=== PATIENT | male | born 1955 | race Caucasian/White ===

== ENCOUNTER 2020-07-09 18:39 | Emergency (ER) | payer MEDICAID, SELFPAY ==
[2020-07-09 18:51] VITALS: BP 143/82; BP 170/80; PULSE 61; PULSE 82; RESP 16; TEMP 36.8; O2SAT 98; BMI 26.6
--- NOTE | 2020-07-09 18:56 | ED_ITS ---
HPI - General Adult General Chief complaint: ETOH/Substance Use Stated complaint: etoh Time Seen by Provider: 07/09/20 18:56 Source: patient Mode of arrival: EMS Limitations: no limitations History of Present Illness HPI narrative: Patient is intoxicated states he coughed dried blood. Patient is a long time alcoholic Onset (ago): minute(s) Severity: mild Associated symptoms: other (urinary frequency) Related Data Allergies Allergy/AdvReac Type Severity Reaction Status Date / Time No Known Allergies Allergy Unknown UNKNOWN Unverified 06/11/20 14:56 [NO KNOWN ALLERGIES] Review of Systems Constitutional: Constitutional: Reports no additional constitutional complaints Eyes: Eyes: Reports no additional eye complaints ENT: Denies dizziness Cardiovascular: Cardiovascular: Reports no additional cardiovascular complaints Respiratory: Respiratory: Reports as per HPI Gastrointestinal: Gastrointestinal: Reports no additional gastrointestinal complaints Musculoskeletal: Musculoskeletal: Reports no additional musculoskeletal complaints Integumentary/Breasts: Skin/Breast: Denies rash Neurologic: Reports system reviewed and no additional complaints, except as documented, Denies dizziness and Denies Sensory deficit (Neuro) Psychiatric: Psychiatric: Denies anxiety [facility] Past Medical History Medical History (Updated 07/09/20 @ 21:01 by Anupam Dozier MD) Patient denies medical problems Social History Social History Alcohol intake: current Alcohol type: beer Use of substances other than those prescribed or required for medical reasons: No Advance Directives: No Advance Directives Information Provided: Yes Physical Exam Vital Signs: Vital Signs: Vital Signs Temp Pulse Resp BP Pulse Ox 07/09/20 18:51 98.2 F 82 16 143/82 H 98 Body Mass Index 26.6 Const: Other: male looking older than stated age Nutritional Appearance: average body habitus Orientation/consciousness: oriented to person Limitations: no limitations HENMT: Head: Yes normal to inspection Ears: external ears normal General nose exam: Normal external nose present Mouth: Normal oral and palatal mucosa present and oropharynx normal Throat: Yes posterior oropharynx normal Eyes: General: appearance normal, both eyes and all related structures Neck: Other: supple Neck: Yes normal visual inspection Chest: Chest palpation & inspection: normal inspection of the chest Resp: Auscultation: clear to auscultation bilaterally Cardio: Jugular venous distension: no JVD Rate: regular rate Rhythm: regular rhythm Heart sounds: S1 normal heart sound present and S2 normal heart sound present GI: Inspection: Yes normal to inspection Palpation (GI): Soft to palpation, nontender and No hepatosplenomegaly present Auscultation: normal bowel sounds : General: Yes no CVA tenderness Back/Spine/Pelvis: Back: no CVA tenderness Skin: General skin exam: no rashes or lesions noted Neuro: General: oriented to person Cranial nerves: Yes CN's II-XII intact bilaterally Motor exam (neuro): 5/5 motor strength present throughout [place] Exam: No Sensory deficit (Neuro) Extrem: General: Yes normal to inspection Psych: Appearance: grossly normal Course Course Course Narrative: no evidence of lung pathology or abnormal UA, patient intoxicated will dc home Medical Decision Making MDM Narrative Medical decision making narrative: rule out for hemoptysis, or uti patient is intoxicated Lab Data Result diagrams: 07/09/20 19:31 07/09/20 19:31 Labs: Lab Results 07/09/20 07/09/20 07/09/20 Range/Units 19:31 19:31 19:31 WBC 8.6 (4.8-10.8) X10*3/uL RBC 3.80 L (4.60-5.80) X10*6/uL Hgb 12.3 L (14.0-18.0) g/dl Hct 35.4 L (42-52) % MCV 93.2 (80-98) fL MCH 32.4 (27.0-33.0) pg MCHC 34.7 (31.0-36.0) g/dl RDW 12.6 (11.0-16.0) % Plt Count 277 (160-400) X10*3/uL MPV 9.6 (9.4-12.4) fL Immature Gran % (Auto) 0.1 (0.0-0.4) % Neut % (Auto) 51.4 (45-73) % Lymph % (Auto) 37.2 (20-40) % [place] % (Auto) 6.6 (2-11) % Eos % (Auto) 3.8 (0-4) % Baso % (Auto) 0.9 (0-2) % Lymph # (Auto) 3.2 (1.2-4.9) X10*3/uL [place] # (Auto) 0.6 (0.1-1.2) X10*3/uL Eos # (Auto) 0.3 (0.0-0.4) X10*3/uL Baso # (Auto) 0.1 (0.0-0.2) X10*3/uL Abs Immat Gran (auto) 0.01 (0.00-0.03) X10*3/uL Absolute Neuts (auto) 4.4 (2.0-8.3) X10*3/uL Absolute Nucleated RBC 0.000 (0.0-0.012) X10*3/uL Nucleated RBC % (auto) 0.0 (0.0-0.2) /100WBC Sodium 132 L (135-145) mmol/L Potassium 3.7 (3.3-5.1) mmol/l Chloride 95 L (96-108) mmol/L Carbon Dioxide 25 (22-29) mmol/L Anion Gap 16 (12-20) BUN 8 L (9-16) mg/dL Creatinine 0.73 (0.5-1.4) mg/dL Estim Creat Clear Calc 98.0 Estimated GFR > 60 Random Glucose 78 (60-115) mg/dL Calcium 9.2 (8.4-10.2) mg/dL Urine Color Urine Appearance Urine pH (5.0-8.0) Ur Specific [place] (1.005-1.025) Urine Protein (NEG-TRACE) MG/DL Urine Glucose (UA) (NEG) MG/DL Urine Ketones (NEG) MG/DL Urine Blood (NEG) Urine Nitrite (NEG) Ur Leukocyte Esterase (NEG) Ethyl Alcohol 148 mg/dL 07/09/20 Range/Units 19:31 WBC (4.8-10.8) X10*3/uL RBC (4.60-5.80) X10*6/uL Hgb (14.0-18.0) g/dl Hct (42-52) % MCV (80-98) fL MCH (27.0-33.0) pg MCHC (31.0-36.0) g/dl RDW (11.0-16.0) % Plt Count (160-400) X10*3/uL MPV (9.4-12.4) fL Immature Gran % (Auto) (0.0-0.4) % Neut % (Auto) (45-73) % Lymph % (Auto) (20-40) % [place] % (Auto) (2-11) % Eos % (Auto) (0-4) % Baso % (Auto) (0-2) % Lymph # (Auto) (1.2-4.9) X10*3/uL [place] # (Auto) (0.1-1.2) X10*3/uL Eos # (Auto) (0.0-0.4) X10*3/uL Baso # (Auto) (0.0-0.2) X10*3/uL Abs Immat Gran (auto) (0.00-0.03) X10*3/uL Absolute Neuts (auto) (2.0-8.3) X10*3/uL Absolute Nucleated RBC (0.0-0.012) X10*3/uL Nucleated RBC % (auto) (0.0-0.2) /100WBC Sodium (135-145) mmol/L Potassium (3.3-5.1) mmol/l Chloride (96-108) mmol/L Carbon Dioxide (22-29) mmol/L Anion Gap (12-20) BUN (9-16) mg/dL Creatinine (0.5-1.4) mg/dL Estim Creat Clear Calc Estimated GFR Random Glucose (60-115) mg/dL Calcium (8.4-10.2) mg/dL Urine Color YELLOW Urine Appearance CLEAR Urine pH 6.0 (5.0-8.0) Ur Specific [place] <= 1.005 (1.005-1.025) Urine Protein NEG (NEG-TRACE) MG/DL Urine Glucose (UA) NEG (NEG) MG/DL Urine Ketones NEG (NEG) MG/DL Urine Blood NEG (NEG) Urine Nitrite NEG (NEG) Ur Leukocyte Esterase NEG (NEG) Ethyl Alcohol mg/dL Discharge Plan Discharge Clinical Impression: Alcoholic intoxication Patient Disposition: Home, Self-Care Instructions: Alcohol Intoxication (ED), Alcohol Dependence (ED)
--- NOTE | 2020-07-09 19:06 | XR_ITS ---
EXAMINATION: XR CHEST CLINICAL INFORMATION: Cough COMPARISON: 11/17/2019 TECHNIQUE: 2 views of the chest were obtained. FINDINGS: No new focal consolidation or mass. Again seen is right greater than left apical pleural parenchymal opacity. Prominent right paratracheal stripe was present on prior studies as well and corresponds to prominent vessels on the CTA 09/25/2018. No pleural effusion or pneumothorax. Tortuous aorta again seen. Normal heart size. Degenerative changes of the thoracic spine and shoulders but no acute osseous abnormality. IMPRESSION: No acute pulmonary disease.
--- NOTE | 2020-07-09 19:27 | PC.NURSE ---
PT ARRIVES VIA EMS, TRIAGED C/O A DRY COUGH AND SPITTING UP BLOOD, DESCRIBED PINK AND YELLOW AND FROTHY . DENIES VOMITING, FEVERS, PAIN. REPORTS HAVING CONSUMED 40OZ BEER TODAY, RECENTLY LEFT DETOX FOR ETOH. APPEARS UNDER THE INFLUENCE, WORDS SLURRED, SLIGHT SWAY TO HIS GAIT. ABLE TO ANSWER TO QUESTIONS APPROPRIATELY. ALSO C/O URINARY URGENCY, RECENTLY TREATED FOR UTI. URINE SPECIMEN PROVIDED, PALE CLEAR YELLOW IN APPEARANCE. MD AT BEDSIDE. LABS DRAWN. VS WNL, SKIN PWD. RESP EVEN AND NONLABOURED.
[2020-07-09 19:38] LABS: MANUAL DIFF FLAG NO
[2020-07-09 19:39] LABS: Basophils Absolute Auto 0.1 X10*3/uL (0.0-0.2); Basophils Percent Auto 0.9 % (0-2); Eosinophils Absolute Auto 0.3 X10*3/uL (0.0-0.4); Eosinophils Percent Auto 3.8 % (0-4); Hematocrit 35.4 % (42-52); Hemoglobin 12.3 g/dl (14.0-18.0); Imm Gran Abs Auto 0.01 X10*3/uL (0.00-0.03); Imm Gran Pct Auto 0.1 % (0.0-0.4); Lymphocytes Absolute Auto 3.2 X10*3/uL (1.2-4.9); Lymphocytes Percent Auto 37.2 % (20-40); Mean Corpuscular HGB Conc 34.7 g/dl (31.0-36.0); Mean Corpuscular Hemoglobin 32.4 pg (27.0-33.0); Mean Corpuscular Volume 93.2 fL (80-98); Mean Platelet Volume 9.6 fL (9.4-12.4); Monocytes Absolute Auto 0.6 X10*3/uL (0.1-1.2); Monocytes Percent Auto 6.6 % (2-11); Neutrophils Absolute Auto 4.4 X10*3/uL (2.0-8.3); Neutrophils Percent Auto 51.4 % (45-73); Platelet Count 277 X10*3/uL (160-400); Red Cell Distribution Width 12.6 % (11.0-16.0); White Blood Count 8.6 X10*3/uL (4.8-10.8)
[2020-07-09 19:49] LABS: Appearance Urine CLEAR; Color Urine YELLOW; Glucose Urine UA NEG (NEG); Leukocyte Esterase Urine NEG (NEG); Nitrite Urine NEG (NEG); Specific Gravity - Urine <= 1.005 (1.005-1.025); Urine Blood NEG (NEG); Urine Ketones NEG (NEG); Urine Protein NEG (NEG-TRACE)
[2020-07-09 20:17] LABS: Ethanol 148 mg/dL
[2020-07-09 20:19] LABS: Anion Gap 16 (12-20); Blood Urea Nitrogen 8 mg/dL (9-16); Calcium 9.2 mg/dL (8.4-10.2); Carbon Dioxide 25 mmol/L (22-29); Chloride 95 mmol/L (96-108); Estimated Glomerular Filt Rate > 60; Glucose Random 78 mg/dL (60-115); Potassium 3.7 mmol/l (3.3-5.1); Sodium 132 mmol/L (135-145)
== END 2020-07-09 21:20 | disposition home or self-care (01) ==
PROVIDERS: Emergency Provider Emergency Medicine
DX: F10.220 Alcohol dependence with intoxication, uncomplicated (principal); Y90.6 Blood alcohol level of 120-199 mg/100 ml
CPT/HCPCS: 36415; 71046; 80048; 80320; 81003; 85025; 99284

== ENCOUNTER 2020-07-10 22:29 | Emergency (ER) | payer MEDICAID, SELFPAY ==
--- NOTE | 2020-07-10 22:40 | ED_ITS ---
HPI - Alcohol General Chief Complaint: Nausea/Vomiting/Diarrhea Stated Complaint: nausea vomiting Time Seen by Provider: 07/10/20 22:37 Source: patient Mode of arrival: EMS Limitations: no limitations History of Present Illness HPI narrative: found intoxicated by EMS MD complaint: alcohol intoxication Last drink: Just prior to admission Amount of alcohol consumed: unknown Chronic alcohol use: Yes Previous visits for alcohol intoxication: Yes Related Data Allergies Allergy/AdvReac Type Severity Reaction Status Date / Time No Known Allergies Allergy Unknown UNKNOWN Unverified 06/11/20 14:56 [NO KNOWN ALLERGIES] Review of Systems Constitutional: Constitutional: Reports no additional constitutional complaints Eyes: Eyes: Reports no additional eye complaints ENT: Denies dizziness Cardiovascular: Cardiovascular: Reports no additional cardiovascular complaints Respiratory: Respiratory: Reports as per HPI Gastrointestinal: Gastrointestinal: Reports no additional gastrointestinal complaints Musculoskeletal: Musculoskeletal: Reports no additional musculoskeletal complaints Integumentary/Breasts: Skin/Breast: Denies rash Neurologic: Reports system reviewed and no additional complaints, except as documented, Denies dizziness and Denies Sensory deficit (Neuro) Psychiatric: Psychiatric: Denies anxiety [facility] Past Medical History Medical History (Updated 07/10/20 @ 22:44 by Genesis Frey) No known health problems Patient denies medical problems Social History Social History Alcohol intake: current Alcohol intake frequency: 3 or more drinks per day Alcohol type: beer Smoking Status: Current every day smoker Use of substances other than those prescribed or required for medical reasons: No Advance Directives: No Advance Directives Information Provided: Yes Physical Exam Vital Signs: Vital Signs: Vital Signs Temp Pulse Resp BP Pulse Ox 07/10/20 23:52 88 16 140/87 H 96 07/10/20 23:12 99 07/10/20 22:41 97.3 F 93 18 159/95 H 99 Body Mass Index 22.7 Const: Other: male looking older than stated age intoxicated, thin Orientation/consciousness: oriented to person and patient oriented x3 Limitations: no limitations HENMT: Head: Yes normal to inspection Ears: external ears normal General nose exam: Normal external nose present Mouth: Normal oral and palatal mucosa present and oropharynx normal Throat: Yes posterior oropharynx normal Eyes: General: appearance normal, both eyes and all related structures Neck: Other: supple Neck: Yes normal visual inspection Chest: Chest palpation & inspection: normal inspection of the chest Resp: Auscultation: clear to auscultation bilaterally Cardio: Jugular venous distension: no JVD Rate: regular rate Rhythm: regular rhythm Heart sounds: S1 normal heart sound present and S2 normal heart sound present GI: Inspection: Yes normal to inspection Palpation (GI): Soft to palpation, nontender and No hepatosplenomegaly present Auscultation: normal bowel sounds : General: Yes no CVA tenderness Back/Spine/Pelvis: Back: no CVA tenderness Skin: General skin exam: no rashes or lesions noted Neuro: General: oriented to person and patient oriented x3 Cranial nerves: Yes CN's II-XII intact bilaterally Motor exam (neuro): 5/5 motor strength present throughout Sensory Exam: No Sensory deficit (Neuro) Extrem: General: Yes normal to inspection Psych: Appearance: grossly normal Course Course Course Narrative: Patient no longer vomiting will dc home MDM - Alcohol MDM Narrative Medical decision making narrative: alcohol intoxication and vomiting, doing better will dc home Differential Diagnosis Differential diagnosis: Likely alcohol dependence and alcohol intoxication Lab Data Attestation: I reviewed the patient's lab results. Result diagrams: 07/10/20 23:01 07/10/20 23:51 Labs: Lab Results 07/10/20 07/10/20 07/10/20 Range/Units 01:57 23:01 23:01 WBC 7.7 (4.8-10.8) X10*3/uL RBC 3.81 L (4.60-5.80) X10*6/uL Hgb 12.3 L (14.0-18.0) g/dl Hct 35.7 L (42-52) % MCV 93.7 (80-98) fL MCH 32.3 (27.0-33.0) pg MCHC 34.5 (31.0-36.0) g/dl RDW 12.6 (11.0-16.0) % Plt Count 247 (160-400) X10*3/uL MPV 9.6 (9.4-12.4) fL Immature Gran % (Auto) 0.1 (0.0-0.4) % Neut % (Auto) 50.6 (45-73) % Lymph % (Auto) 35.7 (20-40) % [place] % (Auto) 7.0 (2-11) % Eos % (Auto) 5.7 H (0-4) % Baso % (Auto) 0.9 (0-2) % Lymph # (Auto) 2.8 (1.2-4.9) X10*3/uL [place] # (Auto) 0.5 (0.1-1.2) X10*3/uL Eos # (Auto) 0.4 (0.0-0.4) X10*3/uL Baso # (Auto) 0.1 (0.0-0.2) X10*3/uL Abs Immat Gran (auto) 0.01 (0.00-0.03) X10*3/uL Absolute Neuts (auto) 3.9 (2.0-8.3) X10*3/uL Absolute Nucleated RBC 0.000 (0.0-0.012) X10*3/uL Nucleated RBC % (auto) 0.0 (0.0-0.2) /100WBC Sodium Cancelled Potassium Cancelled Chloride Cancelled Carbon Dioxide Cancelled Anion Gap Cancelled BUN Cancelled Creatinine Cancelled Estim Creat Clear Calc Cancelled Estimated GFR Cancelled Random Glucose Cancelled Calcium Cancelled Ethyl Alcohol 107 mg/dL 07/10/20 Range/Units 23:51 WBC (4.8-10.8) X10*3/uL RBC (4.60-5.80) X10*6/uL Hgb (14.0-18.0) g/dl Hct (42-52) % MCV (80-98) fL MCH (27.0-33.0) pg MCHC (31.0-36.0) g/dl RDW (11.0-16.0) % Plt Count (160-400) X10*3/uL MPV (9.4-12.4) fL Immature Gran % (Auto) (0.0-0.4) % Neut % (Auto) (45-73) % Lymph % (Auto) (20-40) % [place] % (Auto) (2-11) % Eos % (Auto) (0-4) % Baso % (Auto) (0-2) % Lymph # (Auto) (1.2-4.9) X10*3/uL [place] # (Auto) (0.1-1.2) X10*3/uL Eos # (Auto) (0.0-0.4) X10*3/uL Baso # (Auto) (0.0-0.2) X10*3/uL Abs Immat Gran (auto) (0.00-0.03) X10*3/uL Absolute Neuts (auto) (2.0-8.3) X10*3/uL Absolute Nucleated RBC (0.0-0.012) X10*3/uL Nucleated RBC % (auto) (0.0-0.2) /100WBC Sodium 136 Potassium 3.4 Chloride 100 Carbon Dioxide 24 Anion Gap 15 BUN 7 L Creatinine 0.63 Estim Creat Clear Calc 113.0 Estimated GFR > 60 Random Glucose 88 Calcium 8.5 Ethyl Alcohol mg/dL Discharge Plan Discharge Clinical Impression: Alcohol abuse Patient Disposition: Home, Self-Care Instructions: Abuse of Alcohol (ED) Additional Instructions: fluids as tolerated Referrals: Physician,Unknown [Primary Care Provider] - 2 days
[2020-07-10 22:41] VITALS: BP 159/95; PULSE 101; PULSE 93; RESP 18; TEMP 36.3; O2SAT 99; BMI 22.7
[2020-07-10] MEDS: 0.9 % Sodium Chloride 500 ML 1000 ML IV (23:04)
[2020-07-10 23:05] LABS: MANUAL DIFF FLAG NO
[2020-07-10] MEDS: ondansetron HCL 4 MG/2 ML VIAL IVPUSH (23:05)
[2020-07-10 23:06] LABS: Basophils Absolute Auto 0.1 X10*3/uL (0.0-0.2); Basophils Percent Auto 0.9 % (0-2); Eosinophils Absolute Auto 0.4 X10*3/uL (0.0-0.4); Eosinophils Percent Auto 5.7 % (0-4); Hematocrit 35.7 % (42-52); Hemoglobin 12.3 g/dl (14.0-18.0); Imm Gran Abs Auto 0.01 X10*3/uL (0.00-0.03); Imm Gran Pct Auto 0.1 % (0.0-0.4); Lymphocytes Absolute Auto 2.8 X10*3/uL (1.2-4.9); Lymphocytes Percent Auto 35.7 % (20-40); Mean Corpuscular HGB Conc 34.5 g/dl (31.0-36.0); Mean Corpuscular Hemoglobin 32.3 pg (27.0-33.0); Mean Corpuscular Volume 93.7 fL (80-98); Mean Platelet Volume 9.6 fL (9.4-12.4); Monocytes Absolute Auto 0.5 X10*3/uL (0.1-1.2); Neutrophils Absolute Auto 3.9 X10*3/uL (2.0-8.3); Neutrophils Percent Auto 50.6 % (45-73); Platelet Count 247 X10*3/uL (160-400); Red Blood Count 3.81 X10*6/uL (4.60-5.80); Red Cell Distribution Width 12.6 % (11.0-16.0); White Blood Count 7.7 X10*3/uL (4.8-10.8)
--- NOTE | 2020-07-10 23:11 | PC.NURSE ---
IV ACCESS OBTAINED, SPECIMENS SENT TO LAB, PT MEDICATED PER MAR. IVF HUNG AND INFUSING WITHOUT DIFFICULTY. AWAITING RESULTS. AWARE OF PLAN OF CARE.
[2020-07-10 23:12] VITALS: O2SAT 99
--- NOTE | 2020-07-10 23:19 | PC.NURSE ---
PT GIVEN WARM BLANKET CALL REARDON WITHIN REACH. REQUESTING SNACK.
[2020-07-10 23:44] LABS: Ethanol 107 mg/dL
[2020-07-10 23:52] VITALS: BP 140/87; PULSE 88; RESP 16; O2SAT 96
--- NOTE | 2020-07-11 00:02 | PC.NURSE ---
PT EATING SNACK, TOLERATING PO WITHOUTDIFFICULTY.
[2020-07-11 00:26] LABS: Anion Gap 15 (12-20); Blood Urea Nitrogen 7 mg/dL (9-16); Calcium 8.5 mg/dL (8.4-10.2); Carbon Dioxide 24 mmol/L (22-29); Chloride 100 mmol/L (96-108); Estimated Glomerular Filt Rate > 60; Glucose Random 88 mg/dL (60-115); Potassium 3.4 mmol/l (3.3-5.1); Sodium 136 mmol/L (135-145)
--- NOTE | 2020-07-11 01:35 | PC.NURSE ---
PT RESTING IN BED NO DISTRESS NOTED AWAITING MD REEVAL.
[2020-07-11 02:00] VITALS: RESP 16
[2020-07-11 04:00] VITALS: RESP 16
== END 2020-07-11 05:33 | disposition home or self-care (01) ==
PROVIDERS: Emergency Provider Emergency Medicine
DX: F10.10 Alcohol abuse, uncomplicated (principal); R11.10 Vomiting, unspecified; Y90.5 Blood alcohol level of 100-119 mg/100 ml; F17.200 Nicotine dependence, unspecified, uncomplicated; Z71.6 Tobacco abuse counseling
CPT/HCPCS: 36415; 80048; 80320; 85025; 96374; 99284; J2405

== ENCOUNTER 2020-07-11 19:17 | Emergency (ER) | payer MEDICAID, SELFPAY ==
[2020-07-11 19:41] VITALS: BP 118/84; PULSE 92; RESP 16; TEMP 37.1; O2SAT 99; BMI 22.4
[2020-07-11 20:40] VITALS: PULSE 95; O2SAT 97
[2020-07-11 22:47] VITALS: BP 128/64; PULSE 94; RESP 19; TEMP 37.1; O2SAT 97
[2020-07-11 23:18] LABS: Glucose Urine UA NEG (NEG); Leukocyte Esterase Urine 1+ (NEG); Nitrite Urine POS (NEG); Urine Blood 1+ (NEG); Urine Ketones NEG (NEG); Urine Protein NEG (NEG-TRACE)
[2020-07-11 23:19] LABS: Appearance Urine HAZY; Color Urine YELLOW
[2020-07-11 23:52] LABS: Bacteria Urine 4+ /LPF; Squamous Epithelial Cell Urine 1+ /LPF
--- NOTE | 2020-07-12 00:02 | ED_ITS ---
HPI - Alcohol General Chief Complaint: Nausea/Vomiting/Diarrhea <ANNY Gardner Last Filed: 07/12/20 00:44> Stated Complaint: etoh <ANNY Gardner Last Filed: 07/12/20 00:44> Time Seen by Provider: 07/11/20 20:52 <ANNY Gardner Last Filed: 07/12/20 00:44> Source: EMS <ANNY Gardner Last Filed: 07/12/20 00:44> Mode of arrival: EMS <ANNY Gardner Last Filed: 07/12/20 00:44> History of Present Illness HPI narrative: 64-year-old male with past medical history of alcohol abuse presenting to ED BIBA for alcohol intoxication. Patient reports acute on chronic abdominal cramping, nausea, emesis, and right foot pain when walking. Reports feels like foot bone displaces during long walks. Also reports dry blood from rectum from hemorrhoids. Denies falls/trauma, other illicit drug use <ANNY Gardner Last Filed: 07/12/20 00:44> MD complaint: alcohol intoxication <ANNY Gardner Last Filed: 07/12/20 00:44> Last drink: Just prior to admission <ANNY Gardner Last Filed: 07/12/20 00:44> Related Data Home Medications: Previous Rx's Medication Instructions Recorded nitrofurantoin monohyd/m-cryst 100 mg PO Q12H 7 Days #14 cap 07/12/20 [Macrobid] <ANNY Gardner Last Filed: 07/12/20 00:44> Allergies/Adverse Reactions: Allergies Allergy/AdvReac Type Severity Reaction Status Date / Time No Known Allergies Allergy Unknown UNKNOWN Verified 07/11/20 19:44 [NO KNOWN ALLERGIES] <ANNY Gardner Last Filed: 07/12/20 00:44> Review of Systems Review of Systems: Constitutional: No Weight loss, No Fever Cardiovascular: No Chest Pain, No SOB Respiratory: + Cough Gastrointestinal: +Nausea, + Vomiting, No Diarrhea, No Constipation, +chronic Abdominal pain, No Melena Musculoskeletal: +R foot pain, No Myalgias, No Joint Swelling Skin: No Skin Lesions, No rash <ANNY Gardner Last Filed: 07/12/20 00:44> [facility] Past Medical History Source: old records reviewed and nursing notes reviewed <ANNY Gardner - Last Filed: 07/12/20 00:44> Medical History: Medical History (Updated 07/12/20 @ 00:47 by ANNY Gardner) No known health problems Patient denies medical problems <ANNY Gardner - Last Filed: 07/12/20 00:44> Social History Social History: Social History Alcohol intake: current Alcohol intake frequency: 3 or more drinks per day Alcohol type: beer Smoking Status: Current every day smoker Use of substances other than those prescribed or required for medical reasons: No Advance Directives: No <ANNY Gardner - Last Filed: 07/12/20 00:44> Physical Exam Vital Signs: Vital Signs: Vital Signs Temp Pulse Resp BP Pulse Ox 07/12/20 03:15 98.6 F 99 19 116/68 96 07/12/20 01:52 98.5 F 96 17 118/67 95 07/11/20 22:47 98.7 F 94 19 128/64 97 07/11/20 20:40 97 07/11/20 19:41 98.7 F 92 16 118/84 99 Body Mass Index 22.4 <ANNY Gardner - Last Filed: 07/12/20 00:44> Vital Signs: Vital Signs Temp Pulse Resp BP Pulse Ox 07/12/20 03:15 98.6 F 99 19 116/68 96 07/12/20 01:52 98.5 F 96 17 118/67 95 07/11/20 22:47 98.7 F 94 19 128/64 97 07/11/20 20:40 97 07/11/20 19:41 98.7 F 92 16 118/84 99 Body Mass Index 22.4 <Renetta Little MD - Last Filed: 07/12/20 03:16> Const: Other: ETOH odor on breath <ANNY Gardner - Last Filed: 07/12/20 00:44> General: intoxicated appearing <ANNY Gardner - Last Filed: 07/12/20 00:44> HENMT: Other: atraumatic <ANNY Gardner - Last Filed: 07/12/20 00:44> Head: Yes normal to inspection <ANNY Gardner - Last Filed: 07/12/20 00:44> Ears: hearing grossly normal bilaterally <ANNY Gardner - Last Filed: 07/12/20 00:44> General nose exam: Normal external nose present <ANNY Gardner - Last Filed: 07/12/20 00:44> Face and sinus: Yes normal facial exam <ANNY Gardner - Last Filed: 07/12/20 00:44> Eyes: General: appearance normal, both eyes and all related structures <ANNY Gardner - Last Filed: 07/12/20 00:44> EOM: EOMs intact bilaterally <ANNY Gardner - Last Filed: 07/12/20 00:44> Neck: Neck: Yes normal visual inspection <ANNY Gardner - Last Filed: 07/12/20 00:44> Resp: Effort & Inspection: normal respiratory effort <ANNY Gardner - Last Filed: 07/12/20 00:44> Cardio: Rate: regular rate <ANNY Gardner - Last Filed: 07/12/20 00:44> GI: Inspection: Yes normal to inspection <ANNY Gardner - Last Filed: 07/12/20 00:44> Palpation (GI): Soft to palpation, nontender, no guarding and not rigid <ANNY Gardner - Last Filed: 07/12/20 00:44> Skin: Rashes: no rashes <ANNY Gardner - Last Filed: 07/12/20 00:44> Wounds: no wounds <ANNY Gardner - Last Filed: 07/12/20 00:44> Extrem: Other: right foot with mild tenderness. No deformity/erythema/ fluctuance/induration <ANNY Gardner - Last Filed: 07/12/20 00:44> Course Course Course Narrative: - UA infected >> 1st dose Macrobid ordered in the ED - right foot x-ray with diffuse osteopenia. No evidence of acute osseous abnormality. 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 Little pending clinical sobreity <ANNY Gardner - Last Filed: 07/12/20 00:44> MDM - Alcohol MDM Narrative Medical decision making narrative: 64-year-old male with past medical history of alcohol abuse presenting to ED BIBA for alcohol intoxication. On exam VSS, NAD, intoxicated, TENA, with n ausea/ spitting up on exam. Patient was seen and evaluated in ED the past two nights for similar symptoms, on 07/09 had labs/ CXR that were WNL. Likely acute on chronic alcohol intoxication with alcohol dependence. Rule out foot fracture. Low concern for GI bleed/other infectious etiology plan: Foot x-ray , Zofran, observed and reassessed for clinical sobriety <ANNY Gardner - Last Filed: 07/12/20 00:44> Lab Data Labs: Lab Results 07/11/20 Range/Units 23:01 Urine Color YELLOW Urine Appearance HAZY Urine pH 7.0 (5.0-8.0) Ur Specific [place] 1.010 (1.005-1.025) Urine Protein NEG (NEG-TRACE) MG/DL Urine Glucose (UA) NEG (NEG) MG/DL Urine Ketones NEG (NEG) MG/DL Urine Blood 1+ H (NEG) Urine Nitrite POS H (NEG) Ur Leukocyte Esterase 1+ H (NEG) Urine RBC 1-4 (0) /HPF Urine WBC 15-29 H (0-4) /HPF Ur Squamous Epith Cells 1+ /LPF Urine Bacteria 4+ /LPF <ANNY Gardner - Last Filed: 07/12/20 00:44> Lab Results 07/11/20 Range/Units 23:01 Urine Color YELLOW Urine Appearance HAZY Urine pH 7.0 (5.0-8.0) Ur Specific [place] 1.010 (1.005-1.025) Urine Protein NEG (NEG-TRACE) MG/DL Urine Glucose (UA) NEG (NEG) MG/DL Urine Ketones NEG (NEG) MG/DL Urine Blood 1+ H (NEG) Urine Nitrite POS H (NEG) Ur Leukocyte Esterase 1+ H (NEG) Urine RBC 1-4 (0) /HPF Urine WBC 15-29 H (0-4) /HPF Ur Squamous Epith Cells 1+ /LPF Urine Bacteria 4+ /LPF <Renetta Little MD - Last Filed: 07/12/20 03:16> Discharge Plan Discharge Clinical Impression: Alcohol intoxication, Acute UTI <ANNY Gardner - Last Filed: 07/12/20 00:44> Patient Disposition: Home, Self-Care <ANNY Gardner - Last Filed: 07/12/20 00:44> Instructions: Urinary Tract Infection in Men (ED), Alcohol Dependence (ED) <ANNY Gardner - Last Filed: 07/12/20 00:44> Additional Instructions: you have a urinary tract infection. Macrobid is an antibiotic, take as prescribed Stop drinking alcohol as it can kill you Follow up with her doctor Stay hydrated at home If you have worsening urine symptoms, abdominal pain, nausea /vomiting or fever return to the ED <ANNY Gardner Last Filed: 07/12/20 00:44> Prescriptions: New nitrofurantoin monohyd/m-cryst [Macrobid] 100 mg capsule 100 mg PO Q12H 7 Days Qty: 14 RF: 0 <ANNY Gardner Last Filed: 07/12/20 00:44> Referrals: ED Physician,Generic [Emergency Provider] - 3 days ( your primary care doctor) Physician,Unknown [Primary Care Provider] - 2 days <ANNY Gardner Last Filed: 07/12/20 00:44>
--- NOTE | 2020-07-12 00:03 | XR_ITS ---
EXAMINATION: XR FOOT, RIGHT CLINICAL INFORMATION: Right mid foot pain. COMPARISON: None TECHNIQUE: AP, lateral, and oblique views of the right foot. FINDINGS: Severe osteoarthritic changes are noted at the 1st MTP joint with narrowing of the joint space, subarticular sclerosis and cystic changes, irregularity of the articular margins and marginal osteophytosis. Diffuse osteopenia. 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 Recommend correlation with surgical history. No evidence of an acute fracture or dislocation. No soft tissue air or radiopaque foreign body. IMPRESSION: Diffuse osteopenia. No evidence of an acute osseous abnormality. Severe osteoarthritic changes at the 1st MTP joint in the right foot.
[2020-07-12] MEDS: Nitrofurantoin Monohyd/M-Cryst 100 MG CAPSULE PO (01:48)
[2020-07-12 01:52] VITALS: BP 118/67; PULSE 96; RESP 17; TEMP 36.9; O2SAT 95
[2020-07-12 03:15] VITALS: BP 116/68; PULSE 99; RESP 19; TEMP 37; O2SAT 96
[2020-07-12 04:00] VITALS: PULSE 15
== END 2020-07-12 05:44 | disposition home or self-care (01) ==
PROVIDERS: Physician Assistant; Emergency Provider Student in an Organized Health Care Education/Training Program
DX: F10.120 Alcohol abuse with intoxication, uncomplicated (principal); N39.0 Urinary tract infection, site not specified; F17.200 Nicotine dependence, unspecified, uncomplicated
CPT/HCPCS: 73630; 81001; 87086; 87088; 87186; 99283; 99285

== ENCOUNTER 2020-07-12 21:01 | Emergency (ER) | payer MEDICAID, SELFPAY ==
[2020-07-12 21:09] VITALS: BP 148/82; BP 150/84; PULSE 88; PULSE 94; RESP 16; O2SAT 100; O2SAT 99; BMI 21.7
--- NOTE | 2020-07-12 21:55 | ED_ITS ---
HPI - Abdominal Pain General Chief Complaint: Abdominal Pain Stated Complaint: abd pain etoh Time Seen by Provider: 07/12/20 21:47 Source: patient Mode of arrival: ambulatory Limitations: no limitations History of Present Illness HPI narrative: patient comes to the emergency room complaining of alcohol intoxication. ON arrival to the ED, pt complained of abdominal pain. Patient is intoxicated, unable to give significant history other than his abdomen hurts. patient's nurse states that when the patient got here, he told her that the abdominal pain has been present for 1 year MD elicited complaint: abdominal pain Related Data Previous Rx's Medication Instructions Recorded nitrofurantoin monohyd/m-cryst 100 mg PO Q12H 7 Days #14 cap 07/12/20 [Macrobid] Allergies Allergy/AdvReac Type Severity Reaction Status Date / Time No Known Allergies Allergy Unknown UNKNOWN Verified 07/11/20 19:44 [NO KNOWN ALLERGIES] Review of Systems Review of Systems Yes all other systems are reviewed and are negative Comments: diffuse abdominal pain, worse in the epigastric area Physical Exam Vital Signs: Vital Signs: Vital Signs Pulse Resp BP Pulse Ox 07/13/20 01:03 95 14 144/86 H 99 07/12/20 23:33 16 07/12/20 21:09 88 16 148/82 H 99 Body Mass Index 21.7 Const: Other: intoxicated HENMT: Head: Yes normal to inspection Ears: external ears normal General nose exam: Normal external nose present Eyes: General: appearance normal, both eyes and all related structures Neck: Neck: Yes normal visual inspection Chest: Chest palpation & inspection: normal inspection of the chest Resp: Other: normal breath sounds bilaterally, no wheezing rales or crackles Effort & Inspection: able to speak in complete sentences Cardio: Heart sounds: S1 normal heart sound present and S2 normal heart sound present GI: Other: diffuse abdominal pain on palpation, seems to be worse in the epigastric area : General: Yes no CVA tenderness Back/Spine/Pelvis: Back: no CVA tenderness Skin: General skin exam: no rashes or lesions noted Neuro: Other: intoxicated, cranial nerves 2-12 grossly intact Extrem: General: Yes normal to inspection Psych: Other: intoxicated, calm and cooperative Course Course Course Narrative: patient remains intoxicated, I talked to the patient, seems that 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 MDM - Abdominal Pain MDM Narrative Medical decision making narrative: Patient received 1 dose of IM ceftriaxone. 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 Please reassess in the morning, metabolize to freedom, then discharge, patient may need a reprinted of his Macrobid prescription. Sign-out given to Dr. Little Lab Data Result diagrams: 07/12/20 22:11 07/12/20 22:11 Labs: Lab Results 07/12/20 07/12/20 07/12/20 Range/Units 22:11 22:11 22:11 WBC 15.4 H (4.8-10.8) X10*3/uL RBC 3.57 L (4.60-5.80) X10*6/uL Hgb 11.9 L (14.0-18.0) g/dl Hct 34.0 L (42-52) % MCV 95.2 (80-98) fL MCH 33.3 H (27.0-33.0) pg MCHC 35.0 (31.0-36.0) g/dl RDW 13.0 (11.0-16.0) % Plt Count 228 (160-400) X10*3/uL MPV 10.0 (9.4-12.4) fL Immature Gran % (Auto) 0.2 (0.0-0.4) % Neut % (Auto) 75.2 H (45-73) % Lymph % (Auto) 16.9 L (20-40) % [place] % (Auto) 5.6 (2-11) % Eos % (Auto) 1.6 (0-4) % Baso % (Auto) 0.5 (0-2) % Lymph # (Auto) 2.6 (1.2-4.9) X10*3/uL [place] # (Auto) 0.9 (0.1-1.2) X10*3/uL Eos # (Auto) 0.2 (0.0-0.4) X10*3/uL Baso # (Auto) 0.1 (0.0-0.2) X10*3/uL Abs Immat Gran (auto) 0.03 (0.00-0.03) X10*3/uL Absolute Neuts (auto) 11.6 H (2.0-8.3) X10*3/uL Absolute Nucleated RBC 0.000 (0.0-0.012) X10*3/uL Nucleated RBC % (auto) 0.0 (0.0-0.2) /100WBC Sodium 133 L (135-145) mmol/L Potassium 4.0 (3.3-5.1) mmol/l Chloride 97 (96-108) mmol/L Carbon Dioxide 23 (22-29) mmol/L Anion Gap 17 (12-20) BUN 5 L (9-16) mg/dL Creatinine 0.65 (0.5-1.4) mg/dL Estim Creat Clear Calc 101.6 Estimated GFR > 60 Random Glucose 86 (60-115) mg/dL Calcium 8.9 (8.4-10.2) mg/dL Total Bilirubin 0.6 (0.0-1.0) mg/dL Direct Bilirubin 0.3 (0.0-0.5) mg/dL AST 21 (5-37) U/L ALT 9 (0-40) U/L Alkaline Phosphatase 56 (39-117) U/L Total Protein 7.1 (6.5-8.0) g/dL Albumin 3.8 (3.5-5.0) g/dL Lipase 30 (8-78) U/L Urine Color YELLOW Urine Appearance HAZY Urine pH 6.0 (5.0-8.0) Ur Specific [place] 1.010 (1.005-1.025) Urine Protein TRACE (NEG-TRACE) MG/DL Urine Glucose (UA) NEG (NEG) MG/DL Urine Ketones NEG (NEG) MG/DL Urine Blood 2+ H (NEG) Urine Nitrite NEG (NEG) Ur Leukocyte Esterase 2+ H (NEG) Urine RBC 1-4 (0) /HPF Urine WBC 15-29 H (0-4) /HPF Ur Squamous Epith Cells 1+ /LPF Urine Bacteria 1+ /LPF Urine Opiates Screen (Not Detect) Ur Barbiturates Screen (Not Detect) Ur Phencyclidine Scrn (Not Detect) Ur Amphetamines Screen (Not Detect) U Benzodiazepines Scrn (Not Detect) Urine Cocaine Screen (Not Detect) U Marijuana (THC) Screen (Not Detect) 07/12/20 Range/Units 22:11 WBC (4.8-10.8) X10*3/uL RBC (4.60-5.80) X10*6/uL Hgb (14.0-18.0) g/dl Hct (42-52) % MCV (80-98) fL MCH (27.0-33.0) pg MCHC (31.0-36.0) g/dl RDW (11.0-16.0) % Plt Count (160-400) X10*3/uL MPV (9.4-12.4) fL Immature Gran % (Auto) (0.0-0.4) % Neut % (Auto) (45-73) % Lymph % (Auto) (20-40) % [place] % (Auto) (2-11) % Eos % (Auto) (0-4) % Baso % (Auto) (0-2) % Lymph # (Auto) (1.2-4.9) X10*3/uL [place] # (Auto) (0.1-1.2) X10*3/uL Eos # (Auto) (0.0-0.4) X10*3/uL Baso # (Auto) (0.0-0.2) X10*3/uL Abs Immat Gran (auto) (0.00-0.03) X10*3/uL Absolute Neuts (auto) (2.0-8.3) X10*3/uL Absolute Nucleated RBC (0.0-0.012) X10*3/uL Nucleated RBC % (auto) (0.0-0.2) /100WBC Sodium (135-145) mmol/L Potassium (3.3-5.1) mmol/l Chloride (96-108) mmol/L Carbon Dioxide (22-29) mmol/L Anion Gap (12-20) BUN (9-16) mg/dL Creatinine (0.5-1.4) mg/dL Estim Creat Clear Calc Estimated GFR Random Glucose (60-115) mg/dL Calcium (8.4-10.2) mg/dL Total Bilirubin (0.0-1.0) mg/dL Direct Bilirubin (0.0-0.5) mg/dL AST (5-37) U/L ALT (0-40) U/L Alkaline Phosphatase (39-117) U/L Total Protein (6.5-8.0) g/dL Albumin (3.5-5.0) g/dL Lipase (8-78) U/L Urine Color Urine Appearance Urine pH (5.0-8.0) Ur Specific [place] (1.005-1.025) Urine Protein (NEG-TRACE) MG/DL Urine Glucose (UA) (NEG) MG/DL Urine Ketones (NEG) MG/DL Urine Blood (NEG) Urine Nitrite (NEG) Ur Leukocyte Esterase (NEG) Urine RBC (0) /HPF Urine WBC (0-4) /HPF Ur Squamous Epith Cells /LPF Urine Bacteria /LPF Urine Opiates Screen Not Detected (Not Detect) Ur Barbiturates Screen Not Detected (Not Detect) Ur Phencyclidine Scrn Not Detected (Not Detect) Ur Amphetamines Screen Not Detected (Not Detect) U Benzodiazepines Scrn Not Detected (Not Detect) Urine Cocaine Screen Not Detected (Not Detect) U Marijuana (THC) Screen Not Detected (Not Detect) Discharge Plan Discharge Clinical Impression: Urinary tract infection, Alcohol intoxication Prescriptions: No Action nitrofurantoin monohyd/m-cryst [Macrobid] 100 mg capsule 100 mg PO Q12H 7 Days Qty: 14 RF: 0 PMFSH Past Medical History Medical History Alcohol abuse Hard of hearing No known health problems Patient denies medical problems Social History Social History Alcohol intake: current Alcohol intake frequency: 3 or more drinks per day Alcohol type: beer Smoking Status: Current every day smoker Use of substances other than those prescribed or required for medical reasons: No Advance Directives: No Advance Directives Information Provided: No
[2020-07-12 22:18] LABS: MANUAL DIFF FLAG NO
[2020-07-12 22:20] LABS: Basophils Absolute Auto 0.1 X10*3/uL (0.0-0.2); Basophils Percent Auto 0.5 % (0-2); Eosinophils Absolute Auto 0.2 X10*3/uL (0.0-0.4); Eosinophils Percent Auto 1.6 % (0-4); Hemoglobin 11.9 g/dl (14.0-18.0); Imm Gran Abs Auto 0.03 X10*3/uL (0.00-0.03); Imm Gran Pct Auto 0.2 % (0.0-0.4); Lymphocytes Absolute Auto 2.6 X10*3/uL (1.2-4.9); Lymphocytes Percent Auto 16.9 % (20-40); Mean Corpuscular Hemoglobin 33.3 pg (27.0-33.0); Mean Corpuscular Volume 95.2 fL (80-98); Monocytes Absolute Auto 0.9 X10*3/uL (0.1-1.2); Monocytes Percent Auto 5.6 % (2-11); Neutrophils Absolute Auto 11.6 X10*3/uL (2.0-8.3); Neutrophils Percent Auto 75.2 % (45-73); Platelet Count 228 X10*3/uL (160-400); Red Blood Count 3.57 X10*6/uL (4.60-5.80); White Blood Count 15.4 X10*3/uL (4.8-10.8)
--- NOTE | 2020-07-12 22:42 | PC.NURSE ---
IV established, labs and urine obtained and sent. Pt aware of plan to CT.
[2020-07-12 22:44] LABS: Glucose Urine UA NEG (NEG); Leukocyte Esterase Urine 2+ (NEG); Nitrite Urine NEG (NEG); Urine Blood 2+ (NEG); Urine Ketones NEG (NEG); Urine Protein TRACE MG/DL (NEG-TRACE)
[2020-07-12 22:45] LABS: Appearance Urine HAZY; Color Urine YELLOW
[2020-07-12 23:01] LABS: Alanine Aminotransferase 9 U/L (0-40); Albumin Level 3.8 g/dL (3.5-5.0); Alkaline Phosphatase 56 U/L (39-117); Anion Gap 17 (12-20); Aspartate Amino Transferase 21 U/L (5-37); Bilirubin Direct 0.3 mg/dL (0.0-0.5); Bilirubin Total 0.6 mg/dL (0.0-1.0); Blood Urea Nitrogen 5 mg/dL (9-16); Calcium 8.9 mg/dL (8.4-10.2); Carbon Dioxide 23 mmol/L (22-29); Chloride 97 mmol/L (96-108); Creatinine Clr Calc Pharmacy 101.6; Estimated Glomerular Filt Rate > 60; Glucose Random 86 mg/dL (60-115); Lipase 30 U/L (8-78); Sodium 133 mmol/L (135-145); Total Protein 7.1 g/dL (6.5-8.0)
[2020-07-12 23:03] LABS: Bacteria Urine 1+ /LPF; Squamous Epithelial Cell Urine 1+ /LPF
[2020-07-12 23:33] VITALS: RESP 16
--- NOTE | 2020-07-12 23:33 | PC.NURSE ---
Pt sleeping in bed at this time, visible chest rise noted, RR 16/min, awaiting CT.
[2020-07-12 23:34] LABS: Amphetamine Screen Urine Not Detected (Not Detect); Barbiturates, Urine Not Detected (Not Detect); Benzodiazepines Screen Urine Not Detected (Not Detect); Cannabinoid Screen Urine Not Detected (Not Detect); Cocaine Screen Urine Not Detected (Not Detect); Opiate Screen Urine Not Detected (Not Detect); Phencyclidine Screen Urine Not Detected (Not Detect)
--- NOTE | 2020-07-13 00:15 | CT_ITS ---
EXAMINATION: CT ABDOMEN AND PELVIS WITH CONTRAST CLINICAL INFORMATION: Diffuse abdominal pain, worse epigastrium COMPARISON: 05/12/2017 TECHNIQUE: Multidetector volumetric images were obtained from the superior aspect of the liver through the pubic symphysis following administration 85 mL of Omnipaque 350 intravenous contrast. Sagittal and coronal reformatted images were obtained on the technologist's workstation. Oral contrast: No This CT examination was performed using dose optimization techniques as appropriate, variously including the following: *Automated exposure control *Adjustment of mA and/or kV according to patient size (this includes techniques or standardized protocols for targeted exams where dose is matched to indication/reason for exam; i.e. extremities or head) *Use of iterative reconstruction technique DLP: 498 mGy-cm FINDINGS: LUNG BASES: The visualized lung bases are unremarkable. LIVER, GALLBLADDER, AND BILIARY TREE: The liver is normal in size, shape, and attenuation. Subcentimeter hypodensity in the right hepatic lobe is too small to characterize. No biliary ductal dilatation is present. Cholelithiasis is noted. PANCREAS: Unremarkable. SPLEEN: Unremarkable. ADRENAL GLANDS: Unremarkable. KIDNEYS AND URETERS: The kidneys are normal in size, shape, and attenuation. There are multiple scattered hypoattenuating lesions in the bilateral kidneys, statistically favoring cysts though overall too small to characterize. There are a few scattered bilateral renal calculi measuring up to 4 mm. No hydronephrosis, hydroureter, or obstructing calculi seen. No perinephric stranding. BLADDER: Distended with a thick-walled appearance. GASTROINTESTINAL TRACT: Colonic diverticulosis is noted. The small and large bowel are otherwise unremarkable without evidence of obstruction or pericolonic inflammatory change. The appendix is unremarkable. No free fluid or free air is seen. ABDOMINAL WALL: No significant hernia is appreciated. LYMPH NODES: Normal. VASCULAR: There is atherosclerotic calcification along the aorta and iliac arteries. PELVIC VISCERA: Unremarkable. OSSEOUS STRUCTURES: Degenerative changes are noted in the spine. IMPRESSION: 1. Thick-walled appearance of the urinary bladder, which could reflect cystitis. Correlation with urinalysis is recommended. 2. Cholelithiasis. 3. Colonic diverticulosis without diverticulitis
[2020-07-13] MEDS: iohexoL 350 MG/ML 100 ML INFUS..BTL 85 ML IV (00:46)
[2020-07-13 01:03] VITALS: BP 144/86; PULSE 95; RESP 14; O2SAT 99
--- NOTE | 2020-07-13 01:05 | PC.NURSE ---
Pt remains asleep in bed at this time, awaiting CT results. VSS. Continue to monitor.
[2020-07-13] MEDS: cefTRIAXone sodium 1 GM VIAL IM (01:56)
--- NOTE | 2020-07-13 01:59 | PC.NURSE ---
1% Lidocaine not stocked in pyxis. Verbal order from MD to use 2%. Pt medicated per EMAR. Continue to monitor.
== END 2020-07-13 08:14 | disposition home or self-care (01) ==
PROVIDERS: Emergency Provider Emergency Medicine
DX: N39.0 Urinary tract infection, site not specified (principal); F10.120 Alcohol abuse with intoxication, uncomplicated; Y90.9 Presence of alcohol in blood, level not specified
CPT/HCPCS: 36415; 74177; 80048; 80076; 80307; 81001; 83690; 85025; 96372; 99284; J0696

== ENCOUNTER 2020-07-22 03:35 | Emergency (ER) | payer MEDICAID, SELFPAY ==
--- NOTE | 2020-07-22 03:39 | ED.ABDPAIN ---
HPI - Abdominal Pain General Chief Complaint: Abdominal Pain Stated Complaint: ABD PAIN Time Seen by Provider: 07/22/20 03:39 Source: patient, EMS and old records reviewed Mode of arrival: EMS Limitations: no limitations History of Present Illness MD elicited complaint: abdominal pain and other (they woke me up and made me come home) Pertinent past history: past UTI (did not fill Rx from last visit) Onset (ago): day(s) (1) Pain Consistency: constant Location: suprapubic Severity: mild Quality: dull Radiation: none Migration to: no migration Exacerbating factors: nothing Relieving factors: nothing Context: history of similar episodes Associated symptoms: denies other symptoms Related Data Previous Rx's Medication Instructions Recorded nitrofurantoin monohyd/m-cryst 100 mg PO Q12H 7 Days #14 cap 07/12/20 [Macrobid] Allergies Allergy/AdvReac Type Severity Reaction Status Date / Time No Known Allergies Allergy Unknown UNKNOWN Verified 07/22/20 03:56 [NO KNOWN ALLERGIES] Review of Systems Review of Systems Constitutional : No Weight loss, No Fever, No Chills ENT/Mouth : No sore throat, No Rhinorrhea Eyes: No Eye Pain, No Swelling, No Redness Cardiovascular : No Chest Pain, No SOB Respiratory : No Cough, No Sputum, No Wheezing Gastrointestinal : No Nausea, No Vomiting, No Diarrhea, No Constipation, pos abdominal Pain Genitourinary : No Dysuria, No Urinary Frequency, No Hematuria, Musculoskeletal : No joint pain, No Myalgias, No Joint Swelling Skin : No Skin Lesions, No rash Neuro : No Weakness, No Numbness, No Dizziness, No Headache Psych : No Anxiety/Panic, No Depression Heme/Lymph: No Bruising, No Bleeding,No Lymphadenopathy Endocrine : No Polyuria, No Polydipsia All other systems reviewed and are negative Physical Exam Vital Signs: Vital Signs: Vital Signs Temp Pulse Resp BP Pulse Ox 07/22/20 03:50 97.6 F 88 18 140/83 H 100 Body Mass Index 21.7 Appearance: Alert. Oriented X3. No acute distress. Disheveled Eyes: Pupils equal, round and reactive to light. ENT: Pharynx normal. Neck: Normal inspection. Neck supple. CVS: Normal heart rate and rhythm. Pulses normal. Respiratory: No respiratory distress. Breath sounds normal. Abdomen: Soft and mild suprapubic ttp Skin: Skin warm and dry. Normal skin color. Normal skin turgor. Extremities: No lower extremity edema. No calf ttp Neuro: Oriented X 3. No motor deficit. No sensory deficit. Course Course Course Narrative: no acute findings, UA negative, has no real complaints, stable for DC in the AM MDM - Abdominal Pain MDM Narrative Medical decision making narrative: 64 yo male with ETOH abuse and chronic UTIs - he does not take his antibiotics, at this time will need labs, UA, observation not toxic, abdomen is has mild suprapubic ttp - no flank pain, no vomiting, states they woke me up and made me come here. Lab Data Result diagrams: 07/22/20 04:26 07/22/20 04:26 Labs: Lab Results 07/22/20 07/22/20 07/22/20 Range/Units 04:17 04:26 04:26 WBC 6.2 (4.8-10.8) X10*3/uL RBC 3.85 L (4.60-5.80) X10*6/uL Hgb 12.7 L (14.0-18.0) g/dl Hct 36.8 L (42-52) % MCV 95.6 (80-98) fL MCH 33.0 (27.0-33.0) pg MCHC 34.5 (31.0-36.0) g/dl RDW 14.0 (11.0-16.0) % Plt Count 293 D (160-400) X10*3/uL MPV 9.6 (9.4-12.4) fL Immature Gran % (Auto) 0.3 (0.0-0.4) % Neut % (Auto) 42.5 L (45-73) % Lymph % (Auto) 42.7 H (20-40) % [place] % (Auto) 7.6 (2-11) % Eos % (Auto) 5.8 H (0-4) % Baso % (Auto) 1.1 (0-2) % Lymph # (Auto) 2.6 (1.2-4.9) X10*3/uL [place] # (Auto) 0.5 (0.1-1.2) X10*3/uL Eos # (Auto) 0.4 (0.0-0.4) X10*3/uL Baso # (Auto) 0.1 (0.0-0.2) X10*3/uL Abs Immat Gran (auto) 0.02 (0.00-0.03) X10*3/uL Absolute Neuts (auto) 2.6 (2.0-8.3) X10*3/uL Absolute Nucleated RBC 0.000 (0.0-0.012) X10*3/uL Nucleated RBC % (auto) 0.0 (0.0-0.2) /100WBC Hold Blue Top SEE NOTE Urine Color STRAW Urine Appearance CLEAR Urine pH 6.5 (5.0-8.0) Ur Specific [place] <= 1.005 (1.005-1.025) Urine Protein NEG (NEG-TRACE) MG/DL Urine Glucose (UA) NEG (NEG) MG/DL Urine Ketones NEG (NEG) MG/DL Urine Blood TRACE (NEG) Urine Nitrite NEG (NEG) Ur Leukocyte Esterase NEG (NEG) Urine RBC 0 (0) /HPF Urine WBC 0-2 (0-4) /HPF Ur Squamous Epith Cells TRACE /LPF Urine Bacteria NONE /LPF Discharge Plan Discharge Clinical Impression: Homeless Patient Disposition: Home, Self-Care Instructions: Normal Exam (ED) Prescriptions: No Action nitrofurantoin monohyd/m-cryst [Macrobid] 100 mg capsule 100 mg PO Q12H 7 Days Qty: 14 RF: 0 PMFSH Past Medical History Medical History Alcohol abuse Hard of hearing No known health problems Patient denies medical problems Social History Social History Alcohol intake: current Alcohol intake frequency: 3 or more drinks per day Alcohol type: beer Smoking Status: Current some day smoker Smoked in Last 30 Days: Yes Use of substances other than those prescribed or required for medical reasons: No Advance Directives: No
[2020-07-22 03:50] VITALS: BP 138/77; BP 140/83; PULSE 70; PULSE 88; RESP 18; TEMP 36.4; O2SAT 100; O2SAT 96; BMI 21.7
[2020-07-22 04:28] LABS: Glucose Urine UA NEG (NEG); Leukocyte Esterase Urine NEG (NEG); Nitrite Urine NEG (NEG); PH 6.5 (5.0-8.0); Specific Gravity - Urine <= 1.005 (1.005-1.025); Urine Blood TRACE (NEG); Urine Ketones NEG (NEG); Urine Protein NEG (NEG-TRACE)
[2020-07-22 04:30] LABS: Appearance Urine CLEAR; Color Urine STRAW
[2020-07-22 04:35] LABS: RBC Urine 0 /HPF (0); Squamous Epithelial Cell Urine TRACE /LPF; WBC Urine 0-2 /HPF (0-4)
[2020-07-22 05:05] LABS: MANUAL DIFF FLAG NO
[2020-07-22 05:08] LABS: Basophils Absolute Auto 0.1 X10*3/uL (0.0-0.2); Basophils Percent Auto 1.1 % (0-2); Eosinophils Absolute Auto 0.4 X10*3/uL (0.0-0.4); Eosinophils Percent Auto 5.8 % (0-4); Hematocrit 36.8 % (42-52); Hemoglobin 12.7 g/dl (14.0-18.0); Imm Gran Abs Auto 0.02 X10*3/uL (0.00-0.03); Imm Gran Pct Auto 0.3 % (0.0-0.4); Lymphocytes Absolute Auto 2.6 X10*3/uL (1.2-4.9); Lymphocytes Percent Auto 42.7 % (20-40); Mean Corpuscular HGB Conc 34.5 g/dl (31.0-36.0); Mean Corpuscular Volume 95.6 fL (80-98); Mean Platelet Volume 9.6 fL (9.4-12.4); Monocytes Absolute Auto 0.5 X10*3/uL (0.1-1.2); Monocytes Percent Auto 7.6 % (2-11); Neutrophils Absolute Auto 2.6 X10*3/uL (2.0-8.3); Neutrophils Percent Auto 42.5 % (45-73); Platelet Count 293 X10*3/uL (160-400); Red Blood Count 3.85 X10*6/uL (4.60-5.80); White Blood Count 6.2 X10*3/uL (4.8-10.8)
[2020-07-22 05:49] LABS: Alanine Aminotransferase 11 U/L (0-40); Albumin Level 3.8 g/dL (3.5-5.0); Alkaline Phosphatase 63 U/L (39-117); Anion Gap 15 (12-20); Aspartate Amino Transferase 17 U/L (5-37); Bilirubin Direct < 0.2 mg/dL (0.0-0.5); Bilirubin Total 0.4 mg/dL (0.0-1.0); Blood Urea Nitrogen 7 mg/dL (9-16); Calcium 8.6 mg/dL (8.4-10.2); Carbon Dioxide 24 mmol/L (22-29); Chloride 99 mmol/L (96-108); Creatinine Clr Calc Pharmacy 91.6; Estimated Glomerular Filt Rate > 60; Glucose Random 79 mg/dL (60-115); Lipase 40 U/L (8-78); Magnesium 1.8 mg/dL (1.6-2.6); Potassium 4.3 mmol/l (3.3-5.1); Sodium 134 mmol/L (135-145)
[2020-07-22 06:53] VITALS: BP 93/48; PULSE 87; RESP 14; O2SAT 95
[2020-07-22 07:09] LABS: Ethanol 106 mg/dL
== END 2020-07-22 07:08 | disposition home or self-care (01) ==
PROVIDERS: Emergency Provider Emergency Medicine
DX: R10.10 Upper abdominal pain, unspecified (principal); Z79.899 Other long term (current) drug therapy
CPT/HCPCS: 36415; 80048; 80076; 80320; 81001; 83690; 83735; 85025; 99283; 99284

== ENCOUNTER 2020-07-22 21:31 | Emergency (ER) | payer MEDICAID, SELFPAY ==
[2020-07-22 21:37] VITALS: BP 116/76; PULSE 84; PULSE 89; RESP 18; TEMP 36; O2SAT 96; O2SAT 98; BMI 25.0
--- NOTE | 2020-07-22 21:41 | ED.ABDPAIN ---
HPI - Abdominal Pain General Chief Complaint: ETOH/Substance Use Stated Complaint: ETOH,ABD PAIN D/T TOO MUCH FOOD Time Seen by Provider: 07/22/20 21:41 Source: patient and EMS Mode of arrival: EMS Limitations: no limitations History of Present Illness HPI narrative: just seen yesterday for same - normal labs, urine MD elicited complaint: abdominal pain Pertinent past history: other (ETHO) Onset (ago): week(s) Pain Consistency: constant Location: suprapubic Severity: mild Quality: aching Radiation: none Migration to: no migration Exacerbating factors: nothing Relieving factors: nothing Context: history of similar episodes Associated symptoms: denies other symptoms Related Data Previous Rx's Medication Instructions Recorded nitrofurantoin monohyd/m-cryst 100 mg PO Q12H 7 Days #14 cap 07/12/20 [Macrobid] Allergies Allergy/AdvReac Type Severity Reaction Status Date / Time No Known Allergies Allergy Unknown UNKNOWN Verified 07/22/20 21:36 [NO KNOWN ALLERGIES] Review of Systems Review of Systems Constitutional : No Weight loss, No Fever, No Chills ENT/Mouth : No sore throat, No Rhinorrhea Eyes: No Swelling, No Redness Cardiovascular : No Chest Pain, No SOB, NoEdema Respiratory : No Cough, No Sputum, No Wheezing Gastrointestinal : no Nausea, no Vomiting, no Diarrhea, positive abdominal Pain, No Hematochezia, No Melena Genitourinary : No Dysuria, No Urinary Frequency, No Hematuria, No Urgency Musculoskeletal : No joint pain, No Myalgias, No Joint Swelling Skin : No Skin Lesions, No rash Neuro : No Weakness, No Numbness, No Dizziness, No Headache Psych : No Anxiety/Panic, No Depression Heme/Lymph: No Bruising, No Lymphadenopathy Endocrine : No Polyuria, No Polydipsia All other systems reviewed and are negative. Physical Exam Vital Signs: Vital Signs: Vital Signs Temp Pulse Resp Pulse Ox 07/23/20 04:00 16 07/22/20 21:37 96.8 F 89 18 98 Body Mass Index 25.0 Appearance: Alert. Oriented X3. No acute distress. disheveled, ETOH odor Eyes: Pupils equal, round and reactive to light. ENT: Pharynx normal. Neck: Normal inspection. Neck supple. CVS: Normal heart rate and rhythm. Pulses normal. Respiratory: No respiratory distress. Breath sounds normal. Abdomen: Soft and mild tenderness suprapubic area. Skin: Skin warm and dry. Normal skin color. Normal skin turgor. Extremities: No lower extremity edema. No calf ttp Neuro: Oriented X 3. No motor deficit. No sensory deficit. Course Course Course Narrative: no acute findings stable for DC MDM - Abdominal Pain MDM Narrative Medical decision making narrative: 64 yo male just seen here this AM comes in with ETOH and lower abdominal pain, labs normal yesterday and urine was clean at this time will obtain CT scan for mass/constipation, allow him to metabolize in ED, this could also be due to unstable housing situation. Lab Data Labs: Lab Results 07/22/20 Range/Units 23:31 Ethyl Alcohol 104 mg/dL Discharge Plan Discharge Clinical Impression: Alcoholic intoxication Qualifiers: Complication of substance-induced condition: uncomplicated Qualified Code(s): F10.920 - Alcohol use, unspecified with intoxication, uncomplicated Abdominal pain Qualifiers: Abdominal location: lower abdomen, unspecified Qualified Code(s): R10.30 - Lower abdominal pain, unspecified Patient Disposition: Home, Self-Care Instructions: Abuse of Alcohol (ED), Abdominal Pain (ED) Additional Instructions: return to the ED if not better Prescriptions: No Action nitrofurantoin monohyd/m-cryst [Macrobid] 100 mg capsule 100 mg PO Q12H 7 Days Qty: 14 RF: 0 PMFSH Past Medical History Medical History Alcohol abuse Hard of hearing No known health problems Patient denies medical problems Social History Social History Alcohol intake: current Alcohol intake frequency: 3 or more drinks per day Alcohol type: beer Smoking Status: Former smoker Use of substances other than those prescribed or required for medical reasons: No Advance Directives: No Advance Directives Information Provided: Yes
--- NOTE | 2020-07-22 21:50 | CT_ITS ---
EXAMINATION: CT ABDOMEN AND PELVIS WITHOUT CONTRAST CLINICAL INFORMATION: Lower abdominal pain. COMPARISON: CT abdomen and pelvis 07/13/2020. TECHNIQUE: Multidetector volumetric imaging was performed from the superior aspect of the liver through the pubic symphysis. Sagittal and coronal reformatted images were obtained on the technologist's workstation. This CT examination was performed using dose optimization techniques as appropriate, variously including the following: *Automated exposure control. *Adjustment of mA and/or kV according to patient size (this includes techniques or standardized protocols for targeted exams where dose is matched to indication/reason for exam; i.e. extremities or head). *Use of iterative reconstruction technique. DLP: 334 mGy-cm FINDINGS: LUNG BASES: The visualized lung bases are unremarkable. LIVER, GALLBLADDER, AND BILIARY TREE: The liver is normal in size, shape, and attenuation. No focal hepatic lesion or biliary ductal dilatation is present. The gallbladder is now contracted compared to the prior study. Some small stones remain. There is no evidence of gallbladder wall thickening or obvious pericholecystic inflammatory changes. PANCREAS: Unremarkable. SPLEEN: Unremarkable. ADRENAL GLANDS: Unremarkable. KIDNEYS AND URETERS: The kidneys are normal in size, shape, and attenuation. Tiny punctate non-obstructing left lower pole renal calculi are seen. The renal cysts seen on the prior study are not as apparent on this noncontrast exam. No hydronephrosis, hydroureter, or other calculi seen. No perinephric stranding. BLADDER: Again noted is a moderately distended slightly thick-walled bladder which appears less thickened than noted previously. GASTROINTESTINAL TRACT: Diverticular change is present in the colon without diverticulitis. The small and large bowel are otherwise unremarkable. The appendix is unremarkable. ABDOMINAL WALL: No significant hernia is appreciated. LYMPH NODES: No retroperitoneal lymphadenopathy is present. Small bilateral inguinal lymph nodes are seen. VASCULAR: Marked atherosclerotic calcification present in the aorta and iliofemoral vessels. Common femoral stenoses are present bilaterally. PELVIC VISCERA: Unremarkable. OSSEOUS STRUCTURES: Degenerative changes are present in the spine most marked in the lower thoracic region. CT/CT abdomen pelvis wo con IMPRESSION: No significant interval change since the study of 07/13/2020. Again noted is cholelithiasis without cholecystitis, distended thick-walled bladder. Tiny punctate non-obstructing left renal calculi, colonic diverticulosis and aortoiliac atherosclerotic disease.
[2020-07-22] MEDS: Lidocaine HCl Viscous 2 % 15 ML SOLUTION MUCOUS MEM (22:54)
[2020-07-22] MEDS: Magnesium Hydrox/Alum Hydrox 30 ML ORAL.SUSP 15 ML PO (22:54)
[2020-07-23 00:19] LABS: Ethanol 104 mg/dL
--- NOTE | 2020-07-23 03:10 | PC.NURSE ---
REPORT TAKEN FROM GUI RN, FIRST CONTACT WITH PT, RETING IN BED SKIN PWD RESPIRATIONS EVEN UNLABORED.AWAITING DC IN AM. AWARE OF PLAN OF CARE.
[2020-07-23 04:00] VITALS: RESP 16
--- NOTE | 2020-07-23 04:47 | PC.NURSE ---
PT AMB TO BATHROOM STEADY GAIT. AWAITING DC IN AM.
== END 2020-07-23 06:25 | disposition home or self-care (01) ==
PROVIDERS: Emergency Provider Emergency Medicine
DX: F10.920 Alcohol use, unspecified with intoxication, uncomplicated (principal); R10.30 Lower abdominal pain, unspecified; Z79.899 Other long term (current) drug therapy
CPT/HCPCS: 74176; 80320; 99284

== ENCOUNTER 2020-07-24 00:37 | Emergency (ER) | payer MEDICAID, SELFPAY ==
[2020-07-24 00:46] VITALS: BP 130/82; PULSE 96; RESP 16; TEMP 36.8; O2SAT 98; BMI 24.0
--- NOTE | 2020-07-24 01:00 | ED.MALEGU ---
HPI - Male Genitourinary General Chief complaint: Urogenital-Male Stated complaint: ?etoh breathing funny Time Seen by Provider: 07/24/20 00:39 Source: EMS Mode of arrival: EMS Limitations: other (ETOH) History of Present Illness MD Complaint: other (possible UTI, wants to know blood type, ETOH) Onset (ago): week(s) Duration: constant Severity: mild Quality: burning Relieving factors: none Exacerbating factors: none Context: other (never takes his antibiotics) Associated symptoms: Reports denies other symptoms Related Data Previous Rx's Medication Instructions Recorded nitrofurantoin monohyd/m-cryst 100 mg PO Q12H 7 Days #14 cap 07/12/20 [Macrobid] Allergies Allergy/AdvReac Type Severity Reaction Status Date / Time No Known Allergies Allergy Unknown UNKNOWN Verified 07/24/20 00:46 [NO KNOWN ALLERGIES] Review of Systems Review of Systems: ROS unable to be obtained due to ETOH and uncooperative PMFSH Past Medical History Attestation statement: The following information was validated with the patient. Medical History Alcohol abuse Hard of hearing No known health problems Patient denies medical problems Social History Social History Alcohol intake: current Alcohol intake frequency: 3 or more drinks per day Alcohol type: hard liquor Smoking Status: Current every day smoker Use of substances other than those prescribed or required for medical reasons: No Advance Directives: No Advance Directives Information Provided: No Physical Exam Vital Signs: Vital Signs: Vital Signs Temp Pulse Resp BP Pulse Ox 07/24/20 03:59 18 07/24/20 00:46 98.3 F 96 16 130/82 98 Body Mass Index 24.0 Appearance: Alert. Oriented X3. No acute distress. uncooperative, + ETOH odor, unkempt Eyes: Pupils equal, round and reactive to light. ENT: Pharynx normal. Neck: Normal inspection. Neck supple. CVS: Normal heart rate and rhythm. Pulses normal. Respiratory: No respiratory distress. Breath sounds normal. Abdomen: Soft and nontender. Skin: Skin warm and dry. Normal skin color. Normal skin turgor. Extremities: No lower extremity edema. No calf ttp Neuro: Oriented X 3. No motor deficit. No sensory deficit. Course Course Course Narrative: up walking around, being rude to the staff, wants to leave, GCS 15 MDM - Male Genitourinary MDM Narrative Medical decision making narrative: 64 yo male with ETOH , chronic UTIs, here with ETOH and no place to stay, recent labs, CT scan negative, UA negative - will obtain ETOH and UA, also requesting his blood type, no trauma, DC once sober, may need to pursue section 35 if this pattern continues Lab Data Labs: Lab Results 07/24/20 Range/Units 01:28 Ethyl Alcohol 124 mg/dL Discharge Plan Discharge Clinical Impression: Alcohol abuse Patient Disposition: Home, Self-Care Instructions: Abuse of Alcohol (ED) Additional Instructions: return to ED for any worsening symptoms or concerns Prescriptions: No Action nitrofurantoin monohyd/m-cryst [Macrobid] 100 mg capsule 100 mg PO Q12H 7 Days Qty: 14 RF: 0
--- NOTE | 2020-07-24 01:25 | PC.NURSE ---
drink and food given. nad noted
[2020-07-24 01:54] LABS: Ethanol 124 mg/dL
[2020-07-24 03:59] VITALS: RESP 18
--- NOTE | 2020-07-24 05:24 | PC.NURSE ---
pt being rude to staff, demanding them to do things for him. pt asked to leave, refused vitals before leaving. given bus pass per request,
[2020-07-24 05:25] VITALS: RESP 18
== END 2020-07-24 05:27 | disposition home or self-care (01) ==
PROVIDERS: Emergency Provider Emergency Medicine
DX: F10.129 Alcohol abuse with intoxication, unspecified (principal); Y90.6 Blood alcohol level of 120-199 mg/100 ml; F17.200 Nicotine dependence, unspecified, uncomplicated; Z71.6 Tobacco abuse counseling
CPT/HCPCS: 80320; 99283; 99284

== ENCOUNTER 2020-09-02 21:10 | Emergency (ER) | payer MEDICAID, SELFPAY ==
[2020-09-02 21:25] VITALS: BP 136/78; BP 157/88; PULSE 74; PULSE 80; RESP 18; TEMP 36.5; O2SAT 100; O2SAT 99; BMI 25.0
--- NOTE | 2020-09-02 22:00 | XR_ITS ---
EXAMINATION: XR RIBS, RIGHT CLINICAL INFORMATION: Fall with rib pain COMPARISON: Chest radiograph 07/09/[address] abdomen pelvis 07/22/2020 TECHNIQUE: Single view chest with 4 additional views right RIBS FINDINGS: Lungs are clear. No consolidation, pneumothorax, or pleural effusion. The cardiomediastinal silhouette and pulmonary vasculature are normal. Multiple old rib fractures are seen involving 4th through 10th right ribs. On the steep oblique views, acute fractures can be seen involving the 8th and 9th posterior ribs. No pneumothorax seen. XR/XR ribs RT min 3V w CXR1V IMPRESSION: There are chronic healed rib fractures present but I believe there are new acute fractures involving the eighth and ninth ribs
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
--- NOTE | 2020-09-02 22:57 | PC.NURSE ---
PATIENT VOIDED URINE ON FLOOR, STATES WELL I ASKED FOR A URINAL FROM LIKE 5 DIFFERENT PEOPLE, SO THAT'S WHAT YOU GET! FUCK YOU! URINAL NEXT TO PATIENT WITHIN REACH PRIOR TO THIS INCIDENT. PATIENT TOLD THAT URINAL IS NEXT TO HIM AND WAS GIVEN TO HIM. ENVIRONMENTAL CALLED TO DISINFECT/CLEAN FLOOR.
[2020-09-03] VITALS: BP 132/78; PULSE 78; RESP 16; TEMP 36.2; O2SAT 96
[2020-09-03 02:00] VITALS: RESP 16
[2020-09-03 04:00] VITALS: RESP 16
--- NOTE | 2020-09-03 04:57 | PC.NURSE ---
PATIENT CONTINUES TO SLEEP AT THIS TIME. NO ACUTE DISTRESS NOTED. RESPIRATIONS EVEN/UNLABORED. WILL CONTINUE TO MONITOR.
--- NOTE | 2020-09-03 08:44 | PC.NURSE ---
Pt sleeping at this time. Awaiting d/c
== END 2020-09-03 09:48 | disposition home or self-care (01) ==
PROVIDERS: Emergency Provider Emergency Medicine
DX: F10.120 Alcohol abuse with intoxication, uncomplicated (principal); Y90.9 Presence of alcohol in blood, level not specified; S22.41XA Multiple fractures of ribs, right side, initial encounter for closed fracture; W01.198A Fall on same level from slipping, tripping and stumbling with subsequent striking against other object, initial encounter; F17.200 Nicotine dependence, unspecified, uncomplicated; Y93.9 Activity, unspecified; Y92.9 Unspecified place or not applicable; Y99.9 Unspecified external cause status
CPT/HCPCS: 71101; 99283; 99284

== ENCOUNTER 2020-09-03 17:46 | Emergency (ER) | payer MEDICAID, SELFPAY ==
[2020-09-03 18:08] VITALS: BP 148/81; PULSE 86; RESP 18; TEMP 36.7; O2SAT 98; BMI 25.8
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
[2020-09-03 21:49] VITALS: BP 139/78; PULSE 89; RESP 16; TEMP 36.6; O2SAT 96
--- NOTE | 2020-09-03 22:56 | PC.NURSE ---
PT AMBULATORY TO BATHROOM WITH STEADY GAIT 2-3 TIMES SINCE 19:00. PT HAD SODA, SANDWICH AND PUDDING. PT CALM AND COOPERATIVE.
--- NOTE | 2020-09-04 06:55 | PC.NURSE ---
PT GIVEN 2 BUS PASSES, PER HIS REQUEST. PT LEFT HIS PAPERWORK AT THE BEDSIDE. PT CAUSING A COMMOTION IN THE WR. PT INFORMED THAT [facility]. PT DOES NOT PLAN ON PICKING UP HIS PRESCRIPTIONS FROM YESTERDAY, BECAUSE HE WOULD HAVE TO WALK THERE. PT AMBULATORY TO BUS STOP.
== END 2020-09-04 07:14 | disposition home or self-care (01) ==
PROVIDERS: Emergency Provider Internal Medicine
DX: F10.10 Alcohol abuse, uncomplicated (principal); Y90.9 Presence of alcohol in blood, level not specified; Z59.0 Homelessness
CPT/HCPCS: 99284

== ENCOUNTER 2020-09-04 20:25 | Emergency (ER) | payer MEDICAID, SELFPAY ==
[2020-09-04 20:30] VITALS: BP 148/93; PULSE 77; RESP 16; TEMP 37.1; O2SAT 97; BMI 22.7
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
[2020-09-04] MEDS: Ibuprofen 600 MG TABLET PO (20:57)
--- NOTE | 2020-09-04 21:11 | PC.NURSE ---
PT BECAME AGRESSIVE AT D/C TO NURSE AND NEED TO GET SECURITY TO HELP D/C PT TO WAITING ROOM.
--- NOTE | 2020-09-04 21:20 | PC.NURSE ---
PT IS A HOMELESS MAN CHRONIC ALCOHOLIC PT HAS BEEN DRINKING TODAY WHICH IS HIS BASE. PT WILL BE D/C REQUESTING RIDE AND TOLD WE NO LONER GIVE OUT RIDE VOUCHER. PT ESCORTED TO WAITING BY SECURITY. PT AMBULATING WITH STEADY GAIT. NO RESP DISTRESS.
== END 2020-09-04 21:44 | disposition home or self-care (01) ==
PROVIDERS: Emergency Provider Internal Medicine
DX: S20.211A Contusion of right front wall of thorax, initial encounter (principal); R07.81 Pleurodynia; Y04.8XXA Assault by other bodily force, initial encounter; Y93.9 Activity, unspecified; Y92.9 Unspecified place or not applicable; Y99.9 Unspecified external cause status; Z79.899 Other long term (current) drug therapy; F17.200 Nicotine dependence, unspecified, uncomplicated; Z71.6 Tobacco abuse counseling
CPT/HCPCS: 99283; 99284

== ENCOUNTER 2020-09-08 16:17 | Emergency (ER) | payer MEDICAID, SELFPAY ==
[2020-09-08 17:01] VITALS: BP 109/72; PULSE 82; RESP 16; TEMP 36.5; O2SAT 98; BMI 22.7
[2020-09-08] MEDS: 0.9 % Sodium Chloride 1,000 ML 999 ML IVCONT (17:04)
[2020-09-08 17:40] LABS: MANUAL DIFF FLAG NO
[2020-09-08 17:53] LABS: Basophils Absolute Auto 0.1 X10*3/uL (0.0-0.2); Basophils Percent Auto 1.1 % (0-2); Eosinophils Absolute Auto 0.2 X10*3/uL (0.0-0.4); Eosinophils Percent Auto 1.8 % (0-4); Hematocrit 41.2 % (42-52); Hemoglobin 14.8 g/dl (14.0-18.0); Imm Gran Abs Auto 0.02 X10*3/uL (0.00-0.03); Imm Gran Pct Auto 0.2 % (0.0-0.4); Lymphocytes Absolute Auto 2.2 X10*3/uL (1.2-4.9); Lymphocytes Percent Auto 23.3 % (20-40); Mean Corpuscular HGB Conc 35.9 g/dl (31.0-36.0); Mean Corpuscular Hemoglobin 33.6 pg (27.0-33.0); Mean Corpuscular Volume 93.4 fL (80-98); Mean Platelet Volume 9.8 fL (9.4-12.4); Monocytes Absolute Auto 0.6 X10*3/uL (0.1-1.2); Monocytes Percent Auto 6.8 % (2-11); Neutrophils Absolute Auto 6.2 X10*3/uL (2.0-8.3); Neutrophils Percent Auto 66.8 % (45-73); Platelet Count 321 X10*3/uL (160-400); Red Blood Count 4.41 X10*6/uL (4.60-5.80); Red Cell Distribution Width 12.3 % (11.0-16.0); White Blood Count 9.3 X10*3/uL (4.8-10.8)
[2020-09-08 18:13] LABS: Ethanol 126 mg/dL
[2020-09-08 18:16] LABS: Alanine Aminotransferase 9 U/L (0-40); Albumin Level 4.2 g/dL (3.5-5.0); Alkaline Phosphatase 62 U/L (39-117); Anion Gap 16 (12-20); Aspartate Amino Transferase 17 U/L (5-37); Bilirubin Direct 0.2 mg/dL (0.0-0.5); Bilirubin Total 0.3 mg/dL (0.0-1.0); Blood Urea Nitrogen 9 mg/dL (9-16); Calcium 8.6 mg/dL (8.4-10.2); Carbon Dioxide 23 mmol/L (22-29); Chloride 95 mmol/L (96-108); Creatinine Clr Calc Pharmacy 108.2; Estimated Glomerular Filt Rate > 60; Glucose Random 85 mg/dL (60-115); Lipase 36 U/L (8-78); Potassium 3.9 mmol/l (3.3-5.1); Sodium 130 mmol/L (135-145); Total Protein 7.5 g/dL (6.5-8.0)
[2020-09-08 18:20] VITALS: BP 170/98; PULSE 93; RESP 14; O2SAT 99
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
[2020-09-08 19:03] VITALS: BP 120/83; PULSE 107; O2SAT 98
[2020-09-08 20:41] VITALS: BP 104/64; PULSE 92; RESP 16; O2SAT 100
--- NOTE | 2020-09-08 22:24 | PC.NURSE ---
pt reporting he has a bed at [facility] detox. recovery rn did not discuss this prior to his departure. call made out to [facility] to confirm bed
== END 2020-09-08 23:57 | disposition home or self-care (01) ==
PROVIDERS: Emergency Provider Internal Medicine
DX: F10.129 Alcohol abuse with intoxication, unspecified (principal); Y90.6 Blood alcohol level of 120-199 mg/100 ml; F17.200 Nicotine dependence, unspecified, uncomplicated; Z71.6 Tobacco abuse counseling; Z79.899 Other long term (current) drug therapy
CPT/HCPCS: 36415; 80048; 80076; 80320; 83690; 85025; 96360; 99284

== ENCOUNTER 2020-10-31 14:50 | Emergency (ER) | payer MEDICAID, SELFPAY ==
--- NOTE | ~2020-10-31 | CT_ITS ---
EXAMINATION: CT HEAD WITHOUT CONTRAST CT CERVICAL SPINE WITHOUT CONTRAST CLINICAL INFORMATION: Trauma COMPARISON: 11/17/2019 TECHNIQUE: Multidetector CT imaging of the head and cervical spine was performed without the use of intravenous contrast. Multiplanar reformats are reviewed. This CT examination was performed using dose optimization techniques as appropriate, variously including the following: *Automated exposure control *Adjustment of mA and/or kV according to patient size (this includes techniques or standardized protocols for targeted exams where dose is matched to indication/reason for exam; i.e. extremities or head) *Use of iterative reconstruction technique DLP: 689 mGy-cm. FINDINGS: There is no evidence of acute intracranial hemorrhage or territorial infarction. No abnormal mass effect or midline shift is seen. Garner to white matter differentiation is well preserved. No extra-axial fluid collections are identified. The ventricles are normal in size. Mild patchy subcortical and periventricular white matter low-attenuation changes chronic white matter small vessel ischemic disease. Chronic left thalamic lacunar infarct. . The osseous structures and soft tissues are normal. The mastoid air cells and visualized portions of the paranasal sinuses are well-aerated. Atlantooccipital alignment is maintained. No acute fracture or traumatic malalignment. There is a 3 mm anterolisthesis of C3 on C4 related to hypertrophic facet arthropathy. Vertebral body heights preserved. Endplate osteophytes present throughout the cervical spine, most notably at C3-C4-C5, C5-C6 and C6-C7. The paraspinal soft tissues are unremarkable. Lung bases demonstrate emphysema with biapical blebs and bulla, more pronounced at the right lung apex. CT/CT cervical spine wo con IMPRESSION: No acute intracranial pathology. No cervical spine fracture or malalignment.
--- NOTE | ~2020-10-31 | XR_ITS ---
EXAMINATIONS: XR forearm RT 2V, XR hand wrist RT CLINICAL INFORMATION: Reason for Exam fall down stairs. etoh COMPARISON: None VIEWS: Frontal lateral and oblique right wrist, frontal and lateral radius and ulna. FINDINGS: There is a comminuted dorsally displaced angulated fracture of the distal radius which extend into an articular surface. There is a fracture of the ulnar styloid. Proximal radius and ulna are intact. There are degenerative osteoarthritic changes at the carpometacarpal joints especially first and second. No other fractures or dislocations. XR/XR hand wrist RT IMPRESSION: Comminuted angulated intra-articular fractures of the distal radius and ulnar styloid. Underlying arthritis first and second carpometacarpal.
--- NOTE | ~2020-10-31 | XR_ITS ---
EXAMINATIONS: XR forearm RT 2V, XR hand wrist RT CLINICAL INFORMATION: Reason for Exam fall down stairs. etoh COMPARISON: None VIEWS: Frontal lateral and oblique right wrist, frontal and lateral radius and ulna. FINDINGS: There is a comminuted dorsally displaced angulated fracture of the distal radius which extend into an articular surface. There is a fracture of the ulnar styloid. Proximal radius and ulna are intact. There are degenerative osteoarthritic changes at the carpometacarpal joints especially first and second. No other fractures or dislocations. XR/XR forearm RT 2V IMPRESSION: Comminuted angulated intra-articular fractures of the distal radius and ulnar styloid. Underlying arthritis first and second carpometacarpal.
--- NOTE | ~2020-10-31 | CT_ITS ---
EXAMINATION: CT ABDOMEN AND PELVIS WITH CONTRAST CLINICAL INFORMATION: Fall, trauma, metastatic disease COMPARISON: 07/22/2020 TECHNIQUE: Multidetector volumetric images were obtained from the superior aspect of the liver through the pubic symphysis following administration 85 mL of Omnipaque 350 intravenous contrast. Sagittal and coronal reformatted images were obtained on the technologist's workstation. Oral contrast: No This CT examination was performed using dose optimization techniques as appropriate, variously including the following: *Automated exposure control *Adjustment of mA and/or kV according to patient size (this includes techniques or standardized protocols for targeted exams where dose is matched to indication/reason for exam; i.e. extremities or head) *Use of iterative reconstruction technique DLP: 43 mGy-cm FINDINGS: LUNG BASES: There is new opacity in the right lower lobe, likely atelectasis or contusion. Small right pleural effusion.. Normal heart size. LIVER, GALLBLADDER, AND BILIARY TREE: Low density lesion in the right lobe of liver was present previously and consistent with a hemangioma. No new focal liver lesion seen. There is a dependent calcified gallstone in an otherwise normal gallbladder. No biliary ductal dilatation. PANCREAS: Unremarkable. SPLEEN: Unremarkable. ADRENAL GLANDS: Unremarkable. KIDNEYS AND URETERS: There are areas of renal cortical thinning consistent with prior scarring. Multiple bilateral renal cysts are present. There is new/worsened severe left hydroureteronephrosis with the dilated left ureter followed distally to the urinary bladder. There is right hydroureter with no hydronephrosis. BLADDER: The bladder is circumferentially thick-walled and irregular. GASTROINTESTINAL TRACT: There may be a small hiatal hernia. The small bowel is nondilated. Normal appendix. Scattered colonic diverticulosis. No evidence of colitis or diverticulitis. ABDOMINAL WALL: No significant hernia is appreciated. LYMPH NODES: Normal. VASCULAR: Circumferential calcified atherosclerotic changes of the aorta. No aneurysm or dissection. PELVIC VISCERA: Normal size prostate. Seminal vesicles are symmetric. OSSEOUS STRUCTURES: In addition to healed bilateral rib fractures, there is a acute right posterior 10th rib fracture. Because the patient was scanned with his right forearm across his pelvis, the known comminuted right distal radius and ulnar styloid fractures are visualized. CT/CT abdomen pelvis w con IMPRESSION: New/worsened severe left hydroureteronephrosis likely due to obstruction at the left ureteral orifice. There is circumferential bladder wall irregularity which could be due to a cystitis although malignancy is possible. There is new/worsened right hydroureter as well. Acute right posterior 10th rib fracture with subjacent pleural fluid (possibly hemothorax) and right lower lobe opacity which may represent contusion or atelectasis.
--- NOTE | ~2020-10-31 | CT_ITS ---
EXAMINATION: CT CHEST WITHOUT CONTRAST CLINICAL INFORMATION: Evaluate ribs COMPARISON: Rib films 09/02/2020. Prior plain films of the chest. CT abdomen 07/22/2020. TECHNIQUE: Multidetector volumetric CT imaging of the chest was done. Axial MIP volume rendering provided. Sagittal and coronal reformatted images were obtained. This CT examination was performed using dose optimization techniques as appropriate, variously including the following: *Automated exposure control *Adjustment of mA and/or kV according to patient size (this includes techniques or standardized protocols for targeted exams where dose is matched to indication/reason for exam; i.e. extremities or head) *Use of iterative reconstruction technique DLP: 366 mGy-cm FINDINGS: MACHINE WELDER: Arms overlie the thorax resulting in some imaging artifact. OSSEOUS STRUCTURES: There are acute fractures of the right posterior ninth and 10th ribs (series 7 images 37, 43/71). These fractures are in a linear array suggesting trauma. However, the underlying bones demonstrate apparent lytic lesions with cortical expansion raising the possibility of pathologic fractures. Alternatively, these may represent a subacute injury with some bone remodeling; clinical correlation suggested. Multiple old healed right rib fractures are again noted in the fourth through 10th ribs. Coronal reformats demonstrate a healing fracture of the left proximal humerus. No other lytic lesions are seen. There is an idiopathic scoliosis with degenerative disease. Motion artifact degrades visualization of the sternum. LUNGS: Moderate emphysema with centrilobular and paraseptal disease predominating at the apices. Some images degraded by respiratory motion artifact. Mild bronchial wall thickening likely smoking related. No endobronchial lesion seen. Minor dependent atelectasis particularly on the right. No mass or consolidation seen. Correlate with smoking history. Consider entry of the patient into a program of routine yearly low-dose lung CT screening. 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 Similar appearance on prior CT scans of the chest from 2019 and 2017. Stability is reassuring, however in light of potential lytic rib lesions, further evaluation or follow-up is advised. There is moderate coronary disease. There is a 4.2 cm ascending thoracic aortic aneurysm. PLEURA: There is focal pleural thickening underlying the right rib fractures. No pneumothorax. AXILLA: No axillary adenopathy. Mild symmetric gynecomastia. The patient appears cachectic. UPPER ABDOMEN: A solitary small dependent gallstone is noted. There appears to be chronic left hydroureteronephrosis. Areas of renal parenchymal cortical scarring are seen. Atherosclerotic peripheral vascular disease. CT/CT chest wo con IMPRESSION: 1. There are 2 new right posterior rib fractures in the ninth and 10th ribs. Linear array suggests a traumatic injury, as does multiple chronic rib fractures. However, the fractures themselves appear potentially pathologic with lytic changes in the underlying bones. This could represent subacute fractures with bony remodeling or metastatic disease. Consider whole body bone scan to assess for additional lesions. No other osteolytic lesions seen on noncontrast CT of the chest. 2. Evidence of multiple prior traumas with chronic rib fractures in various stages of healing and healing left humeral fracture. 3. 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 4. Moderate emphysema. Suggest entry of the patient in [address] screening. 5. A 4.2 cm ascending thoracic aortic aneurysm. Follow-up is indicated. 6. Cholelithiasis. 7. Chronic left hydroureteronephrosis of unknown etiology. Chronic renal scarring.
[2020-10-31 15:02] VITALS: BP 142/86; PULSE 100; RESP 16; TEMP 36.1; O2SAT 87; BMI 23.3
--- NOTE | 2020-10-31 15:17 | ED.EXTPRO ---
HPI - Extremity Problem General Chief complaint: Extremity Injury, Upper Stated complaint: fall, wrist injury Time Seen by Provider: 10/31/20 15:16 Source: patient and EMS Mode of arrival: EMS History of Present Illness HPI Narrative: 65-year-old male with a past medical history of ETOH abuse presenting to the ED complaining of right hand/wrist pain and swelling s/p fall down about 6 stairs last night. Reports was trying to grab blanket which got caught on foot and caused him to fall, denies head trauma or LOC. Admits to drinking EtOH today but will not elaborate on amount. Admits to chronic body pain, unchanged, denies headache, SOB, neck/back pain MD Complaint: extremity pain and extremity swelling Onset (ago): day(s) Related Data Previous Rx's Medication Instructions Recorded nitrofurantoin monohyd/m-cryst 100 mg PO Q12H 7 Days #14 cap 07/12/20 [Macrobid] ibuprofen 600 mg PO Q6H PRN #20 tab 09/04/20 Allergies Allergy/AdvReac Type Severity Reaction Status Date / Time No Known Allergies Allergy Unknown UNKNOWN Verified 09/08/20 17:05 [NO KNOWN ALLERGIES] Review of Systems Review of Systems: Constitutional: No Fever, No Chills Eyes: No Vision Changes Cardiovascular: No Chest Pain, No SOB Gastrointestinal: No Abdominal pain Musculoskeletal:+ joint pain, + Myalgias, +Joint Swelling Skin: No Skin Lesions, No rash Neuro: No Numbness, No Loss of Consciousness, No Dizziness, No Headache Psych: +ETOH use Yes all other systems are reviewed and are negative PMFSH Past Medical History Attestation statement: The following information was validated with the patient. Medical History Alcohol abuse Hard of hearing No known health problems Patient denies medical problems Social History Social History Alcohol intake: current Alcohol intake frequency: 3 or more drinks per day Alcohol type: beer Smoking Status: Current every day smoker Advance Directives: No Advance Directives Information Provided: No Physical Exam Vital Signs: Vital Signs: Last Vital Signs Temp 97.0 F 10/31/20 15:02 Pulse 100 10/31/20 15:02 Resp 16 10/31/20 15:02 BP 142/86 H 10/31/20 15:02 Pulse Ox 87 L 10/31/20 15:02 Body Mass Index 23.3 Const: Other: intoxicated General: cooperative and poor hygiene HENMT: Head: Yes normal to inspection and Yes atraumatic Ears: hearing grossly normal bilaterally General nose exam: Normal external nose present Face and sinus: Yes normal facial exam Eyes: General: appearance normal, both eyes and all related structures Pupils: Equal, round and reactive pupils present EOM: EOMs intact bilaterally Neck: Neck: Yes normal visual inspection and Yes no meningeal signs Chest: Chest palpation & inspection: tenderness (bilateral ribs nonfocal) Resp: Effort & Inspection: normal respiratory effort Cardio: Rate: regular rate Peripheral pulses: radial pulses present GI: Inspection: Yes normal to inspection Palpation (GI): Soft to palpation, nontender, no guarding and not rigid Skin: Rashes: no rashes Neuro: General: tone normal, moves all extremities and no meningeal signs Cranial nerves: Yes Equal, round and reactive pupils present Extrem: Other: Right hand/wrist and forearm swelling and tenderness to palpation. Decreased ROM secondary to pain. Neurovascularly intact. Course Course Course Narrative: -x-ray showing comminuted intra-articular fracture of the distal radius and ulnar styloid > sugar-tong splint applied in the ED with sling. Discussed with patient needs to follow-up with orthopedics. -head/C-spine CT unremarkable -1709--chest CT showing 2 new line posterior rib fractures 9 and 10th ribs. Suggesting traumatic injury however also concern for lytic changes. Evidence of multiple prior traumas with chronic rib fractures. Moderate emphysema patient should on 2yr lung CT scan screening. 4.2 ascending thoracic aortic aneurysm. >> will obtain labs and CTAP -1800-- ED care signed out to ANNY Ortiz pending labs, CTAP and clinical sobriety MDM - Extremity (Nontraumatic) MDM Narrative Medical decision making narrative: On exam patient is sleeping, intoxicated, no apparent distress, physical exam as above. Concern for fracture of right upper extremity. Rule out ICH/other occult fracture secondary to patient being poor historian/intoxicated. Discharge Plan Discharge Clinical Impression: Fracture of wrist, Multiple rib fractures Instructions: Wrist Fracture in Adults (ED) Additional Instructions: You have a fracture of her wrist, keep splint dry and clean, you need to see the orthopedic doctor in 1 week. Ice and elevate your wrist. A CT scan of your chest also showed a 9th & 10 right-sided rib fracture. This is concerning for your fall injury as well as possible cancer with the way it appears on the imaging You have lung emphysema, he should be getting CT scans of her chest every 2 years. You also had a thoracic aortic aneurysm and should follow-up of with vascular You should stop drinking alcohol as it can kill you Prescriptions: No Action nitrofurantoin monohyd/m-cryst [Macrobid] 100 mg capsule 100 mg PO Q12H 7 Days Qty: 14 RF: 0 ibuprofen 600 mg tablet 600 mg PO Q6H PRN (Reason: pain) Qty: 20 RF: 0 Referrals: Bethany Tuttle MD [Physician] - 1 week Marcelo Farnsworth MD [Physician] - 1 week
--- NOTE | 2020-10-31 16:24 | PC.NURSE ---
pt ambulated to bathroom and back 50 ft. steady gait.
[2020-10-31 17:48] VITALS: RESP 16
[2020-10-31 20:06] VITALS: BP 130/65; PULSE 108; RESP 20; TEMP 37.1; O2SAT 94
[2020-10-31 20:24] LABS: MANUAL DIFF FLAG NO
[2020-10-31 20:26] LABS: Basophils Absolute Auto 0.1 X10*3/uL (0.0-0.2); Eosinophils Absolute Auto 0.3 X10*3/uL (0.0-0.4); Eosinophils Percent Auto 3.2 % (0-4); Hematocrit 40.4 % (42-52); Hemoglobin 14.6 g/dl (14.0-18.0); Imm Gran Abs Auto 0.03 X10*3/uL (0.00-0.03); Imm Gran Pct Auto 0.3 % (0.0-0.4); Lymphocytes Percent Auto 20.5 % (20-40); Mean Corpuscular HGB Conc 36.1 g/dl (31.0-36.0); Mean Corpuscular Hemoglobin 32.5 pg (27.0-33.0); Mean Platelet Volume 9.4 fL (9.4-12.4); Monocytes Absolute Auto 0.8 X10*3/uL (0.1-1.2); Monocytes Percent Auto 8.3 % (2-11); Neutrophils Absolute Auto 6.5 X10*3/uL (2.0-8.3); Neutrophils Percent Auto 66.7 % (45-73); Platelet Count 270 X10*3/uL (160-400); Red Blood Count 4.49 X10*6/uL (4.60-5.80); Red Cell Distribution Width 12.1 % (11.0-16.0); White Blood Count 9.7 X10*3/uL (4.8-10.8)
[2020-10-31 20:45] LABS: Ethanol 132 mg/dL
[2020-10-31 20:53] LABS: Alanine Aminotransferase 12 U/L (0-40); Albumin Level 3.9 g/dL (3.5-5.0); Alkaline Phosphatase 58 U/L (39-117); Anion Gap 18 (12-20); Aspartate Amino Transferase 24 U/L (5-37); Bilirubin Direct 0.4 mg/dL (0.0-0.5); Bilirubin Total 0.7 mg/dL (0.0-1.0); Calcium 8.6 mg/dL (8.4-10.2); Carbon Dioxide 21 mmol/L (22-29); Chloride 94 mmol/L (96-108); Creatinine Clr Calc Pharmacy 104.3; Estimated Glomerular Filt Rate > 60; Glucose Random 88 mg/dL (60-115); Potassium 3.6 mmol/L (3.3-5.1); Sodium 129 mmol/L (135-145); Total Protein 7.1 g/dL (6.5-8.0)
[2020-10-31 21:01] LABS: Blood Urea Nitrogen 4 mg/dL (9-16)
[2020-10-31 22:00] VITALS: RESP 18
[2020-10-31] MEDS: iohexoL 350 MG/ML 100 ML INFUS..BTL IV (22:44)
[2020-10-31] MEDS: 0.9 % Sodium Chloride 1,000 ML 999 ML IV (23:51)
[2020-11-01 00:01] VITALS: BP 149/86; PULSE 104; RESP 18; O2SAT 97
== END 2020-11-01 01:33 | disposition home or self-care (01) ==
PROVIDERS: Physician Assistant; Emergency Provider Emergency Medicine
DX: S62.101A Fracture of unspecified carpal bone, right wrist, initial encounter for closed fracture (principal); S22.43XA Multiple fractures of ribs, bilateral, initial encounter for closed fracture; M25.531 Pain in right wrist; M79.641 Pain in right hand; M54.2 Cervicalgia; M54.6 Pain in thoracic spine; G89.29 Other chronic pain; G44.309 Post-traumatic headache, unspecified, not intractable; R10.9 Unspecified abdominal pain; W10.9XXA Fall (on) (from) unspecified stairs and steps, initial encounter; Y93.9 Activity, unspecified; Y92.9 Unspecified place or not applicable; Y99.9 Unspecified external cause status; Z79.899 Other long term (current) drug therapy; F17.200 Nicotine dependence, unspecified, uncomplicated; Z71.6 Tobacco abuse counseling
CPT/HCPCS: 29105; 36415; 70450; 71250; 72125; 73090; 73110; 73130; 74177; 80048; 80076; 80320; 85025; 96360; 99284; 99285; Q9967

== ENCOUNTER 2020-11-01 17:17 | Emergency (ER) | payer MEDICAID, SELFPAY ==
[2020-11-01 17:30] VITALS: BP 178/100; BP 180/110; PULSE 100; PULSE 93; RESP 18; TEMP 36.6; O2SAT 99; BMI 21.9
--- NOTE | 2020-11-01 18:21 | ED.ALCOHOL ---
HPI - Alcohol General Chief Complaint: ETOH/Substance Use Stated Complaint: ETOH, DIZZY Source: patient and EMS Mode of arrival: EMS Limitations: no limitations History of Present Illness HPI narrative: Patient presents to ED for drinking alcohol and arguing with family in the liquor store. Alcohol can be smelled on breath. Patient has known right arm injury due to fracture that occurred yesterday. Alcohol on breath Related Data Previous Rx's Medication Instructions Recorded nitrofurantoin monohyd/m-cryst 100 mg PO Q12H 7 Days #14 cap 07/12/20 [Macrobid] ibuprofen 600 mg PO Q6H PRN #20 tab 09/04/20 Allergies Allergy/AdvReac Type Severity Reaction Status Date / Time No Known Allergies Allergy Unknown UNKNOWN Verified 09/08/20 17:05 [NO KNOWN ALLERGIES] Review of Systems Review of Systems: Alcohol on breath Yes all other systems are reviewed and are negative Constitutional: Constitutional: Reports as per HPI and Reports no additional constitutional complaints Eyes: Eyes: Reports as per HPI and Reports no additional eye complaints ENT: Reports system reviewed and no additional complaints, except as documented and Reports as per HPI Cardiovascular: Cardiovascular: Reports as per HPI and Reports no additional cardiovascular complaints Respiratory: Respiratory: Reports as per HPI and Reports no additional respiratory complaints Gastrointestinal: Gastrointestinal: Reports as per HPI and Reports no additional gastrointestinal complaints Genitourinary: Genitourinary: Reports no additional male genitourinary complaints and Reports as per HPI Musculoskeletal: Musculoskeletal: Reports no additional musculoskeletal complaints and Reports as per HPI Comments: Right arm fracture Neurologic: Reports system reviewed and no additional complaints, except as documented and Reports as per HPI Psychiatric: Psychiatric: Reports no additional psychiatric complaints and Reports as per HPI [facility] Past Medical History Medical History Alcohol abuse Hard of hearing Injury of right lower arm Social History Social History Alcohol intake: current Alcohol intake frequency: 3 or more drinks per day Alcohol type: beer Smoking Status: Unknown if ever smoked Use of substances other than those prescribed or required for medical reasons: Unknown Advance Directives: No Advance Directives Information Provided: No Physical Exam Vital Signs: Vital Signs: Last Vital Signs Temp 97.8 F 11/01/20 17:30 Pulse 80 11/01/20 22:00 Resp 18 11/01/20 22:00 BP 178/100 H 11/01/20 17:30 Pulse Ox 99 11/01/20 17:30 Body Mass Index 21.9 Const: Other: Alcohol on breath General: cooperative, healthy appearing, comfortable, no acute distress, well developed, alert, awake and Physically active HENMT: Head: Yes normal to inspection, Yes No palpable skull fracture present, Yes normocephalic, Yes atraumatic, Yes abrasion, No Martinez's sign, No contusion, No cranial bruits, No hematoma, No laceration, No occipital foramen tenderness, No palpable skull fracture, No raccoon eyes, No scalp lesion, No scalp tenderness, No Temporal artery tenderness present, No periorbital ecchymosis and No other Eyes: General: appearance normal, both eyes and all related structures Neck: Neck: Yes normal visual inspection, Yes full ROM, Yes no lymphadenopathy, Yes no meningeal signs, Yes trachea midline, Yes supple and No tender Chest: Chest palpation & inspection: normal inspection of the chest and normal palpation of entire chest wall Breast/axilla inspection: normal inspection of the breasts Resp: Effort & Inspection: normal respiratory effort and able to speak in complete sentences Auscultation: clear to auscultation bilaterally Cardio: Jugular venous distension: no JVD Heart sounds: S1 normal heart sound present and S2 normal heart sound present GI: Inspection: Yes normal to inspection and No abdominal wall ecchymosis Palpation (GI): Soft to palpation, not firm, nontender, no guarding and not rigid : General: No CVA tenderness and Yes no CVA tenderness Back/Spine/Pelvis: Back: no CVA tenderness, No CVA tenderness and No back tenderness Skin: General skin exam: no rashes or lesions noted and elasticity normal Neuro: Other: Alcohol on breath. Intoxicated General: no meningeal signs Extrem: General: Yes normal to inspection and Yes full ROM Psych: Appearance: grossly normal, well kempt and disheveled Course Course Course Narrative: Patient will be left in his bed to sleep and sober from the alcohol. We will re-evaluated patient when he is alert oriented x3. Presently no signs of any new trauma. Reevaluation(s) Reevaluation #1: Patient walking around the ED. Patient alert oriented x3. No signs of any new trauma. Patient has known right arm fracture and is in the cast. Time: 00:39 MDM - Alcohol MDM Narrative Medical decision making narrative: Alcohol abuse Discharge Plan Discharge Clinical Impression: Alcohol abuse Patient Disposition: Home, Self-Care Instructions: Abuse of Alcohol (ED) Additional Instructions: Return to the ED immediately any headache, dizziness, chest pain, abdominal pain, vomiting blood, blood in stool, or any other concerning symptoms. Please follow-up with PCP Prescriptions: No Action nitrofurantoin monohyd/m-cryst [Macrobid] 100 mg capsule 100 mg PO Q12H 7 Days Qty: 14 RF: 0 ibuprofen 600 mg tablet 600 mg PO Q6H PRN (Reason: pain) Qty: 20 RF: 0 Print Language: Ug[place]an
--- NOTE | 2020-11-01 19:05 | PC.NURSE ---
PT AWAKE AND EATING DINNER
[2020-11-01 22:00] VITALS: PULSE 80; RESP 18
--- NOTE | 2020-11-02 01:15 | PC.NURSE ---
PT AMBULATORY TO BR, GAIT STEADY. RE EVALUATED BY PROVIDER. PLAN IS FOR DC HOME. PT AGREEABLE. TOLERATING PO
== END 2020-11-02 01:36 | disposition home or self-care (01) ==
PROVIDERS: Emergency Provider Emergency Medicine
DX: F10.10 Alcohol abuse, uncomplicated (principal); Y90.9 Presence of alcohol in blood, level not specified
CPT/HCPCS: 99283; 99285

== ENCOUNTER 2020-11-06 01:20 | Emergency (ER) | payer MEDICAID, SELFPAY ==
--- NOTE | ~2020-11-06 | XR_ITS ---
EXAMINATION: XR FOREARM, RIGHT CLINICAL INFORMATION: Fracture. COMPARISON: 10/31/2020. TECHNIQUE: AP and lateral views of the right forearm were obtained. FINDINGS: Again identified are distal right radial and ulnar fractures. Alignment is stable. An overlying cast is in place which obscures fine bony detail. XR/XR forearm RT 2V IMPRESSION: Stable alignment of casted distal right radial and ulnar fractures.
[2020-11-06 01:27] VITALS: BMI 22.8
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
--- NOTE | 2020-11-06 03:26 | PC.NURSE ---
PATIENT REFUSING VITAL SIGNS. STATED JUST CUT MY FUCKING BELT OFF! DO YOU UNDERSTAND CHINESE?! PT INSTRUCTED THAT INAPPROPRIATE LANGUAGE IS NOT TOLERATED. BELT (MADE OF GAUZE WRAP) WAS REMOVED REQUESTED, BUT PATIENT REFUSING CARE BEYOND OBTAINING X-RAY OF ARM. RIGHT ARM NOTED TO BE SWOLLEN, BUT WOULD ONLY LET EXAMINE THE ARM DURING ASSESSMENT. PT VOIDED IN URINAL. WARM BLANKET GIVEN. WAS ABLE TO BE REDIRECTED BY STAFF. WILL CONTINUE TO MONITOR.
[2020-11-06 03:29] VITALS: RESP 18
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
== END 2020-11-06 10:44 | disposition home or self-care (01) ==
PROVIDERS: Emergency Provider Student in an Organized Health Care Education/Training Program
DX: F10.120 Alcohol abuse with intoxication, uncomplicated (principal); Y90.9 Presence of alcohol in blood, level not specified; S52.501D Unspecified fracture of the lower end of right radius, subsequent encounter for closed fracture with routine healing; S52.601D Unspecified fracture of lower end of right ulna, subsequent encounter for closed fracture with routine healing; X58.XXXD Exposure to other specified factors, subsequent encounter
CPT/HCPCS: 73090; 99284

== ENCOUNTER 2020-12-23 20:35 | Emergency (ER) | payer MEDICAID, SELFPAY ==
[2020-12-23 20:43] VITALS: BP 147/86; PULSE 94; PULSE 97; RESP 18; TEMP 35.9; O2SAT 100; O2SAT 95; BMI 29.0
--- NOTE | 2020-12-23 21:15 | ED_ITS ---
HPI - Alcohol General Chief Complaint: ETOH/Substance Use Stated Complaint: ETOH,?FALL Time Seen by Provider: 12/23/20 21:04 History of Present Illness HPI narrative: Patient positive EtOH. Refused to answer questions has no complaints. Told the provider to go away. Related Data Previous Rx's Medication Instructions Recorded nitrofurantoin monohyd/m-cryst 100 mg PO Q12H 7 Days #14 cap 07/12/20 [Macrobid] ibuprofen 600 mg PO Q6H PRN #20 tab 09/04/20 Allergies Allergy/AdvReac Type Severity Reaction Status Date / Time No Known Allergies Allergy Unknown UNKNOWN Verified 09/08/20 17:05 [NO KNOWN ALLERGIES] Review of Systems Review of Systems: Unable to obtain review systems 2nd to patient's condition Yes Unobtainable due to mental condition and Unobtainable due to mental status PMFSH Past Medical History Medical History Alcohol abuse Hard of hearing Injury of right lower arm Social History Social History Alcohol intake: current Alcohol intake frequency: 3 or more drinks per day Alcohol type: beer Smoking Status: Unknown if ever smoked Advance Directives: No Physical Exam Vital Signs: Vital Signs: Last Vital Signs Temp 96.7 F L 12/23/20 20:43 Pulse 94 12/23/20 20:43 Resp 18 12/23/20 20:43 BP 147/86 H 12/23/20 20:43 Pulse Ox 95 12/23/20 20:43 Body Mass Index 29.0 Appearance: Alert. Oriented X3. No acute distress. Eyes: Pupils equal, round and reactive to light. ENT: Pharynx normal. Neck: Normal inspection. Neck supple. No lymph nodes noted. No crepitus CVS: Normal heart rate and rhythm. Pulses normal. Normal S1 and S2 Respiratory: No respiratory distress. Breath sounds normal. No Wheezing. No rales Abdomen: Soft and nontender. No rigidity. No distention. good BS x4 Skin: Skin warm and dry. Normal skin color. Normal skin turgor. Extremities: No lower extremity edema. Neurovascular intact to all extremities. No Lacerations. No Rash Neuro: No motor deficit. No sensory deficit. Moving all extermities. No slurred speech MDM - Alcohol MDM Narrative Medical decision making narrative: Will get labs and monitor. Patient's alcohol is 1 20 range. After monitoring for approximately 3-4 hours patient is clinically sober. Patient told to stop drinking alcohol he got very upset. Told he needs follow-up for his low sodium and will require repeat check of his sodium. Patient states understanding. Will follow up in clinic. In stable condition. Will discharge home. Lab Data Result diagrams: 12/23/20 22:36 12/23/20 22:36 Labs: Lab Results 12/23/20 12/23/20 12/23/20 Range/Units 22:36 22:36 22:36 WBC 10.2 (4.8-10.8) X10*3/uL RBC 3.81 L (4.60-5.80) X10*6/uL Hgb 12.7 L (14.0-18.0) g/dl Hct 35.2 L (42-52) % MCV 92.4 (80-98) fL MCH 33.3 H (27.0-33.0) pg MCHC 36.1 H (31.0-36.0) g/dl RDW 12.1 (11.0-16.0) % Plt Count 227 (160-400) X10*3/uL MPV 9.4 (9.4-12.4) fL Immature Gran % (Auto) 0.3 (0.0-0.4) % Neut % (Auto) 61.1 (45-73) % Lymph % (Auto) 28.5 (20-40) % [place] % (Auto) 6.5 (2-11) % Eos % (Auto) 2.9 (0-4) % Baso % (Auto) 0.7 (0-2) % Lymph # (Auto) 2.9 (1.2-4.9) X10*3/uL [place] # (Auto) 0.7 (0.1-1.2) X10*3/uL Eos # (Auto) 0.3 (0.0-0.4) X10*3/uL Baso # (Auto) 0.1 (0.0-0.2) X10*3/uL Abs Immat Gran (auto) 0.03 (0.00-0.03) X10*3/uL Absolute Neuts (auto) 6.2 (2.0-8.3) X10*3/uL Absolute Nucleated RBC 0.000 (0.0-0.012) X10*3/uL Nucleated RBC % (auto) 0.0 (0.0-0.2) /100WBC Sodium 126 L (135-145) mmol/L Potassium 3.3 (3.3-5.1) mmol/L Chloride 93 L (96-108) mmol/L Carbon Dioxide 21 L (22-29) mmol/L Anion Gap 15 (12-20) BUN 5 L (9-16) mg/dL Creatinine 0.61 (0.5-1.4) mg/dL Estim Creat Clear Calc 124.3 Estimated GFR > 60 Random Glucose 91 (60-115) mg/dL Calcium 8.6 (8.4-10.2) mg/dL Ethyl Alcohol 118 mg/dL Discharge Plan Discharge Clinical Impression: Alcoholic intoxication, Acute hyponatremia Patient Disposition: Home, Self-Care Instructions: Hyponatremia (ED), Abuse of Alcohol (ED), Alcohol Dependence (ED) Additional Instructions: Please follow-up with your doctor tomorrow. Your sodium is low you will need repeat blood work. Please stop drinking alcohol. Drinking excessive amount alcohol can kill you. Please follow-up with orthopedics for your fracture in your forearm. Prescriptions: No Action nitrofurantoin monohyd/m-cryst [Macrobid] 100 mg capsule 100 mg PO Q12H 7 Days Qty: 14 RF: 0 ibuprofen 600 mg tablet 600 mg PO Q6H PRN (Reason: pain) Qty: 20 RF: 0 [facility] (Please follow-up for your low sodium. Please also follow-up for your drinking problem. Please stop drinking alcohol.) Bethany Tuttle MD [Physician] - 2 days
--- NOTE | 2020-12-23 21:15 | MHC.RECOVSUP ---
Patient refuse any service
[2020-12-23 22:40] LABS: MANUAL DIFF FLAG NO
[2020-12-23 22:41] LABS: Basophils Absolute Auto 0.1 X10*3/uL (0.0-0.2); Basophils Percent Auto 0.7 % (0-2); Eosinophils Absolute Auto 0.3 X10*3/uL (0.0-0.4); Eosinophils Percent Auto 2.9 % (0-4); Hematocrit 35.2 % (42-52); Hemoglobin 12.7 g/dl (14.0-18.0); Imm Gran Abs Auto 0.03 X10*3/uL (0.00-0.03); Imm Gran Pct Auto 0.3 % (0.0-0.4); Lymphocytes Absolute Auto 2.9 X10*3/uL (1.2-4.9); Lymphocytes Percent Auto 28.5 % (20-40); Mean Corpuscular HGB Conc 36.1 g/dl (31.0-36.0); Mean Corpuscular Hemoglobin 33.3 pg (27.0-33.0); Mean Corpuscular Volume 92.4 fL (80-98); Mean Platelet Volume 9.4 fL (9.4-12.4); Monocytes Absolute Auto 0.7 X10*3/uL (0.1-1.2); Monocytes Percent Auto 6.5 % (2-11); Neutrophils Absolute Auto 6.2 X10*3/uL (2.0-8.3); Neutrophils Percent Auto 61.1 % (45-73); Platelet Count 227 X10*3/uL (160-400); Red Blood Count 3.81 X10*6/uL (4.60-5.80); Red Cell Distribution Width 12.1 % (11.0-16.0); White Blood Count 10.2 X10*3/uL (4.8-10.8)
[2020-12-23 23:06] LABS: Ethanol 118 mg/dL
[2020-12-23 23:08] LABS: Anion Gap 15 (12-20); Blood Urea Nitrogen 5 mg/dL (9-16); Calcium 8.6 mg/dL (8.4-10.2); Carbon Dioxide 21 mmol/L (22-29); Chloride 93 mmol/L (96-108); Creatinine Clr Calc Pharmacy 124.3; Estimated Glomerular Filt Rate > 60; Glucose Random 91 mg/dL (60-115); Potassium 3.3 mmol/L (3.3-5.1); Sodium 126 mmol/L (135-145)
[2020-12-24 00:05] VITALS: BP 110/51; PULSE 84; RESP 16; O2SAT 96
== END 2020-12-24 00:43 | disposition home or self-care (01) ==
PROVIDERS: Emergency Provider Emergency Medicine Emergency Medical Services
DX: F10.129 Alcohol abuse with intoxication, unspecified (principal); E87.1 Hypo-osmolality and hyponatremia; Y90.6 Blood alcohol level of 120-199 mg/100 ml; Z79.899 Other long term (current) drug therapy
CPT/HCPCS: 36415; 80048; 80320; 85025; 99283

== ENCOUNTER 2020-12-25 18:14 | Emergency (ER) | payer MEDICAID, SELFPAY ==
--- NOTE | ~2020-12-25 | XR_ITS ---
EXAMINATION: RIGHT HAND AND WRIST CLINICAL INFORMATION: Follow-up radial fracture COMPARISON: 11/06/2020 TECHNIQUE: 3 views of the right hand and wrist FINDINGS: Again seen is a comminuted fracture involving the distal radius along with the ulnar styloid. Compared to the prior study, there is some indistinctness in fracture fragment borders indicating some interval healing. The fracture still demonstrates significant impaction and mild dorsal angulation. The plaster cast obscures detail. XR/XR hand wrist RT IMPRESSION: Comminuted distal radial fracture and fracture of ulnar styloid with some changes indicative of interval attempt at healing.
[2020-12-25 18:46] VITALS: BP 136/70; PULSE 79; RESP 16; TEMP 36.2; BMI 24.7
[2020-12-25 20:00] VITALS: PULSE 79; RESP 15
--- NOTE | 2020-12-25 21:11 | ED_ITS ---
HPI - Alcohol General Chief Complaint: ETOH/Substance Use <Casey Shanks NP - Last Filed: 12/25/20 21:16> Stated Complaint: ARM PAIN/ETOH <Casey Shanks NP - Last Filed: 12/25/20 21:16> Time Seen by Provider: 12/25/20 21:11 <Casey Shanks NP - Last Filed: 12/25/20 21:16> Source: EMS <Casey Shanks NP - Last Filed: 12/25/20 21:16> Mode of arrival: EMS <Casey Shanks NP - Last Filed: 12/25/20 21:16> Limitations: other (Intoxicated) <Casey Shanks NP - Last Filed: 12/25/20 21:16> History of Present Illness HPI narrative: Presenting intoxicated after bystanders called he was intoxicated but no fall or recent trauma. Admits to ETOH use. Also has a sugar-tong splint to the right upper extremity from October 31 for radial ulnar fracture. He is intoxicated but he is calm cooperative refusing to have this examined. He has good range of motion the fingers. Cap refill within normals. Denies any recent fall or injury. <Casey Shanks NP - Last Filed: 12/25/20 21:16> MD complaint: alcohol intoxication <Casey Shanks NP - Last Filed: 12/25/20 21:16> Chronic alcohol use: Yes <Casey Shanks NP - Last Filed: 12/25/20 21:16> Previous visits for alcohol intoxication: Yes <Casey Shanks NP - Last Filed: 12/25/20 21:16> Recent trauma: No <Casey Shanks NP - Last Filed: 12/25/20 21:16> Associated symptoms: denies other symptoms <Casey Shanks NP - Last Filed: 12/25/20 21:16> Treatments prior to arrival: none <Casey Shanks NP - Last Filed: 12/25/20 21:16> Related Data Home Medications: Previous Rx's Medication Instructions Recorded nitrofurantoin monohyd/m-cryst 100 mg PO Q12H 7 Days #14 cap 07/12/20 [Macrobid] ibuprofen 600 mg PO Q6H PRN #20 tab 09/04/20 <Casey Shanks NP - Last Filed: 12/25/20 21:16> Allergies/Adverse Reactions: Allergies Allergy/AdvReac Type Severity Reaction Status Date / Time No Known Allergies Allergy Unknown UNKNOWN Verified 09/08/20 17:05 [NO KNOWN ALLERGIES] <Casey Shanks NP - Last Filed: 12/25/20 21:16> Review of Systems Review of Systems: Yes Unobtainable due to mental condition (Intoxication) <Casey Shanks NP - Last Filed: 12/25/20 21:16> [facility] Past Medical History Source: unable to obtain <Casey Shanks NP - Last Filed: 12/25/20 21:16> Medical History: Medical History Alcohol abuse Hard of hearing Injury of right lower arm <Casey Shanks NP - Last Filed: 12/25/20 21:16> Social History Social History: Social History Alcohol intake: current Alcohol intake frequency: 3 or more drinks per day Alcohol type: beer Smoking Status: Current every day smoker Use of substances other than those prescribed or required for medical reasons: No Substance Use Frequency: Chronic Longstanding Advance Directives: No Advance Directives Information Provided: Yes <Casey Shanks NP - Last Filed: 12/25/20 21:16> Physical Exam Vital Signs: Vital Signs: Last Vital Signs Temp 97.2 F 12/25/20 18:46 Pulse 79 12/25/20 20:00 Resp 15 12/25/20 20:00 BP 136/70 12/25/20 18:46 Body Mass Index 24.7 Reviewed <Casey Shanks NP - Last Filed: 12/25/20 21:16> Vital Signs: Last Vital Signs Temp 97.2 F 12/25/20 18:46 Pulse 79 12/25/20 20:00 Resp 15 12/25/20 20:00 BP 136/70 12/25/20 18:46 Body Mass Index 24.7 <ANNY Gardner - Last Filed: 12/26/20 01:51> Const: Other: Strong odor of EtOH <Casey Shanks NP - Last Filed: 12/25/20 21:16> General: intoxicated appearing; No acute distress <[facility] PERSONAL BANKING ADVISOR - Last Filed: 12/25/20 21:16> Nutritional Appearance: average body habitus <[facility] PERSONAL BANKING ADVISOR - Last Filed: 12/25/20 21:16> Orientation/consciousness: patient oriented x3 <[facility] PERSONAL BANKING ADVISOR - Last Filed: 12/25/20 21:16> HENMT: Head: Yes normal to inspection <[facility] PERSONAL BANKING ADVISOR - Last Filed: 12/25/20 21:16> Ears: hearing grossly normal bilaterally <[facility] PERSONAL BANKING ADVISOR - Last Filed: 12/25/20 21:16> Eyes: General: appearance normal, both eyes and all related structures <[facility] Shanks - Last Filed: 12/25/20 21:16> Visual Gustafson: normal visual gustafson by confrontation <[facility] Shanks - Last Filed: 12/25/20 21:16> Neck: Neck: Yes normal visual inspection, No positive Brudzinski's sign, No positive Kernig's sign and No tender <[facility] PERSONAL BANKING ADVISOR - Last Filed: 12/25/20 21:16> Thyroid: Thyroid normal <[facility] - Last Filed: 12/25/20 21:16> Chest: Chest palpation & inspection: normal inspection of the chest <[facility] PERSONAL BANKING ADVISOR - Last Filed: 12/25/20 21:16> Resp: Effort & Inspection: normal respiratory effort <[facility] PERSONAL BANKING ADVISOR - Last Filed: 12/25/20 21:16> Auscultation: clear to auscultation bilaterally <[facility] PERSONAL BANKING ADVISOR - Last Filed: 12/25/20 21:16> Cardio: Jugular venous distension: no JVD <[facility] - Last Filed: 12/25/20 21:16> Rhythm: regular rhythm <[facility] PERSONAL BANKING ADVISOR - Last Filed: 12/25/20 21:16> Heart sounds: S1 normal heart sound present and S2 normal heart sound present <[facility] Shanks - Last Filed: 12/25/20 21:16> GI: Inspection: Yes normal to inspection <[facility] Shanks - Last Filed: 12/25/20 21:16> Percussion: Yes normal to percussion <Casey Shanks NP - Last Filed: 12/25/20 21:16> Auscultation: normal bowel sounds <Casey Shanks NP - Last Filed: 12/25/20 21:16> : General: Yes no CVA tenderness <Casey Shanks NP - Last Filed: 12/25/20 21:16> Back/Spine/Pelvis: Back: no CVA tenderness <Casey Shanks NP - Last Filed: 12/25/20 21:16> Skin: General skin exam: no rashes or lesions noted <Casey Shanks NP - Last Filed: 12/25/20 21:16> Neuro: General: patient oriented x3 <Casey Shanks NP - Last Filed: 12/25/20 21:16> Extrem: Other: Right upper extremity with sugar-tong splint with Ravi wrap. Cap refill within limits. He is refusing to have me examine this time. <Casey Shanks NP - Last Filed: 12/25/20 21:16> General: Yes normal to inspection <Casey Shanks NP - Last Filed: 12/25/20 21:16> Course Course Course Narrative: -0200--ED care transferred to Dr. Traore pending clinical sobriety and DC <ANNY Gardner - Last Filed: 12/26/20 01:51> Reevaluation(s) Reevaluation #1: History of alcohol abuse presenting with intoxication no recent trauma or injury. He has a sugar-tong splint to the right upper extremity from apparently October 31 where he had a distal radial/ulnar fracture. He is intoxicated at this time and refusing to have me remove this. Will examine this when he is more sober. <Casey Shanks NP - Last Filed: 12/25/20 21:16> On re-evaluation patient is sleeping comfortably, still clinically intoxicated, allowed me to remove splint and then would not allow me to do anything further, skin under splint dirty but intact > will apply Velcro splint when agreeable, discussed with patient needs to follow-up with orthopedics, he yelled at me and told me to get away and let him sleep <ANNY Gardner - Last Filed: 12/26/20 01:51> Time: 00:19 <ANNY Gardner - Last Filed: 12/26/20 01:51> Discharge Plan Discharge Clinical Impression: Alcoholic intoxication <Casey Shanks NP - Last Filed: 12/25/20 21:16> Instructions: Alcohol Intoxication (ED), Wrist Fracture in Adults (ED) <Casey Shanks NP - Last Filed: 12/25/20 21:16> Additional Instructions: YOU NEED TO FOLLOW-UP WITH DECORATING KILN OPERATOR SOON POSSIBLE YOUR WRIST IS STILL ACTIVELY HEALING WEAR VELCRO SPLINT AT HOME AT ALL TIMES YOU ARE RISKING PERMANENT DAMAGE/DECREASED MOBILITY TO YOUR HAND/WRIST IF YOU DO NOT FOLLOW-UP WITH THE SPECIALIST DO NOT DRINK ALCOHOL IT CAN KILL YOU <Casey Shanks NP - Last Filed: 12/25/20 21:16> Prescriptions: No Action nitrofurantoin monohyd/m-cryst [Macrobid] 100 mg capsule 100 mg PO Q12H 7 Days Qty: 14 RF: 0 ibuprofen 600 mg tablet 600 mg PO Q6H PRN (Reason: pain) Qty: 20 RF: 0 <Casey Shanks NP - Last Filed: 12/25/20 21:16> Referrals: Annetta Valentin PA-C [Physician Jar Capper] - 2 days <Casey Shanks NP - Last Filed: 12/25/20 21:16>
[2020-12-25 22:00] VITALS: RESP 15; O2SAT 98
[2020-12-26] VITALS: RESP 14; O2SAT 98
[2020-12-26 02:00] VITALS: RESP 14; O2SAT 98
[2020-12-26 04:00] VITALS: RESP 15
== END 2020-12-26 05:53 | disposition home or self-care (01) ==
PROVIDERS: Emergency Provider Emergency Medicine
DX: F10.129 Alcohol abuse with intoxication, unspecified (principal); M79.601 Pain in right arm; F17.200 Nicotine dependence, unspecified, uncomplicated; Z71.6 Tobacco abuse counseling; Z79.899 Other long term (current) drug therapy
CPT/HCPCS: 73110; 73130; 99285

== ENCOUNTER 2020-12-29 00:40 | Emergency (ER) | payer MEDICAID, SELFPAY ==
--- NOTE | 2020-12-29 00:49 | ED.UPPEXIN ---
HPI - Extremity Injury (Upper) General Stated Complaint: arm pain Time Seen by Provider: 12/29/20 00:48 Source: patient Mode of arrival: EMS Limitations: no limitations History of Present Illness HPI narrative: Patient alcoholic been here multiple times head fracture of right forearm distal radius on 10/31/20 after the fall been here multiple times after that for pain in the right forearm had x-ray done on 12/25 which showed healing fracture still in the splint complaint: injury to: right and forearm Onset (ago): month(s) Related Data Previous Rx's Medication Instructions Recorded nitrofurantoin monohyd/m-cryst 100 mg PO Q12H 7 Days #14 cap 07/12/20 [Macrobid] ibuprofen 600 mg PO Q6H PRN #20 tab 09/04/20 Allergies Allergy/AdvReac Type Severity Reaction Status Date / Time No Known Allergies Allergy Unknown UNKNOWN Verified 09/08/20 17:05 [NO KNOWN ALLERGIES] Review of Systems Review of Systems: Yes all other systems are reviewed and are negative [facility] Past Medical History Medical History Alcohol abuse Hard of hearing Injury of right lower arm Social History Social History Alcohol intake: current Alcohol intake frequency: 3 or more drinks per day Alcohol type: beer Smoking Status: Current every day smoker Advance Directives: No Physical Exam Vital Signs: Appearance: Alert. Oriented X3. No acute distress.ETOH+ Eyes: Pupils equal, round and reactive to light. ENT: Pharynx normal. Neck: Normal inspection. Neck supple. CVS: Normal heart rate and rhythm. Pulses normal. Respiratory: No respiratory distress. Breath sounds normal. Abdomen: Soft and nontender. Bowel sounds are present, no mass palpable, Skin: Skin warm and dry. Normal skin color. Normal skin turgor. Extremities: No lower extremity edema. Right forearm pain velcro splint neurovascular intact Neuro: Oriented X 3. No motor deficit. No sensory deficit. MDM - Extremity Injury (Upper) MDM Narrative Medical decision making narrative: Patient alcoholic been here multiple times for his right wrist fracture seen orthopedic noncompliant for follow-up on velcro splint neurovascular intact patient advised to follow-up with orthopedic Discharge Plan Discharge Clinical Impression: Alcohol use Fracture of forearm, distal, right, closed Qualifiers: Encounter type: subsequent encounter Fracture healing: with delayed healing Qualified Code(s): S52.91XG - Unspecified fracture of right forearm, subsequent encounter for closed fracture with delayed healing Patient Disposition: Home, Self-Care Instructions: Wrist Fracture in Adults (ED) Additional Instructions: Keep the right hand in splint and follow-up with orthopedics Prescriptions: No Action nitrofurantoin monohyd/m-cryst [Macrobid] 100 mg capsule 100 mg PO Q12H 7 Days Qty: 14 RF: 0 ibuprofen 600 mg tablet 600 mg PO Q6H PRN (Reason: pain) Qty: 20 RF: 0
[2020-12-29 00:56] VITALS: BP 119/67; PULSE 75; RESP 18; TEMP 36.4; O2SAT 100; BMI 29.0
== END 2020-12-29 01:04 | disposition home or self-care (01) ==
PROVIDERS: Emergency Provider Internal Medicine
DX: M79.631 Pain in right forearm (principal); F10.10 Alcohol abuse, uncomplicated; Y90.9 Presence of alcohol in blood, level not specified; Z79.899 Other long term (current) drug therapy; F17.200 Nicotine dependence, unspecified, uncomplicated; Z71.6 Tobacco abuse counseling
CPT/HCPCS: 99283

== ENCOUNTER 2020-12-29 23:21 | Emergency (ER) | payer MEDICAID, SELFPAY ==
[2020-12-29 23:24] VITALS: PULSE 80; RESP 16; TEMP 36.6; O2SAT 97; BMI 34.6
--- NOTE | 2020-12-30 00:35 | ED_ITS ---
HPI - Extremity Problem General Chief complaint: Extremity Injury, Upper Stated complaint: WRIST PAIN, NO KNOWN INJURY, ? ETOH USE Time Seen by Provider: 12/29/20 23:34 Source: EMS Mode of arrival: ambulatory Limitations: no limitations History of Present Illness HPI Narrative: Patient brought to the ED for alcohol intoxication. Patient complains of right wrist pain. Patient denies trauma. Patient wants to sleep in the ED. Related Data Previous Rx's Medication Instructions Recorded nitrofurantoin monohyd/m-cryst 100 mg PO Q12H 7 Days #14 cap 07/12/20 [Macrobid] ibuprofen 600 mg PO Q6H PRN #20 tab 09/04/20 Allergies Allergy/AdvReac Type Severity Reaction Status Date / Time No Known Allergies Allergy Unknown UNKNOWN Verified 09/08/20 17:05 [NO KNOWN ALLERGIES] Review of Systems Review of Systems: Yes all other systems are reviewed and are negative Constitutional: Constitutional: Reports as per HPI and Reports no additional constitutional complaints Eyes: Eyes: Reports as per HPI and Reports no additional eye complaints ENT: Reports system reviewed and no additional complaints, except as documented and Reports as per HPI Cardiovascular: Cardiovascular: Reports as per HPI and Reports no additional cardiovascular complaints Respiratory: Respiratory: Reports as per HPI and Reports no additional respira tory complaints Gastrointestinal: Gastrointestinal: Reports as per HPI and Reports no additional gastrointestinal complaints Genitourinary: Genitourinary: Reports no additional male genitourinary complaints and Reports as per HPI Musculoskeletal: Musculoskeletal: Reports no additional musculoskeletal complaints and Reports as per HPI Comments: Right wrist pain Neurologic: Reports system reviewed and no additional complaints, except as documented and Reports as per HPI Psychiatric: Psychiatric: Reports no additional psychiatric complaints and Reports as per HPI [facility] [place] Past Medical History Medical History Alcohol abuse Hard of hearing Injury of right lower arm Social History Social History Alcohol intake: current Alcohol intake frequency: 3 or more drinks per day Alcohol type: beer Smoking Status: Current every day smoker Advance Directives: No Advance Directives Information Provided: No Physical Exam Vital Signs: Vital Signs: Last Vital Signs Temp 98 F 12/29/20 23:24 Pulse 80 12/29/20 23:24 Resp 16 12/29/20 23:24 Pulse Ox 97 12/29/20 23:24 Body Mass Index 34.6 Const: Other: Alcohol on breath General: cooperative, healthy appearing, comfortable, no acute distress, well developed and alert Orientation/consciousness: patient oriented x3 HENMT: Head: Yes normal to inspection, Yes No palpable skull fracture present, Yes normocephalic, Yes atraumatic, No abrasion, No Martinez's sign, No contusion, No cranial bruits, No hematoma, No laceration, No occipital foramen tenderness, No palpable skull fracture, No raccoon eyes, No scalp lesion, No scalp tenderness, No Temporal artery tenderness present and No periorbital ecchymosis Eyes: General: appearance normal, both eyes and all related structures Neck: Neck: Yes normal visual inspection, Yes full ROM, Yes no lymphadenopathy, Yes no meningeal signs, Yes trachea midline, Yes supple and No tender Chest: Chest palpation & inspection: normal inspection of the chest and normal palpation of entire chest wall Resp: Effort & Inspection: normal respiratory effort and able to speak in complete sentences Auscultation: clear to auscultation bilaterally Cardio: Jugular venous distension: no JVD Heart sounds: S1 normal heart sound present and S2 normal heart sound present GI: Inspection: Yes normal to inspection and No abdominal wall ecchymosis Palpation (GI): Soft to palpation, not firm, nontender, no guarding and not rigid : General: No CVA tenderness and Yes no CVA tenderness Back/Spine/Pelvis: Back: no CVA tenderness, No CVA tenderness and No back tenderness Skin: General skin exam: no rashes or lesions noted and elasticity normal Neuro: Other: Alcohol on breath General: patient oriented x3, gait normal, no meningeal signs and CN's II-XI intact bilaterally Extrem: Other: Right wrist pain. Capillary refill of right hand and intact. Radial pulse intact. Negative for redness or cellulitis. Normal temperature Negative for compartment syndrome. General: Yes normal to inspection and Yes full ROM Psych: Appearance: grossly normal, well kempt and not disheveled Course Course Course Narrative: No need for repeat x-ray. Patient has known communitted fracture of wrist. Physical exam negative for compartment syndrome, DVT, or cellulitis. Will let the patient sleep and sober up. Reevaluation(s) Reevaluation #1: Patient presently alert oriented x3 and ready for discharge. Alcohol abuse MDM - Extremity (Nontraumatic) MDM Narrative Medical decision making narrative: Alcohol abuse Discharge Plan Discharge Clinical Impression: Alcohol abuse, Fracture of forearm, distal, right, closed Patient Disposition: Home, Self-Care Instructions: Abuse of Alcohol (ED) Additional Instructions: Return to the ED immediately for suicidal/homicidal ideation, swelling of extremity, redness, fullness of skin, severe pain, or any other concerning symptoms. Prescriptions: No Action nitrofurantoin monohyd/m-cryst [Macrobid] 100 mg capsule 100 mg PO Q12H 7 Days Qty: 14 RF: 0 ibuprofen 600 mg tablet 600 mg PO Q6H PRN (Reason: pain) Qty: 20 RF: 0 Print Language: Telugu
--- NOTE | 2020-12-30 03:15 | PC.NURSE ---
PT URINATED ALL OVER STRETCHER AND CLOTHES AND IS BLAMING NURSING FOR LEAVING HIM LIKE THAT. PT ESCORTED OUT BY SECURITY.
== END 2020-12-30 03:12 | disposition home or self-care (01) ==
PROVIDERS: Emergency Provider Internal Medicine
DX: S52.91XA Unspecified fracture of right forearm, initial encounter for closed fracture (principal); F10.129 Alcohol abuse with intoxication, unspecified; M25.531 Pain in right wrist; Y90.9 Presence of alcohol in blood, level not specified; X58.XXXA Exposure to other specified factors, initial encounter; Y93.9 Activity, unspecified; Y92.9 Unspecified place or not applicable; Y99.9 Unspecified external cause status; Z79.899 Other long term (current) drug therapy; F17.200 Nicotine dependence, unspecified, uncomplicated; Z71.6 Tobacco abuse counseling
CPT/HCPCS: 99283

== ENCOUNTER 2021-01-17 01:02 | Emergency (ER) | payer MEDICAID, SELFPAY ==
[2021-01-17 01:06] VITALS: BP 137/77; PULSE 81; RESP 18; TEMP 36.5; O2SAT 95; BMI 29.2
--- NOTE | 2021-01-17 01:14 | ED_ITS ---
HPI - General Adult General Chief complaint: General Medical Stated complaint: etoh Time Seen by Provider: 01/17/21 01:14 Source: patient Mode of arrival: EMS Limitations: no limitations History of Present Illness HPI narrative: 65-year-old male brought to the emergency department by ambulance for evaluation alcohol intoxication. The patient states that he was drinking alcohol this evening. The patient states that he is having difficulty urinating and it is painful to urinate. He states these had urinary tract infections in the past. He denied fever, chills, chest pain, shortness of breath, abdominal pain, nausea, vomiting or diarrhea. The patient is seen frequently here in the emergency department for alcohol intoxication, he was last evaluated on 12/29/2020. Related Data Previous Rx's Medication Instructions Recorded nitrofurantoin monohyd/m-cryst 100 mg PO Q12H 7 Days #14 cap 07/12/20 [Macrobid] ibuprofen 600 mg PO Q6H PRN #20 tab 09/04/20 Allergies Allergy/AdvReac Type Severity Reaction Status Date / Time No Known Allergies Allergy Unknown UNKNOWN Verified 09/08/20 17:05 [NO KNOWN ALLERGIES] Review of Systems Review of Systems: Yes all other systems are reviewed and are negative PMFSH Past Medical History PMFSH Narrative: The patient states that he smokes cigarettes, he drinks alcohol daily, he cannot quantify how much he drinks, he denies drug use. Medical History Alcohol abuse Hard of hearing Injury of right lower arm Social History Social History Alcohol intake: current Alcohol intake frequency: 3 or more drinks per day Alcohol type: beer Smoking Status: Current every day smoker Advance Directives: No Physical Exam Vital Signs: Vital Signs: Last Vital Signs Temp 97.7 F 01/17/21 01:06 Pulse 81 01/17/21 01:06 Resp 18 01/17/21 01:06 BP 137/77 01/17/21 01:06 Pulse Ox 95 01/17/21 01:06 Body Mass Index 29.2 Const: General: poor hygiene Orientation/consciousness: oriented to person and oriented to place Limitations: no limitations HENMT: Head: Yes normal to inspection, Yes normocephalic and Yes atraumatic Ears: external ears normal General nose exam: Normal external nose present Face and sinus: Yes normal facial exam Mouth: Normal oral and palatal mucosa present Throat: Yes posterior oropharynx normal Eyes: Periorbital: periorbital findings normal Eyelids: Yes eyelids normal Conjunctivae: conjunctivae normal Sclerae: sclerae normal Corneas: corneas normal Pupils: Equal, round and reactive pupils present Direct Ophthalmoscopy: normal light reflex Neck: Neck: Yes full ROM, Yes no lymphadenopathy, Yes no meningeal signs, Yes trachea midline and Yes supple Chest: Chest palpation & inspection: normal inspection of the chest and normal palpation of entire chest wall Resp: Effort & Inspection: normal respiratory effort and able to speak in complete sentences Auscultation: clear to auscultation bilaterally Cardio: Rate: regular rate Rhythm: regular rhythm Heart sounds: S1 normal heart sound present, S2 normal heart sound present and no murmurs GI: Inspection: Yes normal to inspection Palpation (GI): Soft to palpation, nontender, no guarding, not rigid and No hepatosplenomegaly present : General: Yes no CVA tenderness Back/Spine/Pelvis: Back: no CVA tenderness Cervical Spine: normal cervical lordosis Thoracic/Lumbar Spine: thoracic and lumbar spine normal to insp ection Skin: Lesions: no lesions Rashes: no rashes Wounds: no wounds Neuro: General: oriented to person, oriented to place and no meningeal signs Cranial nerves: Yes CN's II-XII intact bilaterally and Yes Equal, round and reactive pupils present Cognition (Neuro): normal cognition Motor exam (neuro): 5/5 motor strength present throughout Extrem: General: Yes normal to inspection and Yes full ROM Psych: Appearance: well kempt Mental Status: mental status grossly normal Speech and movement: Normal speech and movement present Affect: normal affect Attitude: cooperative Thought process: Normal thought process prese nt Thought content: Normal thought content present Course Course Course Narrative: 65-year-old male with history of alcohol use disorder who presents the emergency department for evaluation dysuria and acute alcohol intoxication. Physical examination was unremarkable. This patient is well- known to the emergency department and at this time I will check a urinalysis only. The patient will be kept in the emergency department until he is sober. 0220: Physician observation started at 0220 hours. Patient placed in physician observation because the patient needed more time to sober up before he can be discharged. At the time observation was started the patient's vitals were stable, the patient is sleeping his exam is unchanged from his exam on presentation. Patient has not been able to give us a urine for urinalysis. Discharge Plan Discharge Prescriptions: No Action nitrofurantoin monohyd/m-cryst [Macrobid] 100 mg capsule 100 mg PO Q12H 7 Days Qty: 14 RF: 0 ibuprofen 600 mg tablet 600 mg PO Q6H PRN (Reason: pain) Qty: 20 RF: 0
== END 2021-01-17 06:49 | disposition home or self-care (01) ==
PROVIDERS: Emergency Provider Emergency Medicine Emergency Medical Services
DX: M79.603 Pain in arm, unspecified (principal); F10.129 Alcohol abuse with intoxication, unspecified; Y90.9 Presence of alcohol in blood, level not specified
CPT/HCPCS: 99284

== ENCOUNTER 2021-06-28 19:28 | Emergency (ER) | payer MEDICAID, SELFPAY ==
--- NOTE | ~2021-06-28 | CT_ITS ---
EXAMINATION: CT HEAD WITHOUT CONTRAST CT FACIAL BONES WITHOUT CONTRAST CT CERVICAL SPINE WITHOUT CONTRAST CLINICAL INFORMATION: Fall onto face. Ethanol. COMPARISON: CT scan of the head and cervical spine 10/31/2020. TECHNIQUE: Multidetector CT imaging of the head, facial bones and cervical spine was performed without the use of intravenous contrast. Coronal and sagittal reformatted images were generated at the technologist workstation. This CT examination was performed using dose optimization techniques as appropriate, variously including the following: *Automated exposure control *Adjustment of mA and/or kV according to patient size (this includes techniques or standardized protocols for targeted exams where dose is matched to indication/reason for exam; i.e. extremities or head) *Use of iterative reconstruction technique DLP: 1536 mGy-cm. FINDINGS: CT head: There is no evidence of acute intracranial hemorrhage or territorial infarction. No abnormal mass-effect or midline shift is seen. Garner to white matter differentiation is well preserved. No extra-axial fluid collections are identified. There is mild commensurate prominence of the ventricles and sulci consistent with diffuse volume loss. There are atheromatous calcifications of the cavernous internal carotid arteries bilaterally. There are areas of low-attenuation in the periventricular and subcortical white matter, most consistent with chronic microvascular ischemic changes. There is a chronic lacunar infarct in the left thalamus. There is soft tissue swelling of the bilateral paranasal soft tissues. There are fractures of the bilateral nasal bones, minimally displaced on the left; these were present on the prior CT scan. The mastoid air cells are well-aerated. There is extensive mucoperiosteal thickening in the right maxillary sinus, markedly increased compared to prior imaging. There appear to be bilateral secondary ostia in the medial smith of the maxillary sinuses bilaterally. CT facial bones: There are fractures of the bilateral nasal bones, minimally displaced on the left, demonstrated on prior imaging. There is soft tissue swelling around the nasal bones bilaterally, which may be acute. Correlate clinically. There are sequelae of prior trauma of the right temporomandibular joint, unchanged. The left temporomandibular joint appears normal. The mandible appears intact. The pterygoid plates, the zygomatic arches are intact and the lamina papyracea are intact. The bony orbital rims are intact. There is the mucoperiosteal extensively in the right maxillary sinus. A minimal amount of mucoperiosteal thickening is noted inferiorly in the left maxillary sinus. The other paranasal sinuses appear well-aerated. No air-fluid levels are seen. There is a sigmoid configuration of the anterior nasal septum,, which was demonstrated on prior imaging. More posteriorly the nasal septum is deviated to the left and there is a left-sided bony nasal septal spur. The ostiomeatal complexes are clear. The ethmoid roofs are symmetric. The carotid canals are normally covered by bone. There is severe periodontal disease of the residual dentition in the bilateral mandible and maxilla. The middle ear cavities are well-aerated. The intraorbital structures are normal. CT cervical spine: There is a mild levoscoliosis. There is a degenerative anterolisthesis of C3 on C4 secondary to facet arthropathy. There is narrowing of intervertebral disc height at C4-C5 and C5-C6 with degenerative endplate contour changes. Vertebral body heights are maintained and no fractures are demonstrated. The lateral masses of C1 and C2 are normally aligned and the dens is intact. There are extensive atheromatous calcifications of the carotid bifurcations bilaterally. There are extensive subpleural bullae in the right greater than left lung apices. There are emphysematous changes in the right upper lung. There are no pneumothoraces. There is a 1.1 cm low-density nodule in the left lobe of the thyroid gland. This was demonstrated on the prior study. CT/CT cervical spine wo con IMPRESSION: CT head: 1. There are no acute bleeds or territorial infarcts. No masses are demonstrated. 2. There is diffuse fine loss and there are chronic microvascular ischemic changes. CT maxillofacial: 1. There are sequelae of prior fractures of the nasal bones. There may be acute soft tissue stranding on the current study; correlate clinically. 2. There is interval increase in opacification in the right maxillary sinus. 3. There are sequelae of prior trauma of the right temporal mandibular joint, unchanged. CT cervical spine: 1. There are no acute fractures or subluxations. 2. The study redemonstrates the degenerative anterolisthesis of C3 and C4 secondary to facet arthropathy. 3. There are spondylitic changes at multiple levels. 4. There is a 1.1 cm low density nodule in the left of the thyroid gland, which could be further evaluated with nonemergent thyroid ultrasound.
--- NOTE | ~2021-06-28 | CT_ITS ---
EXAMINATION: CT CHEST WITHOUT CONTRAST CLINICAL INFORMATION: Fall. EtOH. Suspected rib fractures. COMPARISON: 10/31/2020 TECHNIQUE: Multidetector volumetric CT imaging of the chest was done. Axial MIP volume rendering provided. Sagittal and coronal reformatted images were obtained. This CT examination was performed using dose optimization techniques as appropriate, variously including the following: *Automated exposure control *Adjustment of mA and/or kV according to patient size (this includes techniques or standardized protocols for targeted exams where dose is matched to indication/reason for exam; i.e. extremities or head) *Use of iterative reconstruction technique DLP: 321 mGy-cm FINDINGS: LUNGS: The central airways are patent. Mild bronchial wall thickening. Moderate paraseptal and centrilobular emphysema. No dense consolidation. No pneumothorax. MEDIASTINUM: Normal heart size. No pericardial effusion. No mediastinal lymphadenopathy. The visualized thyroid gland is unremarkable. Nonspecific soft tissue density is seen posterior to the trachea. This is unchanged from multiple prior studies. PLEURA: There is no pleural effusion. No pleural mass or thickening. AXILLA: No lymphadenopathy. UPPER ABDOMEN: Bilateral hydronephrosis noted. Gallstone noted. OSSEOUS STRUCTURES: Degenerative changes throughout the spine. There are multiple chronic rib fractures. This includes posterior fractures at the right ninth and 10th ribs which are nonunited. No acute rib fractures are seen. There is also a chronic nonunited right clavicular fracture. CT/CT chest wo con IMPRESSION: No acute traumatic findings. Multiple chronic rib fractures are identified with no acute rib fracture seen. Moderate emphysema. No acute pulmonary finding. Unchanged soft tissue density mass posterior to the trachea.
[2021-06-28 19:32] VITALS: BP 162/102; BP 168/82; PULSE 86; PULSE 94; RESP 20; TEMP 36.6; O2SAT 100; O2SAT 97; BMI 26.6
--- NOTE | 2021-06-28 20:30 | ED.ALCOHOL ---
HPI - Alcohol General Chief Complaint: ETOH/Substance Use <Faith Silvestre NP - Last Filed: 07/01/21 16:58> Stated Complaint: etoh fall chest pain <Faith Silvestre NP - Last Filed: 07/01/21 16:58> Time Seen by Provider: 06/29/21 07:39 <Faith Silvestre NP - Last Filed: 07/01/21 16:58> Source: patient and EMS <Faith Silvestre NP - Last Filed: 07/01/21 16:58> Mode of arrival: EMS <Faith Silvestre NP - Last Filed: 07/01/21 16:58> Limitations: no limitations <Faith Silvestre NP - Last Filed: 07/01/21 16:58> History of Present Illness HPI narrative: 65-year-old male presents to the emergency department via EMS for alcohol intoxication and injury sustained from a fall earlier today. States to have chest wall pain. <Faith Silvestre NP - Last Filed: 07/01/21 16:58> MD complaint: alcohol intoxication <Faith Silvestre NP - Last Filed: 07/01/21 16:58> Last drink: Just prior to admission <Faith Silvestre NP - Last Filed: 07/01/21 16:58> Chronic alcohol use: Yes <Faith Silvestre NP - Last Filed: 07/01/21 16:58> Previous visits for alcohol intoxication: Yes <Faith Silvestre NP - Last Filed: 07/01/21 16:58> Recent trauma: Yes <Faith Silvestre NP - Last Filed: 07/01/21 16:58> Treatments prior to arrival: none <Faith Silvestre NP - Last Filed: 07/01/21 16:58> Related Data Home Medications: Previous Rx's Medication Instructions Recorded cephalexin 500 mg capsule 500 mg PO Q12H 7 Days #14 cap 06/29/21 <Faith Silvestre NP - Last Filed: 07/01/21 16:58> Allergies/Adverse Reactions: Allergies Allergy/AdvReac Type Severity Reaction Status Date / Time No Known Allergies Allergy Unknown UNKNOWN Verified 09/08/20 17:05 [NO KNOWN ALLERGIES] <Faith Silvestre NP - Last Filed: 07/01/21 16:58> Review of Systems Review of Systems: Constitutional: No Fever, No Chills ENT/Mouth: Positive nose pain, No Ear Pain, No Hoarseness, No sore throat Eyes: No Eye Pain, No Swelling, No Redness, No Foreign Body Cardiovascular: No Chest Pain, No SOB Respiratory: Positive right-sided chest wall pain, No Cough, No Dyspnea Gastrointestinal: No Nausea, No Vomiting, No Diarrhea, No abdominal Pain Genitourinary: No Dysuria, No Hematuria Musculoskeletal: positive joint pain, No Myalgias, No Joint Swelling Skin: Abrasions noted to nose, No Skin lacerations, No rash Neuro: No Weakness, No Numbness, No Paresthesias, No Loss of Consciousness, No Dizziness, No Headache Psych: No Anxiety/Panic, No Depression Heme/Lymph: no easy bruising, no Lymphadenopathy Endocrine: No Polyuria, No Polydipsia <Faith Silvestre NP - Last Filed: 07/01/21 16:58> Yes all other systems are reviewed and are negative <Faith Silvestre NP - Last Filed: 07/01/21 16:58> FOR[facility]LY [facility] Past Medical History Attestation statement: The following information was validated with the patient. <Faith Silvestre NP - Last Filed: 07/01/21 16:58> Source: old records reviewed <Faith Silvestre NP - Last Filed: 07/01/21 16:58> Medical History: Medical History Alcohol abuse Hard of hearing Injury of right lower arm <Faith Silvestre NP - Last Filed: 07/01/21 16:58> Social History Social History: Social History Alcohol intake: current Alcohol intake frequency: 3 or more drinks per day Alcohol type: beer Advance Directives: No Advance Directives Information Provided: No <Faith Silvestre NP - Last Filed: 07/01/21 16:58> Physical Exam Vital Signs: Vital Signs: Last Vital Signs Temp 97.0 F 06/29/21 05:41 Pulse 74 06/29/21 05:41 Resp 16 06/29/21 05:41 BP 156/72 H 06/29/21 05:41 Pulse Ox 98 06/29/21 05:41 Body Mass Index 26.6 <Faith Silvestre NP - Last Filed: 07/01/21 16:58> Vital Signs: Last Vital Signs Temp 97.0 F 06/29/21 05:41 Pulse 74 06/29/21 05:41 Resp 16 06/29/21 05:41 BP 156/72 H 06/29/21 05:41 Pulse Ox 98 06/29/21 05:41 Body Mass Index 26.6 <Renetta Little MD - Last Filed: 06/29/21 07:46> Appearance: Alert. Oriented X3. Intoxicated. Smells of urine and feces. Cachectic. Eyes: Pupils equal, round and reactive to light. Sclera nonicteric. ENT: Pharynx normal. Dry mucous membranes. Multiple abrasions and bruising to the nasal bridge, appears to be healing. Neck: Normal inspection. Neck supple. No cervical vertebral tenderness or step-offs. Full range of motion. CVS: Normal heart rate and rhythm. Pulses normal. Respiratory: No respiratory distress. Breath sounds normal. Chest wall tenderness to palpation. Abdomen: Soft and nontender. No hepatosplenomegaly noted. Skin: Skin warm and dry. Normal skin color. Normal skin turgor. Extremities: No lower extremity edema. Moves all extremities against resistance. Neuro: No motor deficit. No sensory deficit. Cranial nerves 2-12 intact. <Faith Silvestre NP - Last Filed: 07/01/21 16:58> Course Course Course Narrative: 65-year-old male presents with multiple injuries after a fall. Has a history of chronic alcohol abuse. Will order CT scan of head, cervical spine, and chest. Patient does not describe any other concerning symptoms. States that he has a history of chronic alcoholism with multiple falls. 11:[address] scan results with patient, he states that he can not take care of himself at home and is requesting case management professor of social work. He is not interested in detox at this time. Patient taken to the showers by ED voice and data technician. 1:05 a.m.. Lab still pending. Physician observation started at this time. <Faith Silvestre NP - Last Filed: 07/01/21 16:58> Reevaluation(s) Reevaluation #1: Patient re-evaluated and demanding that he be discharged before he misses the bus and on review of all investigate patient's patient is noted to have a UTI and received initial antibiotics here in the emergency room and then a prescription for remaining course was sent to his pharmacy. Patient was otherwise discharged in stable condition and denies that he wants detox. <Renetta Little MD - Last Filed: 06/29/21 07:46> Time: 07:46 <Renetta Little MD - Last Filed: 06/29/21 07:46> MDM - Alcohol Differential Diagnosis Differential diagnosis: Likely alcohol dependence and alcohol withdrawal delirium <Faith Silvestre NP - Last Filed: 07/01/21 16:58> Medical Records Attestation: I reviewed the patient's medical records. <Faith Silvestre NP - Last Filed: 07/01/21 16:58> Lab Data Attestation: I reviewed the patient's lab results. <Faith Silvestre NP - Last Filed: 07/01/21 16:58> Result diagrams: : 06/29/21 02:17 06/29/21 02:17 <Faith Silvestre NP - Last Filed: 07/01/21 16:58> Labs: Lab Results 06/29/21 06/29/21 06/29/21 Range/Units 02:17 02:17 02:19 WBC 7.9 (4.8-10.8) X10*3/uL RBC 3.90 L (4.60-5.80) X10*6/uL Hgb 13.0 L (14.0-18.0) g/dl Hct 36.2 L (42-52) % MCV 92.8 (80-98) fL MCH 33.3 H (27.0-33.0) pg MCHC 35.9 (31.0-36.0) g/dl RDW 11.8 (11.0-16.0) % Plt Count 246 (160-400) X10*3/uL MPV 9.2 L (9.4-12.4) fL Immature Gran % (Auto) 0.3 (0.0-0.4) % Neut % (Auto) 66.1 (45-73) % Lymph % (Auto) 18.2 L (20-40) % [place] % (Auto) 9.9 (2-11) % Eos % (Auto) 4.6 H (0-4) % Baso % (Auto) 0.9 (0-2) % Lymph # (Auto) 1.4 (1.2-4.9) X10*3/uL [place] # (Auto) 0.8 (0.1-1.2) X10*3/uL Eos # (Auto) 0.4 (0.0-0.4) X10*3/uL Baso # (Auto) 0.1 (0.0-0.2) X10*3/uL Abs Immat Gran (auto) 0.02 (0.00-0.03) X10*3/uL Absolute Neuts (auto) 5.2 (2.0-8.3) X10*3/uL Absolute Nucleated RBC 0.000 (0.0-0.012) X10*3/uL Nucleated RBC % (auto) 0.0 (0.0-0.2) /100WBC Sodium 133 L (135-145) mmol/L Potassium 3.8 (3.3-5.1) mmol/L Chloride 101 (96-108) mmol/L Carbon Dioxide 22 (22-29) mmol/L Anion Gap 14 (12-20) BUN 7 L (9-16) mg/dL Creatinine 0.69 (0.5-1.4) mg/dL Estim Creat Clear Calc 95.3 Estimated GFR > 60 Random Glucose 90 (60-115) mg/dL Calcium 8.6 (8.4-10.2) mg/dL Urine Color Urine Appearance Urine pH (5.0-8.0) Ur Specific [place] (1.005-1.025) Urine Protein (NEG-TRACE) MG/DL Urine Glucose (UA) (NEG) MG/DL Urine Ketones (NEG) MG/DL Urine Blood (NEG) Urine Nitrite (NEG) Ur Leukocyte Esterase (NEG) Urine RBC (0) /HPF Urine WBC (0-4) /HPF Urine WBC Clumps Ur Squamous Epith Cells /LPF Urine Bacteria /LPF Urine Mucus /LPF COVID-19 ([facility]) Negative (Negative) COVID-19 Clin Com See Note 10/05/21 Range/Units 05:44 WBC (4.8-10.8) X10*3/uL RBC (4.60-5.80) X10*6/uL Hgb (14.0-18.0) g/dl Hct (42-52) % MCV (80-98) fL MCH (27.0-33.0) pg MCHC (31.0-36.0) g/dl RDW (11.0-16.0) % Plt Count (160-400) X10*3/uL MPV (9.4-12.4) fL Immature Gran % (Auto) (0.0-0.4) % Neut % (Auto) (45-73) % Lymph % (Auto) (20-40) % [place] % (Auto) (2-11) % Eos % (Auto) (0-4) % Baso % (Auto) (0-2) % Lymph # (Auto) (1.2-4.9) X10*3/uL [place] # (Auto) (0.1-1.2) X10*3/uL Eos # (Auto) (0.0-0.4) X10*3/uL Baso # (Auto) (0.0-0.2) X10*3/uL Abs Immat Gran (auto) (0.00-0.03) X10*3/uL Absolute Neuts (auto) (2.0-8.3) X10*3/uL Absolute Nucleated RBC (0.0-0.012) X10*3/uL Nucleated RBC % (auto) (0.0-0.2) /100WBC Sodium (135-145) mmol/L Potassium (3.3-5.1) mmol/L Chloride (96-108) mmol/L Carbon Dioxide (22-29) mmol/L Anion Gap (12-20) BUN (9-16) mg/dL Creatinine (0.5-1.4) mg/dL Estim Creat Clear Calc Estimated GFR Random Glucose (60-115) mg/dL Calcium (8.4-10.2) mg/dL Urine Color YELLOW Urine Appearance HAZY Urine pH 6.5 (5.0-8.0) Ur Specific [place] 1.010 (1.005-1.025) Urine Protein TRACE (NEG-TRACE) MG/DL Urine Glucose (UA) NEG (NEG) MG/DL Urine Ketones NEG (NEG) MG/DL Urine Blood TRACE (NEG) Urine Nitrite POS H (NEG) Ur Leukocyte Esterase 3+ H (NEG) Urine RBC 1-4 (0) /HPF Urine WBC 30-49 H (0-4) /HPF Urine WBC Clumps NOTED Ur Squamous Epith Cells 1+ /LPF Urine Bacteria 3+ /LPF Urine Mucus TRACE /LPF COVID-19 ([facility]) (Negative) COVID-19 Clin Com <Faith Silvestre, [employer] DEVELOPER - Last Filed: 07/01/21 16:58> Lab Results 06/29/21 06/29/21 06/29/21 Range/Units 02:17 02:17 02:19 WBC 7.9 (4.8-10.8) X10*3/uL RBC 3.90 L (4.60-5.80) X10*6/uL Hgb 13.0 L (14.0-18.0) g/dl Hct 36.2 L (42-52) % MCV 92.8 (80-98) fL MCH 33.3 H (27.0-33.0) pg MCHC 35.9 (31.0-36.0) g/dl RDW 11.8 (11.0-16.0) % Plt Count 246 (160-400) X10*3/uL MPV 9.2 L (9.4-12.4) fL Immature Gran % (Auto) 0.3 (0.0-0.4) % Neut % (Auto) 66.1 (45-73) % Lymph % (Auto) 18.2 L (20-40) % [place] % (Auto) 9.9 (2-11) % Eos % (Auto) 4.6 H (0-4) % Baso % (Auto) 0.9 (0-2) % Lymph # (Auto) 1.4 (1.2-4.9) X10*3/uL [place] # (Auto) 0.8 (0.1-1.2) X10*3/uL Eos # (Auto) 0.4 (0.0-0.4) X10*3/uL Baso # (Auto) 0.1 (0.0-0.2) X10*3/uL Abs Immat Gran (auto) 0.02 (0.00-0.03) X10*3/uL Absolute Neuts (auto) 5.2 (2.0-8.3) X10*3/uL Absolute Nucleated RBC 0.000 (0.0-0.012) X10*3/uL Nucleated RBC % (auto) 0.0 (0.0-0.2) /100WBC Sodium 133 L (135-145) mmol/L Potassium 3.8 (3.3-5.1) mmol/L Chloride 101 (96-108) mmol/L Carbon Dioxide 22 (22-29) mmol/L Anion Gap 14 (12-20) BUN 7 L (9-16) mg/dL Creatinine 0.69 (0.5-1.4) mg/dL Estim Creat Clear Calc 95.3 Estimated GFR > 60 Random Glucose 90 (60-115) mg/dL Calcium 8.6 (8.4-10.2) mg/dL Urine Color Urine Appearance Urine pH (5.0-8.0) Ur Specific [place] (1.005-1.025) Urine Protein (NEG-TRACE) MG/DL Urine Glucose (UA) (NEG) MG/DL Urine Ketones (NEG) MG/DL Urine Blood (NEG) Urine Nitrite (NEG) Ur Leukocyte Esterase (NEG) Urine RBC (0) /HPF Urine WBC (0-4) /HPF Urine WBC Clumps Ur Squamous Epith Cells /LPF Urine Bacteria /LPF Urine Mucus /LPF COVID-19 ([facility]) Negative (Negative) COVID-19 Clin Com See Note 06/29/21 Range/Units 05:44 WBC (4.8-10.8) X10*3/uL RBC (4.60-5.80) X10*6/uL Hgb (14.0-18.0) g/dl Hct (42-52) % MCV (80-98) fL MCH (27.0-33.0) pg MCHC (31.0-36.0) g/dl RDW (11.0-16.0) % Plt Count (160-400) X10*3/uL MPV (9.4-12.4) fL Immature Gran % (Auto) (0.0-0.4) % Neut % (Auto) (45-73) % Lymph % (Auto) (20-40) % [place] % (Auto) (2-11) % Eos % (Auto) (0-4) % Baso % (Auto) (0-2) % Lymph # (Auto) (1.2-4.9) X10*3/uL [place] # (Auto) (0.1-1.2) X10*3/uL Eos # (Auto) (0.0-0.4) X10*3/uL Baso # (Auto) (0.0-0.2) X10*3/uL Abs Immat Gran (auto) (0.00-0.03) X10*3/uL Absolute Neuts (auto) (2.0-8.3) X10*3/uL Absolute Nucleated RBC (0.0-0.012) X10*3/uL Nucleated RBC % (auto) (0.0-0.2) /100WBC Sodium (135-145) mmol/L Potassium (3.3-5.1) mmol/L Chloride (96-108) mmol/L Carbon Dioxide (22-29) mmol/L Anion Gap (12-20) BUN (9-16) mg/dL Creatinine (0.5-1.4) mg/dL Estim Creat Clear Calc Estimated GFR Random Glucose (60-115) mg/dL Calcium (8.4-10.2) mg/dL Urine Color YELLOW Urine Appearance HAZY Urine pH 6.5 (5.0-8.0) Ur Specific [place] 1.010 (1.005-1.025) Urine Protein TRACE (NEG-TRACE) MG/DL Urine Glucose (UA) NEG (NEG) MG/DL Urine Ketones NEG (NEG) MG/DL Urine Blood TRACE (NEG) Urine Nitrite POS H (NEG) Ur Leukocyte Esterase 3+ H (NEG) Urine RBC 1-4 (0) /HPF Urine WBC 30-49 H (0-4) /HPF Urine WBC Clumps NOTED Ur Squamous Epith Cells 1+ /LPF Urine Bacteria 3+ /LPF Urine Mucus TRACE /LPF COVID-19 ([facility]) (Negative) COVID-19 Clin Com <Renetta Little MD - Last Filed: 06/29/21 07:46> Imaging Data CT head, facial bones, cervical spine: Attestation: I personally reviewed and interpreted this imaging study as follows: <Faith Silvestre NP - Last Filed: 07/01/21 16:58> Radiologist's impression: EXAMINATION: CT HEAD WITHOUT CONTRAST CT FACIAL BONES WITHOUT CONTRAST CT CERVICAL SPINE WITHOUT CONTRAST CLINICAL INFORMATION: Fall onto face. Ethanol.? COMPARISON: CT scan of the head and cervical spine 10/31/2020. TECHNIQUE: Multidetector CT imaging of the head, facial bones and cervical spine was performed without the use of intravenous contrast. Coronal and sagittal reformatted images were generated at the technologist workstation. This CT examination was performed using dose optimization techniques as appropriate, variously including the following: *Automated exposure control *Adjustment of mA and/or kV according to patient size (this includes techniques or standardized protocols for targeted exams where dose is matched to indication/reason for exam; i.e. extremities or head) *Use of iterative reconstruction technique DLP: 1536 mGy-cm. FINDINGS: CT head: There is no evidence of acute intracranial hemorrhage or territorial infarction. No abnormal mass-effect or midline shift is seen. Garner to white matter differentiation is well preserved. No extra-axial fluid collections are identified. There is mild commensurate prominence of the ventricles and sulci consistent with diffuse volume loss. There are atheromatous calcifications of the cavernous internal carotid arteries bilaterally. There are areas of low-attenuation in the periventricular and subcortical white matter, most consistent with chronic microvascular ischemic changes. There is a chronic lacunar infarct in the left thalamus. There is soft tissue swelling of the bilateral paranasal soft tissues. There are fractures of the bilateral nasal bones, minimally displaced on the left; these were present on the prior CT scan. The mastoid air cells are well-aerated. There is extensive mucoperiosteal thickening in the right maxillary sinus, markedly increased compared to prior imaging. There appear to be bilateral secondary ostia in the medial smith of the maxillary sinuses bilaterally. CT facial bones: There are fractures of the bilateral nasal bones, minimally displaced on the left, demonstrated on prior imaging. There is soft tissue swelling around the nasal bones bilaterally, which may be acute. Correlate clinically. There are sequelae of prior trauma of the right temporomandibular joint, unchanged. The left temporomandibular joint appears normal. The mandible appears intact. The pterygoid plates, the zygomatic arches are intact and the lamina papyracea are intact. The bony orbital rims are intact. There is the mucoperiosteal extensively in the right maxillary sinus. A minimal amount of mucoperiosteal thickening is noted inferiorly in the left maxillary sinus. The other paranasal sinuses appear well-aerated. No air-fluid levels are seen. There is a sigmoid configuration of the anterior nasal septum,, which was demonstrated on prior imaging. More posteriorly the nasal septum is deviated to the left and there is a left-sided bony nasal septal spur. The ostiomeatal complexes are clear. The ethmoid roofs are symmetric. The carotid canals are normally covered by bone. There is severe periodontal disease of the residual dentition in the bilateral mandible and maxilla. The middle ear cavities are well-aerated. The intraorbital structures are normal. CT cervical spine: There is a mild levoscoliosis. There is a degenerative anterolisthesis of C3 on C4 secondary to facet arthropathy. There is narrowing of intervertebral disc height at C4-C5 and C5-C6 with degenerative endplate contour changes. Vertebral body heights are maintained and no fractures are demonstrated. The lateral masses of C1 and C2 are normally aligned and the dens is intact. There are extensive atheromatous calcifications of the carotid bifurcations bilaterally. There are extensive subpleural bullae in the right greater than left lung apices. There are emphysematous changes in the right upper lung. There are no pneumothoraces. There is a 1.1 cm low-density nodule in the left lobe of the thyroid gland. This was demonstrated on the prior study. CT/CT cervical spine wo con IMPRESSION: CT head: 1. There are no acute bleeds or territorial infarcts. No masses are demonstrated. 2. There is diffuse fine loss and there are chronic microvascular ischemic changes. ? CT maxillofacial: 1. There are sequelae of prior fractures of the nasal bones. There may be acute soft tissue stranding on the current study; correlate clinically. 2. There is interval increase in opacification in the right maxillary sinus. 3. There are sequelae of prior trauma of the right temporal mandibular joint, unchanged. ? CT cervical spine: 1. There are no acute fractures or subluxations. 2. The study redemonstrates the degenerative anterolisthesis of C3 and C4 secondary to facet arthropathy. 3. There are spondylitic changes at multiple levels. 4. There is a 1.1 cm low density nodule in the left of the thyroid gland, which could be further evaluated with nonemergent thyroid ultrasound. <Faith Silvestre NP - Last Filed: 07/01/21 16:58> CT chest: Attestation: I personally reviewed and interpreted this imaging study as follows: <Faith Silvestre NP - Last Filed: 07/01/21 16:58> Radiologist's impression: EXAMINATION: CT CHEST WITHOUT CONTRAST CLINICAL INFORMATION: Fall. EtOH. Suspected rib fractures.? COMPARISON: 10/31/2020? TECHNIQUE: Multidetector volumetric CT imaging of the chest was done. Axial MIP volume rendering provided. Sagittal and coronal reformatted images were obtained.? This CT examination was performed using dose optimization techniques as appropriate, variously including the following: *Automated exposure control *Adjustment of mA and/or kV according to patient size (this includes techniques or standardized protocols for targeted exams where dose is matched to indication/reason for exam; i.e. extremities or head) *Use of iterative reconstruction technique DLP: 321 mGy-cm FINDINGS: LUNGS: The central airways are patent. Mild bronchial wall thickening. Moderate paraseptal and centrilobular emphysema. No dense consolidation. No pneumothorax.? MEDIASTINUM: Normal heart size. No pericardial effusion. No mediastinal lymphadenopathy. The visualized thyroid gland is unremarkable. Nonspecific soft tissue density is seen posterior to the trachea. This is unchanged from multiple prior studies.? PLEURA: There is no pleural effusion. No pleural mass or thickening.? AXILLA: No lymphadenopathy.? UPPER ABDOMEN: Bilateral hydronephrosis noted. Gallstone noted.? OSSEOUS STRUCTURES: Degenerative changes throughout the spine. There are multiple chronic rib fractures. This includes posterior fractures at the right ninth and 10th ribs which are nonunited. No acute rib fractures are seen. There is also a chronic nonunited right clavicular fracture. CT/CT chest wo con IMPRESSION: No acute traumatic findings. Multiple chronic rib fractures are identified with no acute rib fracture seen. ? Moderate emphysema. No acute pulmonary finding. ? Unchanged soft tissue density mass posterior to the trachea. <Faith Silvestre NP - Last Filed: 07/01/21 16:58> Discharge Plan Discharge Clinical Impression: Alcoholic intoxication, Acute UTI <Faith Silvestre NP - Last Filed: 07/01/21 16:58> Patient Disposition: Home, Self-Care <Faith Silvestre NP - Last Filed: 07/01/21 16:58> Instructions: Urinary Tract Infection in Men (ED), Alcohol Dependence (ED) <Faith Silvestre NP - Last Filed: 07/01/21 16:58> Additional Instructions: Stop drinking <Faith Silvestre NP - Last Filed: 07/01/21 16:58> Prescriptions: New cephalexin 500 mg capsule 500 mg PO Q12H 7 Days Qty: 14 RF: 0 <Faith Silvestre NP - Last Filed: 07/01/21 16:58> Referrals: Physician,Unknown J [Primary Care Provider] - 2 days <Faith Silvestre NP - Last Filed: 07/01/21 16:58> Interventions: ED Discharge Assessment Last Done: 06/29/21 07:53 <Faith Silvestre NP - Last Filed: 07/01/21 16:58> Discharge Date/Time: 06/29/21 07:54 <Faith Silvestre NP - Last Filed: 07/01/21 16:58>
[2021-06-28 21:48] VITALS: BP 165/72; PULSE 65; RESP 17; TEMP 36; O2SAT 99
--- NOTE | 2021-06-28 21:53 | PC.NURSE ---
PT RESTING IN STRETCHER, DENIES COMPLAINTS AND EATING SANDWICH.
--- NOTE | 2021-06-28 22:59 | PC.NURSE ---
PT LAYING IN STRETCHER AND URINATING ALL OVER HIMSELF AND REFUSING TO GET CHG INTO DRY GOWN. PT YELLING AT STAFF.
[2021-06-28 23:00] VITALS: RESP 18; O2SAT 97
[2021-06-29] VITALS: BP 128/62; PULSE 62; RESP 16; TEMP 36.1; O2SAT 95
--- NOTE | 2021-06-29 01:01 | PC.NURSE ---
pt smells very strong in odor. pt in w/c to the pod's shower and sitting in shower chair and receiving a full bath. Pt is bathing himself with assistance. pt's clothes are very dirty and odorous and in the washing machine to clean them. pt in NAD. pt is being seen by case mgt in the morning.
--- NOTE | 2021-06-29 01:30 | PC.NURSE ---
PT RETURNS TO HALLWAY BED IN W/C. PT'S CLOTHES BEING WASHED AT THIS TIME. PT GIVEN CLEAN CLOTHES AND SOME NEW BOOTS. WILL CONTINUE TO MONITOR PT.
[2021-06-29 02:00] VITALS: BP 125/71; PULSE 111; RESP 16; TEMP 36.9; O2SAT 96
[2021-06-29 02:24] LABS: Basophils Absolute Auto 0.1 X10*3/uL (0.0-0.2); Basophils Percent Auto 0.9 % (0-2); Eosinophils Absolute Auto 0.4 X10*3/uL (0.0-0.4); Eosinophils Percent Auto 4.6 % (0-4); Hematocrit 36.2 % (42-52); Imm Gran Abs Auto 0.02 X10*3/uL (0.00-0.03); Imm Gran Pct Auto 0.3 % (0.0-0.4); Lymphocytes Absolute Auto 1.4 X10*3/uL (1.2-4.9); Lymphocytes Percent Auto 18.2 % (20-40); MANUAL DIFF FLAG NO; Mean Corpuscular HGB Conc 35.9 g/dl (31.0-36.0); Mean Corpuscular Hemoglobin 33.3 pg (27.0-33.0); Mean Corpuscular Volume 92.8 fL (80-98); Mean Platelet Volume 9.2 fL (9.4-12.4); Monocytes Absolute Auto 0.8 X10*3/uL (0.1-1.2); Monocytes Percent Auto 9.9 % (2-11); Neutrophils Absolute Auto 5.2 X10*3/uL (2.0-8.3); Neutrophils Percent Auto 66.1 % (45-73); Platelet Count 246 X10*3/uL (160-400); Red Cell Distribution Width 11.8 % (11.0-16.0); White Blood Count 7.9 X10*3/uL (4.8-10.8)
[2021-06-29 02:44] LABS: COVID-19 Test Negative (Negative); IDNOW Serial# 55D5AD1C
[2021-06-29 02:51] LABS: Anion Gap 14 (12-20); Blood Urea Nitrogen 7 mg/dL (9-16); Calcium 8.6 mg/dL (8.4-10.2); Carbon Dioxide 22 mmol/L (22-29); Chloride 101 mmol/L (96-108); Creatinine Clr Calc Pharmacy 95.3; Estimated Glomerular Filt Rate > 60; Glucose Random 90 mg/dL (60-115); Potassium 3.8 mmol/L (3.3-5.1); Sodium 133 mmol/L (135-145)
--- NOTE | 2021-06-29 04:15 | PC.NURSE ---
PT REMAINS SLEEPING IN NAD. RESPIRATIONS EASY, N/L. SKIN W/D.
[2021-06-29 05:41] VITALS: BP 156/72; PULSE 74; RESP 16; TEMP 36.1; O2SAT 98
--- NOTE | 2021-06-29 06:06 | PC.NURSE ---
PT WAKES UP AND INSTANTLY YELLS IM GONNA SHIT ON THE FLOOR IF YOU DON'T GET ME TO THE RESTROOM. PT MOVED TO RESTROOM IN STRETCHER SO PT CAN GET UP AND USE THE RESTROOM WITH ASSISTANCE. `
[2021-06-29 06:09] LABS: Appearance Urine HAZY; Color Urine YELLOW; Glucose Urine UA NEG (NEG); Leukocyte Esterase Urine 3+ (NEG); Nitrite Urine POS (NEG); PH 6.5 (5.0-8.0); UACC Culture Trigger YES; Urine Blood TRACE (NEG); Urine Ketones NEG (NEG); Urine Protein TRACE MG/DL (NEG-TRACE)
[2021-06-29 06:48] LABS: Bacteria Urine 3+ /LPF; Mucus Urine TRACE /LPF; Squamous Epithelial Cell Urine 1+ /LPF; WBC Clumps Urine NOTED; WBC Urine 30-49 /HPF (0-4)
[2021-06-29] MEDS: cephALEXin 500 MG CAPSULE PO (07:51)
== END 2021-06-29 07:54 | disposition home or self-care (01) ==
PROVIDERS: Nurse Practitioner Family; Emergency Provider Student in an Organized Health Care Education/Training Program
DX: S20.213A Contusion of bilateral front wall of thorax, initial encounter (principal); R07.81 Pleurodynia; G44.309 Post-traumatic headache, unspecified, not intractable; F10.129 Alcohol abuse with intoxication, unspecified; M54.6 Pain in thoracic spine; M54.2 Cervicalgia; Y90.8 Blood alcohol level of 240 mg/100 ml or more; W01.0XXA Fall on same level from slipping, tripping and stumbling without subsequent striking against object, initial encounter; Y93.9 Activity, unspecified; Y92.9 Unspecified place or not applicable; Y99.9 Unspecified external cause status; Z79.899 Other long term (current) drug therapy; Z20.822 Contact with and (suspected) exposure to COVID-19; Z71.41 Alcohol abuse counseling and surveillance of alcoholic
CPT/HCPCS: 36415; 70450; 70486; 71250; 72125; 80048; 81001; 85025; 87086; 87635; 99284

== ENCOUNTER 2021-07-05 19:41 | Emergency (ER) | payer MEDICAID, SELFPAY ==
[2021-07-05 19:52] VITALS: BMI 20.9
--- NOTE | 2021-07-05 19:55 | ED.ALCOHOL ---
HPI - Alcohol General Chief Complaint: ETOH/Substance Use Stated Complaint: ETOH Time Seen by Provider: 07/05/21 19:54 Source: patient and EMS Mode of arrival: ambulatory Limitations: altered mental status (Alcohol intoxication) History of Present Illness HPI narrative: 65-year-old male presents via EMS for alcohol intoxication. Noncompliant with vital signs. MD complaint: alcohol intoxication Last drink: Unknown Chronic alcohol use: Yes Previous visits for alcohol intoxication: Yes Recent trauma: No Associated symptoms: denies other symptoms Treatments prior to arrival: none Related Data Previous Rx's Medication Instructions Recorded cephalexin 500 mg capsule 500 mg PO Q12H 7 Days #14 cap 06/29/21 Allergies Allergy/AdvReac Type Severity Reaction Status Date / Time No Known Allergies Allergy Unknown UNKNOWN Verified 09/08/20 17:05 [NO KNOWN ALLERGIES] Review of Systems Review of Systems: Constitutional: No Fever, No Chills ENT/Mouth: No Ear Pain, No Hoarseness, No sore throat Eyes: No Eye Pain, No Swelling, No Redness, No Foreign Body Cardiovascular: No Chest Pain, No SOB Respiratory: No Cough, No Dyspnea Gastrointestinal: No Nausea, No Vomiting, No Diarrhea, No abdominal Pain Genitourinary: No Dysuria, No Hematuria Musculoskeletal: No joint pain, No Myalgias, No Joint Swelling Skin: No Skin lacerations, No rash Neuro: No Weakness, No Numbness, No Paresthesias, No Loss of Consciousness, No Dizziness, No Headache Psych: Positive alcohol intoxication, No Anxiety/Panic, No Depression, no SI, no HI Heme/Lymph: no easy bruising, no Lymphadenopathy Endocrine: No Polyuria, No Polydipsia Yes all other systems are reviewed and are negative [facility] Past Medical History Attestation statement: The following information was validated with the patient. Source: old records reviewed Medical History Alcohol abuse Hard of hearing Injury of right lower arm Social History Social History Alcohol intake: current Alcohol intake frequency: 3 or more drinks per day Alcohol type: beer Advance Directives: No Physical Exam Vital Signs: Vital Signs: Body Mass Index 20.9 Appearance: Alert. Oriented X3. Intoxicated. Unkempt. Eyes: Pupils equal, round and reactive to light. Sclera nonicteric. ENT: Pharynx normal. Neck: Normal inspection. Neck supple. CVS: Normal heart rate and rhythm. Pulses normal. Respiratory: No respiratory distress. Breath sounds normal. Abdomen: Soft and nontender. Skin: Skin warm and dry. Normal skin color. Normal skin turgor. Extremities: No lower extremity edema. Gait not assessed for safety. Moving all extremities against resistance and spontaneously. Neuro: No motor deficit. No sensory deficit. Cranial nerves 2-12 intact. Course Course Course Narrative: 65-year-old male presents with acute alcohol intoxication. Presents to this facility multiple times weekly for similar circumstances. Does not have any physical complaints at this time. Patient is not interested in detox at this time. Plan of care is to discharge to home. MDM - Alcohol Differential Diagnosis Differential diagnosis: Likely alcohol dependence Medical Records Attestation: I reviewed the patient's medical records. Discharge Plan Discharge Clinical Impression: Alcoholic intoxication Qualifiers: Complication of substance-induced condition: uncomplicated Qualified Code(s): F10.920 - Alcohol use, unspecified with intoxication, uncomplicated Patient Disposition: Home, Self-Care Instructions: Abuse of Alcohol (ED) Additional Instructions: Please consider detox. Thank you for choosing this emergency department for evaluation. Please follow-up with primary care physician as needed. Return to the emergency department for any new, concerning, or worsening symptoms. Prescriptions: No Action cephalexin 500 mg capsule 500 mg PO Q12H 7 Days Qty: 14 RF: 0
--- NOTE | 2021-07-05 20:05 | PC.NURSE ---
RN assumed care at 1900. Pt alert and calling out at for RN at times. Pt noted to be sleeping in recliner. Pt denies SI at this time. Will continue to monitor.
--- NOTE | 2021-07-06 00:55 | PC.NURSE ---
Pt asleep in stretcher since coming in to ED. Pt asleep at this time. Will continue to monitor.
[2021-07-06 06:01] VITALS: BP 134/86; PULSE 76; RESP 18; TEMP 37; O2SAT 96
--- NOTE | 2021-07-06 06:02 | PC.NURSE ---
Pt alert and oriented x4, calm and cooperative. Pt denies pain. Pt states he is ready for discharge. Pt received discharge paperwork. No IV in place. Vitals stable. Pt wheeled out to waiting room without issues.
== END 2021-07-06 06:06 | disposition home or self-care (01) ==
PROVIDERS: Emergency Provider Emergency Medicine Emergency Medical Services
DX: F10.129 Alcohol abuse with intoxication, unspecified (principal); Y90.9 Presence of alcohol in blood, level not specified
CPT/HCPCS: 99283; 99284

== ENCOUNTER 2021-07-22 20:35 | Inpatient (IN) | payer MEDICAID, SELFPAY ==
--- NOTE | ~2021-07-22 | XR_ITS ---
EXAMINATION: XR CHEST CLINICAL INFORMATION: Line placement COMPARISON: Previous chest x-ray most recent from yesterday TECHNIQUE: Frontal view of the chest was obtained. FINDINGS: The cardiac and mediastinal contours are normal. There is question of airspace disease at the right lung base. The lungs are otherwise clear. There is a new right jugular line with tip projecting over the SVC. There is no pneumothorax. There is no pleural effusion. There are old right rib fractures. XR/XR chest 1V IMPRESSION: Right jugular line tip projects over SVC. No pneumothorax. Question developing airspace disease at the right lung base.
--- NOTE | ~2021-07-22 | XR_ITS ---
EXAMINATION: XR CHEST CLINICAL INFORMATION: Fall. Chest pain. Evaluate for rib fracture. No pneumothorax. COMPARISON: Most recent chest CT dated 06/28/2021. TECHNIQUE: 2 views of the chest were obtained. FINDINGS: No focal airspace consolidation. No pleural effusion or pneumothorax. Redemonstration of multiple healed right-sided rib fractures. Stable cardiomediastinal silhouette. XR/XR chest 2V IMPRESSION: No acute cardiopulmonary findings.
--- NOTE | ~2021-07-22 | CT_ITS ---
EXAMINATION: CT HEAD WITHOUT CONTRAST CT CERVICAL SPINE WITHOUT CONTRAST CLINICAL INFORMATION: EtOH. Fall. Injury. COMPARISON: CT head and cervical spine October 31, 2020 TECHNIQUE: Imaging was performed from the skull base to vertex without intravenous administration of contrast. In addition, helical noncontrast CT imaging was acquired through the cervical spine and source images were reviewed along with axial reconstructions and sagittal and coronal MPRs. [This CT examination was performed using dose optimization techniques as appropriate, variously including the following: *Automated exposure control *Adjustment of mA and/or kV according to patient size (this includes techniques or standardized protocols for targeted exams where dose is matched to indication/reason for exam; i.e. extremities or head) *Use of iterative reconstruction technique] DLP: 1116 mGy-cm FINDINGS: HEAD: No intracranial mass, hemorrhage, or midline shift is visualized. There is generalized global volume loss. There is marked prominence of the ventricles and the sulci . There is mild hypodensity of the periventricular white matter due to chronic small vessel ischemic disease. There are vascular calcifications of the internal carotid arteries bilaterally.. No extra-axial collections are identified. Thick rim of mucosal disease in the left maxillary sinus. Mastoid air cells and middle ear cavities are normally aerated. CERVICAL SPINE: There is no evidence of acute cervical spine fracture. Vertebral bodies remain normal in height. Cervical vertebrae have normal alignment. There is multilevel degenerative spondylosis of the cervical spine with disc height narrowing and endplate spurs and facet joint arthrosis Heavy vascular calcification of the carotid arteries. Paraseptal emphysematous change of lungs with subpleural blebs at both lung apices. CT/CT cervical spine wo con IMPRESSION: 1. No acute intracranial pathology. 2. No CT evidence of acute cervical spine fracture or traumatic subluxation
--- NOTE | ~2021-07-22 | XR_ITS ---
EXAMINATION: XR PELVIS CLINICAL INFORMATION: Fall, pelvic pain. Rule out fracture. COMPARISON: Radiograph of the pelvis dated from 11/17/2019. TECHNIQUE: AP view of the pelvis. FINDINGS: No acute fractures or malalignment. Both femoral heads are well-seated in their respective acetabula. Mild osteoarthritis in both hips. Scattered vascular calcifications. XR/XR pelvis 1-2V IMPRESSION: No acute fractures or malalignment.
--- NOTE | ~2021-07-22 | US_ITS ---
EXAMINATION: ULTRASOUND ARTERIAL DUPLEX LOWER EXTREMITY, BILATERAL CLINICAL INFORMATION: Nonhealing ulcer. Acute leg ischemia. COMPARISON: None TECHNIQUE: Grayscale, color and spectral Doppler imaging was obtained of the deep arterial systems of both lower extremities. Today's examination was limited due to difficulties with patient positioning due to pain. FINDINGS: Right lower extremity: Scattered atherosclerotic disease. The deep arterial system of the right lower extremity is patent from the common femoral artery into the calf although monophasic waveforms are present throughout suggesting inflow disease. Velocities are mildly elevated within the proximal aspect of the superficial femoral artery suggesting a focal stenosis. Left lower extremity: Prominent atherosclerotic disease. The left common femoral artery is patent but demonstrates monophasic waveforms suggesting inflow disease. Significantly decreased velocities are noted within the proximal and midportion of the left superficial femoral artery but it appears at least partially patent. There is complete occlusion within the distal aspect of the superficial femoral artery which extends through the popliteal artery and into the posterior tibial artery of the left calf. The left peroneal artery was not clearly visualized. US/US arterial duplex LE BI IMPRESSION: -Deep arterial system of the left lower extremity is occluded from the distal aspect of the superficial femoral artery into the calf. There is only minimal flow within the proximal and midportion of the left superficial femoral artery. -Deep arterial system of the right lower extremity is patent, however, inflow disease is suspected. There is also suspicion for a focal stenosis within the proximal aspect of the right superficial femoral artery.
[2021-07-22 20:43] VITALS: BP 173/93; PULSE 84; RESP 14; TEMP 36.1; O2SAT 98; BMI 30.1
[2021-07-22 20:45] VITALS: PULSE 70; O2SAT 98
--- NOTE | 2021-07-22 20:57 | ECG_ITS ---
Test Reason : FALL Blood Pressure : / mmHG Vent. Rate : 086 BPM Atrial Rate : 086 BPM P-R Int : 194 ms QRS Dur : 068 ms QT Int : 412 ms P-R-T Axes : 053 081 071 degrees QTc Int : 493 ms Normal sinus rhythm with sinus arrhythmia Nonspecific ST abnormality Inferior leads Borderline ECG ST more depressed Inferior leads Referred By: Edis Mancilla Electronically Signed By:LARISA MURO MD
--- NOTE | 2021-07-22 20:58 | ED.ALCOHOL ---
HPI - Alcohol General Chief Complaint: ETOH/Substance Use Stated Complaint: fall etoh Time Seen by Provider: 07/22/21 20:45 Source: patient and EMS Mode of arrival: ambulatory Limitations: no limitations History of Present Illness HPI narrative: 65-year-old male who was brought to the emergency department for evaluation of alcohol intoxication and possible fall. The patient does appear to be acutely intoxicated, he is also extremely hard of hearing and he states that he has has difficulty talking since he has had a stroke. Chaplain Resident report states that the patient was found holding onto a shopping car with no apparent injury however the patient told me that he fell. The patient states that he missed a step and fell to the concrete floor striking his head, chest and a hips on the pavement. He denied loss of consciousness. He is currently complaining of a headache, neck pain, chest pain, pelvic pain. He states that he has been drinking alcohol but cannot quantify the amount of alcohol that he drinks. He cannot tell me his past medical history except that he had a stroke but this is not documented in our records. Patient also has a his history of right forearm fracture secondary to fall that occurred 10/31/2020. In reviewing the patient's records, he is here multiple times a week for alcohol intoxication. Related Data Previous Rx's Medication Instructions Recorded cephalexin 500 mg capsule 500 mg PO Q12H 7 Days #14 cap 06/29/21 Allergies Allergy/AdvReac Type Severity Reaction Status Date / Time No Known Allergies Allergy Unknown UNKNOWN Verified 09/08/20 17:05 [NO KNOWN ALLERGIES] Review of Systems Review of Systems: Yes Unobtainable due to mental condition (Alcohol intoxication) [facility] Past Medical History Medical History Alcohol abuse Hard of hearing Injury of right lower arm Social History Social History Alcohol intake: current Alcohol intake frequency: 3 or more drinks per day Alcohol type: beer Advance Directives: No Advance Directives Information Provided: Yes Physical Exam Vital Signs: Vital Signs: Last Vital Signs Temp 97 F 07/22/21 20:43 Pulse 84 07/22/21 20:43 Resp 14 07/22/21 20:43 BP 173/93 H 07/22/21 20:43 Pulse Ox 98 07/22/21 20:43 Body Mass Index 30.1 Const: Other: Awake, alert, acutely intoxicated male, patient initially was and very wet closing these removed by nursing staff. Patient is very hard of hearing, his speech is dysarthric and slurred. HENMT: Head: Yes normal to inspection, Yes normocephalic and Yes other (Tenderness with palpation of bilateral parietal scalp) Ears: external ears normal and hearing grossly impaired General nose exam: Normal external nose present Face and sinus: Yes normal facial exam Mouth: Normal oral and palatal mucosa present Throat: Yes posterior oropharynx normal Eyes: General: appearance normal, both eyes and all related structures Neck: Neck: Yes normal visual inspection, Yes trachea midline and Yes other (C-spine tenderness) Chest: Other: Diffuse chest wall tenderness Resp: Effort & Inspection: normal respiratory effort Auscultation: clear to auscultation bilaterally Cardio: Rate: regular rate Rhythm: regular rhythm Heart sounds: S1 normal heart sound present, S2 normal heart sound present and no murmurs GI: Inspection: Yes normal to inspection Palpation (GI): Soft to palpation, nontender and no guarding Auscultation: normal bowel sounds : General: Yes no CVA tenderness Back/Spine/Pelvis: Back: no CVA tenderness Skin: General skin exam: no rashes or lesions noted Neuro: Other: Awake, alert, appears to be acutely intoxicated, dysarthric speech, does answer questions appropriately, cranial nerves 2-12 are intact, moves all extremities symmetrically. Extrem: Other: Pain with palpation over the pelvic area of his hips, pacing able to move both legs symmetrically without any limitations Psych: Appearance: grossly normal Speech and movement: Normal speech and movement present Affect: normal affect Attitude: cooperative Thought process: Normal thought process present Thought content: Normal thought content present Course Course Course Narrative: 65-year-old male who presents emergency department for evaluation of alcohol intoxication and fall. The patient's vital signs revealed an elevated blood pressure of 173/93 otherwise were unremarkable. Patient does have scalp tenderness and cervical spine tenderness. He also has tenderness with palpation of his chest and pelvis. I ordered a laboratory evaluation to include CBC, CMP, lipase, blood alcohol level. I also ordered CT scan of the head, cervical spine. Two-view chest x-ray and pelvic x-ray. 2115: At the end of my shift, patient's evaluation is pending. Patient's care was turned over to my colleague, Dr. Tomeka Espino. Discharge Plan Discharge Clinical Impression: Alcoholic intoxication, Fall Prescriptions: No Action cephalexin 500 mg capsule 500 mg PO Q12H 7 Days Qty: 14 RF: 0
--- NOTE | 2021-07-22 21:08 | PC.NURSE ---
PT TO CT IN STRETCHER. PT GIVEN A URINAL.
--- NOTE | 2021-07-22 21:36 | PC.NURSE ---
AT BEDSIDE WITH PT FOR EVAL. PT AWAKE, SLURRED SPEECH, RESPIRATIONS EASY, N/L. IV PLACED TO LFA, LABS DRAWN TO LAB. PT HAD SEVERAL WET SWEATSHIRTS ON PT. CLOTHES REMOVED EXCEPT FOR TSHIRT. PT CALM AND COOPERATIVE AT THIS TIME. WARM BLANKET APPLIED TO PT. COVID SWAB OBTAINED TO LAB.
[2021-07-22 21:49] LABS: Ethanol 207 mg/dL
[2021-07-22 21:56] LABS: Troponin-I High Sensitivity 5.3 ng/L (<3.5-35.0)
[2021-07-22 22:04] LABS: COVID-19 Test Negative (Negative); IDNOW Serial# 9DD0AD1C
[2021-07-22 22:05] VITALS: BP 101/53; PULSE 71; RESP 16
[2021-07-22 22:10] LABS: Alanine Aminotransferase 36 U/L (0-40); Albumin Level 3.8 g/dL (3.5-5.0); Alkaline Phosphatase 87 U/L (39-117); Aspartate Amino Transferase 117 U/L (5-37); Bilirubin Total 1.1 mg/dL (0.0-1.0); Blood Urea Nitrogen 5 mg/dL (9-16); Calcium 8.2 mg/dL (8.4-10.2); Creatinine Clr Calc Pharmacy 108.8; Estimated Glomerular Filt Rate > 60; Lipase 33 U/L (8-78); Total Protein 7.1 g/dL (6.5-8.0)
[2021-07-22 22:16] LABS: Anion Gap 20 (12-20); Carbon Dioxide 19 mmol/L (22-29); Chloride 77 mmol/L (96-108); Glucose Random 57 mg/dL (60-115); Potassium 3.8 mmol/L (3.3-5.1); Sodium 112 mmol/L (135-145)
[2021-07-22 22:28] LABS: Basophils Percent Auto 0.4 % (0-2); Eosinophils Percent Auto 0.4 % (0-4); Imm Gran Abs Auto 0.02 X10*3/uL (0.00-0.03); Imm Gran Pct Auto 0.9 % (0.0-0.4); Lymphocytes Absolute Auto 0.3 X10*3/uL (1.2-4.9); Mean Corpuscular HGB Conc 37.2 g/dl (31.0-36.0); Mean Corpuscular Hemoglobin 33.7 pg (27.0-33.0); Mean Corpuscular Volume 90.5 fL (80-98); Mean Platelet Volume 9.6 fL (9.4-12.4); Monocytes Absolute Auto 0.1 X10*3/uL (0.1-1.2); Monocytes Percent Auto 3.8 % (2-11); Neutrophils Absolute Auto 1.9 X10*3/uL (2.0-8.3); Neutrophils Percent Auto 80.5 % (45-73); Red Blood Count 4.75 X10*6/uL (4.60-5.80); Red Cell Distribution Width 11.1 % (11.0-16.0); SCAN SMEAR FLAG 1
[2021-07-22 22:29] LABS: Platelet Count 290 X10*3/uL (160-400)
[2021-07-22 22:31] LABS: MANUAL DIFF FLAG NO
[2021-07-22] MEDS: 0.9 % Sodium Chloride 1,000 ML 200 ML IVCONT (22:32)
[2021-07-22] MEDS: Folic Acid 1 MG in 0.9 % Sodium Chloride 50 ML 100.4 MG IV (22:33)
[2021-07-22] MEDS: Thiamine HCL 100 MG in 0.9 % Sodium Chloride 100 ML 202 MG IV (22:33)
--- NOTE | 2021-07-22 22:46 | P.HPCC_ITS ---
History of Present Illness Date of Service: 07/22/21 Attending physician on admission: Priyank Chavarria Chief Complaint: Fall The patient is a 64-year-old male with a past medical history of? alcohol abuse, frequent? Klebsiella UTIs,? and frequent visits to the emergency room due to alcohol intoxication presents to the emergency room? after fall.? In the ED he did appear to be acutely intoxicated,? with laboratory data was significant for sodium of 112 and alcohol level of 207.?? CT of the Head/ cervical spine:? with no acute finding X-ray of pelvis/chest:? no acute findings ? Patient will be admitted into the ICU for management of acute hyponatremia with risk for possible seizures Review of Systems Review of Systems: Patient acutely intoxicated, not a good historian PMFSH Past Medical History Medical History Alcohol abuse Hard of hearing Injury of right lower arm Social History Social History Alcohol intake: current Alcohol intake frequency: 3 or more drinks per day Alcohol type: beer Advance Directives: No Advance Directives Information Provided: Yes Meds Allergies Allergy/AdvReac Type Severity Reaction Status Date / Time No Known Allergies Allergy Unknown UNKNOWN Verified 09/08/20 17:05 [NO KNOWN ALLERGIES] Active Medications: Current Medications Sodium Chloride (Ns) 1,000 mls @ 200 mls/hr IVCONT .Q5H NATASHA Stop: 07/23/21 03:29 Last Admin: 07/22/21 22:32 Dose: 200 mls/hr Documented by: Physical Exam Vital Signs: Vital Signs: Last Vital Signs Temp 97 F 07/22/21 20:43 Pulse 84 07/22/21 20:43 Resp 14 07/22/21 20:43 BP 173/93 H 07/22/21 20:43 Pulse Ox 98 07/22/21 20:43 Body Mass Index 30.1 Neuro:?? ?Acute intoxication:? patient? acutely intoxicated. ? Will continue to assess for symptoms of alcohol withdrawal in syndrome. ? Unable to start phenobarb protocol due to prolonged QTC.? Will? start? Precedex drip, .? Stop if QTC worsens. Cont thiamine and folic acid? Cardiac:?? ?Elevated lactic:? elevated lactic is likely to be related to ETOH use/dehydration.? No evidence of severe infection at this time.? Pulmonary:? No acute issues Renal:? ??Acute hyponatremia? Na 112 today, this is most likely from ETOH protomania. Will cont correction with normal saline. Regular diet with p.o. Water restriction.? Frequent neuro checks and chemistries? Endo:? No acute issues.?? GI:? no acute issues ID:? ?Leukocytosis:? mild leukocytosis? to 12? urine is positive for nitrates. ? He does have history of Klebsiella UTIs.? Will treat with ceftriaxone Heme/Onc:? No acute issues. Psych:? No acute issues. Miscellaneous: ? no acute issues Diet: regular diet with p.o. Water restriction prophylaxis: Lovenox, No GI prophylaxis at this time ? Critical care time:? X 60 minutes of critical care time ?Code? status:? FULL CODE? Case discussed with Dr. Chavarria Results Labs CBC and Chem 7: 07/22/21 21:19 07/22/21 21:19 Labs: Laboratory Results - last 24 hr 07/22/21 07/22/21 07/22/21 21:19 21:19 21:19 MCV 90.5 MCH 33.7 H MCHC 37.2 H RDW 11.1 Plt Count 290 MPV 9.6 Immature Gran % (Auto) 0.9 H Neut % (Auto) 80.5 H Lymph % (Auto) 14.0 L [place] % (Auto) 3.8 Eos % (Auto) 0.4 Baso % (Auto) 0.4 Lymph # (Auto) 0.3 L [place] # (Auto) 0.1 Eos # (Auto) 0.0 Baso # (Auto) 0.0 Abs Immat Gran (auto) 0.02 Absolute Neuts (auto) 1.9 L Absolute Nucleated RBC 0.000 Nucleated RBC % (auto) 0.0 Smear Tech's Comments TNP Anion Gap 20 Estim Creat Clear Calc 108.8 Estimated GFR > 60 Random Glucose 57 L* Calcium 8.2 L Total Bilirubin 1.1 H AST 117 H ALT 36 Alkaline Phosphatase 87 D Troponin I High Sens 5.3 Total Protein 7.1 Albumin 3.8 Lipase 33 Ethyl Alcohol COVID-19 ([facility]) COVID-19 Clin Com 07/22/21 07/22/21 21:19 21:19 MCV MCH MCHC RDW Plt Count MPV Immature Gran % (Auto) Neut % (Auto) Lymph % (Auto) [place] % (Auto) Eos % (Auto) Baso % (Auto) Lymph # (Auto) [place] # (Auto) Eos # (Auto) Baso # (Auto) Abs Immat Gran (auto) Absolute Neuts (auto) Absolute Nucleated RBC Nucleated RBC % (auto) Smear Tech's Comments Anion Gap Estim Creat Clear Calc Estimated GFR Random Glucose Calcium Total Bilirubin AST ALT Alkaline Phosphatase Troponin I High Sens Total Protein Albumin Lipase Ethyl Alcohol 207 COVID-19 ([facility]) Negative COVID-19 Clin Com See Note Imaging Radiologist's Impressions: Impressions Cervical Spine CT 07/22/21 20:54 IMPRESSION: 1. No acute intracranial pathology. 2. No CT evidence of acute cervical spine fracture or traumatic subluxation Head CT 07/22/21 20:54 IMPRESSION: 1. No acute intracranial pathology. 2. No CT evidence of acute cervical spine fracture or traumatic subluxation Pelvis X-Ray 07/22/21 20:54 IMPRESSION: No acute fractures or malalignment. Chest X-Ray 07/22/21 20:57 IMPRESSION: No acute cardiopulmonary findings. Assessment and Plan (1) Acute hyponatremia: Status: Acute Neuro:?? ?Acute intoxication:? patient? acutely intoxicated. ? Will continue to assess for symptoms of alcohol withdrawal in syndrome. ? Unable to start phenobarb protocol due to prolonged QTC.? Will? start? Precedex drip, .? Stop if QTC worsens. Cont thiamine and folic acid? Cardiac:?? ?Elevated lactic:? elevated lactic is likely to be related to ETOH use/de hydration.? No evidence of severe infection at this time.? Pulmonary:? No acute issues Renal:? ??Acute hyponatremia? Na 112 today, this is most likely from ETOH protomania. Will cont correction with normal saline. Regular diet with p.o. Water restriction.? Frequent neuro checks and chemistries? Endo:? No acute issues.?? GI:? no acute issues ID:? ?Leukocytosis:? mild leukocytosis? to 12? urine is positive for nitrates. ? He does have history of Klebsiella UTIs.? Will treat with ceftriaxone Heme/Onc:? No acute issues. Psych:? No acute issues. Miscellaneous: ? no acute issues Diet: regular diet with p.o. Water restriction prophylaxis: Lovenox, No GI prophylaxis at this time ? Critical care time:? X 60 minutes of critical care time ?Code? status:? FULL CODE? (2) Alcoholic intoxication: Qualifiers: Complication of substance-induced condition: uncomplicated Qualified Code(s): F10.920 - Alcohol use, unspecified with intoxication, uncomplicated Status: Acute (3) Fall: Qualifiers: Encounter type: initial encounter Qualified Code(s): W19.XXXA - Unspecified fall, initial encounter Status: Acute (4) Acute UTI: Status: Inactive Critical Care Time Critical Care Time (minutes): 60
--- NOTE | 2021-07-22 22:48 | PC.NURSE ---
PT MOVED TO ROOM #5, PLACED ON MONITOR, 2ND IV PLACED TO RAC, BC AND LACTIC ACID DRAWN AT THIS TIME. PT MEDICATED PER EMAR. PT IS VERY LOWER [place] AND DIFFICULTY TO COMMUNICATE WITH.
[2021-07-22 22:49] LABS: Magnesium 1.5 mg/dL (1.6-2.6)
--- NOTE | 2021-07-22 22:50 | PC.NURSE ---
PT BEING ADMITTED TO ICU.
[2021-07-22 22:58] LABS: Lactic Acid 3.1 mmol/L (0.5-2.0)
--- NOTE | 2021-07-22 22:58 | PC.NURSE ---
LACTIC ACID 3.1 MD AWARE.
[2021-07-22 23:01] LABS: Glucose, Whole Blood 60 mg/dL (60-115)
--- NOTE | 2021-07-22 23:12 | PC.NURSE ---
REPEAT BS - 56 AFTER DRINKING ORANGE JUICE. PT REMAINS ALERT, EASY N/L RESPIRATIONS. PT HAS SWELLING TO JENNY HANDS. PT DENIES ANY ABD COMPLAINTS, +BOWEL SOUNDS. PT AWAITING FOR FURTHER ORDERS.
[2021-07-22 23:14] LABS: Glucose, Whole Blood 54 mg/dL (60-115)
[2021-07-22] MEDS: Enoxaparin Sodium 40 MG/0.4 ML SYRINGE SUBCUT (23:28)
[2021-07-22] MEDS: Magnesium Sulfate/H2O 2 GM/50 ML PIGGYBACK IV (23:29)
[2021-07-22 23:30] VITALS: BP 110/59; PULSE 82; RESP 16
[2021-07-22 23:35] LABS: Glucose, Whole Blood 70 mg/dL (60-115)
[2021-07-23] VITALS (17 sets, daily range): BP systolic 102–146; BP diastolic 49–79; PULSE 72–109; RESP 13–26; TEMP 36.2–37.7; O2SAT 93–98; BMI 27.5; BMI 22.7
--- NOTE | 2021-07-23 00:07 | PC.NURSE ---
report to SHELBY Garcia. Pt awaiting for transfer to ICU on monitor. Pt in NAD at this time.
[2021-07-23] MEDS: cefTRIAXone sodium 2 GM in 0.9 % Sodium Chloride 50 ML IV ×2 (00:21→23:34)
[2021-07-23 00:42] LABS: Reflex Lactate? Lactic Acid Added
[2021-07-23] MEDS: dexmedeTOMIDidine HCL/NS 400 MCG/100 ML INFUS..BTL 17.5 MCG IVCONT ×2 (01:09→21:12)
[2021-07-23 01:45] LABS: Anion Gap 17 (12-20); Blood Urea Nitrogen 5 mg/dL (9-16); Calcium 7.5 mg/dL (8.4-10.2); Carbon Dioxide 19 mmol/L (22-29); Chloride 80 mmol/L (96-108); Creatinine Clr Calc Pharmacy 110.7; Estimated Glomerular Filt Rate > 60; Glucose Random 75 mg/dL (60-115); Sodium 112 mmol/L (135-145)
[2021-07-23 01:54] LABS: Appearance Urine HAZY; Color Urine YELLOW; Glucose Urine UA NEG (NEG); Leukocyte Esterase Urine 3+ (NEG); Nitrite Urine POS (NEG); UACC Culture Trigger YES; Urine Blood 1+ (NEG); Urine Ketones 40 MG/DL (NEG); Urine Protein TRACE MG/DL (NEG-TRACE)
[2021-07-23] MEDS: 0.9 % Sodium Chloride 1,000 ML 250 ML IVCONT ×2 (02:00→06:31)
[2021-07-23 02:03] LABS: Bacteria Urine 2+ /LPF; Squamous Epithelial Cell Urine TRACE /LPF; WBC Urine 30-49 /HPF (0-4)
[2021-07-23 02:04] LABS: WBC Clumps Urine NOTED
[2021-07-23] MEDS: vancomycin HCL 1,250 MG in 0.9 % Sodium Chloride 250 ML 166.67 MG IV (02:07)
[2021-07-23] MEDS: Piperacillin Sodium/Tazobactam 4.5 GM in 0.9 % Sodium Chloride 100 ML IV ×2 (02:07→06:28)
--- NOTE | 2021-07-23 02:13 | PC.NURSE ---
Admitted via ED approx 0100. Acutely intoxicated, belligerent, disoriented, resistive to care. Unable to accurately assess mentation/neuro status. Precedex gtt hung, on hold d/t QTC 535 @ 0100. Soiled in feces and urine, became agitated/combative with hygiene care. Significant skin integrity issues found. Photos on chart. POCKET OPERATOR aware. Will assess wound nurse in AM. ?Shingles to right flank, hip, buttocks, and upper leg-placed on contact/droplet precautions. left foot beefy red, 3+ pitting edema, skin taut, several open areas with purulent discharge, tender to touch, unable to palpate pulses or assess mobility secondary to patient's discomfort. Right foot bright pink toes, 2+ pitting edema, tender to touch Macerated buttocks, perianal, groin area- barrier cream applied Left hip-macerated with open area [place] cath placed. Camera in place for safety.
[2021-07-23 02:15] LABS: Amphetamine Screen Urine Not Detected (Not Detect); Barbiturates, Urine Not Detected (Not Detect); Benzodiazepines Screen Urine Not Detected (Not Detect); Cannabinoid Screen Urine Not Detected (Not Detect); Cocaine Screen Urine Not Detected (Not Detect); Fentanyl, urine Not Detected (Not Detect); Opiate Screen Urine Not Detected (Not Detect); Phencyclidine Screen Urine Not Detected (Not Detect)
[2021-07-23 05:46] LABS: MANUAL DIFF FLAG NO
[2021-07-23 05:54] LABS: Ammonia 45 umol/L (13-55); Basophils Percent Auto 0.5 % (0-2); Eosinophils Percent Auto 0.5 % (0-4); Hemoglobin 11.9 g/dl (14.0-18.0); Imm Gran Abs Auto 0.03 X10*3/uL (0.00-0.03); Imm Gran Pct Auto 0.3 % (0.0-0.4); Lymphocytes Percent Auto 11.2 % (20-40); Mean Corpuscular HGB Conc 37.2 g/dl (31.0-36.0); Mean Corpuscular Hemoglobin 33.4 pg (27.0-33.0); Mean Corpuscular Volume 89.9 fL (80-98); Mean Platelet Volume 9.5 fL (9.4-12.4); Monocytes Absolute Auto 0.5 X10*3/uL (0.1-1.2); Monocytes Percent Auto 5.9 % (2-11); Neutrophils Absolute Auto 7.1 X10*3/uL (2.0-8.3); Neutrophils Percent Auto 81.6 % (45-73); Platelet Count 248 X10*3/uL (160-400); Red Blood Count 3.56 X10*6/uL (4.60-5.80); Red Cell Distribution Width 10.7 % (11.0-16.0); White Blood Count 8.7 X10*3/uL (4.8-10.8)
[2021-07-23 06:09] LABS: Alanine Aminotransferase 29 U/L (0-40); Albumin Level 3.1 g/dL (3.5-5.0); Alkaline Phosphatase 71 U/L (39-117); Anion Gap 18 (12-20); Aspartate Amino Transferase 105 U/L (5-37); Bilirubin Total 0.9 mg/dL (0.0-1.0); Blood Urea Nitrogen 5 mg/dL (9-16); Calcium 7.3 mg/dL (8.4-10.2); Carbon Dioxide 17 mmol/L (22-29); Chloride 83 mmol/L (96-108); Creatinine Clr Calc Pharmacy 110.1; Estimated Glomerular Filt Rate > 60; Glucose Random 57 mg/dL (60-115); Magnesium 1.7 mg/dL (1.6-2.6); Phosphorus 1.9 mg/dL (2.7-4.5); Potassium 3.5 mmol/L (3.3-5.1); Sodium 114 mmol/L (135-145); Total Protein 5.7 g/dL (6.5-8.0)
[2021-07-23] MEDS: Magnesium Sulfate/H2O 2 GM/50 ML PIGGYBACK IV (06:29)
[2021-07-23 07:02] LABS: Glucose, Whole Blood 91 mg/dL (60-115)
[2021-07-23] MEDS: Potassium Phosphate 30 MMOL in 0.9 % Sodium Chloride 500 ML 85 MMOL IV (08:22)
[2021-07-23] MEDS: fentaNYL citrate/PF 100 MCG/2 ML VIAL 25 MCG IVPUSH ×3 (08:31→21:10)
[2021-07-23] MEDS: Sodium Chloride Tab 1 GM TABLET 2 GM PO ×2 (08:55→15:48)
--- NOTE | 2021-07-23 08:55 | PC.NURSE ---
Skin/wound assessment completed. Patient has stage 2 to coccyx and left heel. Barrier cream applied to coccyx and foam applied to left heel. Patient also has very red gaseous feet with a few dry ulcers. Patient also has scabbed shingles to right hip and thigh. Patients feet are very tender and sore no dressings applied at this time. A consult for Dr. Farnsworth will be placed.
[2021-07-23] MEDS: Folic Acid 1 MG in 0.9 % Sodium Chloride 50 ML 100.4 MG IV (08:56)
[2021-07-23] MEDS: Thiamine HCL 100 MG in 0.9 % Sodium Chloride 100 ML 202 MG IV (09:04)
[2021-07-23] MEDS: Midazolam HCl/PF 2 MG/2 ML VIAL IVPUSH (09:55)
--- NOTE | 2021-07-23 10:06 | P.CONGS_ITS ---
History of Present Illness Consult details Consult date: 07/23/21 Reason for consult: ischemic leg Narrative: Complex 65-year-old gentleman with history of alcohol abuse was admitted last night to the ICU. Of note he has a history alcohol intoxication with multiple falls and Klebsiella UTIs. Upon workup he was noted to have significant lower extremity pain and ischemic appearing left lower extremity. He does have nonhealing bilateral lower extremity ulcers. He now presents to us for vascular workup. Review of Systems Constitutional: Constitutional: Reports malaise, Reports weakness and Reports weight loss Cardiovascular: Cardiovascular: Denies chest pain, Denies chest pain at rest, Denies chest pain with activity and Reports pedal edema Respiratory: Respiratory: Denies cough Gastrointestinal: Gastrointestinal: Denies abdominal pain Musculoskeletal: Musculoskeletal: Reports abnormal gait, Reports muscle cramps and Reports radiating pain into limb Integumentary/Breasts: Skin/Breast: Reports skin ulcer and Reports wounds Neurologic: Reports abnormal gait, Reports confusion and Reports weakness Psychiatric: Psychiatric: Reports no additional psychiatric complaints and Reports confusion [facility] Past Medical History Medical History (Updated 07/23/21 @ 10:33 by Marcelo Farnsworth MD) Alcohol abuse CVA (cerebral vascular accident) Hard of hearing Injury of right lower arm Social History Social History Household Members: None Housing: Homeless Alcohol intake: current Alcohol intake frequency: 3 or more drinks per day Alcohol type: beer Patient Tobacco Use Status: Current everyday Tobacco user Use of substances other than those prescribed or required for medical reasons: Refusing to respond Currently Displaying Signs/Symptoms of Drug Intoxication Withdrawal: No Advance Directives: No Advance Directives Information Provided: Yes Do you have thoughts of harming others: None Do you have a plan to hurt others: No Plan Recently lost weight without trying: Unsure Nutrition Risks: Emaciation/Cachexia Meds Allergies Allergy/AdvReac Type Severity Reaction Status Date / Time No Known Allergies Allergy Unknown UNKNOWN Verified 09/08/20 17:05 [NO KNOWN ALLERGIES] Active Medications: Current Medications Enoxaparin Sodium (Enoxaparin Sodium 40 Mg/0.4 Ml Syringe) 40 mg SUBCUT Q24H NATASHA Last Admin: 07/22/21 23:28 Dose: 40 mg Documented by: Fentanyl (Fentanyl Citrate/Pf 100 Mcg/2 Ml Vial) 25 mcg IVPUSH Q2H PRN PRN Reason: pain Last Admin: 07/23/21 08:31 Dose: 25 mcg Documented by: Dexmedetomidine HCl (Precedex) 400 mcg in 100 mls @ 0 mls/hr IVCONT .Q0M [facility]; Protocol Last Titration: 07/23/21 05:19 Dose: 0 mcg/kg/hr, 0 mls/hr Documented by: Folic Acid 1 mg/ Sodium (Chloride) 50.2 mls @ 100.4 mls/hr IV DAILY [facility] Last Infusion: 07/23/21 09:52 Dose: Infused Documented by: Thiamine HCl 100 mg/ Sodium (Chloride) 101 mls @ 202 mls/hr IV DAILY [facility] Last Infusion: 07/23/21 09:52 Dose: Infused Documented by: Ceftriaxone Sodium 2 gm/ (Sodium Chloride) 50 mls @ 100 mls/hr IV Q24H [facility] Last Infusion: 07/23/21 01:12 Dose: Infused Documented by: Potassium Phosphate 30 mmol/ (Sodium Chloride) 510 mls @ 85 mls/hr IV ONCE ONE Stop: 07/23/21 12:10 Last Admin: 07/23/21 08:22 Dose: 85 mls/hr Documented by: Sodium Chloride (Sodium Chloride Tab 1 Gm Tablet) 2 gm PO TID [facility] Last Admin: 07/23/21 08:55 Dose: 2 gm Documented by: Home Medications Medication Instructions Recorded Confirmed Last Taken Type No Known Home Meds 07/23/21 Unknown History Physical Exam Vital Signs: Vital Signs: Last Vital Signs Temp 98.6 F 07/23/21 08:00 Pulse 102 H 07/23/21 10:00 Resp 19 07/23/21 10:00 BP 146/79 H 07/23/21 10:00 Pulse Ox 96 07/23/21 10:00 Body Mass Index 27.5 Const: General: cooperative, confusion, intoxicated appearing and lethargic Orientation/consciousness: confusion and lethargic HENMT: Head: Yes normal to inspection Neck: Neck: Yes normal visual inspection Carotids: no bruits Chest: Chest palpation & inspection: normal inspection of the chest Resp: Effort & Inspection: normal respiratory effort and able to speak in complete sentences Auscultation: clear to auscultation bilaterally, no crackles, no rales, no rhonchi and no wheezes Cardio: Rate: regular rate Rhythm: regular rhythm Heart sounds: S1 normal heart sound present and S2 normal heart sound present Bruits: no carotid bruits Peripheral pulses: dorsalis pedis present (Bilateral DP signal) GI: Inspection: Yes normal to inspection Skin: Other: Bilateral lower extremity ulcers, ischemic appearing lower extremities. Unable to truly assess motor and sensation. Wounds: no wounds Hair: normal Neuro: General: confusion Cranial nerves: Yes CN's II-XII intact bilaterally Cognition (Neuro): normal cognition Motor exam (neuro): 5/5 motor strength present throughout Extrem: Other: venous exam: No significant superficial varicosities or spider telangiectasias, minimal edema General: No clubbing, No cyanosis and No edema Psych: Appearance: grossly normal Mental Status: mental status grossly normal Speech and movement: Normal speech and movement present Results Labs Result diagrams: 07/23/21 05:40 07/23/21 05:40 Labs: Abnormal lab results 07/22/21 07/22/21 07/22/21 Range/Units 21:19 21:19 22:25 WBC 12.0 H (4.8-10.8) X10*3/uL RBC (4.60-5.80) X10*6/uL Hgb (14.0-18.0) g/dl Hct (42-52) % MCH 33.7 H (27.0-33.0) pg MCHC 37.2 H (31.0-36.0) g/dl RDW (11.0-16.0) % Immature Gran % (Auto) 0.9 H (0.0-0.4) % Neut % (Auto) 80.5 H (45-73) % Lymph % (Auto) 14.0 L (20-40) % Lymph # (Auto) 0.3 L (1.2-4.9) X10*3/uL Absolute Neuts (auto) 1.9 L (2.0-8.3) X10*3/uL Sodium 112 L* (135-145) mmol/L Chloride 77 L D (96-108) mmol/L Carbon Dioxide 19 L (22-29) mmol/L BUN 5 L (9-16) mg/dL POC Glucose (60-115) mg/dL Random Glucose 57 L* (60-115) mg/dL Lactic Acid 3.1 H* (0.5-2.0) mmol/L Calcium 8.2 L (8.4-10.2) mg/dL Phosphorus (2.7-4.5) mg/dL Magnesium 1.5 L (1.6-2.6) mg/dL Total Bilirubin 1.1 H (0.0-1.0) mg/dL AST 117 H (5-37) U/L Total Protein (6.5-8.0) g/dL Albumin (3.5-5.0) g/dL Urine Blood (NEG) Urine Nitrite (NEG) Ur Leukocyte Esterase (NEG) Urine RBC (0) /HPF Urine WBC (0-4) /HPF 07/22/21 07/23/21 07/23/21 Range/Units 23:10 01:02 01:42 WBC (4.8-10.8) X10*3/uL RBC (4.60-5.80) X10*6/uL Hgb (14.0-18.0) g/dl Hct (42-52) % MCH (27.0-33.0) pg MCHC (31.0-36.0) g/dl RDW (11.0-16.0) % Immature Gran % (Auto) (0.0-0.4) % Neut % (Auto) (45-73) % Lymph % (Auto) (20-40) % Lymph # (Auto) (1.2-4.9) X10*3/uL Absolute Neuts (auto) (2.0-8.3) X10*3/uL Sodium 112 L* (135-145) mmol/L Chloride 80 L (96-108) mmol/L Carbon Dioxide 19 L (22-29) mmol/L BUN 5 L (9-16) mg/dL POC Glucose 54 L* (60-115) mg/dL Random Glucose (60-115) mg/dL Lactic Acid (0.5-2.0) mmol/L Calcium 7.5 L D (8.4-10.2) mg/dL Phosphorus (2.7-4.5) mg/dL Magnesium (1.6-2.6) mg/dL Total Bilirubin (0.0-1.0) mg/dL AST (5-37) U/L Total Protein (6.5-8.0) g/dL Albumin (3.5-5.0) g/dL Urine Blood 1+ H (NEG) Urine Nitrite POS H (NEG) Ur Leukocyte Esterase 3+ H (NEG) Urine RBC 5-9 H (0) /HPF Urine WBC 30-49 H (0-4) /HPF 07/23/21 07/23/21 Range/Units 05:40 05:40 WBC (4.8-10.8) X10*3/uL RBC 3.56 L D (4.60-5.80) X10*6/uL Hgb 11.9 L D (14.0-18.0) g/dl Hct 32.0 L D (42-52) % MCH 33.4 H (27.0-33.0) pg MCHC 37.2 H (31.0-36.0) g/dl RDW 10.7 L (11.0-16.0) % Immature Gran % (Auto) (0.0-0.4) % Neut % (Auto) 81.6 H (45-73) % Lymph % (Auto) 11.2 L (20-40) % Lymph # (Auto) 1.0 L (1.2-4.9) X10*3/uL Absolute Neuts (auto) (2.0-8.3) X10*3/uL Sodium 114 L* (135-145) mmol/L Chloride 83 L (96-108) mmol/L Carbon Dioxide 17 L (22-29) mmol/L BUN 5 L (9-16) mg/dL POC Glucose (60-115) mg/dL Random Glucose 57 L* (60-115) mg/dL Lactic Acid (0.5-2.0) mmol/L Calcium 7.3 L (8.4-10.2) mg/dL Phosphorus 1.9 L (2.7-4.5) mg/dL Magnesium (1.6-2.6) mg/dL Total Bilirubin (0.0-1.0) mg/dL AST 105 H (5-37) U/L Total Protein 5.7 L (6.5-8.0) g/dL Albumin 3.1 L (3.5-5.0) g/dL Urine Blood (NEG) Urine Nitrite (NEG) Ur Leukocyte Esterase (NEG) Urine RBC (0) /HPF Urine WBC (0-4) /HPF Short CBC 07/22/21 07/23/21 Range/Units 21:19 05:40 WBC 12.0 H 8.7 (4.8-10.8) X10*3/uL Hgb 16.0 D 11.9 L D (14.0-18.0) g/dl Hct 43.0 32.0 L D (42-52) % Plt Count 290 248 (160-400) X10*3/uL BMP 07/22/21 07/23/21 07/23/21 21:19 01:02 05:40 Sodium 112 L* 112 L* 114 L* Potassium 3.8 4.0 3.5 Chloride 77 L D 80 L 83 L Carbon Dioxide 19 L 19 L 17 L BUN 5 L 5 L 5 L Creatinine 0.57 0.56 0.54 Calcium 8.2 L 7.5 L D 7.3 L Liver Function 07/22/21 07/23/21 Range/Units 21:19 05:40 Total Bilirubin 1.1 H 0.9 (0.0-1.0) mg/dL AST 117 H 105 H (5-37) U/L ALT 36 29 (0-40) U/L Alkaline Phosphatase 87 D 71 (39-117) U/L Albumin 3.8 3.1 L (3.5-5.0) g/dL Urine 07/23/21 Range/Units 01:42 Urine Color YELLOW Urine Appearance HAZY Urine pH 6.0 (5.0-8.0) Ur Specific [place] 1.010 (1.005-1.025) Urine Protein TRACE (NEG-TRACE) MG/DL Urine Glucose (UA) NEG (NEG) MG/DL All other labs normal. Assessment and Plan (1) PAD (peripheral artery disease): Status: Acute Unclear duration of lower extremity ischemia. I do suspect this may be going on for significant amount of time and his pain has been masked by his alcohol intake. His left leg does have appearance of acute ischemia. Motor and sensation does not appear to be fully intact. I suspect it has been this way fo r some amount of time. We will order noninvasive arterial testing. He has been started on a heparin drip. In addition he is currently being treated by the wooden furniture polisher team for his alcohol withdrawal and hyponatremia. We will closely monitor this patient with you. Thank you for allowing us to assist in his care. Procedures Date of Service Date of Service: 07/23/21
--- NOTE | 2021-07-23 10:24 | MHC.CM.PN ---
Addendum entered by Marah Snowden 07/23/21 16:02: HCP on file from 2018 admission listing Eliezer Muñoz as his only agent. CM will cont. to follow for d/c plan. Review of past admissions to [facility] (2018, 2018) note pt did not have a PCP or regularly take medications. Original Note: Pt presented to ED after being found intoxicated and altered. He has multiple areas of skin impairment/wounds and is very unkept and malodorous. ? shingles or parasitic infestation. Attempted to meet with pt to review d/c plans; pt not able to communicate or respond to questions: only moaning and responding in non sensical words. Call placed to pt's next of kin, brother in law Eliezer Muñoz: per Eliezer, pt has a long standing hx of ETOH abuse and homelessness. Pt has been taken in by several family members over the years but has burned all bridges d/t his continued drinking. Per Eliezer, pt has been in rehab but as soon as he is released, he reverts to ETOH. In addition, Eliezer states pt is well known to police and has been arrested for public urination/intoxication and possible other charges. Eliezer requests that he be removed from pt's contact list/next of kin d/t his inability to assist pt. Pt will be a very difficult disposition d/t his ongoing ETOH use, lack of housing, unknown decision making capacity, and criminal hx. The first determination will be an assessment of his mental functioning - pt may require a guardian and subsequent placement. At this time, pt is acutely ill and will need to be medically cleared for an assessment of his decision making capacity. CM will follow.
[2021-07-23] MEDS: Heparin Sodium,Porcine/1/2NS 25,000 UNIT/250 ML IV.SOLN 8.96 UNIT IVCONT (10:46)
[2021-07-23 10:47] LABS: INTERNATIONAL NORM RATIO 1.2 (0.9-1.1); Prothrombin Time 13.2 SEC (9.9-13.0)
[2021-07-23 10:50] LABS: PTT Heparin Drip 37.1 SEC (53-77.9)
[2021-07-23 11:05] LABS: Hematocrit 30.5 % (42-52); Hemoglobin 11.5 g/dl (14.0-18.0); Mean Corpuscular Hemoglobin 33.8 pg (27.0-33.0); Mean Corpuscular Volume 89.7 fL (80-98); Mean Platelet Volume 9.4 fL (9.4-12.4); Platelet Count 226 X10*3/uL (160-400); White Blood Count 8.8 X10*3/uL (4.8-10.8)
[2021-07-23 11:17] LABS: Mean Corpuscular HGB Conc 37.7 g/dl (31.0-36.0)
--- NOTE | 2021-07-23 13:09 | MHC.CLN ---
RE: CONSULT PT EXPERIENCED NON SIGNIFICANT 7.7% WT LOSS X 6 MONTHS PT WAS NOTED TO BE CACHEXIC BUT UPON EXAMINATION HE APPEARS WELL NOURISHED PT IS AT INCREASED NUTRITION RISK R/T TWO STAGE II PRESSURE INJURIES ON COCCYX AND LEFT HEEL RECOMMEND ENSURE PLUS SUPPLEMENT TID TO PROVIDE 1050 KCALS AND 48 GRAMS PROTEIN DIET RX: REGULAR-APPROPRIATE NSG REPORTED PT CURRENTLY NOT ACCEPTING SOLID PO MONITOR PO INTAKE AND SUPPLEMENT ACCEPTANCE
--- NOTE | 2021-07-23 13:25 | P.PNCC_ITS ---
Subjective Subjective Date of Service: 07/23/21 Interval History: 65-year-old gentleman with underlying history of alcohol dependency and withdrawal, prior episodes of hyponatremia admitted on 07/22/2021 after mechanical fall with alcohol intoxication, UTI, also noted to have asymptomatic hyponatremia of 112. Patient has been started on IV fluids, alcohol withdrawal protocol, and admitted to intensive care unit. He required initiation of Precedex drip overnight. Critical Care Time (minutes): 45 Physical Exam Vital Signs: Vital Signs: Last Vital Signs Temp 99.1 F 07/23/21 12:00 Pulse 99 07/23/21 12:00 Resp 19 07/23/21 12:00 BP 138/72 07/23/21 12:00 Pulse Ox 97 07/23/21 12:00 Body Mass Index 22.7 Const: General: no acute distress and lethargic (Arousable, then answers appropriately) Orientation/consciousness: lethargic (Arousable, then answers appropriately) Eyes: Sclerae: sclerae normal EOM: EOMs intact bilaterally Neck: Neck: Yes no lymphadenopathy, Yes trachea midline and Yes supple Resp: Effort & Inspection: normal respiratory effort and no respiratory distress Auscultation: clear to auscultation bilaterally Cardio: Rate: regular rate Rhythm: regular rhythm Heart sounds: no g allops, no murmurs and no rubs GI: Palpation (GI): Soft to palpation and Other GI palpation findings present ( Nontender) Auscultation: normal bowel sounds Extrem: Other: Bilateral feet with stigmata of chronic vascular insufficiency, left worse than right, left foot mildly tender to palpation common has bilateral diminished pedal pulses General: Yes no pedal edema, No clubbing and No cyanosis Objective Data Labs CBC & Chem 7: 07/23/21 10:36 07/23/21 05:40 Labs: Laboratory Results - last 24 hr 07/22/21 07/22/21 07/22/21 21:19 21:19 21:19 WBC 12.0 H RBC 4.75 D Hgb 16.0 D Hct 43.0 MCV 90.5 MCH 33.7 H MCHC 37.2 H RDW 11.1 Plt Count 290 MPV 9.6 Immature Gran % (Auto) 0.9 H Neut % (Auto) 80.5 H Lymph % (Auto) 14.0 L [place] % (Auto) 3.8 Eos % (Auto) 0.4 Baso % (Auto) 0.4 Lymph # (Auto) 0.3 L [place] # (Auto) 0.1 Eos # (Auto) 0.0 Baso # (Auto) 0.0 Abs Immat Gran (auto) 0.02 Absolute Neuts (auto) 1.9 L Absolute Nucleated RBC 0.000 Nucleated RBC % (auto) 0.0 Smear Tech's Comments TNP PT INR PTT (Heparin Protocol) Sodium 112 L* Potassium 3.8 Chloride 77 L D Carbon Dioxide 19 L Anion Gap 20 BUN 5 L Creatinine 0.57 Estim Creat Clear Calc 108.8 Estimated GFR > 60 POC Glucose Random Glucose 57 L* Lactic Acid Lactic Acid Fup @ 2Hr Calcium 8.2 L Phosphorus Magnesium 1.5 L Total Bilirubin 1.1 H AST 117 H ALT 36 Alkaline Phosphatase 87 D Ammonia Troponin I High Sens 5.3 Total Protein 7.1 Albumin 3.8 Lipase 33 Urine Color Urine Appearance Urine pH Ur Specific Hayes Urine Protein Urine Glucose (UA) Urine Ketones Urine Blood Urine Nitrite Ur Leukocyte Esterase Urine RBC Urine WBC Urine WBC Clumps Ur Squamous Epith Cells Urine Bacteria Urine Opiates Screen Urine Fentanyl Screen Ur Barbiturates Screen Ur Phencyclidine Scrn Ur Amphetamines Screen U Benzodiazepines Scrn Urine Cocaine Screen U Marijuana (THC) Screen Ethyl Alcohol COVID-19 ([facility]) COVID-19 Clin Com 07/22/21 07/22/21 07/22/21 21:19 21:19 22:25 WBC RBC Hgb Hct MCV MCH MCHC RDW Plt Count MPV Immature Gran % (Auto) Neut % (Auto) Lymph % (Auto) [place] % (Auto) Eos % (Auto) Baso % (Auto) Lymph # (Auto) [place] # (Auto) Eos # (Auto) Baso # (Auto) Abs Immat Gran (auto) Absolute Neuts (auto) Absolute Nucleated RBC Nucleated RBC % (auto) Smear Tech's Comments PT INR PTT (Heparin Protocol) Sodium Potassium Chloride Carbon Dioxide Anion Gap BUN Creatinine Estim Creat Clear Calc Estimated GFR POC Glucose Random Glucose Lactic Acid 3.1 H* Lactic Acid Fup @ 2Hr Calcium Phosphorus Magnesium Total Bilirubin AST ALT Alkaline Phosphatase Ammonia Troponin I High Sens Total Protein Albumin Lipase Urine Color Urine Appearance Urine pH Ur Specific [place] Urine Protein Urine Glucose (UA) Urine Ketones Urine Blood Urine Nitrite Ur Leukocyte Esterase Urine RBC Urine WBC Urine WBC Clumps Ur Squamous Epith Cells Urine Bacteria Urine Opiates Screen Urine Fentanyl Screen Ur Barbiturates Screen Ur Phencyclidine Scrn Ur Amphetamines Screen U Benzodiazepines Scrn Urine Cocaine Screen U Marijuana (THC) Screen Ethyl Alcohol 207 COVID-19 ([facility]) Negative COVID-19 Clin Com See Note 07/22/21 07/22/21 07/22/21 22:42 23:10 23:31 WBC RBC Hgb Hct MCV MCH MCHC RDW Plt Count MPV Immature Gran % (Auto) Neut % (Auto) Lymph % (Auto) [place] % (Auto) Eos % (Auto) Baso % (Auto) Lymph # (Auto) [place] # (Auto) Eos # (Auto) Baso # (Auto) Abs Immat Gran (auto) Absolute Neuts (auto) Absolute Nucleated RBC Nucleated RBC % (auto) Smear Tech's Comments PT INR PTT (Heparin Protocol) Sodium Potassium Chloride Carbon Dioxide Anion Gap BUN Creatinine Estim Creat Clear Calc Estimated GFR POC Glucose 60 54 L* 70 Random Glucose Lactic Acid Lactic Acid Fup @ 2Hr Calcium Phosphorus Magnesium Total Bilirubin AST ALT Alkaline Phosphatase Ammonia Troponin I High Sens Total Protein Albumin Lipase Urine Color Urine Appearance Urine pH Ur Specific [place] Urine Protein Urine Glucose (UA) Urine Ketones Urine Blood Urine Nitrite Ur Leukocyte Esterase Urine RBC Urine WBC Urine WBC Clumps Ur Squamous Epith Cells Urine Bacteria Urine Opiates Screen Urine Fentanyl Screen Ur Barbiturates Screen Ur Phencyclidine Scrn Ur Amphetamines Screen U Benzodiazepines Scrn Urine Cocaine Screen U Marijuana (THC) Screen Ethyl Alcohol COVID-19 ([facility]) COVID-19 Clin Com 07/23/21 07/23/21 07/23/21 01:02 01:02 01:42 WBC RBC Hgb Hct MCV MCH MCHC RDW Plt Count MPV Immature Gran % (Auto) Neut % (Auto) Lymph % (Auto) [place] % (Auto) Eos % (Auto) Baso % (Auto) Lymph # (Auto) [place] # (Auto) Eos # (Auto) Baso # (Auto) Abs Immat Gran (auto) Absolute Neuts (auto) Absolute Nucleated RBC Nucleated RBC % (auto) Smear Tech's Comments PT INR PTT (Heparin Protocol) Sodium 112 L* Potassium 4.0 Chloride 80 L Carbon Dioxide 19 L Anion Gap 17 BUN 5 L Creatinine 0.56 Estim Creat Clear Calc 110.7 Estimated GFR > 60 POC Glucose Random Glucose 75 Lactic Acid Lactic Acid Fup @ 2Hr 2.0 Calcium 7.5 L D Phosphorus Magnesium Total Bilirubin AST ALT Alkaline Phosphatase Ammonia Troponin I High Sens Total Protein Albumin Lipase Urine Color Urine Appearance Urine pH Ur Specific [place] Urine Protein Urine Glucose (UA) Urine Ketones Urine Blood Urine Nitrite Ur Leukocyte Esterase Urine RBC Urine WBC Urine WBC Clumps Ur Squamous Epith Cells Urine Bacteria Urine Opiates Screen Not Detected Urine Fentanyl Screen Not Detected Ur Barbiturates Screen Not Detected Ur Phencyclidine Scrn Not Detected Ur Amphetamines Screen Not Detected U Benzodiazepines Scrn Not Detected Urine Cocaine Screen Not Detected U Marijuana (THC) Screen Not Detected Ethyl Alcohol COVID-19 ([facility]) COVID-19 Clin Com 07/23/21 07/23/21 07/23/21 01:42 05:40 05:40 WBC 8.7 RBC 3.56 L D Hgb 11.9 L D Hct 32.0 L D MCV 89.9 MCH 33.4 H MCHC 37.2 H RDW 10.7 L Plt Count 248 MPV 9.5 Immature Gran % (Auto) 0.3 Neut % (Auto) 81.6 H Lymph % (Auto) 11.2 L [place] % (Auto) 5.9 Eos % (Auto) 0.5 Baso % (Auto) 0.5 Lymph # (Auto) 1.0 L [place] # (Auto) 0.5 Eos # (Auto) 0.0 Baso # (Auto) 0.0 Abs Immat Gran (auto) 0.03 Absolute Neuts (auto) 7.1 Absolute Nucleated RBC 0.000 Nucleated RBC % (auto) 0.0 Smear Tech's Comments PT INR PTT (Heparin Protocol) Sodium 114 L* Potassium 3.5 Chloride 83 L Carbon Dioxide 17 L Anion Gap 18 BUN 5 L Creatinine 0.54 Estim Creat Clear Calc 110.1 Estimated GFR > 60 POC Glucose Random Glucose 57 L* Lactic Acid Lactic Acid Fup @ 2Hr Calcium 7.3 L Phosphorus 1.9 L Magnesium 1.7 Total Bilirubin 0.9 AST 105 H ALT 29 Alkaline Phosphatase 71 Ammonia Troponin I High Sens Total Protein 5.7 L Albumin 3.1 L Lipase Urine Color YELLOW Urine Appearance HAZY Urine pH 6.0 Ur Specific Hayes 1.010 Urine Protein TRACE Urine Glucose (UA) NEG Urine Ketones 40 Urine Blood 1+ H Urine Nitrite POS H Ur Leukocyte Esterase 3+ H Urine RBC 5-9 H Urine WBC 30-49 H Urine WBC Clumps NOTED Ur Squamous Epith Cells TRACE Urine Bacteria 2+ Urine Opiates Screen Urine Fentanyl Screen Ur Barbiturates Screen Ur Phencyclidine Scrn Ur Amphetamines Screen U Benzodiazepines Scrn Urine Cocaine Screen U Marijuana (THC) Screen Ethyl Alcohol COVID-19 ([facility]) COVID-19 Clin Com 07/23/21 07/23/21 07/23/21 05:40 06:59 10:36 WBC 8.8 RBC 3.40 L Hgb 11.5 L Hct 30.5 L MCV 89.7 MCH 33.8 H MCHC 37.7 H RDW 11.0 Plt Count 226 MPV 9.4 Immature Gran % (Auto) Neut % (Auto) Lymph % (Auto) [place] % (Auto) Eos % (Auto) Baso % (Auto) Lymph # (Auto) [place] # (Auto) Eos # (Auto) Baso # (Auto) Abs Immat Gran (auto) Absolute Neuts (auto) Absolute Nucleated RBC 0.000 Nucleated RBC % (auto) 0.0 Smear Tech's Comments PT INR PTT (Heparin Protocol) Sodium Potassium Chloride Carbon Dioxide Anion Gap BUN Creatinine Estim Creat Clear Calc Estimated GFR POC Glucose 91 Random Glucose Lactic Acid Lactic Acid Fup @ 2Hr Calcium Phosphorus Magnesium Total Bilirubin AST ALT Alkaline Phosphatase Ammonia 45 Troponin I High Sens Total Protein Albumin Lipase Urine Color Urine Appearance Urine pH Ur Specific [place] Urine Protein Urine Glucose (UA) Urine Ketones Urine Blood Urine Nitrite Ur Leukocyte Esterase Urine RBC Urine WBC Urine WBC Clumps Ur Squamous Epith Cells Urine Bacteria Urine Opiates Screen Urine Fentanyl Screen Ur Barbiturates Screen Ur Phencyclidine Scrn Ur Amphetamines Screen U Benzodiazepines Scrn Urine Cocaine Screen U Marijuana (THC) Screen Ethyl Alcohol COVID-19 ([facility]) COVID-19 Clin Com 07/23/21 10:36 WBC RBC Hgb Hct MCV MCH MCHC RDW Plt Count MPV Immature Gran % (Auto) Neut % (Auto) Lymph % (Auto) [place] % (Auto) Eos % (Auto) Baso % (Auto) Lymph # (Auto) [place] # (Auto) Eos # (Auto) Baso # (Auto) Abs Immat Gran (auto) Absolute Neuts (auto) Absolute Nucleated RBC Nucleated RBC % (auto) Smear Tech's Comments PT 13.2 H INR 1.2 H PTT (Heparin Protocol) 37.1 L Sodium Potassium Chloride Carbon Dioxide Anion Gap BUN Creatinine Estim Creat Clear Calc Estimated GFR POC Glucose Random Glucose Lactic Acid Lactic Acid Fup @ 2Hr Calcium Phosphorus Magnesium Total Bilirubin AST ALT Alkaline Phosphatase Ammonia Troponin I High Sens Total Protein Albumin Lipase Urine Color Urine Appearance Urine pH Ur Specific [place] Urine Protein Urine Glucose (UA) Urine Ketones Urine Blood Urine Nitrite Ur Leukocyte Esterase Urine RBC Urine WBC Urine WBC Clumps Ur Squamous Epith Cells Urine Bacteria Urine Opiates Screen Urine Fentanyl Screen Ur Barbiturates Screen Ur Phencyclidine Scrn Ur Amphetamines Screen U Benzodiazepines Scrn Urine Cocaine Screen U Marijuana (THC) Screen Ethyl Alcohol COVID-19 ([facility]) COVID-19 Clin Com Quality Stroke Does the patient have a stroke diagnosis?: No VTE Prior VTE?: No VTE Risk Level:: Medical - low VTE Device Contraindication: Treatment Not Indicated VTE Drug Contraindication: N/A - Med Ordered Progress Note: A&P Assessment and plan (1) Hyponatremia: Status: Acute (2) Alcoholic intoxication: Status: Acute (3) PAD (peripheral artery disease): Status: Acute Assessment and Plan: Assessment: 65-year-old gentleman admitted with subacute hypernatremia, UTI, also noted to have worsening subacute peripheral vascular disease Plan: Neuro: No acute issues. Cardiac: Bilateral feet peripheral vascular disease, L>R. Vascular surgery service appreciated. Started on heparin drip. Pulmonary: No acute issues. Renal: Hyponatremia likely secondary to poor solute intake. Subacute. Asy mptomatic. Started on 30 supplementation. Continue to monitor electrolytes. Endo: No acute issues. GI: No acute issues. ID: UTI, empirically covered with ceftriaxone. Heme/Onc: No acute issues. Psych: No acute issues. Miscellaneous: No acute issues. Prophylaxis: Heparin drip Diet: Regular Critical care time spent: 45 minutes
--- NOTE | 2021-07-23 13:33 | W.PM.CCHP ---
Procedures Date of Service Date of Service: 07/23/21 Central Line Placement Right IJ: Central Line Comments: Right internal jugular triple-lumen central venous catheter placed under ultrasound guidance and usual sterile conditions for appropriate vascular access with no immediate complications. Line position verified on chest x-ray.
[2021-07-23 17:14] LABS: PTT Heparin Drip 56.4 SEC (53-77.9)
[2021-07-23 17:31] LABS: Blood Urea Nitrogen 6 mg/dL (9-16); Creatinine Clr Calc Pharmacy 104.9; Estimated Glomerular Filt Rate > 60; Glucose Random 98 mg/dL (60-115)
[2021-07-23 17:41] LABS: Anion Gap 14 (12-20); Calcium 7.3 mg/dL (8.4-10.2); Carbon Dioxide 22 mmol/L (22-29); Chloride 91 mmol/L (96-108); Potassium 3.5 mmol/L (3.3-5.1); Sodium 123 mmol/L (135-145)
--- NOTE | 2021-07-23 18:39 | PC.NURSE ---
CIWA 1 -3, OFF ON DATE, OCCASIONALLY MILDLY ANXIOUS AND NAUSEOUS. FULL SKIN ASSESSMENT BY RN, MD AND WOUND RN. TLC PLACED TO RIJ - HEPARIN GTT STARTED AND GOING IN TO BLUE PORT. FIRST NO CHANGE. NEXT PTT-HD 2345. PRN FENTANYL GIVEN FOR PAIN TO FEET WITH POSITIVE EFFECT. VERY LOW PO INTAKE - ENSURE ENCOURAGED. RAMESH CATH IN PLACE. BM X 1. BATHED, Q2HR REPO, BARRIER CREAM APPLIED.
[2021-07-24] VITALS (12 sets, daily range): BP systolic 118–160; BP diastolic 63–78; PULSE 54–89; RESP 13–22; TEMP 36.1–38; O2SAT 90–96; BMI 22.5
[2021-07-24 00:12] LABS: PTT Heparin Drip 63.9 SEC (53-77.9)
[2021-07-24 00:22] LABS: Anion Gap 12 (12-20); Blood Urea Nitrogen 5 mg/dL (9-16); Calcium 7.5 mg/dL (8.4-10.2); Carbon Dioxide 22 mmol/L (22-29); Chloride 95 mmol/L (96-108); Creatinine Clr Calc Pharmacy 113.7; Estimated Glomerular Filt Rate > 60; Glucose Random 75 mg/dL (60-115); Potassium 3.3 mmol/L (3.3-5.1); Sodium 126 mmol/L (135-145)
[2021-07-24] MEDS: Potassium Chloride/H20 40 MEQ/100 ML PIGGYBACK 50 MEQ IV (01:09)
[2021-07-24] MEDS: dexmedeTOMIDidine HCL/NS 400 MCG/100 ML INFUS..BTL 21 MCG IVCONT (01:17)
[2021-07-24] MEDS: Dextrose 5 % 500 ML 250 ML IVCONT (02:48)
[2021-07-24] MEDS: fentaNYL citrate/PF 100 MCG/2 ML VIAL 25 MCG IVPUSH ×2 (03:01→13:30)
[2021-07-24 05:43] LABS: VBG Base Excess -0.4 mmol/L; VBG HCO3 24 mmol/L (22-26); VBG pCO2 42 mmHg; VBG pH 7.37 (7.32-7.43); VBG pO2 41 mmHg
[2021-07-24] MEDS: dexmedeTOMIDidine HCL/NS 400 MCG/100 ML INFUS..BTL 26.25 MCG IVCONT (05:44)
[2021-07-24 05:48] LABS: MANUAL DIFF FLAG NO
[2021-07-24 05:52] LABS: Basophils Percent Auto 0.5 % (0-2); Eosinophils Absolute Auto 0.1 X10*3/uL (0.0-0.4); Eosinophils Percent Auto 0.7 % (0-4); Hematocrit 32.6 % (42-52); Hemoglobin 11.8 g/dl (14.0-18.0); Imm Gran Abs Auto 0.03 X10*3/uL (0.00-0.03); Imm Gran Pct Auto 0.4 % (0.0-0.4); Mean Corpuscular HGB Conc 36.2 g/dl (31.0-36.0); Mean Corpuscular Hemoglobin 33.3 pg (27.0-33.0); Mean Corpuscular Volume 92.1 fL (80-98); Mean Platelet Volume 9.4 fL (9.4-12.4); Monocytes Absolute Auto 0.5 X10*3/uL (0.1-1.2); Monocytes Percent Auto 6.3 % (2-11); Neutrophils Absolute Auto 5.8 X10*3/uL (2.0-8.3); Neutrophils Percent Auto 79.1 % (45-73); Platelet Count 212 X10*3/uL (160-400); Red Blood Count 3.54 X10*6/uL (4.60-5.80); Red Cell Distribution Width 11.5 % (11.0-16.0); White Blood Count 7.3 X10*3/uL (4.8-10.8)
[2021-07-24 05:56] LABS: INTERNATIONAL NORM RATIO 1.3 (0.9-1.1); Prothrombin Time 14.7 SEC (9.9-13.0)
[2021-07-24 05:59] LABS: PTT Heparin Drip 79.5 SEC (53-77.9)
[2021-07-24 06:12] LABS: Anion Gap 11 (12-20); Blood Urea Nitrogen 5 mg/dL (9-16); Calcium 7.7 mg/dL (8.4-10.2); Carbon Dioxide 24 mmol/L (22-29); Chloride 96 mmol/L (96-108); Creatinine Clr Calc Pharmacy 107.4; Estimated Glomerular Filt Rate > 60; Glucose Random 151 mg/dL (60-115); Magnesium 1.8 mg/dL (1.6-2.6); Potassium 3.5 mmol/L (3.3-5.1); Sodium 127 mmol/L (135-145)
--- NOTE | 2021-07-24 06:33 | PC.NURSE ---
Assumed care of pt at 1900. Pt was resistant to care and became beligerent and thus was started on precedex drip. He was incontinent of stool and urine. [place] cath applied after precedex started as pt was refusing it prior. U/O good, approx 2000 ml. Taking sips of fluids po without difficulty. CIWA scale 1-3. Not started on phenobarbitol due to prolonged QT interval, presently 494 which is less than it had been. Body covered with shingles rash. Both feet edematous and left foot is discolored. Pedal pulse audible with a doppler. no post tibial pulse on left foot. both feet warm to touch.
[2021-07-24 07:59] LABS: Venous Blood Gas Refer to POC result
[2021-07-24] MEDS: Folic Acid 1 MG in 0.9 % Sodium Chloride 50 ML 100.4 MG IV (08:23)
[2021-07-24] MEDS: Thiamine HCL 100 MG in 0.9 % Sodium Chloride 100 ML 202 MG IV (08:23)
[2021-07-24] MEDS: Potassium Phosphate 30 MMOL in 0.9 % Sodium Chloride 500 ML 85 MMOL IV (08:24)
--- NOTE | 2021-07-24 11:08 | P.PNCC_ITS ---
Subjective Subjective Date of Service: 07/24/21 Interval History: 65-year-old gentleman with underlying history of alcohol dependency and withdrawal, prior episodes of hyponatremia admitted on 07/22/2021 after mechanical fall with alcohol intoxication, UTI, also noted to have asymptomatic hyponatremia of 112. Patient has been started on IV fluids, alcohol withdrawal protocol, and admitted to intensive care unit. Patient was noted to have subacute vascular insufficiency in his read and was evaluated by vascular surgery service. Has started drip. No events overnight. Continues on Precedex drip. Critical Care Time (minutes): 30 Physical Exam Vital Signs: Vital Signs: Last Vital Signs Temp 97.0 F 07/24/21 08:00 Pulse 54 07/24/21 10:00 Resp 14 07/24/21 10:00 BP 137/68 07/24/21 10:00 Pulse Ox 96 07/24/21 10:00 Body Mass Index 22.5 Const: General: no acute distress, alert and awake Eyes: Sclerae: sclerae normal EOM: EOMs intact bilaterally Neck: Neck: Yes no lymphadenopathy, Yes trachea midline and Yes supple Resp: Effort & Inspection: normal respiratory effort and no respiratory distress Auscultation: clear to auscultation bilaterally Cardio: Rate: regular rate Rhythm: regular rhythm Heart sounds: no gall ops, no murmurs and no rubs GI: Palpation (GI): Soft to palpation and Other GI palpation findings present ( Nontender) Auscultation: normal bowel sounds Extrem: General: Yes no pedal edema, No clubbing and No cyanosis Objective Data Labs CBC & Chem 7: 07/24/21 05:40 07/24/21 05:40 Labs: Laboratory Results - last 24 hr 07/23/21 07/23/21 07/23/21 10:36 16:57 16:57 WBC 8.8 RBC 3.40 L Hgb 11.5 L Hct 30.5 L MCV 89.7 MCH 33.8 H MCHC 37.7 H RDW 11.0 Plt Count 226 MPV 9.4 Immature Gran % (Auto) Neut % (Auto) Lymph % (Auto) [place] % (Auto) Eos % (Auto) Baso % (Auto) Lymph # (Auto) [place] # (Auto) Eos # (Auto) Baso # (Auto) Abs Immat Gran (auto) Absolute Neuts (auto) Absolute Nucleated RBC 0.000 Nucleated RBC % (auto) 0.0 PT INR PTT (Heparin Protocol) 56.4 D VBG pH VBG pCO2 VBG pO2 VBG HCO3 VBG O2 Saturation VBG Base Excess Sodium 123 L Potassium 3.5 Chloride 91 L Carbon Dioxide 22 Anion Gap 14 BUN 6 L Creatinine 0.65 Estim Creat Clear Calc 104.9 Estimated GFR > 60 Random Glucose 98 D Calcium 7.3 L Phosphorus Magnesium Albumin 07/23/21 07/23/21 07/24/21 23:50 23:50 05:38 WBC RBC Hgb Hct MCV MCH MCHC RDW Plt Count MPV Immature Gran % (Auto) Neut % (Auto) Lymph % (Auto) [place] % (Auto) Eos % (Auto) Baso % (Auto) Lymph # (Auto) [place] # (Auto) Eos # (Auto) Baso # (Auto) Abs Immat Gran (auto) Absolute Neuts (auto) Absolute Nucleated RBC Nucleated RBC % (auto) PT INR PTT (Heparin Protocol) 63.9 VBG pH 7.37 VBG pCO2 42 VBG pO2 41 VBG HCO3 24 VBG O2 Saturation 62.0 VBG Base Excess -0.4 Sodium 126 L Potassium 3.3 Chloride 95 L Carbon Dioxide 22 Anion Gap 12 BUN 5 L Creatinine 0.60 Estim Creat Clear Calc 113.7 Estimated GFR > 60 Random Glucose 75 Calcium 7.5 L Phosphorus Magnesium Albumin 07/24/21 07/24/21 07/24/21 05:40 05:40 05:40 WBC 7.3 RBC 3.54 L Hgb 11.8 L Hct 32.6 L MCV 92.1 MCH 33.3 H MCHC 36.2 H RDW 11.5 Plt Count 212 MPV 9.4 Immature Gran % (Auto) 0.4 Neut % (Auto) 79.1 H Lymph % (Auto) 13.0 L [place] % (Auto) 6.3 Eos % (Auto) 0.7 Baso % (Auto) 0.5 Lymph # (Auto) 1.0 L [place] # (Auto) 0.5 Eos # (Auto) 0.1 Baso # (Auto) 0.0 Abs Immat Gran (auto) 0.03 Absolute Neuts (auto) 5.8 Absolute Nucleated RBC 0.000 Nucleated RBC % (auto) 0.0 PT 14.7 H INR 1.3 H PTT (Heparin Protocol) 79.5 H D VBG pH VBG pCO2 VBG pO2 VBG HCO3 VBG O2 Saturation VBG Base Excess Sodium 127 L Potassium 3.5 Chloride 96 Carbon Dioxide 24 Anion Gap 11 L BUN 5 L Creatinine 0.63 Estim Creat Clear Calc 107.4 Estimated GFR > 60 Random Glucose 151 H D Calcium 7.7 L Phosphorus 2.0 L Magnesium 1.8 Albumin 3.0 L Microbiology Microbiology Results: Microbiology 07/23/21 00:00 Urine clean catch - Urine rossi top Urine Culture - Final No growth. 07/22/21 22:25 Blood - Venous Blood Culture - Preliminary No growth after 24 hours. 07/22/21 22:25 Blood - Venous Blood Culture - Preliminary No growth after 24 hours. Quality Stroke Does the patient have a stroke diagnosis?: No VTE Prior VTE?: No VTE Risk Level:: Medical - low VTE Device Contraindication: Treatment Not Indicated VTE Drug Contraindication: N/A - Med Ordered Progress Note: A&P Assessment and plan (1) Hyponatremia: Status: Acute (2) PAD (peripheral artery disease): Status: Acute (3) Delirium tremens: Status: Acute Assessment and Plan: Assessment: 65-year-old gentleman admitted with subacute hypernatremia, UTI, also noted to have worsening subacute peripheral vascular disease Plan: Neuro: Delirium tremens, continue to titrate off sedative drips as tolerated. Cardiac: Bilateral feet peripheral vascular disease, L>R. Vascular surgery service appreciated. Continues on heparin drip. Pulmonary: No acute issues. Renal: Hyponatremia likely secondary to poor solute intake. Subacute. Asymptomatic. Improving. Continue to monitor electrolytes. Endo: No acute issues. GI: No acute issues. ID: UTI, empirically covered with ceftriaxone. Heme/Onc: No acute issues. Psych: No acute issues. Miscellaneous: No acute issues. Prophylaxis: Heparin drip Diet: Regular Critical care time spent: 30 minutes
[2021-07-24] MEDS: Heparin Sodium,Porcine/1/2NS 25,000 UNIT/250 ML IV.SOLN 7.68 UNIT IVCONT (13:26)
[2021-07-24] MEDS: dexmedeTOMIDidine HCL/NS 400 MCG/100 ML INFUS..BTL 8.75 MCG IVCONT (13:26)
[2021-07-24 14:22] LABS: PTT Heparin Drip 49.1 SEC (53-77.9)
[2021-07-24] MEDS: Heparin Sodium,Porcine 5,000 UNIT/ML VIAL 2600 UNIT IVPUSH (14:38)
[2021-07-24] MEDS: PHENobarbitaL sodium 130 MG/ML VIAL 152.1 MG IM (19:55)
[2021-07-24] MEDS: cefTRIAXone sodium 2 GM in 0.9 % Sodium Chloride 50 ML IV (23:55)
[2021-07-24] MEDS: PHENobarbitaL sodium 130 MG/ML VIAL 114.4 MG IM (23:56)
[2021-07-24] MEDS: dexmedeTOMIDidine HCL/NS 400 MCG/100 ML INFUS..BTL 17.5 MCG IVCONT (23:56)
[2021-07-25] VITALS (10 sets, daily range): BP systolic 96–165; BP diastolic 50–100; PULSE 68–94; RESP 11–20; TEMP 36.4–37.3; O2SAT 90–96; BMI 22.2
[2021-07-25] MEDS: PHENobarbitaL sodium 130 MG/ML VIAL 114.4 MG IM (02:11)
[2021-07-25 03:34] LABS: PTT Heparin Drip 49.2 SEC (53-77.9)
[2021-07-25] MEDS: Heparin Sodium,Porcine 5,000 UNIT/ML VIAL 2600 UNIT IVPUSH ×2 (03:53→17:00)
[2021-07-25] MEDS: dexmedeTOMIDidine HCL/NS 400 MCG/100 ML INFUS..BTL 14 MCG IVCONT (05:37)
[2021-07-25 05:47] LABS: MANUAL DIFF FLAG NO
[2021-07-25 05:50] LABS: Basophils Absolute Auto 0.1 X10*3/uL (0.0-0.2); Basophils Percent Auto 0.8 % (0-2); Eosinophils Absolute Auto 0.3 X10*3/uL (0.0-0.4); Eosinophils Percent Auto 3.5 % (0-4); Hematocrit 30.5 % (42.0-52.0); Hemoglobin 11.1 g/dl (14.0-18.0); Imm Gran Abs Auto 0.03 X10*3/uL (0.00-0.03); Imm Gran Pct Auto 0.3 % (0.0-0.4); Lymphocytes Absolute Auto 1.6 X10*3/uL (1.2-4.9); Lymphocytes Percent Auto 18.1 % (20-40); Mean Corpuscular HGB Conc 36.4 g/dl (31.0-36.0); Mean Corpuscular Hemoglobin 33.6 pg (27.0-33.0); Mean Corpuscular Volume 92.4 fL (80.0-98.0); Mean Platelet Volume 10.1 fL (9.4-12.4); Monocytes Absolute Auto 0.6 X10*3/uL (0.1-1.2); Monocytes Percent Auto 6.6 % (2-11); Neutrophils Absolute Auto 6.33 x10*3/uL (2.0-8.3); Neutrophils Percent Auto 70.7 % (45-73); Platelet Count 199 X10*3/uL (160-400); Red Cell Distribution Width 11.7 % (11.0-16.0)
[2021-07-25 06:28] LABS: Anion Gap 13 (12-20); Blood Urea Nitrogen 4 mg/dL (9-16); Calcium 8.6 mg/dL (8.4-10.2); Carbon Dioxide 22 mmol/L (22-29); Chloride 97 mmol/L (96-108); Creatinine Clr Calc Pharmacy 104.4; Estimated Glomerular Filt Rate > 60; Glucose Random 114 mg/dL (60-115); Magnesium 1.5 mg/dL (1.6-2.6); Phosphorus 2.7 mg/dL (2.7-4.5); Potassium 3.5 mmol/L (3.3-5.1); Sodium 128 mmol/L (135-145)
[2021-07-25] MEDS: Magnesium Sulfate/H2O 2 GM/50 ML PIGGYBACK IV (07:08)
--- NOTE | 2021-07-25 07:37 | PC.NURSE ---
CARE ASSUMED 23:15...PRECIDEX INITIALLY 0.5 MCG/KG/HR...PHENOBARBITOL PROTOCOL INITIATED...AWAKE..AGITATED WITH CARE...DISORIENTED TO DAY/RECENT EVENTS..PRECIDEX TITRATED TO 1.0 MCG/KG/HR FOR AGGRESSIVE BEHAVIOR....IM PHENOBARBITOL LOADING DOSES COMPLETED AND DRIP WEANED TO 0.4 MCG...HEPARIN DRIP TITRATED TO 16 U/KG/HR PER NOV...FEET REMAIN PURPLISH-RED..NO PALPABLE PEDAL PULSES BUT SKIN WARM..REFUSED DOPPLER PULSE CHECK...BP STABLE..GERALDINE HURLEY COLLECTED 950ml CLEAR YELLOW URINE 10PM-6AM...NSR..ISOLATED PVC
--- NOTE | 2021-07-25 08:07 | P.PNVS_ITS ---
Subjective Subjective Date of Service: 07/25/21 Patient reports: no new complaints and feels better Interval history: Patient seen and examined. Events over the last day or 2 noted. He appears to be doing significantly better. He is much more responsive. He notes that he does have lower extremity pain but it is better than what it has been. He appears to be somewhat more stable today. Nursing notes that he appears to have stabilized over the last day or 2. Physical Exam Vital Signs: Vital Signs: Last Vital Signs Temp 97.6 F 07/25/21 00:00 Pulse 68 07/25/21 06:00 Resp 18 07/25/21 06:00 BP 142/69 H 07/25/21 06:00 Pulse Ox 90 L 07/25/21 06:00 Body Mass Index 22.2 Const: General: cooperative, healthy appearing and no acute distress Orientation/consciousness: oriented to person, oriented to place and oriented to time HENMT: Head: Yes normal to inspection Neck: Carotids: no bruits Chest: Chest palpation & inspection: normal inspection of the chest Resp: Effort & Inspection: normal respiratory effort and able to speak in complete sentences Auscultation: clear to auscultation bilaterally Cardio: Rate: regular rate Heart sounds: S1 normal heart sound present and S2 normal heart sound present Peripheral pulses: dorsalis pedis present (Bilateral DP signals) GI: Inspection: Yes normal to inspection Skin: Other: Left leg appears ischemic, ulcerations noted There is gross motor minimal sensation General skin exam: no rashes or lesions noted Wounds: no wounds Neuro: General: oriented to person, oriented to place, oriented to time and CN's II-XI intact bilaterally Extrem: General: Yes normal to inspection, Yes full ROM and Yes no clubbing, cyanosis or edema Psych: Appearance: grossly normal and well kempt Speech and movement: Normal speech and movement present Affect: normal affect Progress Note: A&P Assessment and plan (1) PAD (peripheral artery disease): Status: Acute Assessment and Plan: Bilateral lower extremity ischemia. It appears to be acute on chronic. He appears to be doing somewhat better. He has had improvement throughout the hospital stay now that he is on a heparin drip. Laboratory studies seem to be stabilizing as well. Once a little more stable would like to attempt an angio gram on this patient. Also would have to determine will who healthcare proxy is an ability to sign consent as well. We will continue to closely follow him with you. Thank you for allowing us to assist in his care. Fall Risk Details Current Medications: Current Medications Fentanyl (Fentanyl Citrate/Pf 100 Mcg/2 Ml Vial) 25 mcg IVPUSH Q2H PRN PRN Reason: pain Last Admin: 07/24/21 13:30 Dose: 25 mcg Documented by: Heparin Sodium (Porcine) (Heparin Sodium,Porcine 5,000 Unit/Ml Vial) 2,600 unit 40 unit/kg (2600 unit) IVPUSH PROTOCOL BOLUS PRN; Protocol PRN Reason: 40 unit/kg - Heparin Protocol Last Admin: 07/25/21 03:53 Dose: 2,600 unit Documented by: Heparin Sodium (Porcine) (Heparin Sodium,Porcine 5,000 Unit/Ml Vial) 5,100 unit 80 unit/kg (5100 unit) IVPUSH PROTOCOL BOLUS PRN; Protocol PRN Reason: 80 unit/kg - Heparin Protocol Dexmedetomidine HCl (Precedex) 400 mcg in 100 mls @ 0 mls/hr IVCONT .Q0M [facility]; Protocol Last Admin: 07/25/21 05:37 Dose: 0.8 mcg/kg/hr, 14 mls/hr Documented by: Folic Acid 1 mg/ Sodium (Chloride) 50.2 mls @ 100.4 mls/hr IV DAILY NATASHA Last Infusion: 07/24/21 09:00 Dose: Infused Documented by: Thiamine HCl 100 mg/ Sodium (Chloride) 101 mls @ 202 mls/hr IV DAILY NATASHA Last Infusion: 07/24/21 09:00 Dose: Infused Documented by: Ceftriaxone Sodium 2 gm/ (Sodium Chloride) 50 mls @ 100 mls/hr IV Q24H NATASHA Last Infusion: 07/25/21 01:01 Dose: Infused Documented by: Heparin Sodium/Sodium Chloride () 25,000 unit in 250 mls @ 0 mls/hr IVCONT .Q0M NATASHA; Protocol Last Titration: 07/25/21 03:59 Dose: 16 units/kg/hr, 10.24 mls/hr Documented by: Potassium Phosphate 30 mmol/ (Sodium Chloride) 510 mls @ 85 mls/hr IV ONCE ONE Stop: 07/25/21 13:59 Magnesium Sulfate (Magnesium Sulfate/H2o) 2 gm in 50 mls @ 25 mls/hr IV ONCE ONE Stop: 07/25/21 08:30 Last Admin: 07/25/21 07:08 Dose: 25 mls/hr Documented by: Medication (No Benzodiazepines) 1 each MISCELLANE DAILY NATASHA Phenobarbital (Phenobarbital 15 Mg Tablet) 45 mg PO BID NATASHA; Protocol Stop: 07/26/21 21:01 Phenobarbital (Phenobarbital 30 Mg Tablet) 30 mg PO BID NATASHA; Protocol Stop: 07/28/21 21:01 Phenobarbital (Phenobarbital 15 Mg Tablet) 15 mg PO DAILY NATASHA; Protocol Stop: 07/30/21 09:01 Time Spent With Patient Time: Total time spent is greater than 50% in coordination of care (as documented) at patient's floor/unit and/or counseling patient: Time with patient: 15 - 24 minutes Procedures Date of Service Date of Service: 07/25/21 Quality Stroke Does the patient have a stroke diagnosis?: No VTE Prior VTE?: No VTE Risk Level:: Medical - low VTE Device Contraindication: Treatment Not Indicated VTE Drug Contraindication: N/A - Med Ordered
[2021-07-25] MEDS: Potassium Phosphate 30 MMOL in 0.9 % Sodium Chloride 500 ML 85 MMOL IV (08:21)
[2021-07-25] MEDS: Folic Acid 1 MG in 0.9 % Sodium Chloride 50 ML 100.4 MG IV (08:21)
[2021-07-25] MEDS: PHENobarbitaL 15 MG TABLET 45 MG PO ×2 (08:22→19:54)
[2021-07-25] MEDS: Thiamine HCL 100 MG in 0.9 % Sodium Chloride 100 ML 202 MG IV (08:22)
[2021-07-25 10:18] LABS: PTT Heparin Drip 86.7 SEC (53-77.9)
--- NOTE | 2021-07-25 10:20 | PM.CCPN ---
Subjective Subjective Date of Service: 07/25/21 Interval History: 65-year-old gentleman with underlying history of alcohol dependency and withdrawal, prior episodes of hyponatremia admitted on 07/22/2021 after mechanical fall with alcohol intoxication, UTI, also noted to have asymptomatic hyponatremia of 112. Patient has been started on IV fluids, alcohol withdrawal protocol, and admitted to intensive care unit. Patient was noted to have subacute vascular insufficiency in his feet (L>R) and was evaluated by vascular surgery service. He continues on heparin drip with plans for angiography. No events overnight. Titrated off Precedex drip. Critical Care Time (minutes): 0 Physical Exam Vital Signs: Vital Signs: Last Vital Signs Temp 99.1 F 07/25/21 08:00 Pulse 74 07/25/21 10:00 Resp 18 07/25/21 10:00 BP 96/50 L 07/25/21 10:00 Pulse Ox 93 07/25/21 10:00 Body Mass Index 22.2 Const: General: no acute distress, alert and awake Eyes: Sclerae: sclerae normal EOM: EOMs intact bilaterally Neck: Neck: Yes no lymphadenopathy, Yes trachea midline and Yes supple Resp: Effort & Inspection: normal respiratory effort and no respiratory distress Auscultation: clear to auscultation bilaterally Cardio: Rate: regular rate Rhythm: regular rhythm Heart sounds: no gallops, no murmurs and no rubs GI: Palpation (GI): Soft to palpation and Other GI palpation findings present ( Nontender) Auscultation: normal bowel sounds Extrem: Other: Diffuse tenderness in the left foot, but warm and able to move toes. General: Yes no pedal edema, No clubbing and No cyanosis Objective Data Labs CBC & Chem 7: 07/25/21 05:25 07/25/21 05:25 Labs: Laboratory Results - last 24 hr 07/24/21 07/24/21 07/25/21 14:00 20:55 02:55 WBC RBC Hgb Hct MCV MCH MCHC RDW Plt Count MPV Immature Gran % (Auto) Neut % (Auto) Lymph % (Auto) [place] % (Auto) Eos % (Auto) Baso % (Auto) Lymph # (Auto) [place] # (Auto) Eos # (Auto) Baso # (Auto) Abs Immat Gran (auto) Absolute Neuts (auto) Absolute Nucleated RBC Nucleated RBC % (auto) PTT (Heparin Protocol) 49.1 L D 53.0 49.2 L Sodium Potassium Chloride Carbon Dioxide Anion Gap BUN Creatinine Estim Creat Clear Calc Estimated GFR Random Glucose Calcium Phosphorus Magnesium Albumin 07/25/21 07/25/21 05:25 05:25 WBC 9.0 RBC 3.30 L Hgb 11.1 L Hct 30.5 L MCV 92.4 MCH 33.6 H MCHC 36.4 H RDW 11.7 Plt Count 199 MPV 10.1 Immature Gran % (Auto) 0.3 Neut % (Auto) 70.7 Lymph % (Auto) 18.1 L [place] % (Auto) 6.6 Eos % (Auto) 3.5 Baso % (Auto) 0.8 Lymph # (Auto) 1.6 [place] # (Auto) 0.6 Eos # (Auto) 0.3 Baso # (Auto) 0.1 Abs Immat Gran (auto) 0.03 Absolute Neuts (auto) 6.33 Absolute Nucleated RBC 0.000 Nucleated RBC % (auto) 0.0 PTT (Heparin Protocol) Sodium 128 L Potassium 3.5 Chloride 97 Carbon Dioxide 22 Anion Gap 13 BUN 4 L Creatinine 0.64 Estim Creat Clear Calc 104.4 Estimated GFR > 60 Random Glucose 114 Calcium 8.6 D Phosphorus 2.7 Magnesium 1.5 L Albumin 3.0 L Microbiology Microbiology Results: Microbiology 07/22/21 22:25 Blood - Venous Blood Culture - Preliminary No growth after 48 hours. 07/22/21 22:25 Blood - Venous Blood Culture - Preliminary No growth after 48 hours. 07/23/21 00:00 Urine clean catch - Urine rossi top Urine Culture - Final No growth. Quality Stroke Does the patient have a stroke diagnosis?: No VTE Prior VTE?: No VTE Risk Level:: Medical - low VTE Device Contraindication: Treatment Not Indicated VTE Drug Contraindication: N/A - Med Ordered Progress Note: A&P Assessment and plan (1) Delirium tremens: Status: Acute (2) Hyponatremia: Status: Acute (3) PAD (peripheral artery disease): Status: Acute Assessment and Plan: Assessment: 65-year-old gentleman admitted with subacute hyponatremia, UTI, also noted to have worsening subacute peripheral vascular disease Plan: Neuro: Delirium tremens, improving, titrated off Precedex drip. Continue on phenobarbital protocol. Cardiac: Bilateral feet peripheral vascular disease, L>R. Vascular surgery service appreciated. Continues on heparin drip. Will likely require angiography and/or possible revascularization. Pulmonary: No acute issues. Renal: Hyponatremia likely secondary to poor solute intake. Subacute. Asymptomatic. Improving. Continue to monitor electrolytes. Endo: No acute issues. GI: No acute issues. ID: UTI, empirically covered with ceftriaxone. Heme/Onc: No acute issues. Psych: No acute issues. Miscellaneous: No acute issues. Prophylaxis: Heparin drip Diet: Regular
[2021-07-25] MEDS: Heparin Sodium,Porcine/1/2NS 25,000 UNIT/250 ML IV.SOLN 8.96 UNIT IVCONT (15:33)
[2021-07-25] MEDS: fentaNYL citrate/PF 100 MCG/2 ML VIAL 25 MCG IVPUSH (15:38)
[2021-07-25 16:41] LABS: PTT Heparin Drip 51.4 SEC (53-77.9)
[2021-07-25 23:22] LABS: PTT Heparin Drip 73.7 SEC (53-77.9)
[2021-07-26] MEDS: cefTRIAXone sodium 2 GM in 0.9 % Sodium Chloride 50 ML IV (00:12)
[2021-07-26 06:14] LABS: PTT Heparin Drip 62.5 SEC (53-77.9)
[2021-07-26 07:29] VITALS: BP 157/88; PULSE 85; RESP 20; TEMP 36.9; O2SAT 94
--- NOTE | 2021-07-26 09:32 | MHC.CM.PN ---
pt is homeless, he may need str at dc vs. dc to homeless [facility] - depending on his willingness and medical needs . cm to cont. to follow.
[2021-07-26] MEDS: Folic Acid 1 MG in 0.9 % Sodium Chloride 50 ML 100.4 MG IV (09:58)
[2021-07-26] MEDS: Thiamine HCL 100 MG in 0.9 % Sodium Chloride 100 ML 202 MG IV (09:58)
[2021-07-26] MEDS: PHENobarbitaL 15 MG TABLET 45 MG PO ×2 (09:58→20:37)
[2021-07-26 11:24] VITALS: BP 150/70; PULSE 84; RESP 20; TEMP 36.7; O2SAT 97
--- NOTE | 2021-07-26 11:26 | P.PNVS_ITS ---
Subjective Subjective Date of Service: 07/26/21 Patient reports: no new complaints and feels better Interval history: 55-year-old alcoholic gentleman who had presented for late last week has been transferred to the floor. In general feels much better. Is now having a coherent conversation. Complains of lower extremity pain. He has had continuous pain for last several months. His extremely concerned about his left lower extremity. Physical Exam Vital Signs: Vital Signs: Last Vital Signs Temp 98.4 F 07/26/21 07:29 Pulse 85 07/26/21 07:29 Resp 20 07/26/21 07:29 BP 157/88 H 07/26/21 07:29 Pulse Ox 94 07/26/21 07:29 Body Mass Index 22.2 Const: General: cooperative, healthy appearing and no acute distress Orientation/consciousness: oriented to person, oriented to place and oriented to time HENMT: Head: Yes normal to inspection Neck: Carotids: no bruits Chest: Chest palpation & inspection: normal inspection of the chest Resp: Effort & Inspection: normal respiratory effort and able to speak in complete sentences Auscultation: clear to auscultation bilaterally Cardio: Rate: regular rate Heart sounds: S1 normal heart sound present and S2 normal heart sound present Peripheral pulses: dorsalis pedis present (Bilateral DP signal) GI: Inspection: Yes normal to inspection Skin: General skin exam: no rashes or lesions noted Wounds: wounds noted (Left foot wound) Neuro: General: oriented to person, oriented to place, oriented to time and CN's II-XI intact bilaterally Extrem: General: Yes normal to inspection, Yes full ROM and Yes no clubbing, cyanosis or edema Psych: Appearance: grossly normal and well kempt Speech and movement: Norm al speech and movement present Affect: normal affect Progress Note: A&P Assessment and plan (1) PAD (peripheral artery disease): Status: Acute Assessment and Plan: Patient notes nonhealing left leg ulcer. I have discussed the pathophysiology of peripheral vascular disease with the patient. I have also discussed risk factor modification. I have reviewed the patient's arterial testing which reveals occlusion left SFA on down the patient would benefit from a leftleg endovascular peripheral angiogram with possible angioplasty, stent, and/or atherectomy. This has been discussed in detail with the patient along with risks, benefits, and complications. This includes but is not limited to bleeding, infection, heart attack, need for emergent surgical repair, limb ischemia, blood vessel damage, bleeding, puncture, kidney injury, bruising, allergic reaction, and skin reaction. The patient demonstrates a clear understanding. We will schedule for the next appropriate time. Thank you for allowing us to assist in this patient's care. Fall Risk Details Current Medications: Current Medications Fentanyl (Fentanyl Citrate/Pf 100 Mcg/2 Ml Vial) 25 mcg IVPUSH Q2H PRN PRN Reason: pain Last Admin: 07/25/21 15:38 Dose: 25 mcg Documented by: Heparin Sodium (Porcine) (Heparin Sodium,Porcine 5,000 Unit/Ml Vial) 2,600 unit 40 unit/kg (2600 unit) IVPUSH PROTOCOL BOLUS PRN; Protocol PRN Reason: 40 unit/kg - Heparin Protocol Last Admin: 07/25/21 17:00 Dose: 2,600 unit Documented by: Heparin Sodium (Porcine) (Heparin Sodium,Porcine 5,000 Unit/Ml Vial) 5,100 unit 80 unit/kg (5100 unit) IVPUSH PROTOCOL BOLUS PRN; Protocol PRN Reason: 80 unit/kg - Heparin Protocol Folic Acid 1 mg/ Sodium (Chloride) 50.2 mls @ 100.4 mls/hr IV DAILY NATASHA Last Infusion: 07/26/21 10:53 Dose: Infused Documented by: Thiamine HCl 100 mg/ Sodium (Chloride) 101 mls @ 202 mls/hr IV DAILY NATASHA Last Infusion: 07/26/21 10:54 Dose: Infused Documented by: Ceftriaxone Sodium 2 gm/ (Sodium Chloride) 50 mls @ 100 mls/hr IV Q24H NATASHA Last Infusion: 07/26/21 00:55 Dose: Infused Documented by: Heparin Sodium/Sodium Chloride () 25,000 unit in 250 mls @ 0 mls/hr IVCONT .Q0M NATASHA; Protocol Last Titration: 07/26/21 07:14 Dose: 16 units/kg/hr, 10.24 mls/hr Documented by: Sodium Chloride (Ns) 1,000 mls @ 100 mls/hr IVCONT .Q10H [facility] Medication (No Benzodiazepines) 1 each MISCELLANE DAILY [facility] Phenobarbital (Phenobarbital 15 Mg Tablet) 45 mg PO BID NATASHA; Protocol Stop: 07/26/21 21:01 Last Admin: 07/26/21 09:58 Dose: 45 mg Documented by: Phenobarbital (Phenobarbital 30 Mg Tablet) 30 mg PO BID [facility]; Protocol Stop: 07/28/21 21:01 Phenobarbital (Phenobarbital 15 Mg Tablet) 15 mg PO DAILY [facility]; Protocol Stop: 07/30/21 09:01 Time Spent With Patient Time: Total time spent is greater than 50% in coordination of care (as documented) at patient's floor/unit and/or counseling patient: Time with patient: 15 - 24 minutes Procedures Date of Service Date of Service: 07/26/21 Quality Stroke Does the patient have a stroke diagnosis?: No VTE Prior VTE?: No VTE Risk Level:: Medical - low VTE Device Contraindication: Treatment Not Indicated VTE Drug Contraindication: N/A - Med Ordered
--- NOTE | 2021-07-26 13:46 | MHC.CLN ---
F/U PT IS AT INCREASED NUTRITION RISK R/T TWO STAGE II PRESSURE INJURIES ON COCCYX AND LEFT HEEL PT RECEIVING ENSURE PLUS SUPPLEMENT TID TO PROVIDE 1050 KCALS, 48 GRAMS PROTEIN DIET RX: REGULAR-APPROPRIATE MONITOR PO INTAKE AND SUPPLEMENT ACCEPTANCE
[2021-07-26] MEDS: Heparin Sodium,Porcine/1/2NS 25,000 UNIT/250 ML IV.SOLN 10.24 UNIT IVCONT (13:48)
[2021-07-26 15:52] VITALS: BP 141/77; PULSE 88; RESP 18; TEMP 37.1; O2SAT 94
--- NOTE | 2021-07-26 16:27 | P.PNIM_ITS ---
Subjective Subjective Date of Service: 07/26/21 Interval History: No acute events since transfer from ICU. No evidence of seizure on phenobarb protocol. Review of Systems Denies chest pain Denies shortness of breath Denies nausea vomiting diarrhea Physical Exam Vital Signs: Vital Signs: Last Vital Signs Temp 98.7 F 07/26/21 15:52 Pulse 88 07/26/21 15:52 Resp 18 07/26/21 15:52 BP 141/77 H 07/26/21 15:52 Pulse Ox 94 07/26/21 15:52 Body Mass Index 22.2 Const: Other: Slightly and she stated no acute distress Neck: Other: Right IJ catheter pulled out approximately 1 cm dressing to shoveled Resp: Other: Clear to auscultation bilaterally no rales rhonchi or wheezes Cardio: Other: No S4; positive S1-S2; no S3 murmurs rubs or gallops GI: Other: Soft nontender nondistended with normoactive bowel sounds Extrem: Other: Sloughing of the skin noted on bilateral feet painful to touch Objective Data Active Medications Fentanyl (Fentanyl Citrate/Pf 100 Mcg/2 Ml Vial) 25 mcg IVPUSH Q2H PRN PRN Reason: pain Last Admin: 07/25/21 15:38 Dose: 25 mcg Documented by: JOHN Heparin Sodium (Porcine) (Heparin Sodium,Porcine 5,000 Unit/Ml Vial) 2,600 unit 40 unit/kg (2600 unit) IVPUSH PROTOCOL BOLUS PRN; Protocol PRN Reason: 40 unit/kg - Heparin Protocol Last Admin: 07/25/21 17:00 Dose: 2,600 unit Documented by: JOHN Heparin Sodium (Porcine) (Heparin Sodium,Porcine 5,000 Unit/Ml Vial) 5,100 unit 80 unit/kg (5100 unit) IVPUSH PROTOCOL BOLUS PRN; Protocol PRN Reason: 80 unit/kg - Heparin Protocol Folic Acid 1 mg/ Sodium (Chloride) 50.2 mls @ 100.4 mls/hr IV DAILY [facility] Last Infusion: 07/26/21 10:53 Dose: 0 mls/hr Documented by: KIMBERLY Thiamine HCl 100 mg/ Sodium (Chloride) 101 mls @ 202 mls/hr IV DAILY NATASHA Last Infusion: 07/26/21 10:54 Dose: 0 mls/hr Documented by: KIMBERLY Ceftriaxone Sodium 2 gm/ (Sodium Chloride) 50 mls @ 100 mls/hr IV Q24H [facility] Last Infusion: 07/26/21 00:55 Dose: 0 mls/hr Documented by: SAURABH Heparin Sodium/Sodium Chloride () 25,000 unit in 250 mls @ 0 mls/hr IVCONT .Q0M NATASHA; Protocol Last Admin: 07/26/21 13:48 Dose: 16 units/kg/hr, 10.24 mls/hr Documented by: KIMBERLY Cosigned by: ESTHER Sodium Chloride (Ns) 1,000 mls @ 100 mls/hr IVCONT .Q10H [facility] Medication (No Benzodiazepines) 1 each MISCELLANE DAILY [facility] Phenobarbital (Phenobarbital 15 Mg Tablet) 45 mg PO BID NATASHA; Protocol Stop: 07/26/21 21:01 Last Admin: 07/26/21 09:58 Dose: 45 mg Documented by: KIMBERLY Phenobarbital (Phenobarbital 30 Mg Tablet) 30 mg PO BID NATASHA; Protocol Stop: 07/28/21 21:01 Phenobarbital (Phenobarbital 15 Mg Tablet) 15 mg PO DAILY NATASHA; Protocol Stop: 07/30/21 09:01 Labs CBC & Chem 7: 07/25/21 05:25 07/25/21 05:25 Labs: Laboratory Results - last 24 hr 07/25/21 07/25/21 07/26/21 16:20 22:57 05:48 PTT (Heparin Protocol) 51.4 L D 73.7 D 62.5 Assessment and Plan (1) Delirium tremens: Status: Acute (2) Hyponatremia: Status: Acute (3) PAD (peripheral artery disease): Status: Acute Assessment and Plan: The patient is a 64-year-old male with a past medical history of? alcohol abuse, frequent? Klebsiella UTIs,? and frequent visits to the emergency room due to alcohol intoxication presents to the emergency room? after fall.? In the ED he did appear to be acutely intoxicated,? with laboratory data was significant for sodium of 112 and alcohol level of 207.?? ER Course: CT of the Head/ cervical spine:? with no acute finding X-ray of pelvis/chest:? no acute findings 1. Alcohol withdrawal Continue phenobarb protocol repeat electrolytes as indicated 2. Hyponatremia Back to his baseline given chronic alcohol abuse. Continue to follow clinically and address as indicated 3. PVD Seen by vascular; arterial testing revealed occlusion left SFA on down; patient scheduled for endovascular peripheral angiogram with possible angioplasty stent or threats me in the morning. Will keep NPO after midnight. Full code /heparin Quality Stroke Does the patient have a stroke diagnosis?: No VTE Prior VTE?: No VTE Risk Level:: Medical - low VTE Device Contraindication: Treatment Not Indicated VTE Drug Contraindication: N/A - Med Ordered
[2021-07-26 19:33] VITALS: BP 160/78; PULSE 86; RESP 18; TEMP 37.2; O2SAT 98
[2021-07-27] MEDS: cefTRIAXone sodium 2 GM in 0.9 % Sodium Chloride 50 ML IV (00:13)
--- NOTE | 2021-07-27 00:34 | PC.NURSE ---
Addendum entered by Hope Jackson RN 07/27/21 06:14: Pt was NPO at midnight, drink/snacks removed. Pt educated on NPO status, not happy about it but agreeable. This RN into start IVF at 0545 and patient eating lenore crackers and drinking milk. Pt states I'm not going to surgery, they can't make me. I'm ordering breakfast and eating it too! SSS aware pt had food and drink at 0610 when they called for report. Original Note: Heparin drip turned off at midnight per communication order. Pt sitting in stool, refusing groin to be shaved at this time, groin noted to be red bilaterally, very resistive to care, yelling at staff, refusing to answer questions, refusing assessment.
[2021-07-27] MEDS: 0.9 % Sodium Chloride 1,000 ML 100 ML IVCONT ×2 (05:53→17:04)
[2021-07-27 06:13] LABS: PTT Heparin Drip 33.2 SEC (53-77.9)
[2021-07-27 06:25] LABS: Alanine Aminotransferase 24 U/L (0-40); Albumin Level 3.2 g/dL (3.5-5.0); Alkaline Phosphatase 58 U/L (39-117); Anion Gap 14 (12-20); Aspartate Amino Transferase 31 U/L (5-37); Bilirubin Total 0.3 mg/dL (0.0-1.0); Blood Urea Nitrogen 8 mg/dL (9-16); Calcium 8.6 mg/dL (8.4-10.2); Carbon Dioxide 23 mmol/L (22-29); Chloride 96 mmol/L (96-108); Creatinine Clr Calc Pharmacy 101.2; Estimated Glomerular Filt Rate > 60; Glucose Fasting 99 mg/dL (60-99); Potassium 3.8 mmol/L (3.3-5.1); Sodium 129 mmol/L (135-145); Total Protein 6.2 g/dL (6.5-8.0)
[2021-07-27 09:01] VITALS: BP 160/82; PULSE 82; RESP 20; TEMP 36.8; O2SAT 94
--- NOTE | 2021-07-27 09:52 | P.PNVS_ITS ---
Subjective Subjective Date of Service: 07/27/21 Patient reports: no new complaints Interval history: 65-year-old gentleman with critical limb ischemia was scheduled for angiogram this morning. He had originally presented to the hospital with frequent falls and alcohol intoxication. He has stabilize in been transferred to the floor. Ideally would have liked to perform an angiogram to determine his level of closure in this morning. Patient had eaten and refused. Of note extensive discussion with the patient was had the day before and he was in agreement. Physical Exam Vital Signs: Vital Signs: Last Vital Signs Temp 98.2 F 07/27/21 09:01 Pulse 82 07/27/21 09:01 Resp 20 07/27/21 09:01 BP 160/82 H 07/27/21 09:01 Pulse Ox 94 07/27/21 09:01 Body Mass Index 22.2 Const: General: cooperative, healthy appearing and no acute distress Orientation/consciousness: oriented to person, oriented to place and oriented to time HENMT: Head: Yes normal to inspection Neck: Carotids: no bruits Chest: Chest palpation & inspection: normal inspection of the chest Resp: Effort & Inspection: normal respiratory effort and able to speak in complete sentences Auscultation: clear to auscultation bilaterally Cardio: Rate: regular rate Heart sounds: S1 normal heart sound present and S2 normal heart sound present Peripheral pulses: dorsalis pedis present (Bilateral DP signals) GI: Inspection: Yes normal to inspection Skin: Other: Ulcers left foot General skin exam: no rashes or lesions noted Wounds: no wounds Neuro: General: oriented to person, oriented to place, oriented to time and CN's II-XI intact bilaterally Extrem: General: Yes normal to inspection, Yes full ROM and Yes no clubbing, cyanosis or edema Psych: Appearance: grossly normal and well kempt Speech and movement: Normal speech and movement present Affect: normal affect Progress Note: A&P Assessment and plan (1) PAD (peripheral artery disease): Status: Acute Assessment and Plan: In short patient has critical limb ischemia. He is refusing any active treatme nt. Would recommend pain control and will follow as needed. Thank you for allowing us to assist in his care. If there are any questions or concerns please do not hesitate to contact us. Fall Risk Details Current Medications: Current Medications Fentanyl (Fentanyl Citrate/Pf 100 Mcg/2 Ml Vial) 25 mcg IVPUSH Q2H PRN PRN Reason: pain Last Admin: 07/25/21 15:38 Dose: 25 mcg Documented by: Heparin Sodium (Porcine) (Heparin Sodium,Porcine 5,000 Unit/Ml Vial) 2,600 unit 40 unit/kg (2600 unit) IVPUSH PROTOCOL BOLUS PRN; Protocol PRN Reason: 40 unit/kg - Heparin Protocol Last Admin: 07/25/21 17:00 Dose: 2,600 unit Documented by: Heparin Sodium (Porcine) (Heparin Sodium,Porcine 5,000 Unit/Ml Vial) 5,100 unit 80 unit/kg (5100 unit) IVPUSH PROTOCOL BOLUS PRN; Protocol PRN Reason: 80 unit/kg - Heparin Protocol Folic Acid 1 mg/ Sodium (Chloride) 50.2 mls @ 100.4 mls/hr IV DAILY [facility] Last Infusion: 07/26/21 10:53 Dose: Infused Documented by: Thiamine HCl 100 mg/ Sodium (Chloride) 101 mls @ 202 mls/hr IV DAILY [facility] Last Infusion: 07/26/21 10:54 Dose: Infused Documented by: Ceftriaxone Sodium 2 gm/ (Sodium Chloride) 50 mls @ 100 mls/hr IV Q24H [facility] Last Infusion: 07/27/21 01:11 Dose: Infused Documented by: Heparin Sodium/Sodium Chloride () 25,000 unit in 250 mls @ 0 mls/hr IVCONT .Q0M [facility]; Protocol Last Titration: 07/27/21 00:13 Dose: 0 units/kg/hr, 0 mls/hr Documented by: Sodium Chloride (Ns) 1,000 mls @ 100 mls/hr IVCONT .Q10H [facility] Last Admin: 07/27/21 05:53 Dose: 100 mls/hr Documented by: Medication (No Benzodiazepines) 1 each MISCELLANE DAILY [facility] Phenobarbital (Phenobarbital 30 Mg Tablet) 30 mg PO BID [facility]; Protocol Stop: 07/28/21 21:01 Phenobarbital (Phenobarbital 15 Mg Tablet) 15 mg PO DAILY [facility]; Protocol Stop: 07/30/21 09:01 Time Spent With Patient Time: Total time spent is greater than 50% in coordination of care (as documented) at patient's floor/unit and/or counseling patient: Time with patient: 15 - 24 minutes Procedures Date of Service Date of Service: 07/27/21 Quality Stroke Does the patient have a stroke diagnosis?: No VTE Prior VTE?: No VTE Risk Level:: Medical - low VTE Device Contraindication: Treatment Not Indicated VTE Drug Contraindication: N/A - Med Ordered
[2021-07-27] MEDS: Folic Acid 1 MG in 0.9 % Sodium Chloride 50 ML 100.4 MG IV (10:09)
[2021-07-27] MEDS: PHENobarbitaL 30 MG TABLET PO ×2 (10:17→22:18)
[2021-07-27] MEDS: Thiamine HCL 100 MG in 0.9 % Sodium Chloride 100 ML 202 MG IV (12:02)
[2021-07-27 12:49] VITALS: BP 130/76; PULSE 93; RESP 20; TEMP 36.7; O2SAT 97
[2021-07-27 15:09] VITALS: BP 130/73; PULSE 82; RESP 20; TEMP 37.2; O2SAT 96
--- NOTE | 2021-07-27 17:06 | P.PNIM_ITS ---
Subjective Subjective Date of Service: 07/27/21 Interval History: No acute issues overnight; refused vascular study this a.m. Review of Systems Denies chest pain Denies shortness of breath Denies nausea vomiting diarrhea Physical Exam Vital Signs: Vital Signs: Last Vital Signs Temp 99.0 F 07/27/21 15:09 Pulse 82 07/27/21 15:09 Resp 20 07/27/21 15:09 BP 130/73 07/27/21 15:09 Pulse Ox 96 07/27/21 15:09 Body Mass Index 22.2 Const: Other: Slightly and she stated no acute distress Neck: Other: Right IJ catheter pulled out approximately 1 cm dressing to shoveled Resp: Other: Clear to auscultation bilaterally no rales rhonchi or wheezes Cardio: Other: No S4; positive S1-S2; no S3 murmurs rubs or gallops GI: Other: Soft nontender nondistended with normoactive bowel sounds Extrem: Other: Sloughing of the skin noted on bilateral feet painful to touch Objective Data Active Medications Fentanyl (Fentanyl Citrate/Pf 100 Mcg/2 Ml Vial) 25 mcg IVPUSH Q2H PRN PRN Reason: pain Last Admin: 07/25/21 15:38 Dose: 25 mcg Documented by: JOHN Heparin Sodium (Porcine) (Heparin Sodium,Porcine 5,000 Unit/Ml Vial) 2,600 unit 40 unit/kg (2600 unit) IVPUSH PROTOCOL BOLUS PRN; Protocol PRN Reason: 40 unit/kg - Heparin Protocol Last Admin: 07/25/21 17:00 Dose: 2,600 unit Documented by: JOHN Heparin Sodium (Porcine) (Heparin Sodium,Porcine 5,000 Unit/Ml Vial) 5,100 unit 80 unit/kg (5100 unit) IVPUSH PROTOCOL BOLUS PRN; Protocol PRN Reason: 80 unit/kg - Heparin Protocol Folic Acid 1 mg/ Sodium (Chloride) 50.2 mls @ 100.4 mls/hr IV DAILY [facility] Last Infusion: 07/27/21 11:12 Dose: 0 mls/hr Documented by: RODRIGO Ceftriaxone Sodium 2 gm/ (Sodium Chloride) 50 mls @ 100 mls/hr IV Q24H [facility] Last Infusion: 07/27/21 01:11 Dose: 0 mls/hr Documented by: NICOLÁS Heparin Sodium/Sodium Chloride () 25,000 unit in 250 mls @ 0 mls/hr IVCONT .Q0M [facility]; Protocol Last Titration: 07/27/21 00:13 Dose: 0 units/kg/hr, 0 mls/hr Documented by: NICOLÁS Cosigned by: KIRBY Sodium Chloride (Ns) 1,000 mls @ 100 mls/hr IVCONT .Q10H [facility] Last Admin: 07/27/21 17:04 Dose: 100 mls/hr Documented by: RODRIGO Thiamine HCl 100 mg/ Sodium (Chloride) 101 mls @ 202 mls/hr IV DAILY [facility] Medication (No Benzodiazepines) 1 each MISCELLANE DAILY [facility] Phenobarbital (Phenobarbital 30 Mg Tablet) 30 mg PO BID [facility]; Protocol Stop: 07/28/21 21:01 Last Admin: 07/27/21 10:17 Dose: 30 mg Documented by: RODRIGO Phenobarbital (Phenobarbital 15 Mg Tablet) 15 mg PO DAILY [facility]; Protocol Stop: 07/30/21 09:01 Labs CBC & Chem 7: 07/25/21 05:25 07/27/21 05:49 Labs: Laboratory Results - last 24 hr 07/27/21 07/27/21 05:49 05:49 PTT (Heparin Protocol) 33.2 L D Anion Gap 14 Estim Creat Clear Calc 101.2 Estimated GFR > 60 Fasting Glucose 99 Calcium 8.6 Total Bilirubin 0.3 AST 31 D ALT 24 Alkaline Phosphatase 58 Total Protein 6.2 L Albumin 3.2 L Assessment and Plan (1) Alcoholic intoxication: Status: Acute (2) PAD (peripheral artery disease): Status: Acute Assessment and Plan: The patient is a 64-year-old male with a past medical history of? alcohol abuse, frequent? Klebsiella UTIs,? and frequent visits to the emergency room due to alcohol intoxication presents to the emergency room? after fall.? In the ED he did appear to be acutely intoxicated,? with laboratory data was significant for sodium of 112 and alcohol level of 207.?? ER Course: CT of the Head/ cervical spine:? with no acute finding X-ray of pelvis/chest:? no acute findings 1. Alcohol withdrawal Continue phenobarb protocol repeat electrolytes as indicated 2. Hyponatremia Back to his baseline given chronic alcohol abuse. Continue to follow clinically and address as indicated 3. PVD Refused vascular study this a.m.; per recommendation will pursue pain m anagement and placement. Re-attempt studies in future if compliant Full code /heparin Quality Stroke Does the patient have a stroke diagnosis?: No VTE Prior VTE?: No VTE Risk Level:: Medical - low VTE Device Contraindication: Treatment Not Indicated VTE Drug Contraindication: N/A - Med Ordered
[2021-07-27 19:10] VITALS: BP 152/78; PULSE 80; RESP 20; TEMP 36.6; O2SAT 97
--- NOTE | 2021-07-27 19:38 | PC.NURSE ---
REfusal of Care Pt has been non cooperative and refuses to have his body thoroughly assessed.
[2021-07-28 00:15] VITALS: BP 139/74; PULSE 86; RESP 17; TEMP 37.2; O2SAT 98
[2021-07-28] MEDS: cefTRIAXone sodium 2 GM in 0.9 % Sodium Chloride 50 ML IV ×2 (00:29→23:33)
[2021-07-28] MEDS: 0.9 % Sodium Chloride 1,000 ML 100 ML IVCONT ×2 (00:30→17:44)
[2021-07-28 07:15] LABS: Hematocrit 33.7 % (42.0-52.0); Hemoglobin 11.6 g/dl (14.0-18.0); Mean Corpuscular HGB Conc 34.4 g/dl (31.0-36.0); Mean Corpuscular Hemoglobin 32.6 pg (27.0-33.0); Mean Corpuscular Volume 94.7 fL (80.0-98.0); Mean Platelet Volume 10.3 fL (9.4-12.4); Platelet Count 210 X10*3/uL (160-400); Red Blood Count 3.56 X10*6/uL (4.60-5.80); Red Cell Distribution Width 12.1 % (11.0-16.0); White Blood Count 11.2 X10*3/uL (4.8-10.8)
[2021-07-28 07:57] LABS: Alanine Aminotransferase 20 U/L (0-40); Alkaline Phosphatase 55 U/L (39-117); Anion Gap 13 (12-20); Aspartate Amino Transferase 23 U/L (5-37); Bilirubin Total < 0.2 mg/dL (0.0-1.0); Blood Urea Nitrogen 8 mg/dL (9-16); Calcium 8.5 mg/dL (8.4-10.2); Carbon Dioxide 23 mmol/L (22-29); Chloride 100 mmol/L (96-108); Creatinine Clr Calc Pharmacy 101.2; Estimated Glomerular Filt Rate > 60; Glucose Fasting 109 mg/dL (60-99); Potassium 3.5 mmol/L (3.3-5.1); Sodium 132 mmol/L (135-145); Total Protein 5.8 g/dL (6.5-8.0)
[2021-07-28] MEDS: PHENobarbitaL 30 MG TABLET PO ×2 (09:35→20:56)
--- NOTE | 2021-07-28 09:48 | MHC.CM.PN ---
dc plan is to str; refs have been made. plan is to dc tomorrow . cm to cont. to follow.
--- NOTE | 2021-07-28 13:10 | MHC.CLN ---
F/U PO INTAKE 100% DIET RX: REGULAR-APPROPRIATE PT RECEIVING ENSURE PLUS SUPPLEMENT TID TO PROVIDE 1050 KCALS, 48 GRAMS PROTEIN MONITOR PO INTAKE AND SUPPLEMENT ACCEPTANCE
[2021-07-28 14:53] LABS: COVID-19 Test Negative (Negative); IDNOW Serial# 9DD0AD1C
[2021-07-28 15:00] VITALS: BP 139/74; PULSE 86; O2SAT 98
[2021-07-28 15:14] VITALS: BP 171/90; PULSE 85; RESP 20; TEMP 36.6; O2SAT 98
--- NOTE | 2021-07-28 15:17 | HO.PM.IMPN ---
Subjective Subjective Date of Service: 07/28/21 Interval History: No acute events overnight; completing phenobarb protocol Review of Systems Denies chest pain Denies shortness of breath Denies nausea vomiting diarrhea Physical Exam Vital Signs: Vital Signs: Last Vital Signs Temp 97.9 F 07/28/21 15:14 Pulse 85 07/28/21 15:14 Resp 20 07/28/21 15:14 BP 171/90 H 07/28/21 15:14 Pulse Ox 98 07/28/21 15:14 Body Mass Index 22.2 Const: Other: Slightly and she stated no acute distress Neck: Other: Right IJ catheter pulled out approximately 1 cm dressing to shoveled Resp: Other: Clear to auscultation bilaterally no rales rhonchi or wheezes Cardio: Other: No S4; positive S1-S2; no S3 murmurs rubs or gallops GI: Other: Soft nontender nondistended with normoactive bowel sounds Extrem: Other: Sloughing of the skin noted on bilateral feet painful to touch Objective Data Active Medications Heparin Sodium (Porcine) (Heparin Sodium,Porcine 5,000 Unit/Ml Vial) 2,600 unit 40 unit/kg (2600 unit) IVPUSH PROTOCOL BOLUS PRN; Protocol PRN Reason: 40 unit/kg - Heparin Protocol Last Admin: 07/25/21 17:00 Dose: 2,600 unit Documented by: JOHN Heparin Sodium (Porcine) (Heparin Sodium,Porcine 5,000 Unit/Ml Vial) 5,100 unit 80 unit/kg (5100 unit) IVPUSH PROTOCOL BOLUS PRN; Protocol PRN Reason: 80 unit/kg - Heparin Protocol Folic Acid 1 mg/ Sodium (Chloride) 50.2 mls @ 100.4 mls/hr IV DAILY [facility] Last Infusion: 07/27/21 11:12 Dose: 0 mls/hr Documented by: RODRIGO Ceftriaxone Sodium 2 gm/ (Sodium Chloride) 50 mls @ 100 mls/hr IV Q24H [facility] Last Infusion: 07/28/21 01:00 Dose: 0 mls/hr Documented by: WOLF Heparin Sodium/Sodium Chloride () 25,000 unit in 250 mls @ 0 mls/hr IVCONT .Q0M [facility]; Protocol Last Titration: 07/27/21 00:13 Dose: 0 units/kg/hr, 0 mls/hr Documented by: NICOLÁS Cosigned by: KIRBY Sodium Chloride (Ns) 1,000 mls @ 100 mls/hr IVCONT .Q10H [facility] Last Admin: 07/28/21 00:30 Dose: 100 mls/hr Documented by: WOLF Thiamine HCl 100 mg/ Sodium (Chloride) 101 mls @ 202 mls/hr IV DAILY [facility] Medication (No Benzodiazepines) 1 each MISCELLANE DAILY [facility] Phenobarbital (Phenobarbital 30 Mg Tablet) 30 mg PO BID [facility]; Protocol Stop: 07/28/21 21:01 Last Admin: 07/28/21 09:35 Dose: 30 mg Documented by: REYNALDO Phenobarbital (Phenobarbital 15 Mg Tablet) 15 mg PO DAILY [facility]; Protocol Stop: 07/30/21 09:01 Labs CBC & Chem 7: 07/28/21 06:48 07/28/21 06:48 Labs: Laboratory Results - last 24 hr 07/28/21 07/28/21 07/28/21 06:48 06:48 14:30 MCV 94.7 MCH 32.6 MCHC 34.4 RDW 12.1 Plt Count 210 MPV 10.3 Absolute Nucleated RBC 0.000 Nucleated RBC % (auto) 0.0 Anion Gap 13 Estim Creat Clear Calc 101.2 Estimated GFR > 60 Fasting Glucose 109 H Calcium 8.5 Total Bilirubin < 0.2 AST 23 ALT 20 Alkaline Phosphatase 55 Total Protein 5.8 L Albumin 3.0 L COVID-19 ([facility]) Negative COVID-19 Clin Com See Note Microbiology Microbiology Results: Microbiology 07/22/21 22:25 Blood Culture - Final Blood - Venous No growth after 5 days. 07/22/21 22:25 Blood Culture - Final Blood - Venous No growth after 5 days. Assessment and Plan (1) PAD (peripheral artery disease): Status: Acute Assessment and Plan: The patient is a 64-year-old male with a past medical history of? alcohol abuse, frequent? Klebsiella UTIs,? and frequent visits to the emergency room due to alcohol intoxication presents to the emergency room? after fall.? In the ED he did appear to be acutely intoxicated. Extensive PVD noted bilateral lower extremities 1. Alcohol withdrawal Completing phenobarb per protocol .... Hopeful DC in a.m. 2. Hyponatremia Back to his baseline given chronic alcohol abuse. Continue to follow clinically and address as indicated 3. PVD Refused vascular study this a.m.; per recommendation will pursue pain management and placement. Re-attempt studies in future if compliant. DC heparin; Eliquis Full code /heparin Quality Stroke Does the patient have a stroke diagnosis?: No VTE Prior VTE?: No VTE Risk Level:: Medical - low VTE Device Contraindication: Treatment Not Indicated VTE Drug Contraindication: N/A - Med Ordered
[2021-07-28 16:34] LABS: INTERNATIONAL NORM RATIO 1.1 (0.9-1.1); Prothrombin Time 12.9 SEC (9.9-13.0)
[2021-07-28 16:37] LABS: PTT Heparin Drip 31.9 SEC (53-77.9)
[2021-07-28 19:07] VITALS: BP 163/91; PULSE 84; RESP 20; TEMP 37; O2SAT 94
[2021-07-28 23:02] VITALS: BP 159/78; PULSE 78; RESP 20; TEMP 37.3; O2SAT 96
[2021-07-29 03:03] VITALS: BP 164/86; PULSE 76; RESP 20; TEMP 37; O2SAT 96
[2021-07-29] MEDS: 0.9 % Sodium Chloride 1,000 ML 100 ML IVCONT ×3 (03:36→23:55)
[2021-07-29 07:19] LABS: INTERNATIONAL NORM RATIO 1.1 (0.9-1.1); Prothrombin Time 12.7 SEC (9.9-13.0)
[2021-07-29 07:28] LABS: Alanine Aminotransferase 26 U/L (0-40); Alkaline Phosphatase 53 U/L (39-117); Anion Gap 13 (12-20); Aspartate Amino Transferase 33 U/L (5-37); Bilirubin Total < 0.2 mg/dL (0.0-1.0); Blood Urea Nitrogen 9 mg/dL (9-16); Calcium 8.1 mg/dL (8.4-10.2); Carbon Dioxide 23 mmol/L (22-29); Chloride 99 mmol/L (96-108); Estimated Glomerular Filt Rate > 60; Glucose Fasting 97 mg/dL (60-99); Potassium 3.8 mmol/L (3.3-5.1); Sodium 131 mmol/L (135-145); Total Protein 5.9 g/dL (6.5-8.0)
[2021-07-29] MEDS: PHENobarbitaL 15 MG TABLET PO (07:53)
[2021-07-29] MEDS: Thiamine HCL 100 MG in 0.9 % Sodium Chloride 100 ML 202 MG IV (07:53)
[2021-07-29] MEDS: Folic Acid 1 MG in 0.9 % Sodium Chloride 50 ML 100.4 MG IV (07:54)
[2021-07-29 07:55] VITALS: BP 154/82; PULSE 77; RESP 19; TEMP 36.6; O2SAT 97
[2021-07-29 11:50] VITALS: BP 167/79; PULSE 88; RESP 18; TEMP 37.2; O2SAT 96
[2021-07-29 15:24] VITALS: BP 150/74; PULSE 83; RESP 18; TEMP 37.6; O2SAT 96
--- NOTE | 2021-07-29 15:51 | MHC.CM.PN ---
SNF bed search is in progress; CM will follow.
--- NOTE | 2021-07-29 16:50 | P.PNIM_ITS ---
Subjective Subjective Date of Service: 07/29/21 Interval History: No acute issues overnight; no signs of alcohol withdrawal Review of Systems Denies chest pain Denies shortness of breath Denies nausea vomiting diarrhea Physical Exam Vital Signs: Vital Signs: Last Vital Signs Temp 99.7 F 07/29/21 15:24 Pulse 83 07/29/21 15:24 Resp 18 07/29/21 15:24 BP 150/74 H 07/29/21 15:24 Pulse Ox 96 07/29/21 15:24 Body Mass Index 22.2 Const: Other: Slightly and she stated no acute distress Neck: Other: Right IJ catheter pulled out approximately 1 cm dressing to shoveled Resp: Other: Clear to auscultation bilaterally no rales rhonchi or wheezes Cardio: Other: No S4; positive S1-S2; no S3 murmurs rubs or gallops GI: Other: Soft nontender nondistended with normoactive bowel sounds Extrem: Other: Sloughing of the skin noted on bilateral feet painful to touch Objective Data Active Medications Heparin Sodium (Porcine) (Heparin Sodium,Porcine 5,000 Unit/Ml Vial) 2,500 unit 40 unit/kg (2500 unit) IVPUSH PROTOCOL BOLUS PRN; Protocol PRN Reason: 40 unit/kg - Heparin Protocol Heparin Sodium (Porcine) (Heparin Sodium,Porcine 5,000 Unit/Ml Vial) 5,000 unit 80 unit/kg (5000 unit) IVPUSH PROTOCOL BOLUS PRN; Protocol PRN Reason: 80 unit/kg - Heparin Protocol Folic Acid 1 mg/ Sodium (Chloride) 50.2 mls @ 100.4 mls/hr IV DAILY [facility] Last Infusion: 07/29/21 08:33 Dose: 0 mls/hr Documented by: ZACH Ceftriaxone Sodium 2 gm/ (Sodium Chloride) 50 mls @ 100 mls/hr IV Q24H [facility] Last Infusion: 07/29/21 00:11 Dose: 0 mls/hr Documented by: MANJINDER Sodium Chloride (Ns) 1,000 mls @ 100 mls/hr IVCONT .Q10H [facility] Last Admin: 07/29/21 14:10 Dose: 100 mls/hr Documented by: ZACH Thiamine HCl 100 mg/ Sodium (Chloride) 101 mls @ 202 mls/hr IV DAILY [facility] Last Infusion: 07/29/21 08:33 Dose: 0 mls/hr Documented by: ZACH Heparin Sodium/Sodium Chloride () 25,000 unit in 250 mls @ 0 mls/hr IVCONT .Q0M [facility]; Protocol Medication (No Benzodiazepines) 1 each MISCELLANE DAILY [facility] Phenobarbital (Phenobarbital 15 Mg Tablet) 15 mg PO DAILY [facility]; Protocol Stop: 07/30/21 09:01 Last Admin: 07/29/21 07:53 Dose: 15 mg Documented by: ZACH Labs CBC & Chem 7: 07/28/21 06:48 07/29/21 06:25 Labs: Laboratory Results - last 24 hr 07/29/21 07/29/21 06:25 06:25 PT 12.7 INR 1.1 Anion Gap 13 Estim Creat Clear Calc 106.0 Estimated GFR > 60 Fasting Glucose 97 Calcium 8.1 L Total Bilirubin < 0.2 AST 33 D ALT 26 Alkaline Phosphatase 53 Total Protein 5.9 L Albumin 3.0 L Assessment and Plan (1) PAD (peripheral artery disease): Status: Acute Assessment and Plan: The patient is a 64-year-old male with a past medical history of? alcohol abuse, frequent? Klebsiella UTIs,? and frequent visits to the emergency room due to alcohol intoxication presents to the emergency room? after fall.? In the ED he did appear to be acutely intoxicated. Extensive PVD noted bilateral lower extremities 1. Alcohol withdrawal Completing phenobarb per protocol .... Hopeful DC in a.m. 2. Hyponatremia Resolved. Follow-up clinically 3. PVD Discussed with vascular. Will DC heparin start Gin can be followed up as an outpatient Full code /[facility] Quality Stroke Does the patient have a stroke diagnosis?: No VTE Prior VTE?: No VTE Risk Level:: Medical - low VTE Device Contraindication: Treatment Not Indicated VTE Drug Contraindication: N/A - Med Ordered
[2021-07-29] MEDS: Apixaban 5 MG TABLET PO (20:26)
[2021-07-29] MEDS: Acetaminophen 325 MG TABLET 650 MG PO (20:42)
[2021-07-29 20:43] VITALS: BP 168/89; PULSE 92; RESP 18; TEMP 37.7; O2SAT 96
[2021-07-29 23:50] VITALS: BP 136/88; PULSE 86; RESP 18; TEMP 37.3; O2SAT 96
[2021-07-29] MEDS: cefTRIAXone sodium 2 GM in 0.9 % Sodium Chloride 50 ML IV (23:55)
[2021-07-30 03:56] VITALS: BP 136/77; PULSE 80; RESP 18; TEMP 36.9; O2SAT 96
[2021-07-30] MEDS: Acetaminophen 325 MG TABLET 650 MG PO ×2 (06:10→21:48)
[2021-07-30] MEDS: PHENobarbitaL 15 MG TABLET PO (08:08)
[2021-07-30] MEDS: Apixaban 5 MG TABLET PO ×2 (08:08→21:39)
[2021-07-30] MEDS: Folic Acid 1 MG in 0.9 % Sodium Chloride 50 ML 100.4 MG IV (09:05)
[2021-07-30] MEDS: Thiamine HCL 100 MG in 0.9 % Sodium Chloride 100 ML 202 MG IV (10:39)
[2021-07-30 10:54] VITALS: BP 136/77; PULSE 80; O2SAT 96
--- NOTE | 2021-07-30 11:36 | MHC.CM.PN ---
SNF search is in progress. Patient has NOT received the Covid vax. [facility] and [facility] SNFs are following but currently do not have an appropriate bed for an unvaccinated Patient. CM will continue to follow.
--- NOTE | 2021-07-30 12:04 | MHC.CLN ---
F/U ACCORDING TO THE HOSPITALIST PROGRESS NOTE AND SHIFT RISK ASSESSMENT, STAGE II WOUNDS HAVE RESOLVED STAGE II WOUND ON COCCYX IS NOW A RASH STAGE II WOUND ON LEFT HEEL IS SLOUGHING OF SKIN DIET RX: REGULAR-APPROPRIATE
--- NOTE | 2021-07-30 14:46 | HO.PM.IMPN ---
Subjective Subjective Date of Service: 07/30/21 Interval History: No acute issues. Resting comfortably. Completed phenobarb protocol no signs of alcohol withdrawal Review of Systems Denies chest pain Denies shortness of breath Denies nausea vomiting diarrhea Physical Exam Vital Signs: Vital Signs: Last Vital Signs Temp 98.4 F 07/30/21 03:56 Pulse 80 07/30/21 10:54 Resp 18 07/30/21 03:56 BP 136/77 07/30/21 10:54 Pulse Ox 96 07/30/21 10:54 Body Mass Index 22.2 Const: Other: Slightly and she stated no acute distress Neck: Other: Right IJ catheter pulled out approximately 1 cm dressing to shoveled Resp: Other: Clear to auscultation bilaterally no rales rhonchi or wheezes Cardio: Other: No S4; positive S1-S2; no S3 murmurs rubs or gallops GI: Other: Soft nontender nondistended with normoactive bowel sounds Extrem: Other: Sloughing of the skin noted on bilateral feet painful to touch Objective Data Active Medications Acetaminophen (Acetaminophen 325 Mg Tablet) 650 mg PO Q8H PRN PRN Reason: Pain, Moderate (Pain Scale 4-6 Last Admin: 07/30/21 06:10 Dose: 650 mg Documented by: MANJINDER Apixaban (Apixaban 5 Mg Tablet) 5 mg PO BID [facility] Last Admin: 07/30/21 08:08 Dose: 5 mg Documented by: AGNES Folic Acid 1 mg/ Sodium (Chloride) 50.2 mls @ 100.4 mls/hr IV DAILY [facility] Last Infusion: 07/30/21 10:39 Dose: 0 mls/hr Documented by: AGNES Thiamine HCl 100 mg/ Sodium (Chloride) 101 mls @ 202 mls/hr IV DAILY [facility] Last Infusion: 07/30/21 12:42 Dose: 0 mls/hr Documented by: AGNES Medication (No Benzodiazepines) 1 each MISCELLANE DAILY [facility] Labs CBC & Chem 7: 07/28/21 06:48 07/29/21 06:25 Assessment and Plan (1) PAD (peripheral artery disease): Status: Acute (2) Hyponatremia: Status: Acute Assessment and Plan: The patient is a 64-year-old male with a past medical history of? alcohol abuse, frequent? Klebsiella UTIs,? and frequent visits to the emergency room due to alcohol intoxication presents to the emergency room? after fall.? In the ED he did appear to be acutely intoxicated. Extensive PVD noted bilateral lower extremities 1. Alcohol withdrawal Completed phenobarb protocol No sinus withdrawal. 2. Hyponatremia Resolved. Follow-up clinically 3. PVD Discussed with vascular. Will DC heparin start Eliquis can be followed up as an outpatient Disposition awaiting placement Full code /eloquist Quality Stroke Does the patient have a stroke diagnosis?: No VTE Prior VTE?: No VTE Risk Level:: Medical - low VTE Device Contraindication: Treatment Not Indicated VTE Drug Contraindication: N/A - Med Ordered
[2021-07-30 20:38] VITALS: BP 145/60; PULSE 89; RESP 19; TEMP 37.2; O2SAT 98
[2021-07-30 23:33] VITALS: BP 161/84; PULSE 73; RESP 18; TEMP 37; O2SAT 96
[2021-07-31 03:11] VITALS: BP 135/68; PULSE 88; RESP 20; TEMP 36.8; O2SAT 96
[2021-07-31 08:00] VITALS: BP 170/99; PULSE 84; RESP 18; TEMP 36.3; O2SAT 96
[2021-07-31] MEDS: Gabapentin 100 MG CAPSULE PO ×3 (10:47→20:48)
[2021-07-31] MEDS: Apixaban 5 MG TABLET PO ×2 (10:48→20:48)
[2021-07-31] MEDS: Thiamine HCL 100 MG in 0.9 % Sodium Chloride 100 ML 202 MG IV (10:49)
[2021-07-31 11:36] VITALS: BP 143/72; PULSE 77; RESP 18; TEMP 36.7; O2SAT 96
--- NOTE | 2021-07-31 14:48 | P.PNIM_ITS ---
Subjective Subjective Date of Service: 07/31/21 Interval History: No acute events overnight. Patient intermittently agitated; no signs of alcohol withdrawal/seizures Physical Exam Vital Signs: Vital Signs: Last Vital Signs Temp 98.1 F 07/31/21 11:36 Pulse 77 07/31/21 11:36 Resp 18 07/31/21 11:36 BP 143/72 H 07/31/21 11:36 Pulse Ox 96 07/31/21 11:36 Body Mass Index 22.2 Const: Other: Slightly and she stated no acute distress Neck: Other: Right IJ catheter pulled out approximately 1 cm dressing to shoveled Resp: Other: Clear to auscultation bilaterally no rales rhonchi or wheezes Cardio: Other: No S4; positive S1-S2; no S3 murmurs rubs or gallops GI: Other: Soft nontender nondistended with normoactive bowel sounds Extrem: Other: Sloughing of the skin noted on bilateral feet painful to touch Objective Data Active Medications Acetaminophen (Acetaminophen 325 Mg Tablet) 650 mg PO Q8H PRN PRN Reason: Pain, Moderate (Pain Scale 4-6 Last Admin: 07/30/21 21:48 Dose: 650 mg Documented by: LISSETH Apixaban (Apixaban 5 Mg Tablet) 5 mg PO BID [facility] Last Admin: 07/31/21 10:48 Dose: 5 mg Documented by: GUALBERTO Gabapentin (Gabapentin 100 Mg Capsule) 100 mg PO TID [facility] Last Admin: 07/31/21 10:47 Dose: 100 mg Documented by: GUALBERTO Folic Acid 1 mg/ Sodium (Chloride) 50.2 mls @ 100.4 mls/hr IV DAILY [facility] Last Admin: 07/31/21 12:27 Dose: Not Given Documented by: GUALBERTO Non-Admin Reason: switch to po Thiamine HCl 100 mg/ Sodium (Chloride) 101 mls @ 202 mls/hr IV DAILY [facility] Last Infusion: 07/31/21 12:26 Dose: 0 mls/hr Documented by: GUALBERTO Medication (No Benzodiazepines) 1 each MISCELLANE DAILY [facility] Labs CBC & Chem 7: 07/28/21 06:48 07/29/21 06:25 Assessment and Plan (1) PAD (peripheral artery disease): Status: Acute Assessment and Plan: The patient is a 64-year-old male with a past medical history of? alcohol abuse, frequent? Klebsiella UTIs,? and frequent visits to the emergency room due to alcohol intoxication presents to the emergency room? after fall.? In the ED he did appear to be acutely intoxicated. Extensive PVD noted bilateral lower extremities 1. Alcohol withdrawal Completed phenobarb protocol No signs withdrawal. 2. Hyponatremia Resolved. Follow-up clinically 3. PVD Discussed with vascular. Will DC heparin start Eliquis can be followed up as an outpatient Started gabapentin for neuropathic pain Disposition awaiting placement Full code /eloquist Quality Stroke Does the patient have a stroke diagnosis?: No VTE Prior VTE?: No VTE Risk Level:: Medical - low VTE Device Contraindication: Treatment Not Indicated VTE Drug Contraindication: N/A - Med Ordered
[2021-07-31 15:01] VITALS: BP 166/77; PULSE 79; RESP 20; TEMP 37.2; O2SAT 95
--- NOTE | 2021-07-31 17:12 | PC.NURSE ---
Patient resistive to care, verbally abusive with staff this shift. Refused skin assessment, to change dirty jessie, or to change dirty bed hernandez for clean one. Patient continuously pulling off [place] catheter per telesitter; patient given urinal with no complications. No further issues. Will pass to oncoming RN.
[2021-07-31 19:03] VITALS: BP 155/76; PULSE 89; RESP 20; TEMP 37.3; O2SAT 93
[2021-07-31 22:58] VITALS: BP 136/82; PULSE 77; RESP 20; TEMP 36.7; O2SAT 96
[2021-08-01 03:08] VITALS: BP 138/80; PULSE 85; RESP 20; TEMP 37; O2SAT 96
[2021-08-01 08:00] VITALS: BP 127/70; PULSE 82; RESP 18; TEMP 37.1; O2SAT 97
[2021-08-01] MEDS: Gabapentin 100 MG CAPSULE PO ×3 (09:41→20:28)
[2021-08-01] MEDS: Folic Acid 1 MG in 0.9 % Sodium Chloride 50 ML 100 MG IV (09:41)
[2021-08-01] MEDS: Apixaban 5 MG TABLET PO ×2 (09:41→20:28)
--- NOTE | 2021-08-01 10:36 | HO.PM.IMPN ---
Subjective Subjective Date of Service: 08/01/21 Interval History: No acute issues overnight Review of Systems Denies chest pain Denies shortness of breath Denies nausea vomiting diarrhea Physical Exam Vital Signs: Vital Signs: Last Vital Signs Temp 98.8 F 08/01/21 08:00 Pulse 82 08/01/21 08:00 Resp 18 08/01/21 08:00 BP 127/70 08/01/21 08:00 Pulse Ox 97 08/01/21 08:00 Body Mass Index 22.2 Const: Other: Slightly and she stated no acute distress Neck: Other: Right IJ catheter pulled out approximately 1 cm dressing to shoveled Resp: Other: Clear to auscultation bilaterally no rales rhonchi or wheezes Cardio: Other: No S4; positive S1-S2; no S3 murmurs rubs or gallops GI: Other: Soft nontender nondistended with normoactive bowel sounds Extrem: Other: Sloughing of the skin noted on bilateral feet painful to touch Objective Data Active Medications Acetaminophen (Acetaminophen 325 Mg Tablet) 650 mg PO Q8H PRN PRN Reason: Pain, Moderate (Pain Scale 4-6 Last Admin: 07/30/21 21:48 Dose: 650 mg Documented by: LISSETH Apixaban (Apixaban 5 Mg Tablet) 5 mg PO BID [facility] Last Admin: 08/01/21 09:41 Dose: 5 mg Documented by: AGNES Gabapentin (Gabapentin 100 Mg Capsule) 100 mg PO TID [facility] Last Admin: 08/01/21 09:41 Dose: 100 mg Documented by: AGNES Folic Acid 1 mg/ Sodium (Chloride) 50.2 mls @ 100.4 mls/hr IV DAILY [facility] Last Admin: 08/01/21 09:41 Dose: 100 mls/hr Documented by: AGNES Thiamine HCl 100 mg/ Sodium (Chloride) 101 mls @ 202 mls/hr IV DAILY [facility] Last Infusion: 07/31/21 12:26 Dose: 0 mls/hr Documented by: GUALBERTO Medication (No Benzodiazepines) 1 each MISCELLANE DAILY [facility] Labs CBC & Chem 7: 07/28/21 06:48 07/29/21 06:25 Assessment and Plan (1) PAD (peripheral artery disease): Status: Acute Assessment and Plan: The patient is a 64-year-old male with a past medical history of? alcohol abuse, frequent? Klebsiella UTIs,? and frequent visits to the emergency room due to alcohol intoxication presents to the emergency room? after fall.? In the ED he did appear to be acutely intoxicated. Extensive PVD noted bilateral lower extremities. Awaiting placement 1. Alcohol withdrawal Completed phenobarb protocol No signs withdrawal. 2. Hyponatremia Resolved. Follow-up clinically 3. PVD Started gabapentin 100 mg t.i.d. with good FX. Continues same can follow-up with vascular after discharge Disposition awaiting placement Full code /eloquist Quality Stroke Does the patient have a stroke diagnosis?: No VTE Prior VTE?: No VTE Risk Level:: Medical - low VTE Device Contraindication: Treatment Not Indicated VTE Drug Contraindication: N/A - Med Ordered
--- NOTE | 2021-08-01 10:38 | PM.DS ---
DS: Providers Provider Date of Service: 08/01/21 Date of admission: 07/22/21 22:43 Date of discharge: 08/06/21 Primary care physician: Unknown Physician Consults: 07/23/21 09:00 Consult to Vascular Surgery Routine Consulting Provider: Marcelo Farnsworth Reason for consultation: Subacute LE ischemia L>R Has provider been notified: No DS: Diagnosis Discharge Diagnosis (1) PAD (peripheral artery disease): DS: Summary Hospital Course Hospital Course: From H+P by admitting sales executive insurance Lis Constantino NP, 07/22/21: The patient is a 64-year-old male with a past medical history of? alcohol abuse, frequent? Klebsiella UTIs,? and frequent visits to the emergency room due to alcohol intoxication presents to the emergency room? after fall.? In the ED he did appear to be acutely intoxicated,? with laboratory data was significant for sodium of 112 and alcohol level of 207.?? ER Course: CT of the Head/ cervical spine:? with no acute finding X-ray of pelvis/chest:? no acute findings This homeless 64-year-old male with history of alcohol abuse with frequent ED visits for intoxication and frequent Klebsella UTI presented intoxicated after fall,. He was admitted to ICU fo rdelirium tremens and asymptomatic hyponatremia and [facility]. Alcohol withdrawal was treated with dexmetetomidine drip and phenobarbital taper. No seizures during admission. Hypoatremia improved to his baseline of around 130. He was found to have significant peripheral arterial disease and was seen by Vascular Surgery. A procedure was scheduled but the patient ended up refusing, so the operation was canceled. He was placed on apixaban. He was given gabapentin for foot pain and clotrimazole for tinea pedis. Transfer to SNF for short-term rehabilitation was highly recommended; however, the patient refused. As such, a senior care bed was secured. He needs to establish primary care as soon as possible. Time Spent with Patient Time attestation: Total time spent providing and/or coordinating discharge services: Discharge coordination time: Greater than 30 minutes Quality: Stroke Does the patient have a stroke diagnosis?: No Physical Exam Vital Signs: Vital Signs: Last Vital Signs Temp 98.8 F 08/01/21 08:00 Pulse 82 08/01/21 08:00 Resp 18 08/01/21 08:00 BP 127/70 08/01/21 08:00 Pulse Ox 97 08/01/21 08:00 Body Mass Index 22.2 Discharge Plan Discharge Patient Disposition: Skilled Nursing Discharge Diagnosis: hyponatremia, alcohol withdrawal, peripheral vascular disease Referrals: Marcelo Farnsworth MD [Physician] - 1 Week Physician,Unknown J [Primary Care Provider] - 1 Week Discharge Medications: New folic acid 1 mg Tablet 1 mg PO DAILY Qty: 30 0RF gabapentin 100 mg Capsule 200 mg PO TID Qty: 180 0RF clotrimazole 1 % Cream 1 appl topical BID Qty: 60 0RF Protocol: Apply to: Apply to: feet + other areas of fungal infection thiamine mononitrate (vit B1) 100 mg Tablet 100 mg PO DAILY Qty: 30 0RF Eliquis 5 mg Tablet 5 mg PO BID Qty: 60 0RF Discharge Orders: Discharge Order (Routine); Ordered 08/06/21 Ordered By: Roque Montemayor Diet: other Activity on Discharge: As tolerated Stand Alone Forms: Patient Portal Discharge page, Community Support Activity Restrictions/Additional Instructions: do not drink alcohol Care Plan Goals: sobriety vascular health Health Concerns: hyponatremia, alcohol withdrawal, peripheral vascular disease Plan of Treatment: stop drinking alcohol take prescribed medications follow up with Dr Farnsworth- vascular surgeon- when you are ready to have surgery Assessment: See Discharge Summary Patient Instructions: Abuse of Alcohol (DC) Discharge Date/Time: 08/06/21 18:02
[2021-08-01] MEDS: Thiamine HCL 100 MG in 0.9 % Sodium Chloride 100 ML 202 MG IV (10:50)
[2021-08-01 12:00] VITALS: BP 144/82; PULSE 80; RESP 18; TEMP 37.3; O2SAT 97
[2021-08-01 15:07] VITALS: BP 165/82; PULSE 80; RESP 20; TEMP 37.3; O2SAT 97
[2021-08-01 19:26] VITALS: BP 154/77; PULSE 86; RESP 20; TEMP 37.9; O2SAT 97
[2021-08-02] VITALS (7 sets, daily range): BP systolic 118–166; BP diastolic 64–78; PULSE 64–97; RESP 14–20; TEMP 36.6–37.2; O2SAT 96–98
[2021-08-02] MEDS: Apixaban 5 MG TABLET PO ×2 (09:32→22:01)
[2021-08-02] MEDS: Folic Acid 1 MG TABLET PO (09:32)
[2021-08-02] MEDS: Thiamine HCL 100 MG TABLET PO (09:32)
[2021-08-02] MEDS: Gabapentin 100 MG CAPSULE PO (09:32)
--- NOTE | 2021-08-02 10:11 | MHC.CM.PN ---
Male 65 DX Hypo Na+ s/p ICU He is ready for discharge today. Updated info has been sent. The search expanded to [facility]. Barriers to bed search [facility] HX ETOH/homeless and criminal record. CM will continue interventions for placement.
--- NOTE | 2021-08-02 11:56 | HO.PM.IMPN ---
Subjective Subjective Date of Service: 08/02/21 Interval History: C/o neuropathic pain of feet. Otherwise just wants to be left alone. Review of Systems Review of Systems: Yes all other systems are reviewed and are negative Physical Exam Vital Signs: Vital Signs: Last Vital Signs Temp 98.9 F 08/02/21 11:21 Pulse 97 08/02/21 11:21 Resp 14 08/02/21 11:21 BP 143/70 H 08/02/21 11:21 Pulse Ox 97 08/02/21 11:21 Body Mass Index 22.2 Gen: disheveled HEENT: sclera anicteric, moist mucus membranes Neck: supple Lungs: clear to auscultation bilaterally Heart: regular rate and rhythm, no murmurs Abd: soft, non-tender, non-distended Ext: no edema Skin: warm/well-perfused Neuro: alert and oriented x3, no focal findings Psych: irritable Objective Data Active Medications Acetaminophen (Acetaminophen 325 Mg Tablet) 650 mg PO Q8H PRN PRN Reason: Pain, Moderate (Pain Scale 4-6 Last Admin: 07/30/21 21:48 Dose: 650 mg Documented by: LISSETH Apixaban (Apixaban 5 Mg Tablet) 5 mg PO BID [facility] Last Admin: 08/02/21 09:32 Dose: 5 mg Documented by: TOMMY Folic Acid (Folic Acid 1 Mg Tablet) 1 mg PO DAILY [facility] Last Admin: 08/02/21 09:32 Dose: 1 mg Documented by: TOMMY Gabapentin (Gabapentin 100 Mg Capsule) 100 mg PO TID [facility] Last Admin: 08/02/21 09:32 Dose: 100 mg Documented by: TOMMY Medication (No Benzodiazepines) 1 each MISCELLANE DAILY [facility] Thiamine HCl (Thiamine Hcl 100 Mg Tablet) 100 mg PO DAILY [facility] Last Admin: 08/02/21 09:32 Dose: 100 mg Documented by: TOMMY Labs CBC & Chem 7: 07/28/21 06:48 07/29/21 06:25 Assessment and Plan (1) PAD (peripheral artery disease): Status: Acute Assessment and Plan: hospital d#12 64-year-old male with PMHx alcohol abuse with frequent ED visits for intoxication, frequent Klebsella UTI presented intoxicated after fall, admitted to ICU for asymptomatic hyponatremia, stepped down to [facility] 07/25/21 refused intervention for peripheral arterial disease # EtOH withdrawal - s/p dexmetetomidine gtt + phenobarbital taper # hypoNa - resolved # PAD - refused intervention; if re-considers, f/u with Dr Farnsworth as outpt - continue apixaban # neuropathic pain of feet - increase gabapentin # AUD - CARE team consult - folate + thiamine # dispo - awaiting STR; complicated by COVID-19 unvaccinated status # VTE ppx - apixaban Quality Stroke Does the patient have a stroke diagnosis?: No VTE Prior VTE?: No VTE Risk Level:: Medical - low VTE Device Contraindication: Treatment Not Indicated VTE Drug Contraindication: N/A - Med Ordered
[2021-08-02] MEDS: Gabapentin 100 MG CAPSULE 200 MG PO ×2 (14:43→22:01)
[2021-08-03 04:00] VITALS: BP 118/62; PULSE 68; RESP 20; TEMP 37.1; O2SAT 96
[2021-08-03 07:35] VITALS: BP 127/70; PULSE 93; RESP 18; TEMP 37; O2SAT 100
--- NOTE | 2021-08-03 08:25 | MHC.RECOVRN ---
T/w attempted to meet with pt in 472 after consult placed to CARE Team for alcohol use. Pt declined to discuss recovery or alcohol use with t/w, stated I don't need that bullshit. T/w attempted to leave resources, pt stated You can put it right there in the trash. Discussed with pts RN as well as Didi Tavares APRN.
[2021-08-03] MEDS: Gabapentin 100 MG CAPSULE 200 MG PO ×3 (08:34→20:55)
[2021-08-03] MEDS: Thiamine HCL 100 MG TABLET PO (08:34)
[2021-08-03] MEDS: Folic Acid 1 MG TABLET PO (08:34)
[2021-08-03] MEDS: Apixaban 5 MG TABLET PO ×2 (08:34→20:55)
[2021-08-03 09:25] LABS: Anion Gap 14 (12-20); Blood Urea Nitrogen 16 mg/dL (9-16); Calcium 8.9 mg/dL (8.4-10.2); Carbon Dioxide 21 mmol/L (22-29); Chloride 99 mmol/L (96-108); Creatinine Clr Calc Pharmacy 94.1; Estimated Glomerular Filt Rate > 60; Glucose Random 120 mg/dL (60-115); Potassium 4.4 mmol/L (3.3-5.1); Sodium 130 mmol/L (135-145)
[2021-08-03 11:08] VITALS: BP 136/74; PULSE 82; RESP 18; TEMP 37.2; O2SAT 98
--- NOTE | 2021-08-03 12:00 | MHC.CM.PN ---
CM approached Patient about possible bed offer from [facility]. Patient does not want to go to a SNF; he wants to go to a correction, where he can go at 6PM and stay for the night and then leave in the morning for the day. SOCO called [facility] at [phone] and spoke with Ashley, who has indicated that the Patient will need to be screened by their Clinical Team .CM will ask Patient to sign release of Information and fax requested info to Ashley at [phone], once Patient's consent is obtained. CM will follow.
--- NOTE | 2021-08-03 12:32 | HO.PM.IMPN ---
Subjective Subjective Date of Service: 08/03/21 Interval History: itching/flaking of feet with heel ulcer aching of feet and legs Review of Systems Review of Systems: Yes all other systems are reviewed and are negative Physical Exam Vital Signs: Vital Signs: Last Vital Signs Temp 98.9 F 08/03/21 11:08 Pulse 82 08/03/21 11:08 Resp 18 08/03/21 11:08 BP 136/74 08/03/21 11:08 Pulse Ox 98 08/03/21 11:08 Body Mass Index 22.2 Gen: disheveled HEENT: sclera anicteric, moist mucus membranes Neck: supple Lungs: clear to auscultation bilaterally Heart: regular rate and rhythm, no murmurs Abd: soft, non-tender, non-distended Ext: no edema Skin: warm/well-perfused. extensive flaking of feet; multiple excoriated areas with shallow ulcers including L heel Neuro: alert and oriented x3, no focal findings Psych: irritable Objective Data Active Medications Acetaminophen (Acetaminophen 325 Mg Tablet) 650 mg PO Q8H PRN PRN Reason: Pain, Moderate (Pain Scale 4-6 Last Admin: 07/30/21 21:48 Dose: 650 mg Documented by: LISSETH Apixaban (Apixaban 5 Mg Tablet) 5 mg PO BID [facility] Last Admin: 08/03/21 08:34 Dose: 5 mg Documented by: TOMMY Clotrimazole (Clotrimazole 1 % Cream 15 Gm Tube) 1 appl TOPICAL BID [facility]; Protocol Folic Acid (Folic Acid 1 Mg Tablet) 1 mg PO DAILY [facility] Last Admin: 08/03/21 08:34 Dose: 1 mg Documented by: TOMMY Gabapentin (Gabapentin 100 Mg Capsule) 200 mg PO TID [facility] Last Admin: 08/03/21 08:34 Dose: 200 mg Documented by: TOMMY Thiamine HCl (Thiamine Hcl 100 Mg Tablet) 100 mg PO DAILY [facility] Last Admin: 08/03/21 08:34 Dose: 100 mg Documented by: TOMMY Labs CBC & Chem 7: 07/28/21 06:48 08/03/21 08:59 Labs: Laboratory Results - last 24 hr 08/03/21 08:59 Anion Gap 14 Estim Creat Clear Calc 94.1 Estimated GFR > 60 Random Glucose 120 H Calcium 8.9 D Assessment and Plan (1) PAD (peripheral artery disease): Status: Acute Assessment and Plan: hospital d#13 64-year-old male with PMHx alcohol abuse with frequent ED visits for intoxication, frequent Klebsella UTI presented intoxicated after fall, admitted to ICU for asymptomatic hyponatremia, stepped down to [facility] 07/25/21 refused intervention for peripheral arterial disease # EtOH withdrawal - s/p dexmetetomidine gtt + phenobarbital taper # hypoNa - improved, likely his baseline is around 130 due to reset osmostat # PAD - refused intervention; if re-considers, f/u with Dr Farnsworth as outpt - continue apixaban # neuropathic pain of feet - gabapentin # foot ulcers - wound care consult # tinea pedis - clotrimazole # AUD - CARE team consult - folate + thiamine # dispo - now declines STR; trying to get detention bed [homeless] # VTE ppx - apixaban Quality Stroke Does the patient have a stroke diagnosis?: No VTE Prior VTE?: No VTE Risk Level:: Medical - low VTE Device Contraindication: Treatment Not Indicated VTE Drug Contraindication: N/A - Med Ordered
--- NOTE | 2021-08-03 12:45 | MHC.CM.PN ---
Patient has signed Release of Information and it and requested documentation has been faxed to [facility] (Ashley at [phone]) for their Clinical Team's screening/review. CM awaits a response.
--- NOTE | 2021-08-03 15:08 | PC.NURSE ---
Skin assessment completed today. Patient has stage 2 pressure injury to left heel, Triad applied covered with foam dressing. Patient also has incontinent skin damage to lower back, bilateral buttocks, jeb area and inner thighs-triad applied to all red rash areas. He also has very dry scaly skin on legs and feet.
[2021-08-03 15:21] VITALS: BP 146/70; PULSE 78; RESP 18; TEMP 37.1; O2SAT 95
--- NOTE | 2021-08-03 16:02 | MHC.CM.PN ---
SOCO spoke with Ashley from [facility].Patient would need to be able to physically climb a ladder to a top bunk at the nursing home;SOCO spoke with PT who indicated that Patient would not be able to preform this task. SOCO has informed Ashley of this situation.Patient appears more appropriate for STR/LTC and MAY have a bed acceptance at [facility] if he can maintain a CIWA score of zero for 24 hours.CM will continue to follow.
[2021-08-03 19:40] VITALS: BP 153/77; PULSE 99; RESP 16; TEMP 37.3; O2SAT 95
[2021-08-03] MEDS: Clotrimazole 1 % Cream 15 GM TUBE 1 APPL TOPICAL (20:56)
[2021-08-03 23:39] VITALS: BP 128/77; PULSE 88; RESP 18; TEMP 37; O2SAT 95
[2021-08-04] VITALS (7 sets, daily range): BP systolic 122–167; BP diastolic 66–100; PULSE 65–87; RESP 18–20; TEMP 36.2–37.3; O2SAT 97–98
[2021-08-04] MEDS: Gabapentin 100 MG CAPSULE 200 MG PO ×3 (10:33→21:19)
[2021-08-04] MEDS: Folic Acid 1 MG TABLET PO (10:35)
[2021-08-04] MEDS: Apixaban 5 MG TABLET PO ×2 (10:35→21:19)
[2021-08-04] MEDS: Thiamine HCL 100 MG TABLET PO (10:35)
[2021-08-04] MEDS: Clotrimazole 1 % Cream 15 GM TUBE 1 APPL TOPICAL ×2 (10:35→21:19)
[2021-08-04] MEDS: Acetaminophen 325 MG TABLET 650 MG PO (10:52)
--- NOTE | 2021-08-04 11:38 | MHC.CM.PN ---
CM spoke with PT, who evaluated Patient today (see PT eval). Patient will not be able to safely climb a ladder to a top bunk at a usp, nor does his mobility appear to be adequate for a usp setting(would need to be able to be out of the usp independently during the day).Patient has scored a zero on CIWA since 9PM on 08/03/21 and may soon have a STR and/or LTC bed at [facility] in [employer])if CIWA remains a zero X 24 hours.CM will continue to follow.
--- NOTE | 2021-08-04 13:20 | MHC.CLN ---
Addendum entered by Ruth Parada, MARIAMA 08/04/21 13:22: CONSIDER ADDING MVI AND VITAMIN C TO PROMOTE WOUND HEALING Original Note: F/U PO INTAKE 100% (08/01-08/04) DIET RX: REGULAR-APPROPRIATE PT RECEIVING ENSURE TID TO INCREASE KCALS AND PROMOTE WOUND HEALING SUPPLEMENT PROVIDES 1050KCALS, 39G PROTEIN STAGE 2 L HEEL AND FRAGILE SKIN WITH MACERATION ALL OVER BODY (SEE WOUND ASSESSMENT) CONTINUE TO MONITOR PO INTAKE
--- NOTE | 2021-08-04 13:49 | P.CNPS_ITS ---
History of Present Illness Date of Service: 08/04/21 Chief Complaint: Acute hyponatremia - LEFT LEG Reason for Consult: Capacity evaluation, for discharge planning Requesting physician: Roque Montemayor Discussed with referring provider: Yes Sources of Information: patient interviewed and chart reviewed HPI Narrative: Mr. Cortés is a 65 year-old male with long history of alcohol use disorder, frequent Klebsiella UTIs, and frequent visits to the emergency department due to alcohol intoxication. He is hard of hearing, and also has an injury of right lower arm. presented to this facilities emergency department after a fall. Sodium level was 112, alcohol level to 0 7. He was then admitted into the ICU for management of acute hyponatremia with wrist her possible se izures. After stabilization he was transferred to [facility]. Psychiatry has been asked to meet with patient regarding capacity evaluation. It is unknown if patient has any other family members. He has been homeless. Patient is irritable upon approach. However he was cooperative and agreeable. Much of the interaction was normal for mental status exam. He did present with irritable mood and affect. He did have difficulty hearing, and words needed to be spoken loudly and repeated at times. He was able to state correct day, season as fall, place, year, and situation. When asked about his health condition, he was able to explain that he had fallen, and that he had been admitted and has been detoxed while inpatient. He stated that he understood he has been having difficulty walking and has been evaluated by Physical therapy. He states that he knows that if he goes to the fdc, he would need to be able to climb to the top bunk. He was able to say clearly that physical therapy had told him he is not capable at this time of being able to do that, as he was only able to walk approximately across half the room while using a walker. He then went on to say that he understood providers here wanted him to go to a [facility] for physical rehab. He states that he wants to be able to get up in the morning and go to the store in order to buy cigarettes and liquor. He states that he will not be able to do so if he goes to a [facility]. He did understand the consequences of his decision, and that he may not be able to stay in fdc due to ambulation. He states that he would rather live on the street and enjoy his freedom then go to a [facility] where he would not be able to move about freely. At this time, patient was able to receive information regarding his medical condition, process it in a meaningful way, and make decisions regarding his care. Therefore, he has capacity at this time. Past Psychiatric History: unknown. Multiple ED visits due to intoxication (etoh) Medical Evaluation Reviewed: Yes Personal & Social History: Homeless Review of Systems Review of Systems A full review of systems was completed and was negative with the exception of pertinent positives noted in the history of the presenting illness (HPI). Constitutional: Reports no additional constitutional complaints Eyes: Reports no additional eye complaints Reports system reviewed and no additional complaints, except as documented and Reports hearing loss Cardiovascular: Reports no additional cardiovascular complaints Respiratory: Reports no additional respiratory complaints Gastrointestinal: Reports no additional gastrointestinal complaints [facility] Medical History Alcohol abuse CVA (cerebral vascular accident) Hard of hearing Injury of right lower arm Family History: unknown Social History: homeless Substance History: Long history of alcohol use disorder, severe, dependence Trauma History: unknown Diagnostics Vital Signs (24Hr): Vital Signs - 24 hr 08/03/21 15:21 08/03/21 19:40 08/03/21 23:39 Temperature 98.7 F 99.2 F 98.6 F Pulse Rate 78 99 88 Respiratory Rate 18 16 18 Blood Pressure 146/70 H 153/77 H 128/77 Pulse Oximetry 95 95 95 08/04/21 03:15 08/04/21 07:37 08/04/21 11:50 Temperature 98.0 F 97.2 F Pulse Rate 65 78 78 Respiratory Rate 18 18 Blood Pressure 138/66 128/75 128/75 Pulse Oximetry 98 98 08/04/21 12:00 Temperature 98.0 F Pulse Rate 82 Respiratory Rate 18 Blood Pressure 122/74 Pulse Oximetry 97 Body Mass Index 22.2 Labs Results: 07/28/21 06:48 08/03/21 08:59 Labs: Laboratory Results - last 48 hr 08/03/21 08:59 Sodium 130 L Potassium 4.4 Chloride 99 Carbon Dioxide 21 L Anion Gap 14 BUN 16 D Creatinine 0.71 Estim Creat Clear Calc 94.1 Estimated GFR > 60 Random Glucose 120 H Calcium 8.9 D Imaging Radiology Impressions: ITS Impressions Cervical Spine CT 07/22/21 20:54 IMPRESSION: 1. No acute intracranial pathology. 2. No CT evidence of acute cervical spine fracture or traumatic subluxation Head CT 07/22/21 20:54 IMPRESSION: 1. No acute intracranial pathology. 2. No CT evidence of acute cervical spine fracture or traumatic subluxation Pelvis X-Ray 07/22/21 20:54 IMPRESSION: No acute fractures or malalignment. Chest X-Ray 07/22/21 20:57 IMPRESSION: No acute cardiopulmonary findings. Duplex Scan Lower Extremity Artery 07/23/21 10:05 IMPRESSION: -Deep arterial system of the left lower extremity is occluded from the distal aspect of the superficial femoral artery into the calf. There is only minimal flow within the proximal and midportion of the left superficial femoral artery. -Deep arterial system of the right lower extremity is patent, however, inflow disease is suspected. There is also suspicion for a focal stenosis within the proximal aspect of the right superficial femoral artery. Chest X-Ray 07/23/21 10:31 IMPRESSION: Right jugular line tip projects over SVC. No pneumothorax. Question developing airspace disease at the right lung base. Mental Status Exam Mental Status Exam Narrative: Thin male, appears older than stated age. Alert and oriented x4. Speech clear. Irritable mood and affect. No evidence of any type of alcohol withdrawals at this time. Denies any type of thought of harm to self or others. Did not appear to be responding to any type of internal stimuli, did not appear to have any type of delusional thought. Patient Appearance: Fatigued and Disheveled Patient Orientation: Person, Time and Situation Level of Consciousness: Awake and Appropriate Patient Behavior: Guarded, Good Eye Contact and Uncooperative Behavior Comments: Presented with angry, irritable edge. Affect Description: Appropriate Patient Cognition Impaired: No Ability to Follow Directions: Excellent Speech Pattern: Clear, Appropriate and Coherent Memory Description: Intact Hallucinations: None Delusions: Not Present Thought Process: Goal Oriented and Linear Thought Content: positive for Intact, positive for Goal Oriented and positive for Linear Judgement: Fair Judgement and Insight: Displays fair insight and judgment regarding plan to live on streets if unable to live in [facility]dc. However, was able to state decision and potential consequences of that decision. Medications Medications Current Medications Acetaminophen (Acetaminophen 325 Mg Tablet) 650 mg PO Q8H PRN PRN Reason: Pain, Moderate (Pain Scale 4-6 Last Admin: 08/04/21 10:52 Dose: 650 mg Documented by: Apixaban (Apixaban 5 Mg Tablet) 5 mg PO BID [facility] Last Admin: 08/04/21 10:35 Dose: 5 mg Documented by: Clotrimazole (Clotrimazole 1 % Cream 15 Gm Tube) 1 appl TOPICAL BID [facility]; Protocol Last Admin: 08/04/21 10:35 Dose: 1 appl Documented by: Folic Acid (Folic Acid 1 Mg Tablet) 1 mg PO DAILY [facility] Last Admin: 08/04/21 10:35 Dose: 1 mg Documented by: Gabapentin (Gabapentin 100 Mg Capsule) 200 mg PO TID [facility] Last Admin: 08/04/21 10:33 Dose: 200 mg Documented by: Thiamine HCl (Thiamine Hcl 100 Mg Tablet) 100 mg PO DAILY [facility] Last Admin: 08/04/21 10:35 Dose: 100 mg Documented by: Allergies Allergies Allergy/AdvReac Type Severity Reaction Status Date / Time No Known Allergies Allergy Unknown UNKNOWN Verified 09/08/20 17:05 [NO KNOWN ALLERGIES] Assessment & Plan Assessment & Plan (1) Encounter for assessment of decision-making capacity: Status: Acute Code(s): Z01.89 - Encounter for other specified special examinations Assessment and Plan: Patient was fully alert and oriented, and was able to discuss current medical situation, and appears to have made decision regarding his care going forward. He was able to discuss potential consequences of that decision. Assessment and Plan: Patient appears to have full capacity for decision making at this time. I have shared this information with Dr. Roque Montemayor, via secure messaging system. I spent minutes with the patient and/or on the patient floor today, greater than?50% of which was spent counseling/coordinating care. Patient educated on: diagnosis and substance abuse Informed Consent: understands
--- NOTE | 2021-08-04 14:52 | P.PNIM_ITS ---
Subjective Subjective Date of Service: 08/04/21 Interval History: Refuses STR placement Refused PT eval Per Psych has decision-making capacity, just makes poor decisions Review of Systems Review of Systems: Yes all other systems are reviewed and are negative Physical Exam Vital Signs: Vital Signs: Last Vital Signs Temp 98.0 F 08/04/21 12:00 Pulse 82 08/04/21 12:00 Resp 18 08/04/21 12:00 BP 122/74 08/04/21 12:00 Pulse Ox 97 08/04/21 12:00 Body Mass Index 22.2 Gen: disheveled HEENT: sclera anicteric, moist mucus membranes Neck: supple Lungs: clear to auscultation bilaterally Heart: regular rate and rhythm, no murmurs Abd: soft, non-tender, non-distended Ext: no edema Skin: warm/well-perfused.? extensive flaking of feet; multiple excoriated areas with shallow ulcers including L heel Neuro: alert and oriented x3, no focal findings Psych: irritable Objective Data Active Medications Acetaminophen (Acetaminophen 325 Mg Tablet) 650 mg PO Q8H PRN PRN Reason: Pain, Moderate (Pain Scale 4-6 Last Admin: 08/04/21 10:52 Dose: 650 mg Documented by: NILA Apixaban (Apixaban 5 Mg Tablet) 5 mg PO BID [facility] Last Admin: 08/04/21 10:35 Dose: 5 mg Documented by: NILA Clotrimazole (Clotrimazole 1 % Cream 15 Gm Tube) 1 appl TOPICAL BID [facility]; Protocol Last Admin: 08/04/21 10:35 Dose: 1 appl Documented by: NILA Folic Acid (Folic Acid 1 Mg Tablet) 1 mg PO DAILY [facility] Last Admin: 08/04/21 10:35 Dose: 1 mg Documented by: NILA Gabapentin (Gabapentin 100 Mg Capsule) 200 mg PO TID [facility] Last Admin: 08/04/21 10:33 Dose: 200 mg Documented by: NILA Thiamine HCl (Thiamine Hcl 100 Mg Tablet) 100 mg PO DAILY [facility] Last Admin: 08/04/21 10:35 Dose: 100 mg Documented by: NILA Labs CBC & Chem 7: 07/28/21 06:48 08/03/21 08:59 Assessment and Plan (1) PAD (peripheral artery disease): Status: Acute Assessment and Plan: hospital d#14 64-year-old male with PMHx alcohol abuse with frequent ED visits for intoxication, frequent Klebsella UTI presented intoxicated after fall, admitted to ICU for asymptomatic hyponatremia, stepped down to [facility] 07/25/21 refused intervention for peripheral arterial disease # EtOH withdrawal - s/p dexmetetomidine gtt + phenobarbital taper # hypoNa - improved, likely his baseline is around 130 due to reset osmostat # PAD - refused intervention; if re-considers, f/u with Dr Farnsworth as outpt - continue apixaban # neuropathic pain of feet - gabapentin # foot ulcers - wound care consult # tinea pedis - clotrimazole # AUD - CARE team consult - folate + thiamine # dispo - now declines STR; trying to get detention bed [homeless] but has to be able to climb to upper bunk and pt refuses PT eval # VTE ppx - apixaban Quality Stroke Does the patient have a stroke diagnosis?: No VTE Prior VTE?: No VTE Risk Level:: Medical - low VTE Device Contraindication: Treatment Not Indicated VTE Drug Contraindication: N/A - Med Ordered
[2021-08-05 03:18] VITALS: BP 137/84; PULSE 69; RESP 20; TEMP 37.1; O2SAT 98
[2021-08-05 07:12] VITALS: BP 139/61; PULSE 84; RESP 18; TEMP 36.6; O2SAT 96
[2021-08-05] MEDS: Apixaban 5 MG TABLET PO ×2 (08:17→20:15)
[2021-08-05] MEDS: Gabapentin 100 MG CAPSULE 200 MG PO ×3 (08:17→20:15)
[2021-08-05] MEDS: Folic Acid 1 MG TABLET PO (08:17)
[2021-08-05] MEDS: Thiamine HCL 100 MG TABLET PO (08:17)
[2021-08-05] MEDS: Clotrimazole 1 % Cream 15 GM TUBE 1 APPL TOPICAL ×2 (08:18→20:16)
--- NOTE | 2021-08-05 10:26 | MHC.IC ---
Rash on back healed (? Shingles) contact precautions discontinued
[2021-08-05 11:10] VITALS: BP 150/73; PULSE 73; RESP 18; TEMP 36; O2SAT 96
--- NOTE | 2021-08-05 12:45 | MHC.CM.PN ---
CM approached Patient regarding only SNF bed acceptance at [facility]. Patient continues to insist on going to a [facility] and adamantly refused to consider a SNF in the [facility].Patient stated that he will not leave today and that he wants to leave tomorrow and return to the streets. & [employer] are aware.
--- NOTE | 2021-08-05 13:25 | HO.PM.IMPN ---
Subjective Subjective Date of Service: 08/05/21 Interval History: cannot get into 2nd floor bunk at skilled nursing now willing to go to [facility] Review of Systems Review of Systems: Yes all other systems are reviewed and are negative Physical Exam Vital Signs: Vital Signs: Last Vital Signs Temp 96.8 F 08/05/21 11:10 Pulse 73 08/05/21 11:10 Resp 18 08/05/21 11:10 BP 150/73 H 08/05/21 11:10 Pulse Ox 96 08/05/21 11:10 Body Mass Index 22.2 Gen: disheveled HEENT: sclera anicteric, moist mucus membranes Neck: supple Lungs: clear to auscultation bilaterally Heart: regular rate and rhythm, no murmurs Abd: soft, non-tender, non-distended Ext: no edema Skin: warm/well-perfused.? extensive flaking of feet; multiple excoriated areas with shallow ulcers including L heel Neuro: alert and oriented x3, no focal findings Psych: irritable Objective Data Active Medications Acetaminophen (Acetaminophen 325 Mg Tablet) 650 mg PO Q8H PRN PRN Reason: Pain, Moderate (Pain Scale 4-6 Last Admin: 08/04/21 10:52 Dose: 650 mg Documented by: NILA Apixaban (Apixaban 5 Mg Tablet) 5 mg PO BID [facility] Last Admin: 08/05/21 08:17 Dose: 5 mg Documented by: TRAN Clotrimazole (Clotrimazole 1 % Cream 15 Gm Tube) 1 appl TOPICAL BID [facility]; Protocol Last Admin: 08/05/21 08:18 Dose: 1 appl Documented by: TRAN Folic Acid (Folic Acid 1 Mg Tablet) 1 mg PO DAILY [facility] Last Admin: 08/05/21 08:17 Dose: 1 mg Documented by: TRAN Gabapentin (Gabapentin 100 Mg Capsule) 200 mg PO TID [facility] Last Admin: 08/05/21 08:17 Dose: 200 mg Documented by: TRAN Thiamine HCl (Thiamine Hcl 100 Mg Tablet) 100 mg PO DAILY [facility] Last Admin: 08/05/21 08:17 Dose: 100 mg Documented by: TRAN Labs CBC & Chem 7: 07/28/21 06:48 08/03/21 08:59 Assessment and Plan (1) PAD (peripheral artery disease): Status: Acute Assessment and Plan: hospital d#15 64-year-old male with PMHx alcohol abuse with frequent ED visits for intoxication, frequent Klebsella UTI presented intoxicated after fall, admitted to ICU for asymptomatic hyponatremia, stepped down to [facility] [place] [place] 07/25/21 refused intervention for peripheral arterial disease # EtOH withdrawal - s/p dexmetetomidine gtt + phenobarbital taper # hypoNa - improved, likely his baseline is around 130 due to reset osmostat # PAD - refused intervention; if re-considers, f/u with Dr Farnsworth as outpt - continue apixaban # neuropathic pain of feet - gabapentin # foot ulcers - wound care consult # tinea pedis - clotrimazole # AUD - CARE team consult - folate + thiamine # dispo - STR; obtain COVID [facility] # VTE ppx - apixaban Quality Stroke Does the patient have a stroke diagnosis?: No VTE Prior VTE?: No VTE Risk Level:: Medical - low VTE Device Contraindication: Treatment Not Indicated VTE Drug Contraindication: N/A - Med Ordered
[2021-08-05 15:08] VITALS: BP 153/72; PULSE 71; RESP 20; TEMP 37; O2SAT 98
[2021-08-05 15:12] LABS: IDNOW Serial# 9DD0AD1C
[2021-08-05 15:13] LABS: COVID-19 Test Negative (Negative)
[2021-08-05 19:00] VITALS: BP 131/63; PULSE 78; RESP 20; TEMP 36.7; O2SAT 96
[2021-08-05 23:11] VITALS: BP 158/79; PULSE 81; RESP 20; TEMP 36.9; O2SAT 97
[2021-08-06 03:12] VITALS: BP 147/68; PULSE 77; RESP 20; TEMP 36.7; O2SAT 95
[2021-08-06 08:00] VITALS: BP 137/65; PULSE 73; RESP 20; TEMP 35.8; O2SAT 98
[2021-08-06] MEDS: Thiamine HCL 100 MG TABLET PO (08:16)
[2021-08-06] MEDS: Apixaban 5 MG TABLET PO (08:17)
[2021-08-06] MEDS: Gabapentin 100 MG CAPSULE 200 MG PO ×2 (08:17→13:56)
[2021-08-06] MEDS: Clotrimazole 1 % Cream 15 GM TUBE 1 APPL TOPICAL (08:17)
[2021-08-06] MEDS: Folic Acid 1 MG TABLET PO (08:17)
[2021-08-06 11:43] VITALS: BP 163/81; PULSE 70; RESP 20; TEMP 36.8; O2SAT 97
--- NOTE | 2021-08-06 12:05 | MHC.CLN ---
Addendum entered by Ruth Parada RD 08/06/21 13:16: AGREE WITH PROVIDER'S ASSESSMENT BELOW Original Note: F/U PO INTAKE DOCUMENTED 100% (08/04-08/06) DIET RX: REGULAR-APPROPRIATE RE STARTING ENSURE SUPPLEMENT TID TO INCREASE KCALS AND PROMOTE WOUND HEALING SUPPLEMENT PROVIDES 1050KCALS, 39G PROTEIN STAGE 2 L HEEL AND FRAGILE SKIN WITH MACERATION ALL OVER BODY (SEE WOUND ASSESSMENT) CONTINUE TO MONITOR PO INTAKE CONSIDER ADDING MULTIVITAMIN AND VIT C TO PROMOTE WOUND HEALING
--- NOTE | 2021-08-06 12:46 | HO.PM.IMPN ---
Subjective Subjective Date of Service: 08/06/21 Interval History: Refuses STR placement because it is in Given Refuses non-local intermediate Did not cooperate with PT evaluation Review of Systems Review of Systems: Yes all other systems are reviewed and are negative Physical Exam Vital Signs: Vital Signs: Last Vital Signs Temp 98.2 F 08/06/21 11:43 Pulse 70 08/06/21 11:43 Resp 20 08/06/21 11:43 BP 163/81 H 08/06/21 11:43 Pulse Ox 97 08/06/21 11:43 Body Mass Index 22.2 Gen: disheveled HEENT: sclera anicteric, moist mucus membranes Neck: supple Lungs: clear to auscultation bilaterally Heart: regular rate and rhythm, no murmurs Abd: soft, non-tender, non-distended Ext: no edema Skin: warm/well-perfused.? extensive flaking of feet; multiple excoriated areas with shallow ulcers including L heel Neuro: alert and oriented x3, no focal findings Psych: irritable Objective Data Active Medications Acetaminophen (Acetaminophen 325 Mg Tablet) 650 mg PO Q8H PRN PRN Reason: Pain, Moderate (Pain Scale 4-6 Last Admin: 08/04/21 10:52 Dose: 650 mg Documented by: NILA Apixaban (Apixaban 5 Mg Tablet) 5 mg PO BID [facility] Last Admin: 08/06/21 08:17 Dose: 5 mg Documented by: ZACH Clotrimazole (Clotrimazole 1 % Cream 15 Gm Tube) 1 appl TOPICAL BID [facility]; Protocol Last Admin: 08/06/21 08:17 Dose: 1 appl Documented by: ZACH Folic Acid (Folic Acid 1 Mg Tablet) 1 mg PO DAILY [facility] Last Admin: 08/06/21 08:17 Dose: 1 mg Documented by: ZACH Gabapentin (Gabapentin 100 Mg Capsule) 200 mg PO TID [facility] Last Admin: 08/06/21 08:17 Dose: 200 mg Documented by: ZACH Thiamine HCl (Thiamine Hcl 100 Mg Tablet) 100 mg PO DAILY [facility] Last Admin: 08/06/21 08:16 Dose: 100 mg Documented by: ZACH Labs CBC & Chem 7: 07/28/21 06:48 08/03/21 08:59 Labs: Laboratory Results - last 24 hr 08/05/21 14:43 COVID-19 ([facility]) Negative COVID-19 Clin Com See Note Assessment and Plan (1) PAD (peripheral artery disease): Status: Acute Assessment and Plan: hospital d#16 64-year-old male with PMHx alcohol abuse with frequent ED visits for intoxication, frequent Klebsella UTI presented intoxicated after fall, admitted to ICU for asymptomatic hyponatremia, stepped [place] [facility] [place] refused intervention for peripheral arterial disease # EtOH withdrawal - s/p dexmetetomidine gtt + phenobarbital taper # hypoNa - improved, likely his baseline is around 130 due to reset osmostat # PAD - refused intervention; if re-considers, f/u with Dr Farnsworth as outpt - continue apixaban # neuropathic pain of feet - gabapentin # foot ulcers - wound care consult # tinea pedis - clotrimazole # AUD - CARE team consult - folate + thiamine # dispo - discharge dilemma- not safe to go back out on streets at this time but refusing STR and cannot climb into bunk for available intermediate bed- working on other options # VTE ppx - apixaban Quality Stroke Does the patient have a stroke diagnosis?: No VTE Prior VTE?: No VTE Risk Level:: Medical - low VTE Device Contraindication: Treatment Not Indicated VTE Drug Contraindication: N/A - Med Ordered
--- NOTE | 2021-08-06 14:55 | MHC.CM.PN ---
PT NOW REFUSING STR AND STATING HE WANTS TO GO TO A HALFWAY. CM CALLED [facility] ([phone]), INTAKE NURSE REPORTED THEY HAVE NO MALE BEDS. CM CALLED [facility] ([phone]) AND LEFT A VM MESSAGE. CM CALLED [facility] ([phone]), NO ANSWER. PER STATE WEBSITE, [facility] IS OPEN AFTER July AND MANAGED BY [facility]. CM CALLED [facility] ([phone]) AND THEY REPORTED THAT WAS INCORRECT AND [facility] IS ITS OWN ENTITY. CM DID ATTEMPT TO CALL [facility] ([phone]) HOWEVER THEY DO NOT OPEN UNTIL 1800 HOURS. CM DID NOT CALL [facility] PT WOULD NEED TO WALK DOWN A FLIGHT OF STAIRS TO ENTER WHICH WOULD BE A SAFETY RISK. CM INFORMED PT THAT THERE WERE NO HALFWAY BEDS IN THE AREA. PT CONTINUES TO REFUSE STR AND NOW REFUSES AVAILABLE SHELTERS. PT REPORTS HE NEEDS TRANSPORTATION AND WANTS TO GO TO [facility] IN [place]. [facility] ARRANGED.
[2021-08-06 15:00] VITALS: BP 152/80; PULSE 76; RESP 20; TEMP 36.5; O2SAT 96
--- NOTE | 2021-08-06 15:32 | P.DS_ITS ---
DS: Providers Provider Date of Service: 08/06/21 Date of admission: 07/22/21 22:43 Primary care physician: Unknown Physician Admitting clinician: Lis Constantino Consults: 07/23/21 09:00 Consult to Vascular Surgery Routine Consulting Provider: Marcelo Farnsworth Reason for consultation: Subacute LE ischemia L>R Has provider been notified: No 08/02/21 12:03 Consult to Care Team Routine Comment: Reason for consultation: etoh 08/04/21 10:54 Consult to Psychiatry Routine Consulting Provider: Psych Covering Reason for consultation: competency? 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 alcohol abuse, frequent? Klebsiella UTIs,? and frequent visits to the emergency room due to alcohol intoxication presents to the emergency room? after fall.? In the ED he did appear to be acutely intoxicated,? with laboratory data was significant for sodium of 112 and alcohol level of 207.?? ER Course: CT of the Head/ cervical spine:? with no acute finding X-ray of pelvis/chest:? no acute findings This homeless 64-year-old male with history of alcohol abuse with frequent ED visits for intoxication and frequent Klebsella UTI presented intoxicated after fall,. He was admitted to ICU fo rdelirium tremens and asymptomatic hyponatremia and stepped down to the [facility] 07/25/21. Alcohol withdrawal was treated with dexmetetomidine drip and phenobarbital taper. No seizures during admission. Hypoatremia improved to his baseline of around 130. He was found to have significant peripheral arterial disease and was seen by Vascular Surgery. A procedure was scheduled but the patient ended up refusing, so the operation was canceled. He was placed on apixaban. He was given gabapentin for foot pain and clotrimazole for tinea pedis. Transfer to SNF for short-term rehabilitation was highly recommended; however, the patient refused. As such, a care home bed was secured. He needs to establish primary care as soon as possible. Time Spent with Patient Time attestation: Total time spent providing and/or coordinating discharge services: Discharge coordination time: Greater than 30 minutes Quality: Stroke Does the patient have a stroke diagnosis?: No Physical Exam Vital Signs: Vital Signs: Last Vital Signs Temp 97.7 F 08/06/21 15:00 Pulse 76 08/06/21 15:00 Resp 20 08/06/21 15:00 BP 152/80 H 08/06/21 15:00 Pulse Ox 96 08/06/21 15:00 Body Mass Index 22.2 Gen: disheveled HEENT: sclera anicteric, moist mucus membranes Neck: supple Lungs: clear to auscultation bilaterally Heart: regular rate and rhythm, no murmurs Abd: soft, non-tender, non-distended Ext: no edema Skin: warm/well-perfused.? extensive flaking of feet; multiple excoriated areas with shallow ulcers including L heel Neuro: alert and oriented x3, no focal findings Psych: irritable DS: Data Data Completed and Pending Completed studies during hospitalization [Text1]: Laboratory Results WBC 11.2 X10*3/uL (4.8-10.8) H 07/28/21 06:48 RBC 3.56 X10*6/uL (4.60-5.80) L 07/28/21 06:48 Hgb 11.6 g/dl (14.0-18.0) L 07/28/21 06:48 Hct 33.7 % (42.0-52.0) L 07/28/21 06:48 MCV 94.7 fL (80.0-98.0) 07/28/21 06:48 MCH 32.6 pg (27.0-33.0) 07/28/21 06:48 MCHC 34.4 g/dl (31.0-36.0) 07/28/21 06:48 RDW 12.1 % (11.0-16.0) 07/28/21 06:48 Plt Count 210 X10*3/uL (160-400) 07/28/21 06:48 MPV 10.3 fL (9.4-12.4) 07/28/21 06:48 Immature Gran % (Auto) 0.3 % (0.0-0.4) 07/25/21 05:25 Neut % (Auto) 70.7 % (45-73) 07/25/21 05:25 Lymph % (Auto) 18.1 % (20-40) L 07/25/21 05:25 [place] % (Auto) 6.6 % (2-11) 07/25/21 05:25 Eos % (Auto) 3.5 % (0-4) 07/25/21 05:25 Baso % (Auto) 0.8 % (0-2) 07/25/21 05:25 Lymph # (Auto) 1.6 X10*3/uL (1.2-4.9) 07/25/21 05:25 [place] # (Auto) 0.6 X10*3/uL (0.1-1.2) 07/25/21 05:25 Eos # (Auto) 0.3 X10*3/uL (0.0-0.4) 07/25/21 05:25 Baso # (Auto) 0.1 X10*3/uL (0.0-0.2) 07/25/21 05:25 Abs Immat Gran (auto) 0.03 X10*3/uL (0.00-0.03) 07/25/21 05:25 Absolute Neuts (auto) 6.33 x10*3/uL (2.0-8.3) 07/25/21 05:25 Absolute Nucleated RBC 0.000 X10*3/uL (0.0-0.012) 07/28/21 06:48 Nucleated RBC % (auto) 0.0 /100WBC (0.0-0.2) 07/28/21 06:48 Smear Tech's Comments TNP 07/22/21 21:19 PT 12.7 SEC (9.9-13.0) 07/29/21 06:25 INR 1.1 (0.9-1.1) 07/29/21 06:25 PTT (Heparin Protocol) 31.9 SEC (53-77.9) L 07/28/21 16:16 VBG pH 7.37 (7.32-7.43) 07/24/21 05:38 VBG pCO2 42 mmHg 07/24/21 05:38 VBG pO2 41 mmHg 07/24/21 05:38 VBG HCO3 24 mmol/L (22-26) 07/24/21 05:38 VBG O2 Saturation 62.0 % 07/24/21 05:38 VBG Base Excess -0.4 mmol/L 07/24/21 05:38 Sodium 130 mmol/L (135-145) L 08/03/21 08:59 Potassium 4.4 mmol/L (3.3-5.1) 08/03/21 08:59 Chloride 99 mmol/L (96-108) 08/03/21 08:59 Carbon Dioxide 21 mmol/L (22-29) L 08/03/21 08:59 Anion Gap 14 (12-20) 08/03/21 08:59 BUN 16 mg/dL (9-16) D 08/03/21 08:59 Creatinine 0.71 mg/dL (0.5-1.4) 08/03/21 08:59 Estim Creat Clear Calc 94.1 08/03/21 08:59 Estimated GFR > 60 08/03/21 08:59 POC Glucose 91 mg/dL (60-115) 07/23/21 06:59 Random Glucose 120 mg/dL (60-115) H 08/03/21 08:59 Fasting Glucose 97 mg/dL (60-99) 07/29/21 06:25 Lactic Acid 3.1 mmol/L (0.5-2.0) H* 07/22/21 22:25 Lactic Acid Fup @ 2Hr 2.0 mmol/L (0.5-2.0) 07/23/21 01:02 Calcium 8.9 mg/dL (8.4-10.2) D 08/03/21 08:59 Phosphorus 2.7 mg/dL (2.7-4.5) 07/25/21 05:25 Magnesium 1.5 mg/dL (1.6-2.6) L 07/25/21 05:25 Total Bilirubin < 0.2 mg/dL (0.0-1.0) 07/29/21 06:25 AST 33 U/L (5-37) D 07/29/21 06:25 ALT 26 U/L (0-40) 07/29/21 06:25 Alkaline Phosphatase 53 U/L (39-117) 07/29/21 06:25 Ammonia 45 umol/L (13-55) 07/23/21 05:40 Troponin I High Sens 5.3 ng/L (<3.5-35.0) 07/22/21 21:19 Total Protein 5.9 g/dL (6.5-8.0) L 07/29/21 06:25 Albumin 3.0 g/dL (3.5-5.0) L 07/29/21 06:25 Lipase 33 U/L (8-78) 07/22/21 21:19 Urine Color YELLOW 07/23/21 01:42 Urine Appearance HAZY 07/23/21 01:42 Urine pH 6.0 (5.0-8.0) 07/23/21 01:42 Ur Specific [place] 1.010 (1.005-1.025) 07/23/21 01:42 Urine Protein TRACE MG/DL (NEG-TRACE) 07/23/21 01:42 Urine Glucose (UA) NEG MG/DL (NEG) 07/23/21 01:42 Urine Ketones 40 MG/DL (NEG) 07/23/21 01:42 Urine Blood 1+ (NEG) H 07/23/21 01:42 Urine Nitrite POS (NEG) H 07/23/21 01:42 Ur Leukocyte Esterase 3+ (NEG) H 07/23/21 01:42 Urine RBC 5-9 /HPF (0) H 07/23/21 01:42 Urine WBC 30-49 /HPF (0-4) H 07/23/21 01:42 Urine WBC Clumps NOTED 07/23/21 01:42 Ur Squamous Epith Cells TRACE /LPF 07/23/21 01:42 Urine Bacteria 2+ /LPF 07/23/21 01:42 Urine Opiates Screen Not Detected (Not Detect) 07/23/21 01:42 Urine Fentanyl Screen Not Detected (Not Detect) 07/23/21 01:42 Ur Barbiturates Screen Not Detected (Not Detect) 07/23/21 01:42 Ur Phencyclidine Scrn Not Detected (Not Detect) 07/23/21 01:42 Ur Amphetamines Screen Not Detected (Not Detect) 07/23/21 01:42 U Benzodiazepines Scrn Not Detected (Not Detect) 07/23/21 01:42 Urine Cocaine Screen Not Detected (Not Detect) 07/23/21 01:42 U Marijuana (THC) Screen Not Detected (Not Detect) 07/23/21 01:42 Ethyl Alcohol 207 mg/dL 07/22/21 21:19 COVID-19 ([facility]) Negative (Negative) 08/05/21 14:43 COVID-19 Clin Com See Note 08/05/21 14:[address] 07/22/21 20:54 IMPRESSION: 1. No acute intracranial pathology. 2. No CT evidence of acute cervical spine fracture or traumatic subluxation Head CT 07/22/21 20:54 IMPRESSION: 1. No acute intracranial pathology. 2. No CT evidence of acute cervical spine fracture or traumatic subluxation Pelvis X-Ray 07/22/21 20:54 IMPRESSION: No acute fractures or malalignment. Duplex Scan Lower Extremity Artery 07/23/21 10:05 IMPRESSION: -Deep arterial system of the left lower extremity is occluded from the distal aspect of the superficial femoral artery into the calf. There is only minimal flow within the proximal and midportion of the left superficial femoral artery. -Deep arterial system of the right lower extremity is patent, however, inflow disease is suspected. There is also suspicion for a focal stenosis within the proximal aspect of the right superficial femoral artery. Chest X-Ray 07/23/21 10:31 IMPRESSION: Right jugular line tip projects over SVC. No pneumothorax. Question developing airspace disease at the right lung base. Discharge Plan Discharge Patient Disposition: Custodial Discharge Diagnosis: hyponatremia, alcohol withdrawal, peripheral vascular disease Referrals: Marcelo Farnsworth MD [Physician] - 1 Week Physician,Lupe J [Primary Care Provider] - 1 Week Discharge Medications: New folic acid 1 mg Tablet 1 mg PO DAILY Qty: 30 RF: 0 gabapentin 100 mg Capsule 200 mg PO TID Qty: 180 RF: 0 clotrimazole 1 % Cream 1 appl topical BID Qty: 60 RF: 0 thiamine mononitrate (vit B1) 100 mg Tablet 100 mg PO DAILY Qty: 30 RF: 0 Eliquis 5 mg Tablet 5 mg PO BID Qty: 60 RF: 0 Discharge Orders: Discharge Order (Routine); Ordered 08/06/21 Ordered By: Roque Montemayor Diet: other Activity on Discharge: As tolerated Stand Alone Forms: Patient Portal Discharge page, Community Support Activity Restrictions/Additional Instructions: do not drink alcohol Care Plan Goals: sobriety vascular health Health Concerns: hyponatremia, alcohol withdrawal, peripheral vascular disease Plan of Treatment: stop drinking alcohol take prescribed medications follow up with Dr Farnsworth- vascular surgeon- when you are ready to have surgery Assessment: See Discharge Summary Patient Instructions: Abuse of Alcohol (DC)
== END 2021-08-06 18:02 | disposition home or self-care (01) | DRG 197 ==
LOC: HO.ED 22:22 → HO.EDOVER 22:48 → HO.ICU 22:49 → HO.IMC 07-25 20:25
PROVIDERS: Emergency Medicine Emergency Medical Services; Hospitalist; Internal Medicine Pulmonary Disease; Admitting Provider Registered Nurse Community Health; Emergency Provider Emergency Medicine; Visit Provider Family Medicine
DX: I70.223 Atherosclerosis of native arteries of extremities with rest pain, bilateral legs (principal); F10.221 Alcohol dependence with intoxication delirium; E87.2 Acidosis; G62.9 Polyneuropathy, unspecified; E87.1 Hypo-osmolality and hyponatremia; B35.3 Tinea pedis; F10.239 Alcohol dependence with withdrawal, unspecified; F17.210 Nicotine dependence, cigarettes, uncomplicated; E86.0 Dehydration; Z87.440 Personal history of urinary (tract) infections; R94.31 Abnormal electrocardiogram [ECG] [EKG]; Y90.7 Blood alcohol level of 200-239 mg/100 ml; Z59.02 Unsheltered homelessness; Z20.822 Contact with and (suspected) exposure to COVID-19; Z91.81 History of falling; Z71.6 Tobacco abuse counseling; Z79.01 Long term (current) use of anticoagulants; Z79.899 Other long term (current) drug therapy
CPT/HCPCS: 36415; 70450; 71045; 71046; 72125; 72170; 80048; 80053; 80307; 81001; 81003; 82040; 82077; 82140; 82803; 82947; 83605; 83690; 83735; 84100; 84484; 85025; 85027; 85610; 85730; 87040; 87086; 87635; 93005; 93925; 96361; 96365; 96366; 96367; 96375; 97116; 97162; 99285; J0696; J1650; J2250; J2543; J2560; J3010; J3370; J3411; J3475

== ENCOUNTER 2021-08-07 17:35 | Emergency (ER) | payer MEDICAID, SELFPAY ==
[2021-08-07 17:53] VITALS: BP 125/82; BP 130/70; PULSE 80; PULSE 83; RESP 14; TEMP 36.4; O2SAT 100; BMI 20.9
--- NOTE | 2021-08-07 18:06 | ED_ITS ---
HPI - General Adult General Chief complaint: Extremity Injury, Lower Stated complaint: leg pain Time Seen by Provider: 08/07/21 17:41 Source: patient and EMS Mode of arrival: EMS Limitations: no limitations History of Present Illness HPI narrative: 65-year-old male with a history of alcohol abuse and dependence, frequent Klebsiella UTIs who was admitted to the ICU here recently with severe hyponatremia with a sodium of 112, acute alcohol withdrawal requiring Precedex infusion and phenobarbital taper, and course complicated by peripheral arterial disease & critical limb ischemia for which patient refused surgical intervention (after eating the morning of) who is now presenting back to the ER via EMS with bilateral feet pain, left worse than right. He was discharged on apixaban which he did not take. Arterial studies here on 07/23 showed left lower extremity occlusions from the distal aspect of the superficial femoral artery into the calf. Minimal flow within the proximal and midportion of the left superficial femoral artery. He declined acute rehab and was supposed to be discharged to a [facility] but he reports going back onto the streets. He has been using a grocery cart to lean on to walk around because his left foot is so painful he can barely walk at all. He drank some beer last night and again this morning. He denies any fever or chills. No new trauma to the foot. MD complaint: Bilateral feet pain in the setting of known PAD Onset (ago): week(s) Location: left, right and lower extremity Radiation: proximal Severity: severe Severity scale (1-10): >10 Quality: burning, aching and sharp Pain Consistency: constant Relieving factors: none Exacerbating factors: movement and other (palpation, ambulating) Associated symptoms: headaches, loss of appetite, rash and weakness Treatments prior to arrival: none Related Data Previous Rx's Medication Instructions Recorded apixaban 5 mg tablet (Eliquis) 5 mg PO BID #60 tab 08/06/21 clotrimazole 1 % topical cream 1 appl TOPICAL BID #60 g 08/06/21 folic acid 1 mg tablet 1 mg PO DAILY #30 tab 08/06/21 gabapentin 100 mg capsule 200 mg PO TID #180 cap 08/06/21 thiamine mononitrate (vit B1) 100 100 mg PO DAILY #30 tab 08/06/21 mg tablet Allergies Allergy/AdvReac Type Severity Reaction Status Date / Time No Known Allergies Allergy Unknown UNKNOWN Verified 09/08/20 17:05 [NO KNOWN ALLERGIES] Review of Systems Review of Systems: Constitutional: No Fever, No Chills ENT/Mouth: No sore throat, No Rhinorrhea, No Swallowing Difficulty Cardiovascular: No Chest Pain, No SOB, No Orthopnea, No Edema Respiratory: No Cough, No Sputum, No Wheezing, No dyspnea Gastrointestinal: No Nausea, No Vomiting, No Diarrhea, No abdominal Pain Genitourinary: No Dysuria, No Urinary Frequency, No Hematuria Musculoskeletal: + joint pain, + Myalgias Skin: + Skin Lesions, No rash Neuro: No Weakness, No Numbness, No Dizziness, No Headache Psych: No Anxiety/Panic, No Depression Heme/Lymph: No Bruising, No Lymphadenopathy Endocrine: No Polyuria, No Polydipsia [facility] Past Medical History Medical History Alcohol abuse CVA (cerebral vascular accident) Hard of hearing Injury of right lower arm Social History Social History Household Members: None Housing: Homeless Alcohol intake: current Alcohol intake frequency: 3 or more drinks per day Alcohol type: beer Patient Tobacco Use Status: Current everyday Tobacco user Advance Directives: No Advance Directives Information Provided: No service: No Current occupational status: unemployed Physical Exam Vital Signs: Vital Signs: Last Vital Signs Temp 97.6 F 08/07/21 17:53 Pulse 83 08/07/21 17:53 Resp 14 08/07/21 17:53 BP 125/82 08/07/21 17:53 Pulse Ox 100 08/07/21 17:53 Body Mass Index 20.9 Appearance: Alert male discharge old, appears older than stated age. Poorly kempt Eyes: Pupils equal, round and reactive to light. ENT: Pharynx normal. Poor dentition Neck: Normal inspection. Neck supple. CVS: Normal heart rate and rhythm. Pulses normal. Respiratory: No respiratory distress. Breath sounds normal. Abdomen: Soft and nontender. +BS x4 Skin: Skin warm and dry. Normal skin color. Normal skin turgor. Bilateral lateral thigh rash is extending to the buttocks, erythematous and flaky. Extremities: Left foot with significant erythema, shiney and flakey skin, luis re tenderness of the entire foot, small nonhealing ulcer on the top of the foot, no palpable pulse, patient not cooperative with palpation at all given severe tenderness. he has mobility of all digits on the left foot, nails thickened and yellowed. sole of the foot with erythema and tenderness as well. Neuro: Oriented X 3. Disgruntled, hard of hearing. No motor deficit. No sensory deficit. Course Course Course Narrative: 65-year-old male with a history of alcohol abuse and dependence, recent admission here for severe hyponatremia, alcohol withdrawal and critical limb ischemia of which was not intervened on due to patient refusal who presents back to the ER with severe left foot pain and ongoing pain in his right foot as well. He appears intoxicated. His left foot is red, tender witho ut palpable pulses. It is warm and he has 3 blankets on his feet. Able to get a audible dopplerable pulse of the dorsalis pedis on the left. The severity of his peripheral arterial disease was again discussed and he is now in agreement to any sort of intervention that is required to save his foot. Will discuss with Dr. Farnsworth. Will plan to start heparin in anticipation of a vascular intervention sooner rather than later. Of apixaban was yesterday morning. Coags are pending. Reevaluation(s) Reevaluation #1: Lab workup showing chronic hyponatremia with a sodium 127, he was discharged with a sodium of 130. History of beer potomania. Noncompliance. Rest of his lab work is essentially unremarkable. Coags are normal. IV heparin has been ordered. Case was discussed with Dr. Farnsworth our vascular surgeon who saw the patient during last admission. At this time he is recommending transfer to [facility] for endovascular intervention as our facility does not offer the on nights and weekends. At this time he does not think this can wait until Monday given he needed interventaion 2 weeks ago. Reevaluation #2: Spoke with vascular surgeon at [facility] Dr. Johansen. Recommen ding ED to ED transfer and vascular to evaluate in the emergency department there. Patient updated on plan of care and plan to transfer to [facility]; he is agreeable. Medical Decision Making Lab Data Result diagrams: 08/07/21 19:12 08/07/21 19:12 Labs: Lab Results 08/07/21 08/07/21 08/07/21 Range/Units 19:12 19:12 19:12 WBC 11.9 H (4.8-10.8) X10*3/uL RBC 3.69 L (4.60-5.80) X10*6/uL Hgb 12.2 L (14.0-18.0) g/dl Hct 34.8 L (42.0-52.0) % MCV 94.3 (80.0-98.0) fL MCH 33.1 H (27.0-33.0) pg MCHC 35.1 (31.0-36.0) g/dl RDW 11.9 (11.0-16.0) % Plt Count 597 H D (160-400) X10*3/uL MPV 8.8 L (9.4-12.4) fL Immature Gran % (Auto) 0.6 H (0.0-0.4) % Neut % (Auto) 67.5 (45-73) % Lymph % (Auto) 22.7 (20-40) % [place] % (Auto) 5.4 (2-11) % Eos % (Auto) 2.3 (0-4) % Baso % (Auto) 1.5 (0-2) % Lymph # (Auto) 2.7 (1.2-4.9) X10*3/uL [place] # (Auto) 0.7 (0.1-1.2) X10*3/uL Eos # (Auto) 0.3 (0.0-0.4) X10*3/uL Baso # (Auto) 0.2 (0.0-0.2) X10*3/uL Abs Immat Gran (auto) 0.07 H (0.00-0.03) X10*3/uL Absolute Neuts (auto) 8.0 (2.0-8.3) x10*3/uL Absolute Nucleated RBC 0.000 (0.0-0.012) X10*3/uL Nucleated RBC % (auto) 0.0 (0.0-0.2) /100WBC PT (9.9-13.0) SEC INR (0.9-1.1) APTT (24.1-38.0) SEC Sodium 127 L (135-145) mmol/L Potassium 4.3 (3.3-5.1) mmol/L Chloride 96 (96-108) mmol/L Carbon Dioxide 21 L (22-29) mmol/L Anion Gap 14 (12-20) BUN 14 (9-16) mg/dL Creatinine 0.66 (0.5-1.4) mg/dL Estim Creat Clear Calc 95.5 Estimated GFR > 60 Random Glucose 78 (60-115) mg/dL Calcium 9.1 (8.4-10.2) mg/dL Magnesium 1.8 (1.6-2.6) mg/dL Total Bilirubin 0.3 (0.0-1.0) mg/dL Direct Bilirubin 0.2 (0.0-0.5) mg/dL AST 18 D (5-37) U/L ALT 21 (0-40) U/L Alkaline Phosphatase 80 D (39-117) U/L Total Protein 7.5 D (6.5-8.0) g/dL Albumin 3.9 D (3.5-5.0) g/dL Urine Color Urine Appearance Urine pH (5.0-8.0) Ur Specific [place] (1.005-1.025) Urine Protein (NEG-TRACE) MG/DL Urine Glucose (UA) (NEG) MG/DL Urine Ketones (NEG) MG/DL Urine Blood (NEG) Urine Nitrite (NEG) Ur Leukocyte Esterase (NEG) Ethyl Alcohol mg/dL COVID-19 ([facility]) Negative (Negative) COVID-19 Clin Com See Note 08/07/21 08/07/21 08/07/21 Range/Units 19:12 19:12 19:53 WBC (4.8-10.8) X10*3/uL RBC (4.60-5.80) X10*6/uL Hgb (14.0-18.0) g/dl Hct (42.0-52.0) % MCV (80.0-98.0) fL MCH (27.0-33.0) pg MCHC (31.0-36.0) g/dl RDW (11.0-16.0) % Plt Count (160-400) X10*3/uL MPV (9.4-12.4) fL Immature Gran % (Auto) (0.0-0.4) % Neut % (Auto) (45-73) % Lymph % (Auto) (20-40) % [place] % (Auto) (2-11) % Eos % (Auto) (0-4) % Baso % (Auto) (0-2) % Lymph # (Auto) (1.2-4.9) X10*3/uL [place] # (Auto) (0.1-1.2) X10*3/uL Eos # (Auto) (0.0-0.4) X10*3/uL Baso # (Auto) (0.0-0.2) X10*3/uL Abs Immat Gran (auto) (0.00-0.03) X10*3/uL Absolute Neuts (auto) (2.0-8.3) x10*3/uL Absolute Nucleated RBC (0.0-0.012) X10*3/uL Nucleated RBC % (auto) (0.0-0.2) /100WBC PT 12.3 (9.9-13.0) SEC INR 1.1 (0.9-1.1) APTT 34.6 (24.1-38.0) SEC Sodium (135-145) mmol/L Potassium (3.3-5.1) mmol/L Chloride (96-108) mmol/L Carbon Dioxide (22-29) mmol/L Anion Gap (12-20) BUN (9-16) mg/dL Creatinine (0.5-1.4) mg/dL Estim Creat Clear Calc Estimated GFR Random Glucose (60-115) mg/dL Calcium (8.4-10.2) mg/dL Magnesium (1.6-2.6) mg/dL Total Bilirubin (0.0-1.0) mg/dL Direct Bilirubin (0.0-0.5) mg/dL AST (5-37) U/L ALT (0-40) U/L Alkaline Phosphatase (39-117) U/L Total Protein (6.5-8.0) g/dL Albumin (3.5-5.0) g/dL Urine Color YELLOW Urine Appearance CLEAR Urine pH 5.5 (5.0-8.0) Ur Specific [place] <= 1.005 (1.005-1.025) Urine Protein NEG (NEG-TRACE) MG/DL Urine Glucose (UA) NEG (NEG) MG/DL Urine Ketones NEG (NEG) MG/DL Urine Blood NEG (NEG) Urine Nitrite NEG (NEG) Ur Leukocyte Esterase NEG (NEG) Ethyl Alcohol 125 mg/dL COVID-19 ([facility]) (Negative) COVID-19 Clin Com Critical Care Time Critical Care Time Critical Care Time: Yes Total Critical Care Time: 38 Attestation: I have personally provided critical care time exclusive of time spent on separately billable procedures. Time includes review of lab data, radiology results, discussion with consultants, and monitoring for potential decompensation. Intervention performed as documented. Discharge Plan Discharge Clinical Impression: Critical ischemia of lower extremity, Hyponatremia, Alcohol use disorder, severe, dependence Patient Disposition: [facility] Transfer Details: [facility] Prescriptions: No Action folic acid 1 mg Tablet 1 mg PO DAILY Qty: 30 RF: 0 gabapentin 100 mg Capsule 200 mg PO TID Qty: 180 RF: 0 clotrimazole 1 % Cream 1 appl topical BID Qty: 60 RF: 0 thiamine mononitrate (vit B1) 100 mg Tablet 100 mg PO DAILY Qty: 30 RF: 0 Eliquis 5 mg Tablet 5 mg PO BID Qty: 60 RF: 0
[2021-08-07 19:17] LABS: MANUAL DIFF FLAG NO
[2021-08-07 19:19] LABS: Basophils Absolute Auto 0.2 X10*3/uL (0.0-0.2); Basophils Percent Auto 1.5 % (0-2); Eosinophils Absolute Auto 0.3 X10*3/uL (0.0-0.4); Eosinophils Percent Auto 2.3 % (0-4); Hematocrit 34.8 % (42.0-52.0); Hemoglobin 12.2 g/dl (14.0-18.0); Imm Gran Abs Auto 0.07 X10*3/uL (0.00-0.03); Imm Gran Pct Auto 0.6 % (0.0-0.4); Lymphocytes Absolute Auto 2.7 X10*3/uL (1.2-4.9); Lymphocytes Percent Auto 22.7 % (20-40); Mean Corpuscular HGB Conc 35.1 g/dl (31.0-36.0); Mean Corpuscular Hemoglobin 33.1 pg (27.0-33.0); Mean Corpuscular Volume 94.3 fL (80.0-98.0); Mean Platelet Volume 8.8 fL (9.4-12.4); Monocytes Absolute Auto 0.7 X10*3/uL (0.1-1.2); Monocytes Percent Auto 5.4 % (2-11); Neutrophils Percent Auto 67.5 % (45-73); Platelet Count 597 X10*3/uL (160-400); Red Blood Count 3.69 X10*6/uL (4.60-5.80); Red Cell Distribution Width 11.9 % (11.0-16.0); White Blood Count 11.9 X10*3/uL (4.8-10.8)
[2021-08-07 19:25] LABS: INTERNATIONAL NORM RATIO 1.1 (0.9-1.1); Prothrombin Time 12.3 SEC (9.9-13.0)
[2021-08-07 19:27] LABS: Partial Thromboplastin Time 34.6 SEC (24.1-38.0)
[2021-08-07 19:35] LABS: COVID-19 Test Negative (Negative)
[2021-08-07 19:36] LABS: Ethanol 125 mg/dL
[2021-08-07 19:38] LABS: Alanine Aminotransferase 21 U/L (0-40); Albumin Level 3.9 g/dL (3.5-5.0); Alkaline Phosphatase 80 U/L (39-117); Anion Gap 14 (12-20); Aspartate Amino Transferase 18 U/L (5-37); Bilirubin Direct 0.2 mg/dL (0.0-0.5); Bilirubin Total 0.3 mg/dL (0.0-1.0); Blood Urea Nitrogen 14 mg/dL (9-16); Calcium 9.1 mg/dL (8.4-10.2); Carbon Dioxide 21 mmol/L (22-29); Chloride 96 mmol/L (96-108); Creatinine Clr Calc Pharmacy 95.5; Estimated Glomerular Filt Rate > 60; Glucose Random 78 mg/dL (60-115); Magnesium 1.8 mg/dL (1.6-2.6); Potassium 4.3 mmol/L (3.3-5.1); Sodium 127 mmol/L (135-145); Total Protein 7.5 g/dL (6.5-8.0)
--- NOTE | 2021-08-07 19:49 | PC.NURSE ---
L pedal pulse located via doppler, provider aware
[2021-08-07 20:02] LABS: Appearance Urine CLEAR; Color Urine YELLOW; Glucose Urine UA NEG (NEG); Leukocyte Esterase Urine NEG (NEG); Nitrite Urine NEG (NEG); PH 5.5 (5.0-8.0); Specific Gravity - Urine <= 1.005 (1.005-1.025); Urine Blood NEG (NEG); Urine Ketones NEG (NEG); Urine Protein NEG (NEG-TRACE)
[2021-08-07 20:18] LABS: Amphetamine Screen Urine Not Detected (Not Detect); Barbiturates, Urine POSITIVE (Not Detect); Benzodiazepines Screen Urine Not Detected (Not Detect); Cannabinoid Screen Urine Not Detected (Not Detect); Cocaine Screen Urine Not Detected (Not Detect); Fentanyl, urine Not Detected (Not Detect); Opiate Screen Urine Not Detected (Not Detect); Phencyclidine Screen Urine Not Detected (Not Detect)
--- NOTE | 2021-08-07 20:18 | PC.NURSE ---
contacted [facility] @2018 for PA request, they state they will call back after speaking to provider
[2021-08-07] MEDS: Heparin Sodium,Porcine/1/2NS 25,000 UNIT/250 ML IV.SOLN 8.26 UNIT IVCONT (20:39)
--- NOTE | 2021-08-07 21:19 | PC.NURSE ---
Report called to RN at [facility]
--- NOTE | 2021-08-07 22:07 | PC.NURSE ---
Pt transferred to [facility] ED via ambulance, report given via phone to [facility] charge hand. Pt sent in stable condition w/ all belongings. Heparin gtt infusing
== END 2021-08-07 22:08 | disposition short-term general hospital (02) ==
PROVIDERS: Physician Assistant; Emergency Provider Internal Medicine
DX: I70.223 Atherosclerosis of native arteries of extremities with rest pain, bilateral legs (principal); E87.1 Hypo-osmolality and hyponatremia; F10.20 Alcohol dependence, uncomplicated; Y90.6 Blood alcohol level of 120-199 mg/100 ml; F17.200 Nicotine dependence, unspecified, uncomplicated; Z71.6 Tobacco abuse counseling; Z20.822 Contact with and (suspected) exposure to COVID-19; Z79.899 Other long term (current) drug therapy
CPT/HCPCS: 36415; 80048; 80076; 80307; 81003; 82077; 83735; 85025; 85610; 85730; 87635; 96365; 96366; 96375; 99284; 99291

== ENCOUNTER 2021-10-18 16:04 | Emergency (ER) | payer MEDICAID, SELFPAY ==
--- NOTE | ~2021-10-18 | CT_ITS ---
EXAMINATION: CT HEAD WITHOUT CONTRAST CLINICAL INFORMATION: Fall. EtOH. COMPARISON: CT head 07/22/2021 TECHNIQUE: Contiguous axial imaging was performed from the skull base to vertex without intravenous administration of contrast. Coronal and sagittal reformatted images are performed at CT scanner This CT examination was performed using dose optimization techniques as appropriate, variously including the following: *Automated exposure control *Adjustment of mA and/or kV according to patient size (this includes techniques or standardized protocols for targeted exams where dose is matched to indication/reason for exam; i.e. extremities or head) *Use of iterative reconstruction technique DLP: 667 mGy-cm FINDINGS: There is no evidence of acute intracranial hemorrhage or territorial infarction. No abnormal mass effect or midline shift is seen. [place] to white matter differentiation is well preserved. No extra-axial fluid collections are identified. There is generalized global volume loss. There is moderate prominence of the ventricles and the sulci . There is mild hypodensity of the periventricular white matter due to chronic small vessel ischemic disease. There are vascular calcifications of the internal carotid arteries bilaterally. The osseous structures and soft tissues are normal. The mastoid air cells and visualized portions of the paranasal sinuses are well aerated. CT/CT head/brain wo con IMPRESSION: No acute intracranial pathology.
--- NOTE | ~2021-10-18 | CT_ITS ---
EXAMINATION: CT CHEST WITHOUT CONTRAST CLINICAL INFORMATION: Cough. Dyspnea. COMPARISON: 06/28/2021 TECHNIQUE: Multidetector volumetric CT imaging of the chest was done. Axial MIP volume rendering provided. Sagittal and coronal reformatted images were obtained. This CT examination was performed using dose optimization techniques as appropriate, variously including the following: *Automated exposure control *Adjustment of mA and/or kV according to patient size (this includes techniques or standardized protocols for targeted exams where dose is matched to indication/reason for exam; i.e. extremities or head) *Use of iterative reconstruction technique DLP: 245 mGy-cm FINDINGS: LUNGS: The central airways are patent. Moderate centrilobular and paraseptal emphysema. Linear right basilar atelectasis. No dense consolidation. No pneumothorax. MEDIASTINUM: Normal heart size. Coronary artery calcifications are present. No pericardial effusion. Unchanged soft tissue density posterior to the trachea. PLEURA: There is no pleural effusion. No pleural mass or thickening. AXILLA: No lymphadenopathy. UPPER ABDOMEN: Multiple left renal calculi are noted. The largest measures 0.5 cm and is 5.5 cm from the posterior axillary line. OSSEOUS STRUCTURES: No acute or suspicious osseous abnormality. Degenerative changes of the spine. CT/CT chest wo con IMPRESSION: Moderate emphysema. Atelectasis at the right lung base. Unchanged soft tissue density posterior to the trachea. Fleischner guidelines were followed.
[2021-10-18 16:21] VITALS: BP 150/80; PULSE 74; O2SAT 95; O2SAT 97; BMI 21.4
--- NOTE | 2021-10-18 16:26 | ECG_ITS ---
Test Reason : fall Blood Pressure : / mmHG Vent. Rate : 070 BPM Atrial Rate : 070 BPM P-R Int : 190 ms QRS Dur : 076 ms QT Int : 422 ms P-R-T Axes : 000 072 064 degrees QTc Int : 455 ms Normal sinus rhythm Normal ECG When compared with ECG of 22-JUL-2021 22:55, No significant change was found Referred By: Rosemary Chapin Electronically Signed By:MARISEL LIANG MD
--- NOTE | 2021-10-18 16:27 | ED.ALCOHOL ---
HPI - Alcohol General Chief Complaint: Fall Stated Complaint: fall/? etoh Time Seen by Provider: 10/18/21 16:21 Source: EMS Mode of arrival: EMS Limitations: altered mental status History of Present Illness HPI narrative: patient comes to the emergency room by EMS. A bystander saw the patient falling, called EMS. According to EMS the patient has a strong odor of alcohol. According to the bystander, reported to EMS that the patient did not hit his head and did not lose consciousness. Patient is a poor historian, seems confused, intoxicated. Poor historian. patient denies chest pain, no shortness of breath, states that he has no injuries from the fall. Denies headache, no neck pain. also, patient denies any chest pain, no shortness of breath, no calf pain Related Data Previous Rx's Medication Instructions Recorded apixaban 5 mg tablet (Eliquis) 5 mg PO BID #60 tab 08/06/21 clotrimazole 1 % topical cream 1 appl TOPICAL BID #60 g 08/06/21 folic acid 1 mg tablet 1 mg PO DAILY #30 tab 08/06/21 gabapentin 100 mg capsule 200 mg PO TID #180 cap 08/06/21 thiamine mononitrate (vit B1) 100 100 mg PO DAILY #30 tab 08/06/21 mg tablet Allergies Allergy/AdvReac Type Severity Reaction Status Date / Time No Known Allergies Allergy Unknown UNKNOWN Verified 09/08/20 17:05 [NO KNOWN ALLERGIES] Review of Systems Review of Systems: Constitutional : No Weight loss, No Fever, No Chills, No Night Sweats, No Fatigue, No Malaise ENT/Mouth : No Hearing loss, No Ear Pain, No Nasal Congestion, No Sinus Pain, No Hoarseness, No sore throat, No Rhinorrhea, No Swallowing Difficulty Eyes: No Eye Pain, No Swelling, No Redness, No Foreign Body, No Discharge, No Vision Changes Cardiovascular : No Chest Pain, No SOB, No Dyspnea on Exertion, No Orthopnea, No Edema, No Palpitations Respiratory : No Cough, No Sputum, No Wheezing, No Smoke Exposure, No Dyspnea Gastrointestinal : No Nausea, No Vomiting, No Diarrhea, No Constipation, No abdominal Pain, No Hematochezia, No Melena Genitourinary : no irregular bleeding, No Dysuria, No Urinary Frequency, No Hematuria, No Urinary Incontinence, No Urgency, No Flank Pain, No Urinary Flow Changes, No Hesitancy Musculoskeletal : No pain, complaining of falling prior to arrival Skin : No Skin Lesions, No rash Neuro : No Weakness, No Numbness, No Paresthesias, No Loss of Consciousness, No Dizziness, No Headache Psych : No Anxiety/Panic, No Depression, No SI/HI/AH/VH, No Social Issues, Heme/Lymph: No Bruising, No Bleeding,No Lymphadenopathy Endocrine : No Polyuria, No Polydipsia, No Temperature Intolerance [facility] Past Medical History Medical History Acute hyponatremia Alcohol abuse Alcoholic intoxication CVA (cerebral vascular accident) Delirium tremens Encounter for assessment of decision-making capacity Fall Hard of hearing Hyponatremia Injury of right lower arm PAD (peripheral artery disease) Social History Social History Household Members: None Housing: Homeless Alcohol intake: current Alcohol intake frequency: 3 or more drinks per day Alcohol type: beer Patient Tobacco Use Status: Current everyday Tobacco user Advance Directives: No Advance Directives Information Provided: Yes service: No Current occupational status: unemployed Physical Exam Vital Signs: Vital Signs: Last Vital Signs Pulse 70 10/18/21 16:46 Resp 15 10/18/21 16:46 BP 176/101 H 10/18/21 16:46 Pulse Ox 99 10/18/21 16:46 BMI result Body Mass Index 21.4 Const: Other: Appearance: Alert. Oriented X3. No acute distress. Seems intoxicated, Eyes: Pupils equal, round and reactive to light. ENT: Pharynx normal. Neck: Normal inspection. Neck supple. No lymph nodes noted. No crepitus CVS: Normal heart rate and rhythm. Pulses normal. Normal S1 and S2 Respiratory: No respiratory distress. Breath sounds normal. No Wheezing. No rales Abdomen: Soft and nontender. No rigidity. No distention. Skin: Skin warm and dry. Normal skin color. Normal skin turgor. Extremities: No lower extremity edema. No lower extremity edema. No Lacerations. No Rash Neuro: No motor deficit. No sensory deficit. Moving all extermities. slight slurred speech, current nerves 2-12 grossly intact psych: Calm, cooperative, seems confused and intoxicated Course Course Course Narrative: patient's head CT shows no acute findings. Troponin is negative and eKG within normal limits. patient is asymptomatic. orthostatic vitals pending patient's ETOH 60. Patient's nurse states that the patient has been walking steadily around his room, asymptomatic MTF, anticipating discharge sign out given to Dr. Little [facility] - Alcohol Lab Data Result diagrams: 10/18/21 20:17 10/18/21 17:50 Labs: Lab Results 10/18/21 10/18/21 10/18/21 Range/Units 17:10 17:10 17:10 WBC (4.8-10.8) X10*3/uL RBC (4.60-5.80) X10*6/uL Hgb (14.0-18.0) g/dl Hct (42.0-52.0) % MCV (80.0-98.0) fL MCH (27.0-33.0) pg MCHC (31.0-36.0) g/dl RDW (11.0-16.0) % Plt Count (160-400) X10*3/uL MPV (9.4-12.4) fL Immature Gran % (Auto) (0.0-0.4) % Neut % (Auto) (45-73) % Lymph % (Auto) (20-40) % [place] % (Auto) (2-11) % Eos % (Auto) (0-4) % Baso % (Auto) (0-2) % Lymph # (Auto) (1.2-4.9) X10*3/uL [place] # (Auto) (0.1-1.2) X10*3/uL Eos # (Auto) (0.0-0.4) X10*3/uL Baso # (Auto) (0.0-0.2) X10*3/uL Abs Immat Gran (auto) (0.00-0.03) X10*3/uL Absolute Neuts (auto) (2.0-8.3) x10*3/uL Absolute Nucleated RBC (0.0-0.012) X10*3/uL Nucleated RBC % (auto) (0.0-0.2) /100WBC PT (9.9-13.0) SEC INR (0.9-1.1) Sodium (135-145) mmol/L Potassium (3.3-5.1) mmol/L Chloride (96-108) mmol/L Carbon Dioxide (22-29) mmol/L Anion Gap (12-20) BUN (9-16) mg/dL Creatinine (0.5-1.4) mg/dL Estim Creat Clear Calc Estimated GFR Random Glucose (60-115) mg/dL Calcium (8.4-10.2) mg/dL Magnesium (1.6-2.6) mg/dL Total Bilirubin (0.0-1.0) mg/dL Direct Bilirubin (0.0-0.5) mg/dL AST (5-37) U/L ALT (0-40) U/L Alkaline Phosphatase (39-117) U/L Troponin I High Sens 3.7 (<3.5-35.0) ng/L B-Natriuretic Peptide 56 (<100) pg/mL Total Protein (6.5-8.0) g/dL Albumin (3.5-5.0) g/dL Urine Color Urine Appearance Urine pH (5.0-8.0) Ur Specific [place] (1.005-1.025) Urine Protein (NEG-TRACE) MG/DL Urine Glucose (UA) (NEG) MG/DL Urine Ketones (NEG) MG/DL Urine Blood (NEG) Urine Nitrite (NEG) Ur Leukocyte Esterase (NEG) Urine Opiates Screen (Not Detect) Urine Fentanyl Screen (Not Detect) Ur Barbiturates Screen (Not Detect) Ur Phencyclidine Scrn (Not Detect) Ur Amphetamines Screen (Not Detect) U Benzodiazepines Scrn (Not Detect) Urine Cocaine Screen (Not Detect) U Marijuana (THC) Screen (Not Detect) Ethyl Alcohol 60 mg/dL COVID-19 ([place]) Negative (Negative) COVID-19 Clin Com See Note 10/18/21 10/18/21 10/18/21 Range/Units 17:50 19:21 19:21 WBC (4.8-10.8) X10*3/uL RBC (4.60-5.80) X10*6/uL Hgb (14.0-18.0) g/dl Hct (42.0-52.0) % MCV (80.0-98.0) fL MCH (27.0-33.0) pg MCHC (31.0-36.0) g/dl RDW (11.0-16.0) % Plt Count (160-400) X10*3/uL MPV (9.4-12.4) fL Immature Gran % (Auto) (0.0-0.4) % Neut % (Auto) (45-73) % Lymph % (Auto) (20-40) % [place] % (Auto) (2-11) % Eos % (Auto) (0-4) % Baso % (Auto) (0-2) % Lymph # (Auto) (1.2-4.9) X10*3/uL [place] # (Auto) (0.1-1.2) X10*3/uL Eos # (Auto) (0.0-0.4) X10*3/uL Baso # (Auto) (0.0-0.2) X10*3/uL Abs Immat Gran (auto) (0.00-0.03) X10*3/uL Absolute Neuts (auto) (2.0-8.3) x10*3/uL Absolute Nucleated RBC (0.0-0.012) X10*3/uL Nucleated RBC % (auto) (0.0-0.2) /100WBC PT (9.9-13.0) SEC INR (0.9-1.1) Sodium 133 L (135-145) mmol/L Potassium 4.6 (3.3-5.1) mmol/L Chloride 101 (96-108) mmol/L Carbon Dioxide 22 (22-29) mmol/L Anion Gap 15 (12-20) BUN 12 (9-16) mg/dL Creatinine 0.67 (0.5-1.4) mg/dL Estim Creat Clear Calc 89.3 Estimated GFR > 60 Random Glucose 73 (60-115) mg/dL Calcium 9.5 (8.4-10.2) mg/dL Magnesium 1.9 (1.6-2.6) mg/dL Total Bilirubin 0.4 (0.0-1.0) mg/dL Direct Bilirubin 0.2 (0.0-0.5) mg/dL AST 30 D (5-37) U/L ALT 18 (0-40) U/L Alkaline Phosphatase 69 (39-117) U/L Troponin I High Sens (<3.5-35.0) ng/L B-Natriuretic Peptide (<100) pg/mL Total Protein 7.9 (6.5-8.0) g/dL Albumin 4.1 (3.5-5.0) g/dL Urine Color YELLOW Urine Appearance CLEAR Urine pH 7.0 (5.0-8.0) Ur Specific [place] <= 1.005 (1.005-1.025) Urine Protein NEG (NEG-TRACE) MG/DL Urine Glucose (UA) NEG (NEG) MG/DL Urine Ketones NEG (NEG) MG/DL Urine Blood NEG (NEG) Urine Nitrite NEG (NEG) Ur Leukocyte Esterase NEG (NEG) Urine Opiates Screen Not Detected (Not Detect) Urine Fentanyl Screen Not Detected (Not Detect) Ur Barbiturates Screen Not Detected (Not Detect) Ur Phencyclidine Scrn Not Detected (Not Detect) Ur Amphetamines Screen Not Detected (Not Detect) U Benzodiazepines Scrn Not Detected (Not Detect) Urine Cocaine Screen Not Detected (Not Detect) U Marijuana (THC) Screen Not Detected (Not Detect) Ethyl Alcohol mg/dL COVID-19 ([facility]) (Negative) COVID-19 Clin Com 10/18/21 10/18/21 Range/Units 20:17 20:17 WBC 9.6 (4.8-10.8) X10*3/uL RBC 3.97 L (4.60-5.80) X10*6/uL Hgb 12.4 L (14.0-18.0) g/dl Hct 35.5 L (42.0-52.0) % MCV 89.4 (80.0-98.0) fL MCH 31.2 (27.0-33.0) pg MCHC 34.9 (31.0-36.0) g/dl RDW 12.1 (11.0-16.0) % Plt Count 277 D (160-400) X10*3/uL MPV 10.4 (9.4-12.4) fL Immature Gran % (Auto) 0.4 (0.0-0.4) % Neut % (Auto) 56.7 (45-73) % Lymph % (Auto) 32.2 (20-40) % [place] % (Auto) 6.3 (2-11) % Eos % (Auto) 3.9 (0-4) % Baso % (Auto) 0.5 (0-2) % Lymph # (Auto) 3.1 (1.2-4.9) X10*3/uL [place] # (Auto) 0.6 (0.1-1.2) X10*3/uL Eos # (Auto) 0.4 (0.0-0.4) X10*3/uL Baso # (Auto) 0.1 (0.0-0.2) X10*3/uL Abs Immat Gran (auto) 0.04 H (0.00-0.03) X10*3/uL Absolute Neuts (auto) 5.4 (2.0-8.3) x10*3/uL Absolute Nucleated RBC 0.000 (0.0-0.012) X10*3/uL Nucleated RBC % (auto) 0.0 (0.0-0.2) /100WBC PT 13.4 H (9.9-13.0) SEC INR 1.2 H (0.9-1.1) Sodium (135-145) mmol/L Potassium (3.3-5.1) mmol/L Chloride (96-108) mmol/L Carbon Dioxide (22-29) mmol/L Anion Gap (12-20) BUN (9-16) mg/dL Creatinine (0.5-1.4) mg/dL Estim Creat Clear Calc Estimated GFR Random Glucose (60-115) mg/dL Calcium (8.4-10.2) mg/dL Magnesium (1.6-2.6) mg/dL Total Bilirubin (0.0-1.0) mg/dL Direct Bilirubin (0.0-0.5) mg/dL AST (5-37) U/L ALT (0-40) U/L Alkaline Phosphatase (39-117) U/L Troponin I High Sens (<3.5-35.0) ng/L B-Natriuretic Peptide (<100) pg/mL Total Protein (6.5-8.0) g/dL Albumin (3.5-5.0) g/dL Urine Color Urine Appearance Urine pH (5.0-8.0) Ur Specific [place] (1.005-1.025) Urine Protein (NEG-TRACE) MG/DL Urine Glucose (UA) (NEG) MG/DL Urine Ketones (NEG) MG/DL Urine Blood (NEG) Urine Nitrite (NEG) Ur Leukocyte Esterase (NEG) Urine Opiates Screen (Not Detect) Urine Fentanyl Screen (Not Detect) Ur Barbiturates Screen (Not Detect) Ur Phencyclidine Scrn (Not Detect) Ur Amphetamines Screen (Not Detect) U Benzodiazepines Scrn (Not Detect) Urine Cocaine Screen (Not Detect) U Marijuana (THC) Screen (Not Detect) Ethyl Alcohol mg/dL COVID-19 ([facility]) (Negative) COVID-19 Clin Com Discharge Plan Discharge Clinical Impression: Dizziness Patient Disposition: Home, Self-Care Instructions: Dizziness (ED) Additional Instructions: Please follow-up with your primary care physician tomorrow. If you have any worsening or new symptoms, please return to the emergency room or call 911 Prescriptions: No Action folic acid 1 mg Tablet 1 mg PO DAILY Qty: 30 RF: 0 gabapentin 100 mg Capsule 200 mg PO TID Qty: 180 RF: 0 clotrimazole 1 % Cream 1 appl topical BID Qty: 60 RF: 0 thiamine mononitrate (vit B1) 100 mg Tablet 100 mg PO DAILY Qty: 30 RF: 0 Eliquis 5 mg Tablet 5 mg PO BID Qty: 60 RF: 0
[2021-10-18 16:46] VITALS: BP 176/101; PULSE 70; RESP 15; O2SAT 99
[2021-10-18 17:44] LABS: COVID-19 Test Negative (Negative); IDNOW Serial# 55D5AD1C
[2021-10-18 17:47] LABS: B Type Natriuretic Peptide 56 pg/mL (<100); Troponin-I High Sensitivity 3.7 ng/L (<3.5-35.0)
[2021-10-18 18:13] LABS: Alanine Aminotransferase 18 U/L (0-40); Albumin Level 4.1 g/dL (3.5-5.0); Alkaline Phosphatase 69 U/L (39-117); Anion Gap 15 (12-20); Aspartate Amino Transferase 30 U/L (5-37); Bilirubin Direct 0.2 mg/dL (0.0-0.5); Bilirubin Total 0.4 mg/dL (0.0-1.0); Blood Urea Nitrogen 12 mg/dL (9-16); Calcium 9.5 mg/dL (8.4-10.2); Carbon Dioxide 22 mmol/L (22-29); Chloride 101 mmol/L (96-108); Creatinine Clr Calc Pharmacy 89.3; Estimated Glomerular Filt Rate > 60; Glucose Random 73 mg/dL (60-115); Magnesium 1.9 mg/dL (1.6-2.6); Potassium 4.6 mmol/L (3.3-5.1); Sodium 133 mmol/L (135-145); Total Protein 7.9 g/dL (6.5-8.0)
[2021-10-18 19:32] LABS: Appearance Urine CLEAR; Color Urine YELLOW; Glucose Urine UA NEG (NEG); Leukocyte Esterase Urine NEG (NEG); Nitrite Urine NEG (NEG); Specific Gravity - Urine <= 1.005 (1.005-1.025); Urine Blood NEG (NEG); Urine Ketones NEG (NEG); Urine Protein NEG (NEG-TRACE)
[2021-10-18 19:49] LABS: Amphetamine Screen Urine Not Detected (Not Detect); Barbiturates, Urine Not Detected (Not Detect); Benzodiazepines Screen Urine Not Detected (Not Detect); Cannabinoid Screen Urine Not Detected (Not Detect); Cocaine Screen Urine Not Detected (Not Detect); Fentanyl, urine Not Detected (Not Detect); Opiate Screen Urine Not Detected (Not Detect); Phencyclidine Screen Urine Not Detected (Not Detect)
[2021-10-18 19:59] LABS: Ethanol 60 mg/dL
[2021-10-18 20:43] LABS: Basophils Absolute Auto 0.1 X10*3/uL (0.0-0.2); Basophils Percent Auto 0.5 % (0-2); Eosinophils Absolute Auto 0.4 X10*3/uL (0.0-0.4); Eosinophils Percent Auto 3.9 % (0-4); Hematocrit 35.5 % (42.0-52.0); Hemoglobin 12.4 g/dl (14.0-18.0); Imm Gran Abs Auto 0.04 X10*3/uL (0.00-0.03); Imm Gran Pct Auto 0.4 % (0.0-0.4); Lymphocytes Absolute Auto 3.1 X10*3/uL (1.2-4.9); Lymphocytes Percent Auto 32.2 % (20-40); Mean Corpuscular HGB Conc 34.9 g/dl (31.0-36.0); Mean Corpuscular Hemoglobin 31.2 pg (27.0-33.0); Mean Corpuscular Volume 89.4 fL (80.0-98.0); Mean Platelet Volume 10.4 fL (9.4-12.4); Monocytes Absolute Auto 0.6 X10*3/uL (0.1-1.2); Monocytes Percent Auto 6.3 % (2-11); Neutrophils Absolute Auto 5.4 x10*3/uL (2.0-8.3); Neutrophils Percent Auto 56.7 % (45-73); Platelet Count 277 X10*3/uL (160-400); Red Blood Count 3.97 X10*6/uL (4.60-5.80); Red Cell Distribution Width 12.1 % (11.0-16.0); White Blood Count 9.6 X10*3/uL (4.8-10.8)
[2021-10-18 20:47] LABS: MANUAL DIFF FLAG NO
[2021-10-18 20:55] LABS: INTERNATIONAL NORM RATIO 1.2 (0.9-1.1); Prothrombin Time 13.4 SEC (9.9-13.0)
[2021-10-18 23:17] VITALS: BP 147/81; PULSE 73; RESP 16; O2SAT 97
[2021-10-19] VITALS (7 sets, daily range): BP systolic 113–164; BP diastolic 68–89; PULSE 68–81; RESP 16–18; O2SAT 96–98
[2021-10-19 00:02] LABS: Ammonia 33 umol/L (13-55)
--- NOTE | 2021-10-19 00:51 | PC.NURSE ---
pt sleeping, wakes to voice, pt states i can't leave i have nowhere to go . pt up and ambulates w/o difficulty around room. Pt using urinal. pt remains alert, respirations easy, n/l. skin w/d. will continue to monitor pt.
--- NOTE | 2021-10-19 01:44 | PC.NURSE ---
CIW[facility] obtained. Dr Little aware. pt on monitor with a HR 73. B/P 126/68, pt denies any complaints and will be d/c in the morning. will continue to monitor pt.
--- NOTE | 2021-10-19 04:13 | PC.NURSE ---
[facility] OBTAINED. PT WAKES TO VOICE, RESPIRATIONS EASY, N/L. SKIN W/D. PT AWAITING FOR DISPO IN THE MORNING.
--- NOTE | 2021-10-19 05:35 | PC.NURSE ---
pt wakes to voice, respirations easy, n/l, pt remains on monitor, vs obtained. pt denies complaints and awaiting d/c in the morning. will continue to monitor pt.
--- NOTE | 2021-10-19 06:28 | PC.NURSE ---
pt is extremely rude to this nurse. Pt makes rude remarks, refuses to follow simple commands. pt given sandwich and reece ivette to drink on the way to wr.
== END 2021-10-19 06:56 | disposition home or self-care (01) ==
PROVIDERS: Emergency Medicine; Emergency Provider Student in an Organized Health Care Education/Training Program
DX: R42 Dizziness and giddiness (principal); Z20.822 Contact with and (suspected) exposure to COVID-19; F10.20 Alcohol dependence, uncomplicated; Y90.3 Blood alcohol level of 60-79 mg/100 ml; F17.200 Nicotine dependence, unspecified, uncomplicated; Z86.73 Personal history of transient ischemic attack (TIA), and cerebral infarction without residual deficits
CPT/HCPCS: 36415; 70450; 71250; 80048; 80076; 80307; 81003; 82077; 82140; 83735; 83880; 84484; 85025; 85610; 87635; 93005; 99284; 99285

== ENCOUNTER 2022-07-09 20:19 | Emergency (ER) | payer MEDICAID, SELFPAY ==
--- NOTE | ~2022-07-09 | CT_ITS ---
EXAMINATION: CT ABDOMEN AND PELVIS WITHOUT CONTRAST CLINICAL INFORMATION: Left lower quadrant pain COMPARISON: 10/31/2020 TECHNIQUE: Multidetector volumetric imaging was performed from the superior aspect of the liver through the pubic symphysis. Sagittal and coronal reformatted images were obtained on the technologist's workstation. This CT examination was performed using dose optimization techniques as appropriate, variously including the following: *Automated exposure control *Adjustment of mA and/or kV according to patient size (this includes techniques or standardized protocols for targeted exams where dose is matched to indication/reason for exam; i.e. extremities or head) *Use of iterative reconstruction technique DLP: 358 mGy-cm FINDINGS: LUNG BASES: The visualized lung bases are unremarkable. LIVER, GALLBLADDER, AND BILIARY TREE: The liver is normal in size, shape, and attenuation. No focal hepatic lesion or biliary ductal dilatation is present. Gallstone without acute inflammatory changes. PANCREAS: Unremarkable. SPLEEN: Unremarkable. ADRENAL GLANDS: Unremarkable. KIDNEYS AND URETERS: Right kidney without any acute findings. Minimal fullness of the portal venous system. Left kidney dilated to the level UVJ without evidence for any stone. An occult lesion including a mass needs to be excluded. Urologic assessment recommended. No perinephric collection. Small intrarenal calculus lower pole measures 2 mm. BLADDER: Definite lesion as above. GASTROINTESTINAL TRACT: Diverticulosis without acute inflammatory changes. No obstruction. No mesenteric mass. No free fluid or fluid collections. ABDOMINAL WALL: No significant hernia is appreciated. LYMPH NODES: Normal. VASCULAR: Unremarkable. PELVIC VISCERA: Unremarkable. OSSEOUS STRUCTURES: Unremarkable. CT/CT abdomen pelvis wo IV con IMPRESSION: Obstruction of the left urinary collecting system to the level the bladder without any stone disease. Appearance is similar to baseline. See above. Fleischner guidelines were followed.
[2022-07-09 20:34] VITALS: BP 116/76; PULSE 89; RESP 18; TEMP 36.7; O2SAT 99; BMI 26.6
--- NOTE | 2022-07-09 20:37 | PC.NURSE ---
Patient presents via EMS after he asked a bystander to call 911 because his stomach hurt. Patient is homeless. He endorses lower abdominal pain. He states he has drank about 4 tall beers tonight. He states he was lifting something and felt pain in his abdomen, maybe it's a hernia. He endorses a surgery recently, but is too intoxicated to fully explain medical history... there was a balloon in there or something. Patient smells of alcohol and is slurring his words. He denies nausea, vomiting,diarrhea. I just need to pee. Provided with urinal.
[2022-07-09 20:52] LABS: MANUAL DIFF FLAG NO
--- NOTE | 2022-07-09 20:55 | ED.ALCOHOL ---
HPI - Alcohol General Chief Complaint: ETOH/Substance Use Stated Complaint: upper groin and abd pain Time Seen by Provider: 07/09/22 20:53 Source: patient Mode of arrival: EMS Limitations: other (alcohol intoxication) History of Present Illness HPI narrative: 66 yo male hx of alcohol abuse, frequent UTIs, PAD - cannot tell me what procedure he had but back in 2020 seen here for critical ischemia of limb and refused treatment likely had some sort of aorto fem bypass - he reports drinking tonight and then proceeded to yell at me to get his TV to work. I am also able to get out of him that he lifed something in the last few days and his left healed incision site hurts more and he thinks he has a hernia. He cannot tell me much more. He notes he has to urinate. MD complaint: alcohol intoxication Last drink: Just prior to admission Chronic alcohol use: Yes Previous visits for alcohol intoxication: Yes Recent trauma: No Associated symptoms: other (L groin pain) Treatments prior to arrival: none Related Data Previous Rx's Medication Instructions Recorded apixaban 5 mg tablet (Eliquis) 5 mg PO BID #60 tabs 08/06/21 clotrimazole 1 % topical cream 1 appl topical BID #60 grams 08/06/21 folic acid 1 mg tablet 1 mg PO DAILY #30 tabs 08/06/21 gabapentin 100 mg capsule 200 mg PO TID #180 caps 08/06/21 thiamine mononitrate (vit B1) 100 100 mg PO DAILY #30 tabs 08/06/21 mg tablet Allergies Allergy/AdvReac Type Severity Reaction Status Date / Time No Known Allergies Allergy Unknown UNKNOWN Verified 09/08/20 17:05 [NO KNOWN ALLERGIES] Review of Systems Review of Systems: Constitutional : No Weight loss, No Fever, No Chills ENT/Mouth : No sore throat, No Rhinorrhea Eyes: No Swelling, No Redness Cardiovascular : No Chest Pain, No SOB, NoEdema Respiratory : No Cough, No Sputum, No Wheezing Gastrointestinal : no Nausea, no Vomiting, no Diarrhea, positive abdominal Pain, No Hematochezia, No Melena Genitourinary : No Dysuria, pos Urinary Frequency, No Hematuria, No Urgency Musculoskeletal : No joint pain, No Myalgias, No Joint Swelling Skin : No Skin Lesions, No rash Neuro : No Weakness, No Numbness, No Dizziness, No Headache Psych : No Anxiety/Panic, No Depression Heme/Lymph: No Bruising, No Lymphadenopathy Endocrine : No Polyuria, No Polydipsia All other systems reviewed and are negative. [facility] Past Medical History Source: old records reviewed Medical History Acute hyponatremia Alcohol abuse Alcoholic intoxication CVA (cerebral vascular accident) Delirium tremens Encounter for assessment of decision-making capacity Fall Hard of hearing Hyponatremia Injury of right lower arm PAD (peripheral artery disease) Social History Social History Household Members: None Housing: Homeless Alcohol intake: current Alcohol intake frequency: 3 or more drinks per day Alcohol type: beer Patient Tobacco Use Status: Current everyday Tobacco user Advance Directives: No Advance Directives Information Provided: No service: No Current occupational status: unemployed Physical Exam ED Vital Signs: Vital Signs - 24 hr 07/09/22 20:34 07/09/22 22:47 Temperature 98.0 F 97.4 F Pulse Rate 89 78 Respiratory Rate 18 18 Blood Pressure 116/76 102/53 L Pulse Oximetry 99 96 Oxygen Delivery Method Room Air Room Air BMI result Body Mass Index 26.6 Appearance: Alert. Oriented X3. No acute distress. Disheleved, unkempt strong urine odor Eyes: Pupils equal, round and reactive to light. ENT: Pharynx normal. Neck: Normal inspection. Neck supple. CVS: Normal heart rate and rhythm. Pulses normal. Respiratory: No respiratory distress. Breath sounds normal. Abdomen: Soft and healed incision in L groin no palpable mass noted - scrotum and penis appear normal though the patient is not allowing full exam Skin: Skin warm and dry. Normal skin color. Normal skin turgor. Extremities: No lower extremity edema. Neuro: Oriented X 3. No motor deficit. No sensory deficit. Course Course Course Narrative: no abdominal wall hernia, unchanged L sided ureteral obstruction - outpatient Urology info to be given, normal Cr UA only 6-10 WBC no bacteria, epi noted, will wait for culture, chronic urinary frequency no peripheral WBC count stable for DC MDM - Alcohol MDM Narrative Medical decision making narrative: 66 yo male hx of alcohol abuse, frequent UTIs, PAD here with c/o L groin pain s/p lifting and ETOH intoxication - at this time will obtain basic labs, UA, CT scan for possible hernia. The patient has no bruit on exam or palpable mass to suggest pseudoaneurysm. Dispo per results and findings. Lab Data Result diagrams: 07/09/22 20:43 07/09/22 20:43 Labs: Lab Results 07/09/22 07/09/22 07/09/22 Range/Units 20:43 20:43 22:48 WBC 10.7 (4.8-10.8) X10*3/uL RBC 3.83 L (4.60-5.80) X10*6/uL Hgb 12.4 L (14.0-18.0) g/dl Hct 35.6 L (42.0-52.0) % MCV 93.0 (80.0-98.0) fL MCH 32.4 (27.0-33.0) pg MCHC 34.8 (31.0-36.0) g/dl RDW 11.6 (11.0-16.0) % Plt Count 213 (160-400) X10*3/uL MPV 10.0 (9.4-12.4) fL Immature Gran % (Auto) 0.2 (0.0-0.4) % Neut % (Auto) 50.5 (45-73) % Lymph % (Auto) 34.5 (20-40) % [place] % (Auto) 7.9 (2-11) % Eos % (Auto) 5.9 H (0-4) % Baso % (Auto) 1.0 (0-2) % Lymph # (Auto) 3.7 (1.2-4.9) X10*3/uL [place] # (Auto) 0.8 (0.1-1.2) X10*3/uL Eos # (Auto) 0.6 H (0.0-0.4) X10*3/uL Baso # (Auto) 0.1 (0.0-0.2) X10*3/uL Abs Immat Gran (auto) 0.02 (0.00-0.03) X10*3/uL Absolute Neuts (auto) 5.4 (2.0-8.3) x10*3/uL Absolute Nucleated RBC 0.000 (0.0-0.012) X10*3/uL Nucleated RBC % (auto) 0.0 (0.0-0.2) /100WBC Sodium 134 L (135-145) mmol/L Potassium 4.6 (3.3-5.1) mmol/L Chloride 104 (96-108) mmol/L Carbon Dioxide 15 L (22-29) mmol/L Anion Gap 20 (12-20) BUN 13 (9-16) mg/dL Creatinine 0.69 (0.5-1.4) mg/dL Estim Creat Clear Calc 97.6 Estimated GFR > 60 Random Glucose 82 (60-115) mg/dL Calcium 8.4 D (8.4-10.2) mg/dL Magnesium 1.7 (1.6-2.6) mg/dL Total Bilirubin 0.3 (0.0-1.0) mg/dL AST 23 (5-37) U/L ALT 15 (0-40) U/L Alkaline Phosphatase 53 D (39-117) U/L Total Protein 7.2 (6.5-8.0) g/dL Albumin 3.9 (3.5-5.0) g/dL Lipase 33 (8-78) U/L Urine Color Yellow Urine Appearance Clear Urine pH 6.0 (5.0-9.0) Ur Specific [place] <= 1.005 (1.005-1.025) Urine Protein Negative (Neg-Trace) mg/dL Urine Glucose (UA) Negative (Negative) mg/dL Urine Ketones Negative (Negative) mg/dL Urine Blood Negative (Negative) Urine Nitrite Negative (Negative) Ur Leukocyte Esterase Small (1+) H (Negative) Urine RBC 0-2 (0-2) /HPF Urine WBC 6-10 H (0-5) /HPF Ur Squamous Epith Cells 0-2 (0-2) /HPF Urine Bacteria None Seen (None Seen) Hyaline Casts 0-2 (0-2) /LPF Ethyl Alcohol 123 mg/dL Discharge Plan Discharge Clinical Impression: Alcoholic intoxication, Left groin pain Patient Disposition: Home, Self-Care Instructions: Abuse of Alcohol (ED), Pelvic Pain (ED) Additional Instructions: return to ED for any worsening symptoms or concerns please follow up with a Urologist given your chronic blockage of left kidney Prescriptions: No Action folic acid 1 mg Tablet 1 mg PO DAILY Qty: 30 0RF gabapentin 100 mg Capsule 200 mg PO TID Qty: 180 0RF clotrimazole 1 % Cream 1 appl topical BID Qty: 60 0RF Protocol: Apply to: Apply to: feet + other areas of fungal infection thiamine mononitrate (vit B1) 100 mg Tablet 100 mg PO DAILY Qty: 30 0RF Eliquis 5 mg Tablet 5 mg PO BID Qty: 60 0RF Referrals: Tk Pinon MD [Physician] - 1 week
[2022-07-09 20:56] LABS: Basophils Absolute Auto 0.1 X10*3/uL (0.0-0.2); Eosinophils Absolute Auto 0.6 X10*3/uL (0.0-0.4); Eosinophils Percent Auto 5.9 % (0-4); Hematocrit 35.6 % (42.0-52.0); Hemoglobin 12.4 g/dl (14.0-18.0); Imm Gran Abs Auto 0.02 X10*3/uL (0.00-0.03); Imm Gran Pct Auto 0.2 % (0.0-0.4); Lymphocytes Absolute Auto 3.7 X10*3/uL (1.2-4.9); Lymphocytes Percent Auto 34.5 % (20-40); Mean Corpuscular HGB Conc 34.8 g/dl (31.0-36.0); Mean Corpuscular Hemoglobin 32.4 pg (27.0-33.0); Monocytes Absolute Auto 0.8 X10*3/uL (0.1-1.2); Monocytes Percent Auto 7.9 % (2-11); Neutrophils Absolute Auto 5.4 x10*3/uL (2.0-8.3); Neutrophils Percent Auto 50.5 % (45-73); Platelet Count 213 X10*3/uL (160-400); Red Blood Count 3.83 X10*6/uL (4.60-5.80); Red Cell Distribution Width 11.6 % (11.0-16.0); White Blood Count 10.7 X10*3/uL (4.8-10.8)
[2022-07-09 21:25] LABS: Alanine Aminotransferase 15 U/L (0-40); Albumin Level 3.9 g/dL (3.5-5.0); Alkaline Phosphatase 53 U/L (39-117); Anion Gap 20 (12-20); Aspartate Amino Transferase 23 U/L (5-37); Bilirubin Total 0.3 mg/dL (0.0-1.0); Blood Urea Nitrogen 13 mg/dL (9-16); Calcium 8.4 mg/dL (8.4-10.2); Carbon Dioxide 15 mmol/L (22-29); Chloride 104 mmol/L (96-108); Creatinine Clr Calc Pharmacy 97.6; Estimated Glomerular Filt Rate > 60; Ethanol 123 mg/dL; Glucose Random 82 mg/dL (60-115); Lipase 33 U/L (8-78); Magnesium 1.7 mg/dL (1.6-2.6); Potassium 4.6 mmol/L (3.3-5.1); Sodium 134 mmol/L (135-145); Total Protein 7.2 g/dL (6.5-8.0)
[2022-07-09] MEDS: Thiamine HCL 100 MG TABLET 200 MG PO (21:38)
[2022-07-09] MEDS: Multivitamin TABLET 1 TAB PO (21:38)
[2022-07-09] MEDS: Folic Acid 1 MG TABLET PO (21:38)
[2022-07-09 22:47] VITALS: BP 102/53; PULSE 78; RESP 18; TEMP 36.3; O2SAT 96
[2022-07-09 22:54] LABS: Appearance Urine Clear; Color Urine Yellow; Glucose Urine UA Negative (Negative); Leukocyte Esterase Urine Small (1+) (Negative); Nitrite Urine Negative (Negative); Specific Gravity - Urine <= 1.005 (1.005-1.025); UMIC TRIGGER UACC YES; Urine Blood Negative (Negative); Urine Ketones Negative (Negative); Urine Protein Negative (Neg-Trace)
[2022-07-09 22:59] LABS: Bacteria Urine None Seen (None Seen); Hyaline Casts Urine 0-2 /LPF (0-2); RBC Urine 0-2 /HPF (0-2); Squamous Epithelial Cell Urine 0-2 /HPF (0-2); UACC Culture Trigger YES
[2022-07-10] VITALS: BP 149/60; PULSE 78; RESP 16; TEMP 36.7; O2SAT 98
[2022-07-10 01:35] VITALS: BP 106/61; PULSE 75; RESP 16; TEMP 36.4; O2SAT 97
--- NOTE | 2022-07-10 02:18 | PC.NURSE ---
PT WAS ASSISTED WITH AMBULATION TO BATHROOM AND BACK TO BED .
[2022-07-10 04:44] VITALS: PULSE 76; RESP 14; O2SAT 97
[2022-07-10 05:27] VITALS: BP 132/71; PULSE 77; RESP 17; O2SAT 95
== END 2022-07-10 07:19 | disposition home or self-care (01) ==
PROVIDERS: Emergency Provider Emergency Medicine
DX: N39.0 Urinary tract infection, site not specified (principal); B95.2 Enterococcus as the cause of diseases classified elsewhere; R10.32 Left lower quadrant pain; F10.220 Alcohol dependence with intoxication, uncomplicated; Y90.6 Blood alcohol level of 120-199 mg/100 ml; F17.200 Nicotine dependence, unspecified, uncomplicated
CPT/HCPCS: 36415; 74176; 80053; 81001; 82077; 83690; 83735; 85025; 87086; 87088; 87186; 99284; 99285

== ENCOUNTER 2022-09-17 17:30 | Emergency (ER) | payer MEDICAID, SELFPAY ==
--- NOTE | 2022-09-17 17:35 | ED.ALCOHOL ---
HPI - Alcohol General Chief Complaint: ETOH/Substance Use Stated Complaint: etoh, sob Time Seen by Provider: 09/17/22 17:35 Related Data Previous Rx's Medication Instructions Recorded apixaban 5 mg tablet (Eliquis) 5 mg PO BID #60 tabs 08/06/21 clotrimazole 1 % topical cream 1 appl topical BID #60 grams 08/06/21 folic acid 1 mg tablet 1 mg PO DAILY #30 tabs 08/06/21 gabapentin 100 mg capsule 200 mg PO TID #180 caps 08/06/21 thiamine mononitrate (vit B1) 100 100 mg PO DAILY #30 tabs 08/06/21 mg tablet Allergies Allergy/AdvReac Type Severity Reaction Status Date / Time No Known Allergies Allergy Unknown UNKNOWN Verified 09/08/20 17:05 [NO KNOWN ALLERGIES] [facility], [facility] Past Medical History Attestation statement: The following information was validated with the patient. Source: old records reviewed Medical History Acute hyponatremia Alcohol abuse Alcoholic intoxication CVA (cerebral vascular accident) Delirium tremens Encounter for assessment of decision-making capacity Fall Hard of hearing Hyponatremia Injury of right lower arm PAD (peripheral artery disease) Social History Social History Household Members: None Housing: Homeless Alcohol intake: current Alcohol intake frequency: 3 or more drinks per day Alcohol type: beer Patient Tobacco Use Status: Current everyday Tobacco user Advance Directives: No Advance Directives Information Provided: Yes service: No Current occupational status: unemployed Physical Exam ED Vital Signs: Vital Signs - 24 hr 09/17/22 18:02 Temperature 97.6 F Pulse Rate 74 Respiratory Rate 16 Blood Pressure 158/83 H Pulse Oximetry 99 Oxygen Delivery Method Room Air BMI result Body Mass Index 28.5 Course Course Course Narrative: 18:26 labs pending. 19:40 chest x-rays negative for acute findings. Findings for emphysema and old rib fracture. Labs are pending. Medical Decision Making Lab Data Result Diagrams: 09/17/22 19:29 09/17/22 19:29 Labs: Lab Results 09/17/22 09/17/22 09/17/22 Range/Units 19:29 19:29 19:29 WBC 8.8 (4.8-10.8) X10*3/uL RBC 3.95 L (4.60-5.80) X10*6/uL Hgb 13.3 L (14.0-18.0) g/dl Hct 37.6 L (42.0-52.0) % MCV 95.2 (80.0-98.0) fL MCH 33.7 H (27.0-33.0) pg MCHC 35.4 (31.0-36.0) g/dl RDW 12.1 (11.0-16.0) % Plt Count 291 D (160-400) X10*3/uL MPV 9.7 (9.4-12.4) fL Immature Gran % (Auto) 0.5 H (0.0-0.4) % Neut % (Auto) 63.3 (45-73) % Lymph % (Auto) 24.7 (20-40) % [place] % (Auto) 7.1 (2-11) % Eos % (Auto) 3.0 (0-4) % Baso % (Auto) 1.4 (0-2) % Lymph # (Auto) 2.2 (1.2-4.9) X10*3/uL [place] # (Auto) 0.6 (0.1-1.2) X10*3/uL Eos # (Auto) 0.3 (0.0-0.4) X10*3/uL Baso # (Auto) 0.1 (0.0-0.2) X10*3/uL Abs Immat Gran (auto) 0.04 H (0.00-0.03) X10*3/uL Absolute Neuts (auto) 5.6 (2.0-8.3) x10*3/uL Absolute Nucleated RBC 0.000 (0.0-0.012) X10*3/uL Nucleated RBC % (auto) 0.0 (0.0-0.2) /100WBC Sodium 129 L (135-145) mmol/L Potassium 3.7 (3.3-5.1) mmol/L Chloride 96 (96-108) mmol/L Carbon Dioxide 20 L (22-29) mmol/L Anion Gap 17 (12-20) BUN 12 (9-16) mg/dL Creatinine 0.63 (0.5-1.4) mg/dL Estim Creat Clear Calc 100.9 Estimated GFR > 60 Random Glucose 94 (60-115) mg/dL Calcium 9.2 D (8.4-10.2) mg/dL Ethyl Alcohol 107 mg/dL Influenza Type A (PCR) NEGATIVE (Negative) Influenza Type B (PCR) NEGATIVE (Negative) RSV RNA Qual (PCR) NEGATIVE (Negative) SARS-CoV-2 RNA (RT-PCR) NEGATIVE (Negative) Medications Administered Generic Name Dose Route Start Last Admin Trade Name Freq PRN Reason Stop Dose Admin Sodium Chloride 1,000 mls @ 999 mls/hr 09/17/22 20:15 09/17/22 20:22 Ns IVCONT 09/17/22 21:15 999 mls/hr .Q1H1M NATASHA Administration Discontinued Medications Generic Name Dose Route Start Last Admin Trade Name Freq PRN Reason Stop Dose Admin Albuterol Sulfate 2 puff 09/17/22 19:38 09/17/22 20:22 Albuterol Sulfate 90 Mcg 8 Gm Inhaler INHALE 09/17/22 19:39 2 puff ONCE ONE Administration Discharge Plan Discharge Clinical Impression: Alcoholic intoxication, Cough Patient Disposition: Home, Self-Care Instructions: Abuse of Alcohol (ED), Chronic Cough (ED) Additional Instructions: You were evaluated for alcohol intoxication and cough. You declined detox. Chest x-rays negative for acute findings. Please use your albuterol inhaler as needed for emphysema. Thank you for choosing this emergency department for evaluation. Please follow-up with primary care physician as needed. Return to the emergency department for any new, concerning, or worsening symptoms. Prescriptions: No Action folic acid 1 mg Tablet 1 mg PO DAILY Qty: 30 0RF gabapentin 100 mg Capsule 200 mg PO TID Qty: 180 0RF clotrimazole 1 % Cream 1 appl topical BID Qty: 60 0RF Protocol: Apply to: Apply to: feet + other areas of fungal infection thiamine mononitrate (vit B1) 100 mg Tablet 100 mg PO DAILY Qty: 30 0RF Eliquis 5 mg Tablet 5 mg PO BID Qty: 60 0RF Interventions: Elliott-Suicide Risk Severity Scale Last Done: 09/17/22 20:23
[2022-09-17 18:02] VITALS: BP 158/83; BP 220/110; PULSE 68; PULSE 74; RESP 16; TEMP 36.4; O2SAT 99; BMI 28.5
[2022-09-17 19:33] LABS: MANUAL DIFF FLAG NO
[2022-09-17 19:36] LABS: Basophils Absolute Auto 0.1 X10*3/uL (0.0-0.2); Basophils Percent Auto 1.4 % (0-2); Eosinophils Absolute Auto 0.3 X10*3/uL (0.0-0.4); Hematocrit 37.6 % (42.0-52.0); Hemoglobin 13.3 g/dl (14.0-18.0); Imm Gran Abs Auto 0.04 X10*3/uL (0.00-0.03); Imm Gran Pct Auto 0.5 % (0.0-0.4); Lymphocytes Absolute Auto 2.2 X10*3/uL (1.2-4.9); Lymphocytes Percent Auto 24.7 % (20-40); Mean Corpuscular HGB Conc 35.4 g/dl (31.0-36.0); Mean Corpuscular Hemoglobin 33.7 pg (27.0-33.0); Mean Corpuscular Volume 95.2 fL (80.0-98.0); Mean Platelet Volume 9.7 fL (9.4-12.4); Monocytes Absolute Auto 0.6 X10*3/uL (0.1-1.2); Monocytes Percent Auto 7.1 % (2-11); Neutrophils Absolute Auto 5.6 x10*3/uL (2.0-8.3); Neutrophils Percent Auto 63.3 % (45-73); Platelet Count 291 X10*3/uL (160-400); Red Blood Count 3.95 X10*6/uL (4.60-5.80); Red Cell Distribution Width 12.1 % (11.0-16.0); White Blood Count 8.8 X10*3/uL (4.8-10.8)
[2022-09-17 19:56] LABS: Anion Gap 17 (12-20); Blood Urea Nitrogen 12 mg/dL (9-16); Calcium 9.2 mg/dL (8.4-10.2); Carbon Dioxide 20 mmol/L (22-29); Chloride 96 mmol/L (96-108); Creatinine Clr Calc Pharmacy 100.9; Estimated Glomerular Filt Rate > 60; Ethanol 107 mg/dL; Glucose Random 94 mg/dL (60-115); Potassium 3.7 mmol/L (3.3-5.1); Sodium 129 mmol/L (135-145)
--- NOTE | 2022-09-17 19:56 | PC.NURSE ---
Contacted local shelters in the area for this pt. [facility] , , states that they will not turn any person away. Pt is welcomed at this place but may have to sleep indoors on the floor. MLP notified.
[2022-09-17 20:11] LABS: Influenza A PCR NEGATIVE (Negative); Influenza B PCR NEGATIVE (Negative); Resp Syncy Virus RNA Qual PCR NEGATIVE (Negative); SARS COV2 PCR INHOUSE NEGATIVE (Negative)
--- NOTE | 2022-09-17 20:22 | MHC.CARE ---
Care Team met with pt in ED 22 H. Pt reported he is homeless and needs a place to sleep. Pt denied SI/HI/AVH. Care Team called [facility] staff Renetta and she reported having beds available. Plan discussed with Faith Armstrong NP.
--- NOTE | 2022-09-17 22:39 | ED.ALCOHOL ---
HPI - Alcohol General Chief Complaint: ETOH/Substance Use Stated Complaint: etoh, sob Time Seen by Provider: 09/17/22 17:35 Source: patient and EMS Mode of arrival: EMS Limitations: no limitations History of Present Illness HPI narrative: 67-year-old male presents via EMS for alcohol intoxication and shortness of breath. States that he lost his inhaler, is homeless, and has a cough. Patient is not interested in detox. He does live in a nursing home. Does not report any other complaints at this time. complaint: alcohol intoxication Last drink: Hours (ago) Chronic alcohol use: Yes Previous visits for alcohol intoxication: Yes Recent trauma: No Associated symptoms: other (Cough, shortness of breath) Treatments prior to arrival: none Related Data Previous Rx's Medication Instructions Recorded apixaban 5 mg tablet (Eliquis) 5 mg PO BID #60 tabs 08/06/21 clotrimazole 1 % topical cream 1 appl topical BID #60 grams 08/06/21 folic acid 1 mg tablet 1 mg PO DAILY #30 tabs 08/06/21 gabapentin 100 mg capsule 200 mg PO TID #180 caps 08/06/21 thiamine mononitrate (vit B1) 100 100 mg PO DAILY #30 tabs 08/06/21 mg tablet Allergies Allergy/AdvReac Type Severity Reaction Status Date / Time No Known Allergies Allergy Unknown UNKNOWN Verified 09/08/20 17:05 [NO KNOWN ALLERGIES] Review of Systems Review of Systems: Constitutional: No Fever, No Chills ENT/Mouth: No sore throat, No Rhinorrhea Eyes: No Eye Pain, No Swelling, No Redness Cardiovascular: No Chest Pain, positive SOB Respiratory: Positive Cough, No Sputum Gastrointestinal: No Nausea, No Vomiting, No Diarrhea, No abdominal Pain Genitourinary: No Dysuria, No Hematuria Musculoskeletal: No joint pain, No Myalgias, No Joint Swelling Skin: No Skin Lesions, No rash Neuro: No Weakness, No Numbness, No Loss of Consciousness, No Dizziness, No Headache Psych: Positive alcohol abuse, No Anxiety, No Depression, No SI/HI/AH/VH Yes all other systems are reviewed and are negative [facility] Past Medical History Attestation statement: The following information was validated with the patient. Source: old records reviewed Medical History Acute hyponatremia Alcohol abuse Alcoholic intoxication CVA (cerebral vascular accident) Delirium tremens Encounter for assessment of decision-making capacity Fall Hard of hearing Hyponatremia Injury of right lower arm PAD (peripheral artery disease) Social History Social History Household Members: None Housing: Homeless Alcohol intake: current Alcohol intake frequency: 3 or more drinks per day Alcohol type: beer Patient Tobacco Use Status: Current everyday Tobacco user Advance Directives: No Advance Directives Information Provided: Yes service: No Current occupational status: unemployed Physical Exam ED Vital Signs: Vital Signs - 24 hr 09/17/22 18:02 Temperature 97.6 F Pulse Rate 74 Respiratory Rate 16 Blood Pressure 158/83 H Pulse Oximetry 99 Oxygen Delivery Method Room Air BMI result Body Mass Index 28.5 Appearance: Alert. Oriented X3. Intoxicated. Eyes: Pupils equal, round and reactive to light. No nystagmus. Sclerae nonicteric. ENT: Pharynx normal. Dry mucous membranes. Neck: Normal inspection. Neck supple. CVS: Normal heart rate and rhythm. Pulses normal. Respiratory: No respiratory distress. Expiratory wheezing. Abdomen: Soft and nontender. Skin: Skin warm and dry. Normal skin color. Normal skin turgor. Extremities: No lower extremity edema. Gait well-balanced well coordinated. Neuro: No motor deficit. No sensory deficit. Cranial nerves 2-12 intact. Course Course Course Narrative: 67-year-old male presents via EMS for ETOH and shortness of breath. Patient was found in the streets by EMS intoxicated. He states he lost his inhaler, and is short of breath. Has emphysema and is a smoker. Will order labs, chest x-ray and COVID testing. Patient is alert oriented x4, answering questions appropriately. Patient declines detox at this time. Labs indicate sodium of 129, was given 1 L of normal saline, patient drinks alcohol on a daily basis. ETOH level 107. COVID influenza RSV is negative. Chest x-ray shows emphysema. I did give this patient an albuterol inhaler. Plan is to discharge to homeless nursing home. Will provide this patient with a ride after care team consult Please note, patient's prior note was deleted, this may be the 2nd note. Please combine notes. Medical Decision Making Differential Diagnosis Differential Diagnoses: The differential diagnosis associated with the presentation includes COVID, influenza, RSV, pneumonia, alcohol intoxication Admission/Observation Consideration of admission/observation: Escalation of care including admission/observation considered If patient is positive for pneumonia, will consider admitting as he is homeless. Lab Data MDM Lab Attestation statement: I reviewed the patient's lab results. Result Diagrams: 09/17/22 19:29 09/17/22 19:29 Labs: Lab Results 09/17/22 09/17/22 09/17/22 Range/Units 19:29 19:29 19:29 WBC 8.8 (4.8-10.8) X10*3/uL RBC 3.95 L (4.60-5.80) X10*6/uL Hgb 13.3 L (14.0-18.0) g/dl Hct 37.6 L (42.0-52.0) % MCV 95.2 (80.0-98.0) fL MCH 33.7 H (27.0-33.0) pg MCHC 35.4 (31.0-36.0) g/dl RDW 12.1 (11.0-16.0) % Plt Count 291 D (160-400) X10*3/uL MPV 9.7 (9.4-12.4) fL Immature Gran % (Auto) 0.5 H (0.0-0.4) % Neut % (Auto) 63.3 (45-73) % Lymph % (Auto) 24.7 (20-40) % [place] % (Auto) 7.1 (2-11) % Eos % (Auto) 3.0 (0-4) % Baso % (Auto) 1.4 (0-2) % Lymph # (Auto) 2.2 (1.2-4.9) X10*3/uL [place] # (Auto) 0.6 (0.1-1.2) X10*3/uL Eos # (Auto) 0.3 (0.0-0.4) X10*3/uL Baso # (Auto) 0.1 (0.0-0.2) X10*3/uL Abs Immat Gran (auto) 0.04 H (0.00-0.03) X10*3/uL Absolute Neuts (auto) 5.6 (2.0-8.3) x10*3/uL Absolute Nucleated RBC 0.000 (0.0-0.012) X10*3/uL Nucleated RBC % (auto) 0.0 (0.0-0.2) /100WBC Sodium 129 L (135-145) mmol/L Potassium 3.7 (3.3-5.1) mmol/L Chloride 96 (96-108) mmol/L Carbon Dioxide 20 L (22-29) mmol/L Anion Gap 17 (12-20) BUN 12 (9-16) mg/dL Creatinine 0.63 (0.5-1.4) mg/dL Estim Creat Clear Calc 100.9 Estimated GFR > 60 Random Glucose 94 (60-115) mg/dL Calcium 9.2 D (8.4-10.2) mg/dL Ethyl Alcohol 107 mg/dL Influenza Type A (PCR) NEGATIVE (Negative) Influenza Type B (PCR) NEGATIVE (Negative) RSV RNA Qual (PCR) NEGATIVE (Negative) SARS-CoV-2 RNA (RT-PCR) NEGATIVE (Negative) Independent Interpretation I performed an independent interpretation of an: Plain X-Ray Radiology Impression Discussion of test interpretation with radiology: I have reviewed the radiologist's reading. Radiologist Impression: EXAMINATION: XR CHEST CLINICAL INFORMATION: Cough COMPARISON: CT chest 10/19/2021 TECHNIQUE: Frontal view of the chest was obtained. FINDINGS: Normal appearance of the cardiomediastinal structures. No effusions or pneumothoraces. Attenuation of the upper lung zone pulmonary parenchyma. Multiple right rib chronic appearing posttraumatic rib deformities. Normal heart size. XR/XR chest 1V IMPRESSION: 1.? No acute cardiopulmonary abnormalities. 2.? Findings suspicious for centrilobular emphysema. 3.? Multiple chronic appearing right rib posttraumatic rib deformities. Social Determinants Patient?s care significantly limited by Social Determinants of Health including: Inadequate housing and Other Social Determinant of Health Medications Administered Discontinued Medications Generic Name Dose Route Start Last Admin Trade Name Freq PRN Reason Stop Dose Admin Albuterol Sulfate 2 puff 09/17/22 19:38 09/17/22 20:22 Albuterol Sulfate 90 Mcg 8 Gm Inhaler INHALE 09/17/22 19:39 2 puff ONCE ONE Administration Sodium Chloride 1,000 mls @ 999 mls/hr 09/17/22 20:15 09/17/22 20:22 Ns IVCONT 09/17/22 21:15 999 mls/hr .Q1H1M NATASHA Administration Discharge Plan Discharge Clinical Impression: Alcoholic intoxication, Cough Patient Disposition: Home, Self-Care Instructions: Abuse of Alcohol (ED), Chronic Cough (ED) Additional Instructions: You were evaluated for alcohol intoxication and cough. You declined detox. Chest x-rays negative for acute findings. Please use your albuterol inhaler as needed for emphysema. Thank you for choosing this emergency department for evaluation. Please follow-up with primary care physician as needed. Return to the emergency department for any new, concerning, or worsening symptoms. Prescriptions: No Action folic acid 1 mg Tablet 1 mg PO DAILY Qty: 30 0RF gabapentin 100 mg Capsule 200 mg PO TID Qty: 180 0RF clotrimazole 1 % Cream 1 appl topical BID Qty: 60 0RF Protocol: Apply to: Apply to: feet + other areas of fungal infection thiamine mononitrate (vit B1) 100 mg Tablet 100 mg PO DAILY Qty: 30 0RF Eliquis 5 mg Tablet 5 mg PO BID Qty: 60 0RF Interventions: Lawson-Suicide Risk Severity Scale Last Done: 09/17/22 20:23 ED Discharge Assessment Last Done: 09/17/22 21:28 Discharge Date/Time: 09/17/22 21:32
== END 2022-09-17 21:32 | disposition home or self-care (01) ==
PROVIDERS: Nurse Practitioner Family; Emergency Provider Internal Medicine
DX: F10.220 Alcohol dependence with intoxication, uncomplicated (principal); Y90.5 Blood alcohol level of 100-119 mg/100 ml; R05.9 Cough, unspecified; F17.200 Nicotine dependence, unspecified, uncomplicated; Z20.828 Contact with and (suspected) exposure to other viral communicable diseases; Z79.01 Long term (current) use of anticoagulants; Z79.899 Other long term (current) drug therapy
CPT/HCPCS: 0241U; 71045; 80048; 82077; 85025; 99284

== ENCOUNTER 2022-09-18 13:00 | Emergency (ER) | payer MEDICAID, SELFPAY ==
[2022-09-18 13:05] VITALS: BP 142/92; PULSE 81; O2SAT 98
--- NOTE | 2022-09-18 13:21 | ED.GENADULT ---
HPI - General Adult General Chief complaint: ETOH/Substance Use Stated complaint: ETOH INTOXICATION PER EMS Time Seen by Provider: 09/18/22 13:11 Source: patient and EMS Mode of arrival: EMS Limitations: no limitations History of Present Illness HPI narrative: Patient is a 67-year-old male presents to the emergency department via EMS. When asking the patient why presented to emergency department today he says ?it is cold and they will not let me back at the [facility] until it is less than 10 degrees?. He does state that he drank a few beers today, denies any recreational drug usage. At this time when asked whether patient is interested in detox he states I needa [facility] I can not live outside . Difficulty obtain review of systems he is fixated on requesting a [facility], although he does endorse a chronic cough. Denies chest pain or shortness of breath. Related Data Previous Rx's Medication Instructions Recorded apixaban 5 mg tablet (Eliquis) 5 mg PO BID #60 tabs 08/06/21 clotrimazole 1 % topical cream 1 appl topical BID #60 grams 08/06/21 folic acid 1 mg tablet 1 mg PO DAILY #30 tabs 08/06/21 gabapentin 100 mg capsule 200 mg PO TID #180 caps 08/06/21 thiamine mononitrate (vit B1) 100 100 mg PO DAILY #30 tabs 08/06/21 mg tablet levofloxacin 750 mg tablet 750 mg PO DAILY #4 tabs 09/18/22 Allergies Allergy/AdvReac Type Severity Reaction Status Date / Time No Known Allergies Allergy Unknown UNKNOWN Verified 09/08/20 17:05 [NO KNOWN ALLERGIES] Review of Systems Review of Systems: Yes Unobtainable due to mental status (Acute intoxication) [facility] Past Medical History Attestation statement: The following information was validated with the patient. Source: old records reviewed Medical History Acute hyponatremia Alcohol abuse Alcoholic intoxication CVA (cerebral vascular accident) Delirium tremens Encounter for assessment of decision-making capacity Fall Hard of hearing Hyponatremia Injury of right lower arm PAD (peripheral artery disease) Social History Social History Household Members: None Housing: Homeless Alcohol intake: current Alcohol intake frequency: 3 or more drinks per day Alcohol type: beer Patient Tobacco Use Status: Current everyday Tobacco user Advance Directives: No service: No Current occupational status: unemployed Physical Exam ED Vital Signs: Vital Signs - 24 hr 09/18/22 13:26 Temperature 97.5 F Pulse Rate 100 Respiratory Rate 16 Blood Pressure 130/60 Pulse Oximetry 97 Oxygen Delivery Method Room Air BMI result Body Mass Index 23.4 Appearance: Alert.? No acute distress. Appears unkempt. Appears intoxicated. Eyes: Pupils equal, round and reactive to light.? ENT: Pharynx normal.?? Neck: Normal inspection.? Neck supple.?? CVS: Heart sounds normal. Normal heart rate and rhythm.? Pulses normal.?? Respiratory: No respiratory distress.? Lung sounds clear to auscultation bilaterally?? Abdomen: Soft and non-tender. Normoactive bowel sounds. Skin: Skin warm and dry.? Normal skin color.? Extremities: No lower extremity edema.? Neuro: Moves all extremities spontaneously. Sensation intact bilaterally. CN II-XII intact. No focal neuro deficits. Ambulates with normal steady gait. Course Reevaluation(s) Reevaluation #1: CBC reveals anemia consistent with baseline, no leukocytosis. Urinalysis positive for pyuria and nitrites, concerning for urinary tract infection, prior urine cultures reviewed; 07/09/2022, dies not appears the patient was treated as he was unable to be contacted, was susceptible to ampicillin, level Floxin, nitrofurantoin, and vancomycin. Initiated Levaquin 750 mg by mouth daily for 5 days, he is without back pain/flank pain, no reports of nausea vomiting or abdominal pain, no CVA tenderness upon examination, do not suspect pyelonephritis at this time is also afebrile.. Alcohol level 77 at 1600, at this time he alert, speaking clear full sentences. Declining detox services. He is ambulatory with a steady gait. At this time he is stable for discharge, antibiotics sent to patient's pharmacy. Time: 17:08 Medications Administered Generic Name Dose Route Start Last Admin Trade Name Freq PRN Reason Stop Dose Admin Levofloxacin 750 mg 09/18/22 15:00 09/18/22 16:42 Levofloxacin 750 Mg Tablet PO 09/22/22 09:01 750 mg DAILY NATASHA Administration Medical Decision Making Medical Decision Making [facility] Narrative: Patient is a 67-year-old male with a past medical history of ETOH abuse, delirium tremens, CVA, peripheral artery disease, history of beer potomania, presenting to emergency department intoxicated via EMS. When asking the patient why presented to emergency department today he says ?it is cold and they will let me back at the [facility] until it is less than 10 degrees?. At this time when asked whether patient is interested in detox he states I need a [facility] I can not live outside . Clinically he appears intoxicated, he does endorse drinking a few beers today. Will obtain basic labs, WEBER, ethanol level, and plan to re-evaluate. His only physical complaint at this time is a chronic cough for which she was evaluated for yesterday as well, viral testing was negative, chest x-ray revealing emphysema, not consistent with pneumonia. Lab Data Result Diagrams: 09/18/22 14:36 09/18/22 15:50 Labs: Lab Results 09/18/22 09/18/22 09/18/22 Range/Units 14:36 14:36 14:36 WBC 8.0 (4.8-10.8) X10*3/uL RBC 3.74 L (4.60-5.80) X10*6/uL Hgb 12.4 L (14.0-18.0) g/dl Hct 36.1 L (42.0-52.0) % MCV 96.5 (80.0-98.0) fL MCH 33.2 H (27.0-33.0) pg MCHC 34.3 (31.0-36.0) g/dl RDW 12.5 (11.0-16.0) % Plt Count 252 (160-400) X10*3/uL MPV 9.6 (9.4-12.4) fL Immature Gran % (Auto) 0.3 (0.0-0.4) % Neut % (Auto) 67.6 (45-73) % Lymph % (Auto) 21.5 (20-40) % [place] % (Auto) 7.7 (2-11) % Eos % (Auto) 1.9 (0-4) % Baso % (Auto) 1.0 (0-2) % Lymph # (Auto) 1.7 (1.2-4.9) X10*3/uL [place] # (Auto) 0.6 (0.1-1.2) X10*3/uL Eos # (Auto) 0.2 (0.0-0.4) X10*3/uL Baso # (Auto) 0.1 (0.0-0.2) X10*3/uL Abs Immat Gran (auto) 0.02 (0.00-0.03) X10*3/uL Absolute Neuts (auto) 5.4 (2.0-8.3) x10*3/uL Absolute Nucleated RBC 0.000 (0.0-0.012) X10*3/uL Nucleated RBC % (auto) 0.0 (0.0-0.2) /100WBC Sodium (135-145) mmol/L Potassium (3.3-5.1) mmol/L Chloride (96-108) mmol/L Carbon Dioxide (22-29) mmol/L Anion Gap (12-20) BUN (9-16) mg/dL Creatinine (0.5-1.4) mg/dL Estim Creat Clear Calc Estimated GFR Random Glucose (60-115) mg/dL Calcium (8.4-10.2) mg/dL Total Bilirubin (0.0-1.0) mg/dL AST (5-37) U/L ALT (0-40) U/L Alkaline Phosphatase (39-117) U/L Total Protein (6.5-8.0) g/dL Albumin (3.5-5.0) g/dL Urine Color Yellow Urine Appearance Cloudy Urine pH 6.0 (5.0-9.0) Ur Specific [place] 1.010 (1.005-1.025) Urine Protein Trace (Neg-Trace) mg/dL Urine Glucose (UA) Negative (Negative) mg/dL Urine Ketones Negative (Negative) mg/dL Urine Blood Trace H (Negative) Urine Nitrite Positive H (Negative) Ur Leukocyte Esterase Large (3+) H (Negative) Urine RBC 0-2 (0-2) /HPF Urine WBC >50 H (0-5) /HPF Ur Squamous Epith Cells 0-2 (0-2) /HPF Urine Bacteria 4+ (None Seen) Hyaline Casts 0-2 (0-2) /LPF Urine Opiates Screen (Not Detect) Urine Fentanyl Screen (Not Detect) Ur Barbiturates Screen (Not Detect) Ur Phencyclidine Scrn (Not Detect) Ur Amphetamines Screen (Not Detect) U Benzodiazepines Scrn (Not Detect) Urine Cocaine Screen (Not Detect) U Marijuana (THC) Screen (Not Detect) Ethyl Alcohol mg/dL COVID-19 ([place]) Negative (Negative) COVID-19 Clin Com See Note 09/18/22 09/18/22 Range/Units 14:36 15:50 WBC (4.8-10.8) X10*3/uL RBC (4.60-5.80) X10*6/uL Hgb (14.0-18.0) g/dl Hct (42.0-52.0) % MCV (80.0-98.0) fL MCH (27.0-33.0) pg MCHC (31.0-36.0) g/dl RDW (11.0-16.0) % Plt Count (160-400) X10*3/uL MPV (9.4-12.4) fL Immature Gran % (Auto) (0.0-0.4) % Neut % (Auto) (45-73) % Lymph % (Auto) (20-40) % [place] % (Auto) (2-11) % Eos % (Auto) (0-4) % Baso % (Auto) (0-2) % Lymph # (Auto) (1.2-4.9) X10*3/uL [place] # (Auto) (0.1-1.2) X10*3/uL Eos # (Auto) (0.0-0.4) X10*3/uL Baso # (Auto) (0.0-0.2) X10*3/uL Abs Immat Gran (auto) (0.00-0.03) X10*3/uL Absolute Neuts (auto) (2.0-8.3) x10*3/uL Absolute Nucleated RBC (0.0-0.012) X10*3/uL Nucleated RBC % (auto) (0.0-0.2) /100WBC Sodium 131 L (135-145) mmol/L Potassium 3.5 (3.3-5.1) mmol/L Chloride 101 (96-108) mmol/L Carbon Dioxide 20 L (22-29) mmol/L Anion Gap 14 (12-20) BUN 13 (9-16) mg/dL Creatinine 0.72 (0.5-1.4) mg/dL Estim Creat Clear Calc 95.6 Estimated GFR > 60 Random Glucose 119 H (60-115) mg/dL Calcium 8.7 (8.4-10.2) mg/dL Total Bilirubin 0.3 (0.0-1.0) mg/dL AST 21 (5-37) U/L ALT 11 (0-40) U/L Alkaline Phosphatase 58 (39-117) U/L Total Protein 6.7 (6.5-8.0) g/dL Albumin 3.6 (3.5-5.0) g/dL Urine Color Urine Appearance Urine pH (5.0-9.0) Ur Specific [place] (1.005-1.025) Urine Protein (Neg-Trace) mg/dL Urine Glucose (UA) (Negative) mg/dL Urine Ketones (Negative) mg/dL Urine Blood (Negative) Urine Nitrite (Negative) Ur Leukocyte Esterase (Negative) Urine RBC (0-2) /HPF Urine WBC (0-5) /HPF Ur Squamous Epith Cells (0-2) /HPF Urine Bacteria (None Seen) Hyaline Casts (0-2) /LPF Urine Opiates Screen Not Detected (Not Detect) Urine Fentanyl Screen Not Detected (Not Detect) Ur Barbiturates Screen Not Detected (Not Detect) Ur Phencyclidine Scrn Not Detected (Not Detect) Ur Amphetamines Screen Not Detected (Not Detect) U Benzodiazepines Scrn Not Detected (Not Detect) Urine Cocaine Screen Not Detected (Not Detect) U Marijuana (THC) Screen Not Detected (Not Detect) Ethyl Alcohol 77 mg/dL COVID-19 ([facility]) (Negative) COVID-19 Clin Com Discharge Plan Discharge Clinical Impression: Urinary tract infection, Alcohol intoxication Patient Disposition: Home, Self-Care Instructions: Urinary Tract Infection in Men (ED), Alcohol Use Disorder (ED) Additional Instructions: You have a urinary tract infection, you were given the 1st dose of antibiotic today in the emergency department. A prescription for Levaquin was sent to [facility] on [facility], please complete this entire course of antibiotic to treat the infection. Return to emergency department any new or worsening symptoms or concerns. Prescriptions: New levofloxacin 750 mg tablet 750 mg PO DAILY Qty: 4 0RF No Action folic acid 1 mg Tablet 1 mg PO DAILY Qty: 30 0RF gabapentin 100 mg Capsule 200 mg PO TID Qty: 180 0RF clotrimazole 1 % Cream 1 appl topical BID Qty: 60 0RF Protocol: Apply to: Apply to: feet + other areas of fungal infection thiamine mononitrate (vit B1) 100 mg Tablet 100 mg PO DAILY Qty: 30 0RF Eliquis 5 mg Tablet 5 mg PO BID Qty: 60 0RF Referrals: Physician,Unknown J [Primary Care Provider] -
[2022-09-18 13:26] VITALS: BP 130/60; PULSE 100; RESP 16; TEMP 36.4; O2SAT 97; BMI 23.4
[2022-09-18 14:41] LABS: MANUAL DIFF FLAG NO
[2022-09-18 14:42] LABS: Basophils Absolute Auto 0.1 X10*3/uL (0.0-0.2); Eosinophils Absolute Auto 0.2 X10*3/uL (0.0-0.4); Eosinophils Percent Auto 1.9 % (0-4); Hematocrit 36.1 % (42.0-52.0); Hemoglobin 12.4 g/dl (14.0-18.0); Imm Gran Abs Auto 0.02 X10*3/uL (0.00-0.03); Imm Gran Pct Auto 0.3 % (0.0-0.4); Lymphocytes Absolute Auto 1.7 X10*3/uL (1.2-4.9); Lymphocytes Percent Auto 21.5 % (20-40); Mean Corpuscular HGB Conc 34.3 g/dl (31.0-36.0); Mean Corpuscular Hemoglobin 33.2 pg (27.0-33.0); Mean Corpuscular Volume 96.5 fL (80.0-98.0); Mean Platelet Volume 9.6 fL (9.4-12.4); Monocytes Absolute Auto 0.6 X10*3/uL (0.1-1.2); Monocytes Percent Auto 7.7 % (2-11); Neutrophils Absolute Auto 5.4 x10*3/uL (2.0-8.3); Neutrophils Percent Auto 67.6 % (45-73); Platelet Count 252 X10*3/uL (160-400); Red Blood Count 3.74 X10*6/uL (4.60-5.80); Red Cell Distribution Width 12.5 % (11.0-16.0)
[2022-09-18 14:43] LABS: Appearance Urine Cloudy; Color Urine Yellow; Glucose Urine UA Negative (Negative); Leukocyte Esterase Urine Large (3+) (Negative); Nitrite Urine Positive (Negative); UMIC TRIGGER UACC YES; Urine Blood Trace (Negative); Urine Ketones Negative (Negative); Urine Protein Trace mg/dL (Neg-Trace)
[2022-09-18 14:45] LABS: Bacteria Urine 4+ (None Seen); Hyaline Casts Urine 0-2 /LPF (0-2); RBC Urine 0-2 /HPF (0-2); Squamous Epithelial Cell Urine 0-2 /HPF (0-2); UACC Culture Trigger YES; WBC Urine >50 /HPF (0-5)
[2022-09-18 14:53] LABS: Amphetamine Screen Urine Not Detected (Not Detect); Barbiturates, Urine Not Detected (Not Detect); Benzodiazepines Screen Urine Not Detected (Not Detect); Cannabinoid Screen Urine Not Detected (Not Detect); Cocaine Screen Urine Not Detected (Not Detect); Fentanyl, urine Not Detected (Not Detect); Opiate Screen Urine Not Detected (Not Detect); Phencyclidine Screen Urine Not Detected (Not Detect)
[2022-09-18 15:02] LABS: COVID-19 Test Negative (Negative); IDNOW Serial# 9DB6401D
[2022-09-18 16:26] LABS: Alanine Aminotransferase 11 U/L (0-40); Albumin Level 3.6 g/dL (3.5-5.0); Alkaline Phosphatase 58 U/L (39-117); Anion Gap 14 (12-20); Aspartate Amino Transferase 21 U/L (5-37); Bilirubin Total 0.3 mg/dL (0.0-1.0); Blood Urea Nitrogen 13 mg/dL (9-16); Calcium 8.7 mg/dL (8.4-10.2); Carbon Dioxide 20 mmol/L (22-29); Chloride 101 mmol/L (96-108); Creatinine Clr Calc Pharmacy 95.6; Estimated Glomerular Filt Rate > 60; Ethanol 77 mg/dL; Glucose Random 119 mg/dL (60-115); Potassium 3.5 mmol/L (3.3-5.1); Sodium 131 mmol/L (135-145); Total Protein 6.7 g/dL (6.5-8.0)
--- NOTE | 2022-09-18 18:23 | PC.NURSE ---
This RN spoke to care team and they will try and get a ride to a [facility] for tonight. Provider is aware
--- NOTE | 2022-09-18 20:05 | PC.NURSE ---
Assumed care of patient. No apparent distress. Patient waiting on ride to go to [facility].
--- NOTE | 2022-09-18 20:08 | MHC.CARE ---
Pt transported to [facility] via lyft.
--- NOTE | 2022-09-18 21:23 | PC.NURSE ---
Discharge instructions given to patient and transported by Elizabeth. Patient alert and oriented. Patient ambulates safely and independently. Patient transported to [facility].
== END 2022-09-18 20:30 | disposition home or self-care (01) ==
PROVIDERS: Nurse Practitioner Family; Emergency Provider Student in an Organized Health Care Education/Training Program
DX: F10.129 Alcohol abuse with intoxication, unspecified (principal); Y90.3 Blood alcohol level of 60-79 mg/100 ml; N39.0 Urinary tract infection, site not specified; Z20.822 Contact with and (suspected) exposure to COVID-19; Z79.899 Other long term (current) drug therapy; F17.210 Nicotine dependence, cigarettes, uncomplicated; Z71.6 Tobacco abuse counseling
CPT/HCPCS: 36415; 80053; 80307; 81001; 82077; 85025; 87086; 87088; 87186; 87635; 99284

== ENCOUNTER 2022-09-19 19:34 | Emergency (ER) | payer MEDICAID, SELFPAY ==
[2022-09-19 19:43] VITALS: BP 142/79; PULSE 73; PULSE 77; RESP 17; TEMP 37.3; O2SAT 100; O2SAT 99; BMI 25.0
--- NOTE | 2022-09-19 20:00 | ED.ALCOHOL ---
HPI - Alcohol General Chief Complaint: ETOH/Substance Use Stated Complaint: etoh with difficulty breathing Time Seen by Provider: 09/19/22 19:43 Source: patient and EMS Mode of arrival: EMS Limitations: no limitations History of Present Illness HPI narrative: 67-year-old male presents via EMS for alcohol intoxication. Patient states that he is homeless, and did not make it to the long term in time. MD complaint: alcohol intoxication Last drink: Just prior to admission Chronic alcohol use: Yes Previous visits for alcohol intoxication: Yes Recent trauma: No Associated symptoms: denies other symptoms Treatments prior to arrival: none Related Data Previous Rx's Medication Instructions Recorded apixaban 5 mg tablet (Eliquis) 5 mg PO BID #60 tabs 08/06/21 clotrimazole 1 % topical cream 1 appl topical BID #60 grams 08/06/21 folic acid 1 mg tablet 1 mg PO DAILY #30 tabs 08/06/21 gabapentin 100 mg capsule 200 mg PO TID #180 caps 08/06/21 thiamine mononitrate (vit B1) 100 100 mg PO DAILY #30 tabs 08/06/21 mg tablet levofloxacin 750 mg tablet 750 mg PO DAILY #4 tabs 09/18/22 Allergies Allergy/AdvReac Type Severity Reaction Status Date / Time No Known Allergies Allergy Unknown UNKNOWN Verified 09/08/20 17:05 [NO KNOWN ALLERGIES] Review of Systems Review of Systems: Constitutional: No Fever, No Chills Cardiovascular: No Chest Pain, No SOB Respiratory: Positive Cough, No Sputum Gastrointestinal: No Nausea, No Vomiting, No Diarrhea, No abdominal Pain Genitourinary: No Dysuria, No Hematuria Musculoskeletal: No joint pain, No Myalgias, No Joint Swelling Skin: No Skin Lesions, No rash Neuro: No Weakness, No Numbness, No Loss of Consciousness, No Dizziness, No Headache Psych: Positive alcohol abuse, No Anxiety, No Depression, No SI/HI/AH/VH Yes all other systems are reviewed and are negative PMFSH Past Medical History Attestation statement: The following information was validated with the patient. Source: old records reviewed Medical History Acute hyponatremia Alcohol abuse Alcoholic intoxication CVA (cerebral vascular accident) Delirium tremens Encounter for assessment of decision-making capacity Fall Hard of hearing Hyponatremia Injury of right lower arm PAD (peripheral artery disease) Social History Social History Household Members: None Housing: Homeless Alcohol intake: current Alcohol intake frequency: 0-2 drinks per day Alcohol type: beer Patient Tobacco Use Status: Current everyday Tobacco user Advance Directives: No Advance Directives Information Provided: No service: No Current occupational status: unemployed Physical Exam ED Vital Signs: Vital Signs - 24 hr 09/19/22 19:43 09/19/22 22:11 Temperature 99.2 F Pulse Rate 77 87 Respiratory Rate 17 16 Blood Pressure 142/79 H Pulse Oximetry 100 99 Oxygen Delivery Method Room Air Room Air BMI result Body Mass Index 25.0 Appearance: Alert. Oriented X3. Intoxicated. Eyes: Pupils equal, round and reactive to light. ENT: Pharynx normal. Neck: Normal inspection. Neck supple. CVS: Normal heart rate and rhythm. Pulses normal. Respiratory: No respiratory distress. Breath sounds normal. Abdomen: Soft and nontender. Skin: Skin warm and dry. Normal skin color. Normal skin turgor. Extremities: No lower extremity edema. Gait balance and coordinated. Neuro: No motor deficit. No sensory deficit. Cranial nerves 2-12 intact. Course Course Course Narrative: 67-year-old male presents via EMS for alcohol intoxication. He was picked up at a liquor store in [place]. Patient did not make it to the long term before they stopped accepting patients. Called 911 and asked to come to the emergency department because he did not have a place to stay. Patient is intoxicated, declines detox at this time. Plan of care is to discharge in the morning. Metabolized to [place]. Medical Decision Making Differential Diagnosis Differential Diagnoses: The differential diagnosis associated with the presentation includes Alcohol intoxication, homelessness Independent Historian Clinical information obtained from an independent historian. History obtained from or confirmed by: EMS External Record Review External record reviewed: Inpatient record and Outpatient record Chronic Conditions Patient?s care impacted by: Other (Homelessness, alcoholism) Social Determinants Patient?s care significantly limited by Social Determinants of Health including: Inadequate housing Discharge Plan Discharge Clinical Impression: Alcoholic intoxication Patient Disposition: Home, Self-Care Instructions: Alcohol Intoxication (ED) Additional Instructions: Consider detox. Thank you for choosing this emergency department for evaluation. Please follow-up with primary care physician as needed. Return to the emergency department for any new, concerning, or worsening symptoms. Prescriptions: No Action folic acid 1 mg Tablet 1 mg PO DAILY Qty: 30 0RF gabapentin 100 mg Capsule 200 mg PO TID Qty: 180 0RF clotrimazole 1 % Cream 1 appl topical BID Qty: 60 0RF Protocol: Apply to: Apply to: feet + other areas of fungal infection thiamine mononitrate (vit B1) 100 mg Tablet 100 mg PO DAILY Qty: 30 0RF Eliquis 5 mg Tablet 5 mg PO BID Qty: 60 0RF levofloxacin 750 mg tablet 750 mg PO DAILY Qty: 4 0RF Interventions: [place]-Suicide Risk Severity Scale Last Done: 09/19/22 22:11
[2022-09-19 22:11] VITALS: PULSE 87; RESP 16; O2SAT 99
--- NOTE | 2022-09-19 22:18 | PC.NURSE ---
pt continues to rest on stretcher in no apparent distress
--- NOTE | 2022-09-20 03:47 | PC.NURSE ---
Pt assisted to restroom, pt then given reece ivette.
--- NOTE | 2022-09-20 06:40 | PC.NURSE ---
pt continuos on sleeping, respirations even and unlabored, in no apparent distress at this time
== END 2022-09-20 07:23 | disposition home or self-care (01) ==
PROVIDERS: Emergency Provider Internal Medicine
DX: F10.220 Alcohol dependence with intoxication, uncomplicated (principal); F17.200 Nicotine dependence, unspecified, uncomplicated; Y90.9 Presence of alcohol in blood, level not specified
CPT/HCPCS: 99282; 99284

== ENCOUNTER 2022-09-20 21:02 | Emergency (ER) | payer MEDICAID, SELFPAY ==
--- NOTE | 2022-09-20 21:08 | ED.ALCOHOL ---
HPI - Alcohol General Chief Complaint: ETOH/Substance Use Stated Complaint: ETOH INTOX,C/O DIFF BREATHING PER EMS Time Seen by Provider: 09/20/22 21:08 Source: patient and EMS Mode of arrival: EMS Limitations: no limitations History of Present Illness HPI narrative: 67-year-old male presents via EMS for alcohol intoxication. He is homeless, and missed the cutoff time to enter the homeless nursing home. MD complaint: alcohol intoxication Last drink: Just prior to admission Chronic alcohol use: Yes Previous visits for alcohol intoxication: Yes Recent trauma: No Associated symptoms: denies other symptoms Treatments prior to arrival: none Related Data Previous Rx's Medication Instructions Recorded apixaban 5 mg tablet (Eliquis) 5 mg PO BID #60 tabs 08/06/21 clotrimazole 1 % topical cream 1 appl topical BID #60 grams 08/06/21 folic acid 1 mg tablet 1 mg PO DAILY #30 tabs 08/06/21 gabapentin 100 mg capsule 200 mg PO TID #180 caps 08/06/21 thiamine mononitrate (vit B1) 100 100 mg PO DAILY #30 tabs 08/06/21 mg tablet levofloxacin 750 mg tablet 750 mg PO DAILY #4 tabs 09/18/22 Allergies Allergy/AdvReac Type Severity Reaction Status Date / Time No Known Allergies Allergy Unknown UNKNOWN Verified 09/08/20 17:05 [NO KNOWN ALLERGIES] Review of Systems Review of Systems: Constitutional: No Fever, No Chills ENT/Mouth: No sore throat, No Rhinorrhea Eyes: No Eye Pain, No Swelling, No Redness Cardiovascular: No Chest Pain, No SOB Respiratory: Positive Cough, No Sputum Gastrointestinal: No Nausea, No Vomiting, No Diarrhea, No abdominal Pain Genitourinary: No Dysuria, No Hematuria Musculoskeletal: No joint pain, No Myalgias, No Joint Swelling Skin: No Skin Lesions, No rash Neuro: No Weakness, No Numbness No Dizziness, No Headache Psych: Intoxicated, No Anxiety, No Depression, No SI/HI/AH/VH Yes all other systems are reviewed and are negative PMFSH Past Medical History Attestation statement: The following information was validated with the patient. Source: old records reviewed Medical History Acute hyponatremia Alcohol abuse Alcoholic intoxication CVA (cerebral vascular accident) Delirium tremens Encounter for assessment of decision-making capacity Fall Hard of hearing Hyponatremia Injury of right lower arm PAD (peripheral artery disease) Social History Social History Household Members: None Housing: Homeless Alcohol intake: current Alcohol intake frequency: 0-2 drinks per day Alcohol type: beer Patient Tobacco Use Status: Current everyday Tobacco user Advance Directives: No Advance Directives Information Provided: No service: No Current occupational status: unemployed Physical Exam ED Vital Signs: Vital Signs - 24 hr 09/20/22 21:53 09/20/22 22:21 Temperature 97.4 F 98.1 F Pulse Rate 94 83 Respiratory Rate 16 18 Blood Pressure 140/63 H Pulse Oximetry 94 95 Oxygen Delivery Method Room Air Room Air BMI result Body Mass Index 21.9 Appearance: Alert. Oriented X3. Intoxicated. Disheveled Eyes: Pupils equal, round and reactive to light. ENT: Pharynx normal. Neck: Normal inspection. Neck supple. CVS: Normal heart rate and rhythm. Pulses normal. Respiratory: No respiratory distress. Breath sounds normal. Skin: Skin warm and dry. Normal skin color. Normal skin turgor. Extremities: Gait awkward but balanced. Neuro: No motor deficit. No sensory deficit. Cranial nerves 2-12 intact. Course Course Course Narrative: 67-year-old male presents via EMS for alcohol intoxication. Missed the cutoff time for admission to the homeless nursing home. 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 Plan of care is to discharge in the morning and metabolized [facility]. 23:00 patient is yelling at people, swearing, patient was reminded that he was in hospital and to mind his manners 01:30 patient is swearing at people, through his urine on the floor, exposed his penis to other patients. Patient is not here for medical complaints, he is here because he is homeless and missed the homeless nursing home cutoff time. Patient will be discharged at this time. Medical Decision Making Differential Diagnosis Differential Diagnoses: The differential diagnosis associated with the presentation includes Alcohol intoxication, homelessness Lab Data MDM Lab Attestation statement: I reviewed the patient's lab results. External Record Review External record reviewed: Outpatient record Social Determinants Patient?s care significantly limited by Social Determinants of Health including: Inadequate housing Discharge Plan Discharge Clinical Impression: Alcoholic intoxication Patient Disposition: Home, Self-Care Instructions: Abuse of Alcohol (ED) Additional Instructions: Consider detox. Thank you for choosing this emergency department for evaluation. Please follow-up with primary care physician as needed. Return to the emergency department for any new, concerning, or worsening symptoms. Prescriptions: No Action folic acid 1 mg Tablet 1 mg PO DAILY Qty: 30 0RF gabapentin 100 mg Capsule 200 mg PO TID Qty: 180 0RF clotrimazole 1 % Cream 1 appl topical BID Qty: 60 0RF Protocol: Apply to: Apply to: feet + other areas of fungal infection thiamine mononitrate (vit B1) 100 mg Tablet 100 mg PO DAILY Qty: 30 0RF Eliquis 5 mg Tablet 5 mg PO BID Qty: 60 0RF levofloxacin 750 mg tablet 750 mg PO DAILY Qty: 4 0RF Interventions: [place]-Suicide Risk Severity Scale Last Done: 09/20/22 22:09
[2022-09-20 21:53] VITALS: PULSE 94; RESP 16; TEMP 36.3; O2SAT 94; BMI 21.9
[2022-09-20 22:21] VITALS: BP 140/63; PULSE 83; RESP 18; TEMP 36.7; O2SAT 95
--- NOTE | 2022-09-20 23:30 | PC.NURSE ---
pt in and out of sleep in the hallway, no apparent distress at this time
== END 2022-09-21 01:42 | disposition home or self-care (01) ==
PROVIDERS: Emergency Provider Internal Medicine
DX: F10.129 Alcohol abuse with intoxication, unspecified (principal); Y90.9 Presence of alcohol in blood, level not specified; R06.02 Shortness of breath; Z79.01 Long term (current) use of anticoagulants; Z79.899 Other long term (current) drug therapy; F17.200 Nicotine dependence, unspecified, uncomplicated; Z71.6 Tobacco abuse counseling
CPT/HCPCS: 99282; 99284

== ENCOUNTER 2022-10-10 18:04 | Emergency (ER) | payer MEDICAID, SELFPAY ==
--- NOTE | ~2022-10-10 | XR_ITS ---
EXAMINATION: XR CHEST CLINICAL INFORMATION: Cough. COMPARISON: Chest x-ray 09/17/2022 TECHNIQUE: Frontal view of the chest was obtained. FINDINGS: No significant abnormality is noted involving the heart, lungs, mediastinum, bony thorax or soft tissues. There is old healed fractures right lower lateral ribs. XR/XR chest 1V IMPRESSION: Unremarkable chest examination.
[2022-10-10 18:11] VITALS: TEMP 37; BMI 29.0
--- NOTE | 2022-10-10 18:48 | ED_ITS ---
HPI - General Adult General Chief complaint: ETOH/Substance Use Stated complaint: SOB &ETOH Time Seen by Provider: 10/10/22 18:23 Source: patient Mode of arrival: ambulatory Limitations: no limitations History of Present Illness HPI narrative: Patient with chronic cough complaining of increased shortness of breath and coughing for last few days been here multiple times also patient had alcohol drinks prior to arrival states he does not feel good , sputum is mostly mucoid , slightly blood tinged Related Data Previous Rx's Medication Instructions Recorded apixaban 5 mg tablet (Eliquis) 5 mg PO BID #60 tabs 08/06/21 clotrimazole 1 % topical cream 1 appl topical BID #60 grams 08/06/21 folic acid 1 mg tablet 1 mg PO DAILY #30 tabs 08/06/21 gabapentin 100 mg capsule 200 mg PO TID #180 caps 08/06/21 thiamine mononitrate (vit B1) 100 100 mg PO DAILY #30 tabs 08/06/21 mg tablet levofloxacin 750 mg tablet 750 mg PO DAILY #4 tabs 09/18/22 albuterol sulfate 90 mcg/actuation 2 puff inhalation Q4-6H PRN 10/10/22 aerosol inhaler (ProAir HFA) shortness of breath or wheezing #8.5 grams doxycycline hyclate 100 mg tablet 100 mg PO BID #20 tabs 10/10/22 Allergies Allergy/AdvReac Type Severity Reaction Status Date / Time No Known Allergies Allergy Unknown UNKNOWN Verified 09/08/20 17:05 [NO KNOWN ALLERGIES] Review of Systems Review of Systems: Yes all other systems are reviewed and are negative PMFSH Past Medical History Medical History Acute hyponatremia Alcohol abuse Alcoholic intoxication CVA (cerebral vascular accident) Delirium tremens Encounter for assessment of decision-making capacity Fall Hard of hearing Hyponatremia Injury of right lower arm PAD (peripheral artery disease) Social History Social History Household Members: None Housing: Homeless Alcohol intake: current Alcohol intake frequency: 3 or more drinks per day Alcohol type: beer, wine and hard liquor Patient Tobacco Use Status: Current everyday Tobacco user Smoked in Last 30 Days: Yes Use of substances other than those prescribed or required for medical reasons: No Advance Directives: No Advance Directives Information Provided: No service: No Current occupational status: unemployed Physical Exam ED Vital Signs: Vital Signs - 24 hr 10/10/22 18:11 10/10/22 19:26 10/10/22 23:34 Temperature 98.6 F 97.7 F Pulse Rate 79 65 Respiratory Rate 18 15 Blood Pressure 135/76 126/86 Pulse Oximetry 99 97 Oxygen Delivery Method Room Air Room Air BMI result Body Mass Index 29.0 Appearance: Alert. Oriented X3. No acute distress. etoh + frequent cough+unkept condition Eyes: PERRLA, ENT: Pharynx normal. Oral Mucosa moist Neck: Normal inspection. Neck supple. CVS: Normal heart rate and rhythm. Pulses normal. Respiratory: No respiratory distress. Equal air entry bilateral, prolonged expiration Abdomen: Soft and nontender. Bowel sounds are present, no mass palpable, no CVA tenderness Skin: Skin warm and dry. Normal skin color. Normal skin turgor. Extremities: No lower extremity edema. No calf tenderness Neuro: Oriented X 3. No motor deficit. No sensory deficit.No cerebellar signs , cranial nerves II-XII intact Medications Administered Discontinued Medications Generic Name Dose Route Start Last Admin Trade Name Freq PRN Reason Stop Dose Admin Albuterol Sulfate 2.5 mg/ 0 mg 10/10/22 18:49 10/10/22 19:51 Ipratropium [place] 0.5 mg INHALE 10/10/22 18:50 1 each ONCE ONE Administration Medical Decision Making Medical Decision Making [facility] Narrative: Patient alcoholic with acute bronchitis discharge patient home on doxycycline inhaler chest x-ray negative lab Lab Data [facility] Lab Attestation statement: I reviewed the patient's lab results. 10/10/22 21:06 10/10/22 21:06 Labs: Lab Results 10/10/22 10/10/22 10/10/22 Range/Units 21:06 21:06 21:06 WBC 6.5 (4.8-10.8) X10*3/uL RBC 3.81 L (4.60-5.80) X10*6/uL Hgb 12.8 L (14.0-18.0) g/dl Hct 35.3 L (42.0-52.0) % MCV 92.7 (80.0-98.0) fL MCH 33.6 H (27.0-33.0) pg MCHC 36.3 H (31.0-36.0) g/dl RDW 11.9 (11.0-16.0) % Plt Count 234 (160-400) X10*3/uL MPV 9.3 L (9.4-12.4) fL Immature Gran % (Auto) 0.2 (0.0-0.4) % Neut % (Auto) 49.3 (45-73) % Lymph % (Auto) 35.8 (20-40) % [place] % (Auto) 8.9 (2-11) % Eos % (Auto) 4.1 H (0-4) % Baso % (Auto) 1.7 (0-2) % Lymph # (Auto) 2.3 (1.2-4.9) X10*3/uL [place] # (Auto) 0.6 (0.1-1.2) X10*3/uL Eos # (Auto) 0.3 (0.0-0.4) X10*3/uL Baso # (Auto) 0.1 (0.0-0.2) X10*3/uL Abs Immat Gran (auto) 0.01 (0.00-0.03) X10*3/uL Absolute Neuts (auto) 3.2 (2.0-8.3) x10*3/uL Absolute Nucleated RBC 0.000 (0.0-0.012) X10*3/uL Nucleated RBC % (auto) 0.0 (0.0-0.2) /100WBC PT 11.4 (10.0-13.1) SEC INR 1.0 (0.9-1.1) Sodium (135-145) mmol/L Potassium (3.3-5.1) mmol/L Chloride (96-108) mmol/L Carbon Dioxide (22-29) mmol/L Anion Gap (12-20) BUN (9-16) mg/dL Creatinine (0.5-1.4) mg/dL Estim Creat Clear Calc Estimated GFR Random Glucose (60-115) mg/dL Lactic Acid (0.5-2.0) mmol/L Calcium (8.4-10.2) mg/dL Magnesium (1.6-2.6) mg/dL Total Bilirubin (0.0-1.0) mg/dL AST (5-37) U/L ALT (0-40) U/L Alkaline Phosphatase (39-117) U/L Total Protein (6.5-8.0) g/dL Albumin (3.5-5.0) g/dL Ethyl Alcohol mg/dL Influenza Type A (PCR) NEGATIVE (Negative) Influenza Type B (PCR) NEGATIVE (Negative) RSV RNA Qual (PCR) NEGATIVE (Negative) SARS-CoV-2 RNA (RT-PCR) NEGATIVE (Negative) 10/10/22 10/10/22 10/10/22 Range/Units 21:06 21:06 21:06 WBC (4.8-10.8) X10*3/uL RBC (4.60-5.80) X10*6/uL Hgb (14.0-18.0) g/dl Hct (42.0-52.0) % MCV (80.0-98.0) fL MCH (27.0-33.0) pg MCHC (31.0-36.0) g/dl RDW (11.0-16.0) % Plt Count (160-400) X10*3/uL MPV (9.4-12.4) fL Immature Gran % (Auto) (0.0-0.4) % Neut % (Auto) (45-73) % Lymph % (Auto) (20-40) % [place] % (Auto) (2-11) % Eos % (Auto) (0-4) % Baso % (Auto) (0-2) % Lymph # (Auto) (1.2-4.9) X10*3/uL [place] # (Auto) (0.1-1.2) X10*3/uL Eos # (Auto) (0.0-0.4) X10*3/uL Baso # (Auto) (0.0-0.2) X10*3/uL Abs Immat Gran (auto) (0.00-0.03) X10*3/uL Absolute Neuts (auto) (2.0-8.3) x10*3/uL Absolute Nucleated RBC (0.0-0.012) X10*3/uL Nucleated RBC % (auto) (0.0-0.2) /100WBC PT (10.0-13.1) SEC INR (0.9-1.1) Sodium 129 L (135-145) mmol/L Potassium 3.8 (3.3-5.1) mmol/L Chloride 94 L (96-108) mmol/L Carbon Dioxide 24 (22-29) mmol/L Anion Gap 15 (12-20) BUN 9 (9-16) mg/dL Creatinine 0.71 (0.5-1.4) mg/dL Estim Creat Clear Calc 104.0 Estimated GFR > 60 Random Glucose 90 (60-115) mg/dL Lactic Acid 1.2 (0.5-2.0) mmol/L Calcium 9.0 (8.4-10.2) mg/dL Magnesium 1.8 (1.6-2.6) mg/dL Total Bilirubin 0.3 (0.0-1.0) mg/dL AST 20 (5-37) U/L ALT 9 (0-40) U/L Alkaline Phosphatase 57 (39-117) U/L Total Protein 6.9 (6.5-8.0) g/dL Albumin 3.7 (3.5-5.0) g/dL Ethyl Alcohol 100 mg/dL Influenza Type A (PCR) (Negative) Influenza Type B (PCR) (Negative) RSV RNA Qual (PCR) (Negative) SARS-CoV-2 RNA (RT-PCR) (Negative) Discharge Plan Discharge Clinical Impression: Acute bronchitis, Alcoholic intoxication Patient Disposition: Home, Self-Care Instructions: Acute Bronchitis (ED), Abuse of Alcohol (ED) Additional Instructions: Take antibiotic as prescribed Use inhaler 2 puffs every 4-6 hours Follows up with PCP Prescriptions: New albuterol sulfate [ProAir HFA] 90 mcg/actuation HFA aerosol inhaler 2 puff inhalation Q4-6H PRN (Reason: shortness of breath or wheezing) Qty: 8.5 0RF doxycycline hyclate 100 mg tablet 100 mg PO BID Qty: 20 0RF No Action folic acid 1 mg Tablet 1 mg PO DAILY Qty: 30 0RF gabapentin 100 mg Capsule 200 mg PO TID Qty: 180 0RF clotrimazole 1 % Cream 1 appl topical BID Qty: 60 0RF Protocol: Apply to: Apply to: feet + other areas of fungal infection thiamine mononitrate (vit B1) 100 mg Tablet 100 mg PO DAILY Qty: 30 0RF Eliquis 5 mg Tablet 5 mg PO BID Qty: 60 0RF levofloxacin 750 mg tablet 750 mg PO DAILY Qty: 4 0RF Interventions: Kin[place]-Suicide Risk Severity Scale Last Done: 10/10/22 18:17
[2022-10-10 19:26] VITALS: BP 135/76; PULSE 79; RESP 18; TEMP 36.5; O2SAT 99
[2022-10-10 21:11] LABS: MANUAL DIFF FLAG NO
[2022-10-10 21:13] LABS: Basophils Absolute Auto 0.1 X10*3/uL (0.0-0.2); Basophils Percent Auto 1.7 % (0-2); Eosinophils Absolute Auto 0.3 X10*3/uL (0.0-0.4); Eosinophils Percent Auto 4.1 % (0-4); Hematocrit 35.3 % (42.0-52.0); Hemoglobin 12.8 g/dl (14.0-18.0); Imm Gran Abs Auto 0.01 X10*3/uL (0.00-0.03); Imm Gran Pct Auto 0.2 % (0.0-0.4); Lymphocytes Absolute Auto 2.3 X10*3/uL (1.2-4.9); Lymphocytes Percent Auto 35.8 % (20-40); Mean Corpuscular HGB Conc 36.3 g/dl (31.0-36.0); Mean Corpuscular Hemoglobin 33.6 pg (27.0-33.0); Mean Corpuscular Volume 92.7 fL (80.0-98.0); Mean Platelet Volume 9.3 fL (9.4-12.4); Monocytes Absolute Auto 0.6 X10*3/uL (0.1-1.2); Monocytes Percent Auto 8.9 % (2-11); Neutrophils Absolute Auto 3.2 x10*3/uL (2.0-8.3); Neutrophils Percent Auto 49.3 % (45-73); Platelet Count 234 X10*3/uL (160-400); Red Blood Count 3.81 X10*6/uL (4.60-5.80); Red Cell Distribution Width 11.9 % (11.0-16.0); White Blood Count 6.5 X10*3/uL (4.8-10.8)
--- NOTE | 2022-10-10 21:14 | PC.NURSE ---
report received from SHELBY Hays pt is alert and oriented, pleasant resting in bed comfortably, sitter by bedside snack provided. breathing equally unlabored
[2022-10-10 21:18] LABS: Prothrombin Time 11.4 SEC (10.0-13.1)
[2022-10-10 21:33] LABS: Lactic Acid 1.2 mmol/L (0.5-2.0)
[2022-10-10 21:34] LABS: Ethanol 100 mg/dL
[2022-10-10 21:37] LABS: Alanine Aminotransferase 9 U/L (0-40); Albumin Level 3.7 g/dL (3.5-5.0); Alkaline Phosphatase 57 U/L (39-117); Anion Gap 15 (12-20); Aspartate Amino Transferase 20 U/L (5-37); Bilirubin Total 0.3 mg/dL (0.0-1.0); Blood Urea Nitrogen 9 mg/dL (9-16); Carbon Dioxide 24 mmol/L (22-29); Chloride 94 mmol/L (96-108); Estimated Glomerular Filt Rate > 60; Glucose Random 90 mg/dL (60-115); Magnesium 1.8 mg/dL (1.6-2.6); Potassium 3.8 mmol/L (3.3-5.1); Sodium 129 mmol/L (135-145); Total Protein 6.9 g/dL (6.5-8.0)
[2022-10-10 21:59] LABS: Influenza A PCR NEGATIVE (Negative); Influenza B PCR NEGATIVE (Negative); Resp Syncy Virus RNA Qual PCR NEGATIVE (Negative); SARS COV2 PCR INHOUSE NEGATIVE (Negative)
[2022-10-10 23:34] VITALS: BP 126/86; PULSE 65; RESP 15; O2SAT 97
[2022-10-10] MEDS: Doxycycline Monohydrate 100 MG CAPSULE PO (23:51)
--- NOTE | 2022-10-11 00:04 | PC.NURSE ---
Pt medicated as ordered. Pt tolerated wlll. Discharge instructions reviewed with pt. Pt is upset at the bedside reporting not wanting to leave at this time. Security at bedside to assist with escorting pt.
== END 2022-10-11 00:06 | disposition home or self-care (01) ==
PROVIDERS: Emergency Provider Internal Medicine
DX: J20.9 Acute bronchitis, unspecified (principal); F10.220 Alcohol dependence with intoxication, uncomplicated; Y90.5 Blood alcohol level of 100-119 mg/100 ml; R06.02 Shortness of breath; Z20.822 Contact with and (suspected) exposure to COVID-19; Z20.828 Contact with and (suspected) exposure to other viral communicable diseases; F17.200 Nicotine dependence, unspecified, uncomplicated
CPT/HCPCS: 0241U; 36415; 71045; 80053; 82077; 83605; 83735; 85025; 85610; 99284

== ENCOUNTER 2022-10-18 20:47 | Emergency (ER) | payer MEDICAID, SELFPAY ==
--- NOTE | ~2022-10-18 | XR_ITS ---
EXAMINATION: XR CHEST CLINICAL INFORMATION: Shortness of breath COMPARISON: Chest x-ray 10/10/2022 TECHNIQUE: Frontal portable view of the chest was obtained. 2157 hours FINDINGS: Hazy airspace opacity at the mid lower left lung. Right lung normally aerated. No pleural effusion. Heart size is normal. No pulmonary vascular. Multiple healed right-sided rib fractures. Multilevel degenerative spondylosis of the spine. XR/XR chest 1V IMPRESSION: Hazy airspace opacity at the mid and lower left lung. This is concerning for pneumonia.
--- NOTE | 2022-10-18 21:31 | ED_ITS ---
HPI - Alcohol General Chief Complaint: ETOH/Substance Use Stated Complaint: etoh Time Seen by Provider: 10/18/22 21:27 Source: patient and EMS Mode of arrival: EMS History of Present Illness HPI narrative: Patient alcoholic comes here intoxicated coughing the ER was seen here on 10/10 for same prescribed doxycycline but he never filled up chest x-ray was negative COVID was negative patient is a frequent ED visits for same Related Data Previous Rx's Medication Instructions Recorded apixaban 5 mg tablet (Eliquis) 5 mg PO BID #60 tabs 08/06/21 clotrimazole 1 % topical cream 1 appl topical BID #60 grams 08/06/21 folic acid 1 mg tablet 1 mg PO DAILY #30 tabs 08/06/21 gabapentin 100 mg capsule 200 mg PO TID #180 caps 08/06/21 thiamine mononitrate (vit B1) 100 100 mg PO DAILY #30 tabs 08/06/21 mg tablet levofloxacin 750 mg tablet 750 mg PO DAILY #4 tabs 09/18/22 albuterol sulfate 90 mcg/actuation 2 puff inhalation Q4-6H PRN 10/10/22 aerosol inhaler (ProAir HFA) shortness of breath or wheezing #8.5 grams doxycycline hyclate 100 mg tablet 100 mg PO BID #20 tabs 10/10/22 Allergies Allergy/AdvReac Type Severity Reaction Status Date / Time No Known Allergies Allergy Unknown UNKNOWN Verified 09/08/20 17:05 [NO KNOWN ALLERGIES] Review of Systems Review of Systems: Yes all other systems are reviewed and are negative PMFSH Past Medical History Medical History Acute hyponatremia Alcohol abuse Alcoholic intoxication CVA (cerebral vascular accident) Delirium tremens Encounter for assessment of decision-making capacity Fall Hard of hearing Hyponatremia Injury of right lower arm PAD (peripheral artery disease) Social History Social History Household Members: None Housing: Homeless Alcohol intake: current Alcohol intake frequency: 3 or more drinks per day Alcohol type: beer, wine and hard liquor Patient Tobacco Use Status: Current everyday Tobacco user Use of substances other than those prescribed or required for medical reasons: Unknown Advance Directives: No Advance Directives Information Provided: No service: No Current occupational status: unemployed Physical Exam ED Vital Signs: Vital Signs - 24 hr 10/18/22 23:49 10/19/22 03:23 10/19/22 05:45 Temperature 99 F 98 F 98 F Pulse Rate 105 H 96 100 Respiratory Rate 13 14 14 Blood Pressure 123/65 121/61 139/74 Pulse Oximetry 93 93 92 Oxygen Delivery Method Nasal Cannula Nasal Cannula Room Air Oxygen Flow Rate 2 2 Appearance: Alert. Oriented X3. No acute distress. Intoxicated un kept coughing frequently Eyes: PERRLA, No Nystagmus ENT: Pharynx normal. Oral Mucosa moist Neck: Normal inspection. Neck supple. CVS: Normal heart rate and rhythm. Pulses normal. Respiratory: No respiratory distress. Equal air entry bilateral, prolonged expiration with rhonchi Abdomen: Soft and nontender. Bowel sounds are present, no mass palpable, no CVA tenderness Skin: Skin warm and dry. Normal skin color. Normal skin turgor. Extremities: No lower extremity edema. No calf tenderness Neuro: Oriented X 3. No motor deficit. No sensory deficit.No cerebellar signs , cranial nerves II-XII intact Medical Decision Making Medical Decision Making [facility] Narrative: Patient ambulated in the ER will discharge patient home advised to continue inhaler and antibiotics Lab Data [facility] Lab Attestation statement: I reviewed the patient's lab results. Labs: Lab Results 10/19/22 Range/Units 00:10 Influenza Type A (PCR) NEGATIVE (Negative) Influenza Type B (PCR) NEGATIVE (Negative) RSV RNA Qual (PCR) NEGATIVE (Negative) SARS-CoV-2 RNA (RT-PCR) NEGATIVE (Negative) Medications Administered Discontinued Medications Generic Name Dose Route Start Last Admin Trade Name Ronal PRN Reason Stop Dose Admin Albuterol Sulfate 4 puff 10/18/22 23:04 10/18/22 23:18 Albuterol Sulfate 90 Mcg 8 Gm Inhaler INHALE 10/18/22 23:05 4 puff ONCE ONE Administration Albuterol/Ipratropium 3 ml 10/18/22 21:45 10/18/22 21:58 Albuterol/Iprat 2.5/0.5mg 3 Ml Ampul.Neb INHALE 10/18/22 21:46 3 ml ONCE ONE Administration Benzonatate 200 mg 10/18/22 23:01 10/19/22 00:29 Benzonatate 100 Mg Capsule PO 10/18/22 23:02 200 mg ONCE ONE Administration Levofloxacin 750 mg 10/18/22 23:01 10/19/22 00:30 Levofloxacin 750 Mg Tablet PO 10/18/22 23:02 750 mg ONCE ONE Administration Discharge Plan Discharge Clinical Impression: Alcohol use disorder, severe, dependence Patient Disposition: Home, Self-Care Instructions: Alcohol Use Disorder (ED) Additional Instructions: Follow-up with detox Prescriptions: No Action albuterol sulfate [ProAir HFA] 90 mcg/actuation HFA aerosol inhaler 2 puff inhalation Q4-6H PRN (Reason: shortness of breath or wheezing) Qty: 8.5 0RF doxycycline hyclate 100 mg tablet 100 mg PO BID Qty: 20 0RF folic acid 1 mg Tablet 1 mg PO DAILY Qty: 30 0RF gabapentin 100 mg Capsule 200 mg PO TID Qty: 180 0RF clotrimazole 1 % Cream 1 appl topical BID Qty: 60 0RF Protocol: Apply to: Apply to: feet + other areas of fungal infection thiamine mononitrate (vit B1) 100 mg Tablet 100 mg PO DAILY Qty: 30 0RF Eliquis 5 mg Tablet 5 mg PO BID Qty: 60 0RF levofloxacin 750 mg tablet 750 mg PO DAILY Qty: 4 0RF Interventions: [place]-Suicide Risk Severity Scale Last Done: 10/19/22 05:14
[2022-10-18] MEDS: Albuterol/Iprat 2.5/0.5MG 3 ML AMPUL.NEB INHALE (21:58)
[2022-10-18] MEDS: Albuterol Sulfate 90 MCG 8 GM INHALER 4 PUFF INHALE (23:18)
[2022-10-18 23:22] VITALS: O2SAT 93
[2022-10-18 23:49] VITALS: BP 123/65; PULSE 105; RESP 13; TEMP 37.2; O2SAT 93
--- NOTE | 2022-10-18 23:49 | MHC.EDTECH ---
PT refused getting changed over into a gown. Pt placed on 2l oxygen per SHELBY Bautista request. Pt given warm blankets
--- NOTE | 2022-10-19 | PC.NURSE ---
upon arrival pt was coughing persistently and spitting up phlegm; stated he couldn't hear when being asked some questions, became rude with staff when they were attempting to initiate breathing treatments and refused treatment
[2022-10-19] MEDS: Benzonatate 100 MG CAPSULE 200 MG PO (00:29)
[2022-10-19] MEDS: levoFLOXacin 750 MG TABLET PO (00:30)
--- NOTE | 2022-10-19 00:32 | PC.NURSE ---
administered meds per MAR
[2022-10-19 00:53] LABS: Influenza A PCR NEGATIVE (Negative); Influenza B PCR NEGATIVE (Negative); Resp Syncy Virus RNA Qual PCR NEGATIVE (Negative); SARS COV2 PCR INHOUSE NEGATIVE (Negative)
[2022-10-19 03:23] VITALS: BP 121/61; PULSE 96; RESP 14; TEMP 36.6; O2SAT 93
--- NOTE | 2022-10-19 03:24 | MHC.EDTECH ---
Pt soiled with urine. Pt refused changing out of soiled pants and wants to keep them on. Pt only allowed for bed linen to be changed.Pt bed linen changed. Pt given warm blankets/sandwich and reece ivette
--- NOTE | 2022-10-19 05:39 | PC.NURSE ---
pt sleeping, no apparent distress; has cough occasionally; tessalon effective
[2022-10-19 05:45] VITALS: BP 139/74; PULSE 100; RESP 14; TEMP 36.6; O2SAT 92
--- NOTE | 2022-10-19 05:51 | PC.NURSE ---
discharge instructions given/explained, ambulates safely/independently, alert and oriented, all questions answered, no apparent distress
== END 2022-10-19 05:50 | disposition home or self-care (01) ==
PROVIDERS: Emergency Provider Internal Medicine
DX: F10.29 Alcohol dependence with unspecified alcohol-induced disorder (principal); Y90.9 Presence of alcohol in blood, level not specified; Z20.822 Contact with and (suspected) exposure to COVID-19; Z20.828 Contact with and (suspected) exposure to other viral communicable diseases; Z79.899 Other long term (current) drug therapy
CPT/HCPCS: 0241U; 71045; 99284; 99285

== ENCOUNTER 2022-10-19 16:36 | Inpatient (IN) | payer MEDICAID, SELFPAY ==
--- NOTE | ~2022-10-19 | FL_ITS ---
EXAMINATION: XR BARIUM SWALLOW CLINICAL INFORMATION: Retrotracheal mass. COMPARISON: None TECHNIQUE: Modified barium swallow with speech pathologist. FINDINGS: Patient swallowed multiple consistencies from thin liquid to chicken salad. Patient was unable to chew cookie due to lack of teeth. There is noted to be laryngeal penetration without tracheal aspiration. Please refer to speech pathologist report for details. FLUOROSCOPY TIME: 1.3 minutes DOSE AREA PRODUCT: 1.142 Gy-cm2 (Garner-centimeter squared) FL/FL barium swallow modified IMPRESSION: Laryngeal penetration without tracheal aspiration with multiple consistencies of food.
--- NOTE | ~2022-10-19 | CT_ITS ---
EXAMINATION: NONCONTRAST HEAD CT NONCONTRAST CERVICAL SPINE CT INDICATION INFORMATION: Question fall. Mental status change, EtOH COMPARISON: Head CT 10/18/2021, CT cervical spine 07/22/2021 TECHNIQUE: Separate noncontrast CT examinations of the head and cervical spine were performed. Coronal and sagittal images were created for each examination at the technologist workstation. This CT examination was performed using dose optimization techniques as appropriate, variously including the following: *Automated exposure control *Adjustment of mA and/or kV according to patient size (this includes techniques or standardized protocols for targeted exams where dose is matched to indication/reason for exam; i.e. extremities or head) *Use of iterative reconstruction technique DLP: 997 mGy-cm FINDINGS: HEAD: No intra or extra-axial fluid collection, hemorrhage, or mass. No ventriculomegaly. No midline shift or herniation. Basal cisterns are patent. Garner-white matter differentiation is maintained. No territorial encephalomalacia. Proportional prominence of the ventricles and sulcal spaces is consistent with mild volume loss. Patchy periventricular and deep white matter hypoattenuation is consistent with mild small vessel ischemic changes. Prior remote lacunar infarcts in the thalami redemonstrated No calvarial fracture or soft tissue abnormality. Extensive paranasal sinus disease with complete opacification left maxillary antrum, pronounced mucosal thickening in the ethmoid sinuses, right maxillary and right sphenoid sinus as well as along the frontal sinus drainage pathways. The mastoid air cells are normally aerated. Chronic fracture deformity through the right mandibular head and neck. Pronounced anterior translation of the TMJs bilaterally. CERVICAL SPINE: Alignment: Straightening of the normal cervical lordosis. Mild grade 1 anterolisthesis at C3-C4. Minimal retrolisthesis at C5-C6. No additional subluxation. Vertebra: No acute fracture. No prevertebral soft tissue swelling. Degenerative disc disease: Moderate multilevel degenerative disc disease most prominent at C4-C5 and C5-C6 with disc height loss, endplate sclerosis and prominent anterior endplate proliferative change. Multilevel facet arthrosis and uncovertebral spurring and C6. Next field paraseptal emphysema right greater than left. Approximately 4.1 x 2.9 cm soft tissue mass in the upper posterior mediastinum abutting the esophagus and posterior trachea as well as the anterior T2 and T3 vertebral bodies suspicious for malignancy. The finding does appear to have enlarged slowly over prior's. 1 cm left thyroid nodule, doubtful clinical significance. No cervical lymphadenopathy. Other findings: No cervical lymphadenopathy. Visualized major salivary glands and thyroid gland are unremarkable. Visualized lung apices are clear. CT/CT cervical spine wo IV con IMPRESSION: 1. No intracranial hemorrhage, calvarial fracture, or other acute intracranial abnormality. 2. No traumatic subluxation or acute cervical spine fracture. 3. Slowly enlarging upper posterior mediastinal soft tissue mass suspicious for malignancy. Correlate with known history of malignancy and additional imaging workup for staging as indicated.
--- NOTE | ~2022-10-19 | CT_ITS ---
EXAMINATION: CT ANGIOGRAM OF THE CHEST WITH AND WITHOUT CONTRAST (CT PULMONARY ANGIOGRAM FOR PE) CLINICAL INFORMATION: Reason for Exam sob + dimer COMPARISON: None TECHNIQUE: Prior to contrast administration, noncontrast localization images were obtained. Subsequently, multidetector volumetric imaging was performed from the thoracic inlet to below the diaphragms following the administration of 80 mL Omnipaque 350 intravenous contrast. No contrast reaction reported Sagittal, coronal, and MIP oblique sagittal reformatted images were obtained on the CT workstation, uploaded to PACS, and reviewed. This CT examination was performed using dose optimization techniques as appropriate, variously including the following: *Automated exposure control *Adjustment of mA and/or kV according to patient size (this includes techniques or standardized protocols for targeted exams where dose is matched to indication/reason for exam; i.e. extremities or head) *Use of iterative reconstruction technique Total exam dose-length product 228 mGy-cm FINDINGS: QUALITY OF STUDY/CONTRAST BOLUS: Satisfactory. PULMONARY ARTERIES: No central or segmental pulmonary emboli. THORACIC AORTA: No aneurysm or dissection. LUNG: Both lungs are well aerated with patchy airspace disease left lung base and minimal changes in the right lung base consistent with infiltrate and/or atelectasis. . Some patchy opacity seen in both upper lobes. PLEURA: No pleural effusion or pneumothorax. MEDIASTINUM: No aneurysm or dissection seen aorta except for mild ectasia. The heart size is normal. There is a retrotracheal posterior mediastinal mass increased since the last exam. It now measures 3.88 x 2.9 cm on axial image 19/5. 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 The mass extends superiorly into the superior mediastinum deviating the esophagus to the left. There is mild mural thickening of the esophagus and the proximal and mid segments. No evidence of septal bowing or right heart strain. CORONARY ARTERY CALCIFICATION: None visualized on this study. CHEST WALL/AXILLA: No axillary or internal mammary lymphadenopathy. OSSEOUS STRUCTURES: No acute or suspicious osseous abnormality. Mild degenerative vacuum disc phenomena seen in lower dorsal and upper lumbar spine. UPPER ABDOMEN: Visualized liver, spleen, pancreas and bilateral adrenal glands are unremarkable. There is bilateral hydronephrosis and a peripelvic cyst. No reflux of contrast into the hepatic veins to suggest elevated right heart pressures. CT/CT angio chest PE protocol IMPRESSION: No evidence of PE. No evidence aortic aneurysm or dissection. Bilateral lower lobe infiltrates/atelectasis slightly worse on the left. Some patchy opacity seen in both upper lobes as well. 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
--- NOTE | ~2022-10-19 | XR_ITS ---
EXAMINATION: XR CHEST CLINICAL INFORMATION: Shortness of breath. COMPARISON: 10/18/2022 and 10/10/2022 chest radiographs. TECHNIQUE: Frontal view of the chest was obtained. FINDINGS: Hazy opacities in the left lower lung with similar appearance. The right lung is clear. The heart and mediastinal structures are unremarkable. Multilevel healed right rib fractures are again noted. XR/XR chest 1V IMPRESSION: Hazy opacities in the left lower lung with similar appearance suggesting an infectious/inflammatory process.
[2022-10-19 16:45] VITALS: BP 112/82; PULSE 80; O2SAT 97
[2022-10-19 16:50] VITALS: BMI 27.3
[2022-10-19 16:53] VITALS: BP 122/64; PULSE 86; RESP 16; TEMP 36.9; O2SAT 97
--- NOTE | 2022-10-19 17:05 | ECG_ITS ---
Test Reason : sob Blood Pressure : / mmHG Vent. Rate : 087 BPM Atrial Rate : 087 BPM P-R Int : 202 ms QRS Dur : 082 ms QT Int : 386 ms P-R-T Axes : -01 066 057 degrees QTc Int : 464 ms Normal sinus rhythm Normal ECG When compared with ECG of 18-OCT-2021 17:40, No significant change was found Referred By: Mahendra Chavis Electronically Signed By:HALEY BACON
[2022-10-19 17:51] LABS: MANUAL DIFF FLAG NO
[2022-10-19 17:56] LABS: Basophils Absolute Auto 0.1 X10*3/uL (0.0-0.2); Basophils Percent Auto 0.6 % (0-2); Eosinophils Absolute Auto 0.1 X10*3/uL (0.0-0.4); Eosinophils Percent Auto 1.2 % (0-4); Hematocrit 33.4 % (42.0-52.0); Hemoglobin 12.2 g/dl (14.0-18.0); Imm Gran Abs Auto 0.04 X10*3/uL (0.00-0.03); Imm Gran Pct Auto 0.4 % (0.0-0.4); Lymphocytes Absolute Auto 1.9 X10*3/uL (1.2-4.9); Lymphocytes Percent Auto 18.8 % (20-40); Mean Corpuscular HGB Conc 36.5 g/dl (31.0-36.0); Mean Corpuscular Hemoglobin 33.3 pg (27.0-33.0); Mean Corpuscular Volume 91.3 fL (80.0-98.0); Mean Platelet Volume 9.5 fL (9.4-12.4); Monocytes Absolute Auto 0.5 X10*3/uL (0.1-1.2); Monocytes Percent Auto 5.2 % (2-11); Neutrophils Absolute Auto 7.6 x10*3/uL (2.0-8.3); Neutrophils Percent Auto 73.8 % (45-73); Platelet Count 251 X10*3/uL (160-400); Red Blood Count 3.66 X10*6/uL (4.60-5.80); Red Cell Distribution Width 11.7 % (11.0-16.0); White Blood Count 10.3 X10*3/uL (4.8-10.8)
[2022-10-19 18:02] LABS: D Dimer High Sensitivity 295 NG/ML
[2022-10-19 18:08] LABS: Ethanol 194 mg/dL
[2022-10-19 18:13] LABS: Appearance Urine Clear; COVID-19 Test Negative (Negative); Color Urine Yellow; Glucose Urine UA Negative (Negative); IDNOW Serial# 16C4AD1C; IDNOW Serial# BCCEAD1C; Influenza A Negative (Negative); Influenza B2 Negative (Negative); Leukocyte Esterase Urine Moderate (2+) (Negative); Nitrite Urine Negative (Negative); Specific Gravity - Urine <= 1.005 (1.005-1.025); UMIC TRIGGER UACC YES; Urine Blood Negative (Negative); Urine Ketones Negative (Negative); Urine Protein Negative (Neg-Trace)
--- NOTE | 2022-10-19 18:14 | ED_ITS ---
HPI - General Adult General Chief complaint: ETOH/Substance Use Stated complaint: ETOH Source: patient and EMS Mode of arrival: EMS Limitations: other (Patient intoxicated) History of Present Illness HPI narrative: This is a 67-year-old male history of alcohol use disorder severe, presenting to the emergency department via EMS for complaints of alcohol intoxication and shortness of breath. Patient very poor historian he tells me he is drunk and he can not brief. He gets easily annoyed when I ask him questions and tells me he refuses to answer any more questions. When I asked him how much to drink he tells me he does not know. I asked him if he fell he says I think so but I do not now. Patient alert to person, place time and situation. Denies chest pain, nausea, vomiting, fevers, chills, headache, vision changes, dizziness. Patient intermittently following commands making it very difficult to obtain an NIH stroke scale. Related Data Home Medications Medication Instructions Recorded Confirmed No Known Home Meds 10/19/22 10/19/22 Allergies Allergy/AdvReac Type Severity Reaction Status Date / Time No Known Allergies Allergy Unknown UNKNOWN Verified 09/08/20 17:05 [NO KNOWN ALLERGIES] Review of Systems Review of Systems: Constitutional : No Weight loss, No Fever, No Chills, No Fatigue, No Malaise ENT/Mouth : No sore throat, No Rhinorrhea Eyes: No Eye Pain, No Swelling, No Redness Cardiovascular : No Chest Pain, + SOB, No Dyspnea on Exertion, No Orthopnea, No Edema, No Palpitations Respiratory : No Cough, No Sputum, No Wheezing Gastrointestinal : No Nausea, No Vomiting, No Diarrhea, No Constipation, No abdominal Pain, No Hematochezia, No Melena Genitourinary : No Dysuria, No Urinary Frequency, No Hematuria, Musculoskeletal : No joint pain, No Myalgias, No Joint Swelling Skin : No Skin Lesions, No rash Neuro : No Weakness, No Numbness, No Dizziness, No Headache Psych : No Anxiety/Panic, No Depression All other systems reviewed and are negative Yes all other systems are reviewed and are negative [facility] Past Medical History Medical History Acute hyponatremia Alcohol abuse Alcoholic intoxication CVA (cerebral vascular accident) Delirium tremens Encounter for assessment of decision-making capacity Fall Hard of hearing Hyponatremia Injury of right lower arm PAD (peripheral artery disease) Social History Social History Household Members: None Housing: Homeless Alcohol intake: current Alcohol intake frequency: 3 or more drinks per day Alcohol type: beer, wine and hard liquor Patient Tobacco Use Status: Current everyday Tobacco user Advance Directives: No Advance Directives Information Provided: No service: No Current occupational status: unemployed Physical Exam ED Vital Signs: Vital Signs - 24 hr 10/19/22 16:53 10/19/22 20:09 Temperature 98.4 F Pulse Rate 86 104 H Respiratory Rate 16 18 Blood Pressure 122/64 122/63 Pulse Oximetry 97 92 Oxygen Delivery Method Room Air Room Air BMI result Body Mass Index 27.3 vss Appearance: Alert.? Oriented X3.? No acute distress.?Patient smells like alcohol..? Head: Normocephalic, atraumatic, no step-offs or deformities Eyes: Pupils equal, round and reactive to light.? Neck: Normal inspection.? Neck supple.? CVS: Normal heart rate and rhythm.? Pulses normal.? Respiratory: No respiratory distress.? Breath sounds diminished b/l and faint crackles to b/l lower lobes. Abdomen: Soft and nontender.? Skin: Skin warm and dry.? Normal skin color.? Normal skin turgor.? Extremities: No lower extremity edema.? No calf ttp. 5/5 strength to bilateral upper and lower extremities Neuro: Oriented X 3.? No motor deficit.? No sensory deficit. CN 2-12 intact ambulating with steady gait normal coordination. Course Reevaluation(s) Reevaluation #1: Patient is noted to have a baseline macrocytic anemia. Patient is noted to be hyponatremic sodium of 123 will give half-normal saline at this time. Patient's chloride also low. Magnesium 1.5 will give IV magnesium as patient is an alcoholic. Normal BNP. UA appears to be contaminated I do not suspect infection. Salicylates, acetaminophen negative. Urine toxicology negative. Ethanol level 194. COVID, flu negative. Head CT with no intracranial hemorrhage, clavicular fracture or other acute intracranial abnormality. No traumatic subluxations or acute cervical spine fractures. Slowly enlarging upper posterior mediastinal soft tissue mass suspicious for malignancy, will tell patient about this finding. Chest x-ray showing hazy opacities in the left lower lung with similar appearance suggesting an infectious/inflammatory process. Concerns for possible viral pneumonia. Due to worsening sob and + dimer will obtain CTA to ro PE. Time: 18:46 Reevaluation #2: I spoke to hospitalist who will admit patient for hyponatremia, pneumonia. CTA pending hospitalist aware. Time: 19:46 Reevaluation #3: CTA with no evidence of PE. No aortic aneurysm or dissection. Bilateral lower lobe infiltrates slightly worse on the left. Some patchy opacities seen in both upper lobes as well. 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 Time: 21:04 Medications Administered Generic Name Dose Route Start Last Admin Trade Name Freq PRN Reason Stop Dose Admin Azithromycin 500 mg/ Sodium 250 mls @ 125 mls/hr 10/19/22 19:29 10/19/22 20:25 Chloride IV 10/19/22 21:28 125 mls/hr ONCE ONE Administration Discontinued Medications Generic Name Dose Route Start Last Admin Trade Name Freq PRN Reason Stop Dose Admin Ceftriaxone Sodium 1 gm/ 50 mls @ 100 mls/hr 10/19/22 18:14 10/19/22 19:45 Sodium Chloride IV 10/19/22 18:43 Infused ONCE ONE Infusion Sodium Chloride 1,000 mls @ 999 mls/hr 10/19/22 18:45 10/19/22 20:27 Ns IV 10/19/22 19:45 999 mls/hr .Q1H1M NATASHA Administration Magnesium Sulfate 2 gm in 50 mls @ 25 mls/hr 10/19/22 18:44 10/19/22 19:57 Magnesium Sulfate/H2o IV 10/19/22 20:43 25 mls/hr ONCE ONE Administration Sodium Chloride 1,000 mls @ 999 mls/hr 10/19/22 19:30 10/19/22 20:32 Ns IV 10/19/22 20:30 999 mls/hr .Q1H1M NATASHA Administration Iohexol 100 ml 10/19/22 19:22 10/19/22 19:23 Iohexol 350 Mg/Ml 100 Ml Infus..Btl IV 10/19/22 19:23 65 ml ONCE ONE Administration Phenobarbital Sodium 317 mg 10/19/22 19:00 10/19/22 20:10 Phenobarbital Sodium 130 Mg/Ml Im Once IM 10/19/22 19:01 317 mg ONCE ONE Administration Medical Decision Making Medical Decision Making [facility] Narrative: 1745 67 year old male presents w/ alcohol intoxication and sob. Poor hisotrian PE- diminished b/l and faint crackles to b/l lower lobes. Patient smells like alcohol. Concerns for viral infection vs pna. Unlikle CHF, PE, ACS Plan labs, imaging, urine, urine toxicology, ethanol level. Differential Diagnosis Differential Diagnoses: The differential diagnosis associated with the presenta tion includes Concerns for viral infection vs pna. Unlikle CHF, PE, ACS Admission/Observation Consideration of admission/observation: Escalation of care including admission/observation considered Consult Healthcare Provider Management of the patient was discussed with: Hospitalist Lab Data [facility] Lab Attestation statement: I reviewed the patient's lab results. 10/19/22 17:45 10/19/22 17:45 Labs: Lab Results 10/19/22 10/19/22 10/19/22 Range/Units 17:45 17:45 17:45 WBC 10.3 (4.8-10.8) X10*3/uL RBC 3.66 L (4.60-5.80) X10*6/uL Hgb 12.2 L (14.0-18.0) g/dl Hct 33.4 L (42.0-52.0) % MCV 91.3 (80.0-98.0) fL MCH 33.3 H (27.0-33.0) pg MCHC 36.5 H (31.0-36.0) g/dl RDW 11.7 (11.0-16.0) % Plt Count 251 (160-400) X10*3/uL MPV 9.5 (9.4-12.4) fL Immature Gran % (Auto) 0.4 (0.0-0.4) % Neut % (Auto) 73.8 H (45-73) % Lymph % (Auto) 18.8 L (20-40) % Gibson % (Auto) 5.2 (2-11) % Eos % (Auto) 1.2 (0-4) % Baso % (Auto) 0.6 (0-2) % Lymph # (Auto) 1.9 (1.2-4.9) X10*3/uL Gibson # (Auto) 0.5 (0.1-1.2) X10*3/uL Eos # (Auto) 0.1 (0.0-0.4) X10*3/uL Baso # (Auto) 0.1 (0.0-0.2) X10*3/uL Abs Immat Gran (auto) 0.04 H (0.00-0.03) X10*3/uL Absolute Neuts (auto) 7.6 (2.0-8.3) x10*3/uL Absolute Nucleated RBC 0.000 (0.0-0.012) X10*3/uL Nucleated RBC % (auto) 0.0 (0.0-0.2) /100WBC D-Dimer High Sensitivty NG/ML Sodium 123 L (135-145) mmol/L Potassium 3.7 (3.3-5.1) mmol/L Chloride 89 L (96-108) mmol/L Carbon Dioxide 21 L (22-29) mmol/L Anion Gap 17 (12-20) BUN 8 L (9-16) mg/dL Creatinine 0.70 (0.5-1.4) mg/dL Estim Creat Clear Calc 106.2 Estimated GFR > 60 Random Glucose 88 (60-115) mg/dL Osmolality (281-305) mosm/kg Lactic Acid (0.5-2.0) mmol/L Calcium 8.6 (8.4-10.2) mg/dL Magnesium 1.5 L (1.6-2.6) mg/dL Total Bilirubin 0.5 (0.0-1.0) mg/dL AST 26 (5-37) U/L ALT 13 (0-40) U/L Alkaline Phosphatase 63 (39-117) U/L B-Natriuretic Peptide (<100) pg/mL Total Protein 6.4 L (6.5-8.0) g/dL Albumin 3.4 L (3.5-5.0) g/dL Urine Color Urine Appearance Urine pH (5.0-9.0) Ur Specific [place] (1.005-1.025) Urine Protein (Neg-Trace) mg/dL Urine Glucose (UA) (Negative) mg/dL Urine Ketones (Negative) mg/dL Urine Blood (Negative) Urine Nitrite (Negative) Ur Leukocyte Esterase (Negative) Urine RBC (0-2) /HPF Urine WBC (0-5) /HPF Ur Squamous Epith Cells (0-2) /HPF Urine Bacteria (None Seen) Hyaline Casts (0-2) /LPF Salicylates < 5.0 L (15-30) mg/dL Urine Opiates Screen (Not Detect) Urine Fentanyl Screen (Not Detect) Acetaminophen < 17 (<30) mcg/mL Ur Barbiturates Screen (Not Detect) Ur Phencyclidine Scrn (Not Detect) Ur Amphetamines Screen (Not Detect) U Benzodiazepines Scrn (Not Detect) Urine Cocaine Screen (Not Detect) U Marijuana (THC) Screen (Not Detect) Ethyl Alcohol mg/dL COVID-19 ([facility]) Negative (Negative) COVID-19 Clin Com See Note Influenza Type A ([facility]) (Negative) Influenza Type B ([facility]) (Negative) Influenza A & B Note 10/19/22 10/19/22 10/19/22 Range/Units 17:45 17:45 17:45 WBC (4.8-10.8) X10*3/uL RBC (4.60-5.80) X10*6/uL Hgb (14.0-18.0) g/dl Hct (42.0-52.0) % MCV (80.0-98.0) fL MCH (27.0-33.0) pg MCHC (31.0-36.0) g/dl RDW (11.0-16.0) % Plt Count (160-400) X10*3/uL MPV (9.4-12.4) fL Immature Gran % (Auto) (0.0-0.4) % Neut % (Auto) (45-73) % Lymph % (Auto) (20-40) % Gibson % (Auto) (2-11) % Eos % (Auto) (0-4) % Baso % (Auto) (0-2) % Lymph # (Auto) (1.2-4.9) X10*3/uL [place] # (Auto) (0.1-1.2) X10*3/uL Eos # (Auto) (0.0-0.4) X10*3/uL Baso # (Auto) (0.0-0.2) X10*3/uL Abs Immat Gran (auto) (0.00-0.03) X10*3/uL Absolute Neuts (auto) (2.0-8.3) x10*3/uL Absolute Nucleated RBC (0.0-0.012) X10*3/uL Nucleated RBC % (auto) (0.0-0.2) /100WBC D-Dimer High Sensitivty 295 NG/ML Sodium (135-145) mmol/L Potassium (3.3-5.1) mmol/L Chloride (96-108) mmol/L Carbon Dioxide (22-29) mmol/L Anion Gap (12-20) BUN (9-16) mg/dL Creatinine (0.5-1.4) mg/dL Estim Creat Clear Calc Estimated GFR Random Glucose (60-115) mg/dL Osmolality (281-305) mosm/kg Lactic Acid (0.5-2.0) mmol/L Calcium (8.4-10.2) mg/dL Magnesium (1.6-2.6) mg/dL Total Bilirubin (0.0-1.0) mg/dL AST (5-37) U/L ALT (0-40) U/L Alkaline Phosphatase (39-117) U/L B-Natriuretic Peptide 39 (<100) pg/mL Total Protein (6.5-8.0) g/dL Albumin (3.5-5.0) g/dL Urine Color Urine Appearance Urine pH (5.0-9.0) Ur Specific [place] (1.005-1.025) Urine Protein (Neg-Trace) mg/dL Urine Glucose (UA) (Negative) mg/dL Urine Ketones (Negative) mg/dL Urine Blood (Negative) Urine Nitrite (Negative) Ur Leukocyte Esterase (Negative) Urine RBC (0-2) /HPF Urine WBC (0-5) /HPF Ur Squamous Epith Cells (0-2) /HPF Urine Bacteria (None Seen) Hyaline Casts (0-2) /LPF Salicylates (15-30) mg/dL Urine Opiates Screen (Not Detect) Urine Fentanyl Screen (Not Detect) Acetaminophen (<30) mcg/mL Ur Barbiturates Screen (Not Detect) Ur Phencyclidine Scrn (Not Detect) Ur Amphetamines Screen (Not Detect) U Benzodiazepines Scrn (Not Detect) Urine Cocaine Screen (Not Detect) U Marijuana (THC) Screen (Not Detect) Ethyl Alcohol 194 mg/dL COVID-19 ([facility]) (Negative) COVID-19 Clin Com Influenza Type A ([facility]) (Negative) Influenza Type B ([facility]) (Negative) Influenza A & B Note 10/19/22 10/19/22 10/19/22 Range/Units 17:45 17:45 17:45 WBC (4.8-10.8) X10*3/uL RBC (4.60-5.80) X10*6/uL Hgb (14.0-18.0) g/dl Hct (42.0-52.0) % MCV (80.0-98.0) fL MCH (27.0-33.0) pg MCHC (31.0-36.0) g/dl RDW (11.0-16.0) % Plt Count (160-400) X10*3/uL MPV (9.4-12.4) fL Immature Gran % (Auto) (0.0-0.4) % Neut % (Auto) (45-73) % Lymph % (Auto) (20-40) % Gibson % (Auto) (2-11) % Eos % (Auto) (0-4) % Baso % (Auto) (0-2) % Lymph # (Auto) (1.2-4.9) X10*3/uL Gibson # (Auto) (0.1-1.2) X10*3/uL Eos # (Auto) (0.0-0.4) X10*3/uL Baso # (Auto) (0.0-0.2) X10*3/uL Abs Immat Gran (auto) (0.00-0.03) X10*3/uL Absolute Neuts (auto) (2.0-8.3) x10*3/uL Absolute Nucleated RBC (0.0-0.012) X10*3/uL Nucleated RBC % (auto) (0.0-0.2) /100WBC D-Dimer High Sensitivty NG/ML Sodium (135-145) mmol/L Potassium (3.3-5.1) mmol/L Chloride (96-108) mmol/L Carbon Dioxide (22-29) mmol/L Anion Gap (12-20) BUN (9-16) mg/dL Creatinine (0.5-1.4) mg/dL Estim Creat Clear Calc Estimated GFR Random Glucose (60-115) mg/dL Osmolality (281-305) mosm/kg Lactic Acid (0.5-2.0) mmol/L Calcium (8.4-10.2) mg/dL Magnesium (1.6-2.6) mg/dL Total Bilirubin (0.0-1.0) mg/dL AST (5-37) U/L ALT (0-40) U/L Alkaline Phosphatase (39-117) U/L B-Natriuretic Peptide (<100) pg/mL Total Protein (6.5-8.0) g/dL Albumin (3.5-5.0) g/dL Urine Color Yellow Urine Appearance Clear Urine pH 6.0 (5.0-9.0) Ur Specific [place] <= 1.005 (1.005-1.025) Urine Protein Negative (Neg-Trace) mg/dL Urine Glucose (UA) Negative (Negative) mg/dL Urine Ketones Negative (Negative) mg/dL Urine Blood Negative (Negative) Urine Nitrite Negative (Negative) Ur Leukocyte Esterase Moderate (2+) H (Negative) Urine RBC 0-2 (0-2) /HPF Urine WBC 11-20 H (0-5) /HPF Ur Squamous Epith Cells 0-2 (0-2) /HPF Urine Bacteria None Seen (None Seen) Hyaline Casts 0-2 (0-2) /LPF Salicylates (15-30) mg/dL Urine Opiates Screen Not Detected (Not Detect) Urine Fentanyl Screen Not Detected (Not Detect) Acetaminophen (<30) mcg/mL Ur Barbiturates Screen Not Detected (Not Detect) Ur Phencyclidine Scrn Not Detected (Not Detect) Ur Amphetamines Screen Not Detected (Not Detect) U Benzodiazepines Scrn Not Detected (Not Detect) Urine Cocaine Screen Not Detected (Not Detect) U Marijuana (THC) Screen Not Detected (Not Detect) Ethyl Alcohol mg/dL COVID-19 ([facility]) (Negative) COVID-19 Clin Com Influenza Type A ([facility]) Negative (Negative) Influenza Type B ([facility]) Negative (Negative) Influenza A & B Note See Note 10/19/22 10/19/22 Range/Units 17:45 18:44 WBC (4.8-10.8) X10*3/uL RBC (4.60-5.80) X10*6/uL Hgb (14.0-18.0) g/dl Hct (42.0-52.0) % MCV (80.0-98.0) fL MCH (27.0-33.0) pg MCHC (31.0-36.0) g/dl RDW (11.0-16.0) % Plt Count (160-400) X10*3/uL MPV (9.4-12.4) fL Immature Gran % (Auto) (0.0-0.4) % Neut % (Auto) (45-73) % Lymph % (Auto) (20-40) % Gibson % (Auto) (2-11) % Eos % (Auto) (0-4) % Baso % (Auto) (0-2) % Lymph # (Auto) (1.2-4.9) X10*3/uL [place] # (Auto) (0.1-1.2) X10*3/uL Eos # (Auto) (0.0-0.4) X10*3/uL Baso # (Auto) (0.0-0.2) X10*3/uL Abs Immat Gran (auto) (0.00-0.03) X10*3/uL Absolute Neuts (auto) (2.0-8.3) x10*3/uL Absolute Nucleated RBC (0.0-0.012) X10*3/uL Nucleated RBC % (auto) (0.0-0.2) /100WBC D-Dimer High Sensitivty NG/ML Sodium (135-145) mmol/L Potassium (3.3-5.1) mmol/L Chloride (96-108) mmol/L Carbon Dioxide (22-29) mmol/L Anion Gap (12-20) BUN (9-16) mg/dL Creatinine (0.5-1.4) mg/dL Estim Creat Clear Calc Estimated GFR Random Glucose (60-115) mg/dL Osmolality 297 (281-305) mosm/kg Lactic Acid 1.9 (0.5-2.0) mmol/L Calcium (8.4-10.2) mg/dL Magnesium (1.6-2.6) mg/dL Total Bilirubin (0.0-1.0) mg/dL AST (5-37) U/L ALT (0-40) U/L Alkaline Phosphatase (39-117) U/L B-Natriuretic Peptide (<100) pg/mL Total Protein (6.5-8.0) g/dL Albumin (3.5-5.0) g/dL Urine Color Urine Appearance Urine pH (5.0-9.0) Ur Specific [place] (1.005-1.025) Urine Protein (Neg-Trace) mg/dL Urine Glucose (UA) (Negative) mg/dL Urine Ketones (Negative) mg/dL Urine Blood (Negative) Urine Nitrite (Negative) Ur Leukocyte Esterase (Negative) Urine RBC (0-2) /HPF Urine WBC (0-5) /HPF Ur Squamous Epith Cells (0-2) /HPF Urine Bacteria (None Seen) Hyaline Casts (0-2) /LPF Salicylates (15-30) mg/dL Urine Opiates Screen (Not Detect) Urine Fentanyl Screen (Not Detect) Acetaminophen (<30) mcg/mL Ur Barbiturates Screen (Not Detect) Ur Phencyclidine Scrn (Not Detect) Ur Amphetamines Screen (Not Detect) U Benzodiazepines Scrn (Not Detect) Urine Cocaine Screen (Not Detect) U Marijuana (THC) Screen (Not Detect) Ethyl Alcohol mg/dL COVID-19 ([facility]) (Negative) COVID-19 Clin Com Influenza Type A ([facility]) (Negative) Influenza Type B ([facility]) (Negative) Influenza A & B Note Independent Interpretation I performed an independent interpretation of an: EKG and Plain X-Ray (Question pneumonia) External Record Review External record reviewed: Inpatient record, Office record, Outpatient record, Prior outpatient labs, Prior outpatient radiology, Primary care record and Outside ED record Core Measures AMI core measures followed: Yes Measure exclusions: not indicated Critical Care Time Critical Care Time Critical Care Time: No Discharge Plan Discharge Clinical Impression: Hyponatremia, Alcoholic intoxication, Tracheal mass, Pneumonia Patient Disposition: Admitted As Inpatient
[2022-10-19 18:15] LABS: B Type Natriuretic Peptide 39 pg/mL (<100); Bacteria Urine None Seen (None Seen); Hyaline Casts Urine 0-2 /LPF (0-2); RBC Urine 0-2 /HPF (0-2); Squamous Epithelial Cell Urine 0-2 /HPF (0-2); UACC Culture Trigger YES
[2022-10-19 18:16] LABS: Acetaminophen LAB < 17 mcg/mL (<30); Alanine Aminotransferase 13 U/L (0-40); Albumin Level 3.4 g/dL (3.5-5.0); Alkaline Phosphatase 63 U/L (39-117); Anion Gap 17 (12-20); Aspartate Amino Transferase 26 U/L (5-37); Bilirubin Total 0.5 mg/dL (0.0-1.0); Blood Urea Nitrogen 8 mg/dL (9-16); Calcium 8.6 mg/dL (8.4-10.2); Carbon Dioxide 21 mmol/L (22-29); Chloride 89 mmol/L (96-108); Creatinine Clr Calc Pharmacy 106.2; Estimated Glomerular Filt Rate > 60; Glucose Random 88 mg/dL (60-115); Magnesium 1.5 mg/dL (1.6-2.6); Potassium 3.7 mmol/L (3.3-5.1); Salicylate < 5.0 mg/dL (15-30); Sodium 123 mmol/L (135-145); Total Protein 6.4 g/dL (6.5-8.0)
[2022-10-19 18:17] LABS: Amphetamine Screen Urine Not Detected (Not Detect); Barbiturates, Urine Not Detected (Not Detect); Benzodiazepines Screen Urine Not Detected (Not Detect); Cannabinoid Screen Urine Not Detected (Not Detect); Cocaine Screen Urine Not Detected (Not Detect); Fentanyl, urine Not Detected (Not Detect); Opiate Screen Urine Not Detected (Not Detect); Phencyclidine Screen Urine Not Detected (Not Detect)
[2022-10-19] MEDS: cefTRIAXone sodium 1 GM in 0.9 % Sodium Chloride 50 ML IV (18:57)
[2022-10-19 19:02] LABS: Lactic Acid 1.9 mmol/L (0.5-2.0)
[2022-10-19 19:14] LABS: Osmolality, Serum 297 mosm/kg (281-305)
[2022-10-19] MEDS: iohexoL 350 MG/ML 100 ML INFUS..BTL IV (19:23)
[2022-10-19] MEDS: Magnesium Sulfate/H2O 2 GM/50 ML PIGGYBACK IV (19:57)
[2022-10-19 20:09] VITALS: BP 122/63; PULSE 104; RESP 18; O2SAT 92
[2022-10-19] MEDS: PHENobarbitaL sodium 130 MG/ML IM ONCE 317 MG IM (20:10)
[2022-10-19] MEDS: Azithromycin 500 MG in 0.9 % Sodium Chloride 250 ML 125 MG IV (20:25)
[2022-10-19] MEDS: 0.9 % Sodium Chloride 1,000 ML 999 ML IV ×2 (20:27→20:32)
--- NOTE | 2022-10-19 20:30 | PC.NURSE ---
PT A&Ox3, denies any pain. NELSON [place]AGOON, very easily annoyed turn off the lights . Meds give as documented. PT uses bedside urinal.
--- NOTE | 2022-10-19 20:36 | PC.NURSE ---
This song writer assumed care of this PT at 1900. PT awake, requesting food and PO fluids. Second IV line established, meds given as documented.
--- NOTE | 2022-10-19 20:43 | PM.IMHP ---
History of Present Illness Date of Service: 10/19/22 Chief Complaint: alcohol withdrawal 67-year-old male with past medical history of alcohol abuse, CVA, delirium tremors, history of hyponatremia, peripheral vascular disease, presents the hospital with complaints of alcohol toxication. Patient is not cooperating with exam, kicked me out of the room, did not want to tell me any history. according to the PA patient was brought in by EMS with complaints of alcohol intoxication and shortness of breath. No other history is obtainable from the patient, and weighed and easily agitated. On arrival to the ED patient hemodynamically stable no significant abnormal vitals except satting 91% on room air Labs are significant for WBC count of 10.3, hemoglobin of 12.2, hematocrit 33.4, sodium of 123, serum osmolality of 270, urine osmolality of 147. magnesium of 1.5 received 2 of IV mag Pt was given 1/[address] shows no evidence of PE , bilateral lower lobe infiltrates, also seen a large retro tracheal mass which has increased in size previous exam Patient started on antibiotics and will be admitted for further management Review of Systems Review of Systems: Yes Unobtainable due to mental condition [facility] Medical History Acute hyponatremia Alcohol abuse Alcoholic intoxication CVA (cerebral vascular accident) Delirium tremens Encounter for assessment of decision-making capacity Fall Hard of hearing Hyponatremia Injury of right lower arm PAD (peripheral artery disease) Social History Household Members: None Housing: Homeless Alcohol intake: current Alcohol intake frequency: 3 or more drinks per day Alcohol type: beer, wine and hard liquor Patient Tobacco Use Status: Current everyday Tobacco user Tobacco use type: Cigarette Smoked in Last 30 Days: Yes e-Cigarette/Vaping Use: Currently Using Use of substances other than those prescribed or required for medical reasons: No Currently Displaying Signs/Symptoms of Drug Intoxication Withdrawal: No Advance Directives: No Advance Directives Information Provided: No Do you have thoughts of harming others: None Do you have a plan to hurt others: No Plan Recently lost weight without trying: Unsure Eating poorly because of decreased appetite: No Nutrition Risks: No Nutritional Risk Poor oral hygiene: Yes service: No Current occupational status: unemployed Meds Allergies Allergy/AdvReac Type Severity Reaction Status Date / Time No Known Allergies Allergy Unknown UNKNOWN Verified 09/08/20 17:05 [NO KNOWN ALLERGIES] Active Medications: Current Medications Sodium Chloride (Sodium Chloride 0.45 %) 1,000 mls @ 100 mls/hr IVCONT .Q10H [facility] Magnesium Sulfate (Magnesium Sulfate/H2o) 2 gm in 50 mls @ 25 mls/hr IV ONCE ONE Stop: 10/19/22 20:43 Last Admin: 10/19/22 19:57 Dose: 25 mls/hr Azithromycin 500 mg/ Sodium (Chloride) 250 mls @ 125 mls/hr IV ONCE ONE Stop: 10/19/22 21:28 Last Admin: 10/19/22 20:25 Dose: 125 mls/hr Pharmacy Consult (Consult Rx Perform Med Rec) 1 each MISCELLANE ONCE PRN PRN Reason: Consult order Pharmacy Consult (Consult Rx Etoh Phenob Im/Po) 1 each MISCELLANE ONCE PRN; Protocol PRN Reason: Consult order Phenobarbital (Phenobarbital 15 Mg Tablet) 45 mg PO BID [facility] Stop: 10/21/22 21:01 Phenobarbital (Phenobarbital 30 Mg Tablet) 30 mg PO BID [facility] Stop: 10/23/22 21:01 Phenobarbital (Phenobarbital 15 Mg Tablet) 15 mg PO DAILY [facility] Stop: 10/25/22 09:01 Phenobarbital Sodium (Phenobarbital Sodium 130 Mg/Ml Vial Im Q3hx2) 238 mg IM Q3H [facility] Stop: 10/20/22 02:01 Home Medications Medication Instructions Recorded Confirmed Last Taken Type No Known Home Meds 10/19/22 10/19/22 Unknown History Physical Exam Vital Signs and Narrative: Vital Signs: Last Vital Signs Temp 98.4 F 10/19/22 16:53 Pulse 104 H 10/19/22 20:09 Resp 18 10/19/22 20:09 BP 122/63 10/19/22 20:09 Pulse Ox 92 10/19/22 20:09 O2 Del Method 10/19/22 20:09 BMI result Body Mass Index 27.3 Const: Other: alert, oriented to self, i belive he is experience visual hallucinations as he is pointing to things not there agitated, not willing to answer my questions will not allow me to conduct thorough PE General: no acute distress Eyes: General: appearance normal, both eyes and all related structures Resp: Effort & Inspection: normal respiratory effort Cardio: Rate: regular rate Rhythm: regular rhythm GI: Palpation (GI): Soft to palpation Auscultation: normal bowel sounds Extrem: General: Yes normal to inspection Results Labs 10/19/22 17:45 10/19/22 17:45 Labs: Laboratory Results - last 24 hr 10/19/22 10/19/22 10/19/22 17:45 17:45 17:45 MCV 91.3 MCH 33.3 H MCHC 36.5 H RDW 11.7 Plt Count 251 MPV 9.5 Immature Gran % (Auto) 0.4 Neut % (Auto) 73.8 H Lymph % (Auto) 18.8 L [place] % (Auto) 5.2 Eos % (Auto) 1.2 Baso % (Auto) 0.6 Lymph # (Auto) 1.9 [place] # (Auto) 0.5 Eos # (Auto) 0.1 Baso # (Auto) 0.1 Abs Immat Gran (auto) 0.04 H Absolute Neuts (auto) 7.6 Absolute Nucleated RBC 0.000 Nucleated RBC % (auto) 0.0 D-Dimer High Sensitivty Anion Gap 17 Estim Creat Clear Calc 106.2 Estimated GFR > 60 Random Glucose 88 Osmolality Lactic Acid Calcium 8.6 Magnesium 1.5 L Total Bilirubin 0.5 AST 26 ALT 13 Alkaline Phosphatase 63 B-Natriuretic Peptide Total Protein 6.4 L Albumin 3.4 L Urine Color Urine Appearance Urine pH Ur Specific [place] Urine Protein Urine Glucose (UA) Urine Ketones Urine Blood Urine Nitrite Ur Leukocyte Esterase Urine RBC Urine WBC Ur Squamous Epith Cells Urine Bacteria Hyaline Casts Salicylates < 5.0 L Urine Opiates Screen Urine Fentanyl Screen Acetaminophen < 17 Ur Barbiturates Screen Ur Phencyclidine Scrn Ur Amphetamines Screen U Benzodiazepines Scrn Urine Cocaine Screen U Marijuana (THC) Screen Ethyl Alcohol COVID-19 ([facility]) Negative COVID-19 Clin Com See Note Influenza Type A ([facility]) Influenza Type B ([facility]) Influenza A & B Note 10/19/22 10/19/22 10/19/22 17:45 17:45 17:45 MCV MCH MCHC RDW Plt Count MPV Immature Gran % (Auto) Neut % (Auto) Lymph % (Auto) [place] % (Auto) Eos % (Auto) Baso % (Auto) Lymph # (Auto) [place] # (Auto) Eos # (Auto) Baso # (Auto) Abs Immat Gran (auto) Absolute Neuts (auto) Absolute Nucleated RBC Nucleated RBC % (auto) D-Dimer High Sensitivty 295 Anion Gap Estim Creat Clear Calc Estimated GFR Random Glucose Osmolality Lactic Acid Calcium Magnesium Total Bilirubin AST ALT Alkaline Phosphatase B-Natriuretic Peptide 39 Total Protein Albumin Urine Color Urine Appearance Urine pH Ur Specific [place] Urine Protein Urine Glucose (UA) Urine Ketones Urine Blood Urine Nitrite Ur Leukocyte Esterase Urine RBC Urine WBC Ur Squamous Epith Cells Urine Bacteria Hyaline Casts Salicylates Urine Opiates Screen Urine Fentanyl Screen Acetaminophen Ur Barbiturates Screen Ur Phencyclidine Scrn Ur Amphetamines Screen U Benzodiazepines Scrn Urine Cocaine Screen U Marijuana (THC) Screen Ethyl Alcohol 194 COVID-19 ([facility]) COVID-19 Clin Com Influenza Type A ([facility]) Influenza Type B ([facility]) Influenza A & B Note 10/19/22 10/19/22 10/19/22 17:45 17:45 17:45 MCV MCH MCHC RDW Plt Count MPV Immature Gran % (Auto) Neut % (Auto) Lymph % (Auto) [place] % (Auto) Eos % (Auto) Baso % (Auto) Lymph # (Auto) [place] # (Auto) Eos # (Auto) Baso # (Auto) Abs Immat Gran (auto) Absolute Neuts (auto) Absolute Nucleated RBC Nucleated RBC % (auto) D-Dimer High Sensitivty Anion Gap Estim Creat Clear Calc Estimated GFR Random Glucose Osmolality Lactic Acid Calcium Magnesium Total Bilirubin AST ALT Alkaline Phosphatase B-Natriuretic Peptide Total Protein Albumin Urine Color Yellow Urine Appearance Clear Urine pH 6.0 Ur Specific [place] <= 1.005 Urine Protein Negative Urine Glucose (UA) Negative Urine Ketones Negative Urine Blood Negative Urine Nitrite Negative Ur Leukocyte Esterase Moderate (2+) H Urine RBC 0-2 Urine WBC 11-20 H Ur Squamous Epith Cells 0-2 Urine Bacteria None Seen Hyaline Casts 0-2 Salicylates Urine Opiates Screen Not Detected Urine Fentanyl Screen Not Detected Acetaminophen Ur Barbiturates Screen Not Detected Ur Phencyclidine Scrn Not Detected Ur Amphetamines Screen Not Detected U Benzodiazepines Scrn Not Detected Urine Cocaine Screen Not Detected U Marijuana (THC) Screen Not Detected Ethyl Alcohol COVID-19 ([facility]) COVID-19 Clin Com Influenza Type A ([facility]) Negative Influenza Type B ([facility]) Negative Influenza A & B Note See Note 10/19/22 10/19/22 17:45 18:44 MCV MCH MCHC RDW Plt Count MPV Immature Gran % (Auto) Neut % (Auto) Lymph % (Auto) [place] % (Auto) Eos % (Auto) Baso % (Auto) Lymph # (Auto) [place] # (Auto) Eos # (Auto) Baso # (Auto) Abs Immat Gran (auto) Absolute Neuts (auto) Absolute Nucleated RBC Nucleated RBC % (auto) D-Dimer High Sensitivty Anion Gap Estim Creat Clear Calc Estimated GFR Random Glucose Osmolality 297 Lactic Acid 1.9 Calcium Magnesium Total Bilirubin AST ALT Alkaline Phosphatase B-Natriuretic Peptide Total Protein Albumin Urine Color Urine Appearance Urine pH Ur Specific [place] Urine Protein Urine Glucose (UA) Urine Ketones Urine Blood Urine Nitrite Ur Leukocyte Esterase Urine RBC Urine WBC Ur Squamous Epith Cells Urine Bacteria Hyaline Casts Salicylates Urine Opiates Screen Urine Fentanyl Screen Acetaminophen Ur Barbiturates Screen Ur Phencyclidine Scrn Ur Amphetamines Screen U Benzodiazepines Scrn Urine Cocaine Screen U Marijuana (THC) Screen Ethyl Alcohol COVID-19 ([facility]) COVID-19 Clin Com Influenza Type A ([facility]) Influenza Type B ([facility]) Influenza A & B Note Imaging Radiologist's Impressions: Impressions Chest X-Ray 10/19/22 17:15 IMPRESSION: Hazy opacities in the left lower lung with similar appearance suggesting an infectious/inflammatory process. Cervical Spine CT 10/19/22 17:39 IMPRESSION: 1. No intracranial hemorrhage, calvarial fracture, or other acute intracranial abnormality. 2. No traumatic subluxation or acute cervical spine fracture. 3. Slowly enlarging upper posterior mediastinal soft tissue mass suspicious for malignancy. Correlate with known history of malignancy and additional imaging workup for staging as indicated. Head CT 10/19/22 17:39 IMPRESSION: 1. No intracranial hemorrhage, calvarial fracture, or other acute intracranial abnormality. 2. No traumatic subluxation or acute cervical spine fracture. 3. Slowly enlarging upper posterior mediastinal soft tissue mass suspicious for malignancy. Correlate with known history of malignancy and additional imaging workup for staging as indicated. Chest CTA 10/19/22 19:31 IMPRESSION: No evidence of PE. No evidence aortic aneurysm or dissection. Bilateral lower lobe infiltrates/atelectasis slightly worse on the left. Some patchy opacity seen in both upper lobes as well. 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 Assessment and Plan (1) Alcohol abuse with withdrawal: Status: Acute (2) Community acquired pneumonia: Status: Acute (3) Hyponatremia: Status: Acute (4) Hypomagnesemia: Status: Acute (5) Chest mass: Status: Acute Plan 67 yo M with hx of alcohol abuse presents to hospital with alcohol intoxication and likely withdrawal with visual hallucination found to have hyponatremia as well as PNA # Alcohol abuse and withdrawal - Likely having visual hallucinations - no seizures - started on phenobarb protocol - thiamine and folic acid supplement - CIWA # CAP - likely bacterail - will tx with IV abx - follow cultures # Hyponatremia - possibly beer protenemia - serum and urine osmolality both low - fluid restriction - nephrology consulted # Hypomag - repleted - follow mag level # Retrotreachal mass - growing in zise , unable to assess for symptoms - once pt more comperative may need to ask if he wants furthere owrk up which can be done op including biospy DVT ppx: lovenox given hyponatremia as well as alcohol withdrawal pt will require a min 2 nights hospital stay for further management Time Spent With Patient Time: Total time managing care of this patient today ____ minutes. Quality Stroke Does the patient have a stroke diagnosis?: No VTE Prior VTE?: No VTE Risk Level:: Medical - moderate - high VTE Device Contraindication: Treatment Not Indicated VTE Drug Contraindication: N/A - Med Ordered
[2022-10-19] MEDS: Sodium Chloride 0.45 % 1,000 ML 100 ML IVCONT (21:38)
[2022-10-19] MEDS: Enoxaparin Sodium 40 MG/0.4 ML SYRINGE SUBCUT (21:51)
[2022-10-19] MEDS: Thiamine HCL 100 MG TABLET PO (21:51)
[2022-10-19 22:01] LABS: Anion Gap 15 (12-20); Blood Urea Nitrogen 7 mg/dL (9-16); Carbon Dioxide 19 mmol/L (22-29); Chloride 97 mmol/L (96-108); Estimated Glomerular Filt Rate > 60; Glucose Random 128 mg/dL (60-115); Potassium 3.3 mmol/L (3.3-5.1); Sodium 128 mmol/L (135-145)
[2022-10-19 22:04] LABS: Osmolality Urine 147 mosm/kg (373-1093)
[2022-10-19 22:10] LABS: Troponin-I High Sensitivity 7.1 ng/L (<3.5-35.0)
[2022-10-19 22:17] LABS: Creatinine Urine 16.77 mg/dL
[2022-10-19] MEDS: 0.9 % Sodium Chloride Flush 3 ML SYRINGE IVFLUSH (23:44)
[2022-10-19 23:45] VITALS: BP 131/81; PULSE 101; RESP 20; O2SAT 91
[2022-10-19] MEDS: PHENobarbitaL sodium 130 MG/ML VIAL IM Q3Hx2 238 MG IM (23:45)
[2022-10-20] VITALS: BP 139/76; PULSE 96; RESP 17; TEMP 37; O2SAT 92
--- NOTE | 2022-10-20 00:21 | PC.NURSE ---
PT yelling I want my stuff, where are you putting them PT reassured. PT changed over to hospital gown. Report attempt made.
--- NOTE | 2022-10-20 00:23 | MHC.EDTECH ---
PT yelling and threatening to hit staff while doing record changer. PT Stated If you throw away my clothes I'll get up and slap you Pt uncooperative when trying to change into hospital gown and pants. 2x staff assit to record changer. PT given call chavez and warm blanket.PT personal belongings placed behind bed in 3 belonging bag.
--- NOTE | 2022-10-20 00:25 | PC.NURSE ---
PT incontinent of urine. Coccyx area red. Incontinent care provided.
[2022-10-20 00:59] VITALS: BMI 21.2
[2022-10-20] MEDS: PHENobarbitaL sodium 130 MG/ML VIAL IM Q3Hx2 238 MG IM (02:40)
[2022-10-20 06:16] LABS: MANUAL DIFF FLAG NO
[2022-10-20 06:20] LABS: Basophils Absolute Auto 0.1 X10*3/uL (0.0-0.2); Basophils Percent Auto 0.9 % (0-2); Eosinophils Absolute Auto 0.2 X10*3/uL (0.0-0.4); Eosinophils Percent Auto 2.3 % (0-4); Hematocrit 35.3 % (42.0-52.0); Hemoglobin 12.7 g/dl (14.0-18.0); Imm Gran Abs Auto 0.03 X10*3/uL (0.00-0.03); Imm Gran Pct Auto 0.4 % (0.0-0.4); Lymphocytes Absolute Auto 1.3 X10*3/uL (1.2-4.9); Lymphocytes Percent Auto 16.9 % (20-40); Mean Corpuscular Hemoglobin 33.2 pg (27.0-33.0); Mean Corpuscular Volume 92.4 fL (80.0-98.0); Mean Platelet Volume 9.9 fL (9.4-12.4); Monocytes Absolute Auto 0.4 X10*3/uL (0.1-1.2); Monocytes Percent Auto 5.5 % (2-11); Neutrophils Absolute Auto 5.9 x10*3/uL (2.0-8.3); Platelet Count 282 X10*3/uL (160-400); Red Blood Count 3.82 X10*6/uL (4.60-5.80); Red Cell Distribution Width 11.9 % (11.0-16.0); White Blood Count 7.9 X10*3/uL (4.8-10.8)
[2022-10-20 06:50] LABS: Anion Gap 14 (12-20); Blood Urea Nitrogen 6 mg/dL (9-16); Calcium 8.2 mg/dL (8.4-10.2); Carbon Dioxide 20 mmol/L (22-29); Chloride 101 mmol/L (96-108); Estimated Glomerular Filt Rate > 60; Glucose Random 89 mg/dL (60-115); Potassium 4.2 mmol/L (3.3-5.1); Sodium 131 mmol/L (135-145)
[2022-10-20 08:00] VITALS: BP 142/74; PULSE 83; RESP 18; TEMP 36.9; O2SAT 94
[2022-10-20 08:09] LABS: Magnesium 1.7 mg/dL (1.6-2.6)
--- NOTE | 2022-10-20 08:12 | P.PNIM_ITS ---
Subjective Subjective Date of Service: 10/21/22 Interval History: alcohol withdrawal, pneumonia, hyponatremia Review of Systems Patient denies any shortness of breath or any dysphagia or nausea or vomiting . Some nonspecific abdominal discomfort . Denies any fever or chills Physical Exam 2 Vital Signs: Vital Signs: Last Vital Signs Temp 98.4 F 10/20/22 08:00 Pulse 83 10/20/22 08:00 Resp 18 10/20/22 08:00 BP 142/74 H 10/20/22 08:00 Pulse Ox 94 10/20/22 08:00 O2 Del Method 10/20/22 08:00 BMI result Body Mass Index 21.2 Appearance: Alert.? Oriented x3 cvs: rrr, [id number] res: clear to auscultation ,no rhonchii or wheezing abd: no rebound or guarding ,some nonspecific mild abd discomfort, bs present. ext: no edema or cyansois neuro:nonfocal. Objective Data Active Medications Acetaminophen (Acetaminophen 325 Mg Tablet) 650 mg PO Q6H PRN PRN Reason: Pain, Mild (Pain Scale 1-3) Azithromycin (Azithromycin 500 Mg Tablet) 500 mg PO Q24H [facility] Docusate Sodium (Docusate Sodium 100 Mg Capsule) 100 mg PO DAILY PRN PRN Reason: Constipation Enoxaparin Sodium (Enoxaparin Sodium 40 Mg/0.4 Ml Syringe) 40 mg SUBCUT Q24H [facility] Last Admin: 10/19/22 21:51 Dose: 40 mg Documented By: NATASHA Folic Acid (Folic Acid 1 Mg Tablet) 1 mg PO DAILY [facility] Sodium Chloride (Sodium Chloride 0.45 %) 1,000 mls @ 100 mls/hr IVCONT .Q10H [facility] Last Admin: 10/19/22 21:38 Dose: 100 mls/hr Documented By: NATASHA Ceftriaxone Sodium 1 gm/ (Sodium Chloride) 50 mls @ 100 mls/hr IV Q24H [facility] Dextrose (D5w) 1,000 mls @ 80 mls/hr IVCONT .[id number] [facility] Ondansetron HCl (Ondansetron Hcl 4 Mg/2 Ml Vial) 4 mg IVPUSH Q8H PRN PRN Reason: Nausea and Vomiting Pharmacy Consult (Consult Rx Perform Med Rec) 1 each MISCELLANE ONCE PRN PRN Reason: Consult order Pharmacy Consult (Consult Rx Etoh Phenob Im/Po) 1 each MISCELLANE ONCE PRN; Protocol PRN Reason: Consult order Phenobarbital (Phenobarbital 15 Mg Tablet) 45 mg PO BID [facility] Stop: 10/21/22 21:01 Phenobarbital (Phenobarbital 30 Mg Tablet) 30 mg PO BID [facility] Stop: 10/23/22 21:01 Phenobarbital (Phenobarbital 15 Mg Tablet) 15 mg PO DAILY [facility] Stop: 10/25/22 09:01 Sodium Chloride (0.9 % Sodium Chloride Flush 3 Ml Syringe) 3 ml IVFLUSH QSHIFT [facility] Last Admin: 10/19/22 23:44 Dose: 3 ml Documented By: NATASHA Thiamine HCl (Thiamine Hcl 100 Mg Tablet) 100 mg PO DAILY [facility] Last Admin: 10/19/22 21:51 Dose: 100 mg Documented By: NATASHA Labs 10/20/22 05:53 10/20/22 05:53 Labs: Laboratory Results - last 24 hr 10/19/22 10/19/22 10/19/22 17:45 17:45 17:45 MCV 91.3 MCH 33.3 H MCHC 36.5 H RDW 11.7 Plt Count 251 MPV 9.5 Immature Gran % (Auto) 0.4 Neut % (Auto) 73.8 H Lymph % (Auto) 18.8 L [place] % (Auto) 5.2 Eos % (Auto) 1.2 Baso % (Auto) 0.6 Lymph # (Auto) 1.9 [place] # (Auto) 0.5 Eos # (Auto) 0.1 Baso # (Auto) 0.1 Abs Immat Gran (auto) 0.04 H Absolute Neuts (auto) 7.6 Absolute Nucleated RBC 0.000 Nucleated RBC % (auto) 0.0 D-Dimer High Sensitivty Anion Gap 17 Estim Creat Clear Calc 106.2 Estimated GFR > 60 Random Glucose 88 Osmolality Lactic Acid Calcium 8.6 Magnesium 1.5 L Total Bilirubin 0.5 AST 26 ALT 13 Alkaline Phosphatase 63 Troponin I High Sens B-Natriuretic Peptide Total Protein 6.4 L Albumin 3.4 L Urine Color Urine Appearance Urine pH Ur Specific Alexander Urine Protein Urine Glucose (UA) Urine Ketones Urine Blood Urine Nitrite Ur Leukocyte Esterase Urine RBC Urine WBC Ur Squamous Epith Cells Urine Bacteria Hyaline Casts Urine Osmolality Urine Creatinine Salicylates < 5.0 L Urine Opiates Screen Urine Fentanyl Screen Acetaminophen < 17 Ur Barbiturates Screen Ur Phencyclidine Scrn Ur Amphetamines Screen U Benzodiazepines Scrn Urine Cocaine Screen U Marijuana (THC) Screen Ethyl Alcohol COVID-19 ([facility]) Negative COVID-19 Clin Com See Note Influenza Type A ([facility]) Influenza Type B ([facility]) Influenza A & B Note 10/19/22 10/19/22 10/19/22 17:45 17:45 17:45 MCV MCH MCHC RDW Plt Count MPV Immature Gran % (Auto) Neut % (Auto) Lymph % (Auto) [place] % (Auto) Eos % (Auto) Baso % (Auto) Lymph # (Auto) [place] # (Auto) Eos # (Auto) Baso # (Auto) Abs Immat Gran (auto) Absolute Neuts (auto) Absolute Nucleated RBC Nucleated RBC % (auto) D-Dimer High Sensitivty 295 Anion Gap Estim Creat Clear Calc Estimated GFR Random Glucose Osmolality Lactic Acid Calcium Magnesium Total Bilirubin AST ALT Alkaline Phosphatase Troponin I High Sens B-Natriuretic Peptide 39 Total Protein Albumin Urine Color Urine Appearance Urine pH Ur Specific Alexander Urine Protein Urine Glucose (UA) Urine Ketones Urine Blood Urine Nitrite Ur Leukocyte Esterase Urine RBC Urine WBC Ur Squamous Epith Cells Urine Bacteria Hyaline Casts Urine Osmolality Urine Creatinine Salicylates Urine Opiates Screen Urine Fentanyl Screen Acetaminophen Ur Barbiturates Screen Ur Phencyclidine Scrn Ur Amphetamines Screen U Benzodiazepines Scrn Urine Cocaine Screen U Marijuana (THC) Screen Ethyl Alcohol 194 COVID-19 ([facility]) COVID-19 Clin Com Influenza Type A ([facility]) Influenza Type B ([facility]) Influenza A & B Note 10/19/22 10/19/22 10/19/22 17:45 17:45 17:45 MCV MCH MCHC RDW Plt Count MPV Immature Gran % (Auto) Neut % (Auto) Lymph % (Auto) [place] % (Auto) Eos % (Auto) Baso % (Auto) Lymph # (Auto) [place] # (Auto) Eos # (Auto) Baso # (Auto) Abs Immat Gran (auto) Absolute Neuts (auto) Absolute Nucleated RBC Nucleated RBC % (auto) D-Dimer High Sensitivty Anion Gap Estim Creat Clear Calc Estimated GFR Random Glucose Osmolality Lactic Acid Calcium Magnesium Total Bilirubin AST ALT Alkaline Phosphatase Troponin I High Sens B-Natriuretic Peptide Total Protein Albumin Urine Color Yellow Urine Appearance Clear Urine pH 6.0 Ur Specific Alexander <= 1.005 Urine Protein Negative Urine Glucose (UA) Negative Urine Ketones Negative Urine Blood Negative Urine Nitrite Negative Ur Leukocyte Esterase Moderate (2+) H Urine RBC 0-2 Urine WBC 11-20 H Ur Squamous Epith Cells 0-2 Urine Bacteria None Seen Hyaline Casts 0-2 Urine Osmolality Urine Creatinine Salicylates Urine Opiates Screen Not Detected Urine Fentanyl Screen Not Detected Acetaminophen Ur Barbiturates Screen Not Detected Ur Phencyclidine Scrn Not Detected Ur Amphetamines Screen Not Detected U Benzodiazepines Scrn Not Detected Urine Cocaine Screen Not Detected U Marijuana (THC) Screen Not Detected Ethyl Alcohol COVID-19 ([facility]) COVID-19 Clin Com Influenza Type A ([facility]) Negative Influenza Type B ([facility]) Negative Influenza A & B Note See Note 10/19/22 10/19/22 10/19/22 17:45 18:44 21:33 MCV MCH MCHC RDW Plt Count MPV Immature Gran % (Auto) Neut % (Auto) Lymph % (Auto) [place] % (Auto) Eos % (Auto) Baso % (Auto) Lymph # (Auto) [place] # (Auto) Eos # (Auto) Baso # (Auto) Abs Immat Gran (auto) Absolute Neuts (auto) Absolute Nucleated RBC Nucleated RBC % (auto) D-Dimer High Sensitivty Anion Gap Estim Creat Clear Calc Estimated GFR Random Glucose Osmolality 297 Lactic Acid 1.9 Calcium Magnesium Total Bilirubin AST ALT Alkaline Phosphatase Troponin I High Sens 7.1 B-Natriuretic Peptide Total Protein Albumin Urine Color Urine Appearance Urine pH Ur Specific Alexander Urine Protein Urine Glucose (UA) Urine Ketones Urine Blood Urine Nitrite Ur Leukocyte Esterase Urine RBC Urine WBC Ur Squamous Epith Cells Urine Bacteria Hyaline Casts Urine Osmolality Urine Creatinine Salicylates Urine Opiates Screen Urine Fentanyl Screen Acetaminophen Ur Barbiturates Screen Ur Phencyclidine Scrn Ur Amphetamines Screen U Benzodiazepines Scrn Urine Cocaine Screen U Marijuana (THC) Screen Ethyl Alcohol COVID-19 ([facility]) COVID-19 Clin Com Influenza Type A ([facility]) Influenza Type B ([facility]) Influenza A & B Note 10/19/22 10/19/22 10/19/22 21:33 21:33 21:33 MCV MCH MCHC RDW Plt Count MPV Immature Gran % (Auto) Neut % (Auto) Lymph % (Auto) [place] % (Auto) Eos % (Auto) Baso % (Auto) Lymph # (Auto) [place] # (Auto) Eos # (Auto) Baso # (Auto) Abs Immat Gran (auto) Absolute Neuts (auto) Absolute Nucleated RBC Nucleated RBC % (auto) D-Dimer High Sensitivty Anion Gap 15 Estim Creat Clear Calc 118.0 Estimated GFR > 60 Random Glucose 128 H Osmolality Lactic Acid Calcium 8.0 L D Magnesium Total Bilirubin AST ALT Alkaline Phosphatase Troponin I High Sens B-Natriuretic Peptide Total Protein Albumin Urine Color Urine Appearance Urine pH Ur Specific [place] Urine Protein Urine Glucose (UA) Urine Ketones Urine Blood Urine Nitrite Ur Leukocyte Esterase Urine RBC Urine WBC Ur Squamous Epith Cells Urine Bacteria Hyaline Casts Urine Osmolality 147 L Urine Creatinine 16.77 Salicylates Urine Opiates Screen Urine Fentanyl Screen Acetaminophen Ur Barbiturates Screen Ur Phencyclidine Scrn Ur Amphetamines Screen U Benzodiazepines Scrn Urine Cocaine Screen U Marijuana (THC) Screen Ethyl Alcohol COVID-19 ([facility]) COVID-19 Clin Com Influenza Type A ([facility]) Influenza Type B ([facility]) Influenza A & B Note 10/20/22 10/20/22 05:53 05:53 MCV 92.4 MCH 33.2 H MCHC 36.0 RDW 11.9 Plt Count 282 MPV 9.9 Immature Gran % (Auto) 0.4 Neut % (Auto) 74.0 H Lymph % (Auto) 16.9 L [place] % (Auto) 5.5 Eos % (Auto) 2.3 Baso % (Auto) 0.9 Lymph # (Auto) 1.3 [place] # (Auto) 0.4 Eos # (Auto) 0.2 Baso # (Auto) 0.1 Abs Immat Gran (auto) 0.03 Absolute Neuts (auto) 5.9 Absolute Nucleated RBC 0.000 Nucleated RBC % (auto) 0.0 D-Dimer High Sensitivty Anion Gap 14 Estim Creat Clear Calc 94.0 Estimated GFR > 60 Random Glucose 89 Osmolality Lactic Acid Calcium 8.2 L Magnesium 1.7 Total Bilirubin AST ALT Alkaline Phosphatase Troponin I High Sens B-Natriuretic Peptide Total Protein Albumin Urine Color Urine Appearance Urine pH Ur Specific [place] Urine Protein Urine Glucose (UA) Urine Ketones Urine Blood Urine Nitrite Ur Leukocyte Esterase Urine RBC Urine WBC Ur Squamous Epith Cells Urine Bacteria Hyaline Casts Urine Osmolality Urine Creatinine Salicylates Urine Opiates Screen Urine Fentanyl Screen Acetaminophen Ur Barbiturates Screen Ur Phencyclidine Scrn Ur Amphetamines Screen U Benzodiazepines Scrn Urine Cocaine Screen U Marijuana (THC) Screen Ethyl Alcohol COVID-19 ([facility]) COVID-19 Clin Com Influenza Type A ([facility]) Influenza Type B ([facility]) Influenza A & B Note Assessment and Plan (1) Hyponatremia: Status: Acute (2) Tracheal mass: Status: Acute (3) Hypomagnesemia: Status: Acute (4) Gastritis: Status: Acute (5) Chest mass: Status: Acute (6) Community acquired pneumonia: Status: Acute (7) Alcohol abuse with withdrawal: Status: Acute Plan 67 y/om alcohol withdrawal, pneumonia, hyponatremia. Alcohol withdrawal: Still tremulous CIWA scale, continue phenobarb protocol, continue thiamine and folic acid. Pneumonia: Does not seem to have short of breath, but says she he is having cough Continue IV ceftriaxone and azithromycin. Added loratadine and cough syrup. Hypomagnesemia: Added magnesium supplements. Hyponatremia: Seems like sodium trending up Fluids changed to D5W repeat bmp Nephrology evaluation Abdominal discomfort:? Alcoholic gastritis Added PPI Incidental finding CTA shows:retrotracheal posterior possible mass Patient denies any shortness of breath or any dysphagia Will add oncology evaluation. dvt prophylax: s/clovenox Need of inpatient stay: Need monitoring for hyponatremia-need close monitoring, IV fluid. In addition has hypomagnesemia need IV and p.o. med replacement and monitoring. Pneumonia on IV antibiotics, also patient has alcohol withdrawal on phenobarb protocol as well as need CIWA monitoring. Time Spent With Patient Time: Total time managing care of this patient today ____ minutes. Quality Stroke Does the patient have a stroke diagnosis?: No VTE Prior VTE?: No VTE Risk Level:: Medical - moderate - high VTE Device Contraindication: Treatment Not Indicated VTE Drug Contraindication: N/A - Med Ordered
[2022-10-20 08:53] LABS: Osmolality, Serum 270 mosm/kg (281-305)
[2022-10-20] MEDS: Folic Acid 1 MG TABLET PO (09:07)
[2022-10-20] MEDS: PHENobarbitaL 15 MG TABLET 45 MG PO ×2 (09:07→21:52)
[2022-10-20] MEDS: Thiamine HCL 100 MG TABLET PO ×2 (09:08→15:59)
[2022-10-20] MEDS: Dextrose 5 % 1,000 ML 80 ML IVCONT (09:12)
[2022-10-20 10:44] LABS: Anion Gap 11 (12-20); Blood Urea Nitrogen 8 mg/dL (9-16); Calcium 8.1 mg/dL (8.4-10.2); Carbon Dioxide 24 mmol/L (22-29); Chloride 102 mmol/L (96-108); Estimated Glomerular Filt Rate > 60; Glucose Random 89 mg/dL (60-115); Potassium 3.8 mmol/L (3.3-5.1); Sodium 133 mmol/L (135-145)
[2022-10-20] MEDS: Acetaminophen 325 MG TABLET 650 MG PO (15:43)
[2022-10-20] MEDS: Magnesium Sulfate/D5W 1 GM/100 ML PIGGYBACK IV (15:56)
[2022-10-20 15:58] VITALS: BP 161/82; PULSE 103; RESP 20; TEMP 37.8; O2SAT 98
[2022-10-20] MEDS: Omeprazole 20 MG CAPSULE.DR PO (15:59)
[2022-10-20] MEDS: cefTRIAXone sodium 1 GM in 0.9 % Sodium Chloride 50 ML IV (17:07)
[2022-10-20] MEDS: Magnesium Oxide 400 MG TABLET PO (17:08)
[2022-10-20 17:32] LABS: Anion Gap 12 (12-20); Blood Urea Nitrogen 12 mg/dL (9-16); Calcium 8.2 mg/dL (8.4-10.2); Carbon Dioxide 21 mmol/L (22-29); Chloride 99 mmol/L (96-108); Creatinine Clr Calc Pharmacy 78.9; Estimated Glomerular Filt Rate > 60; Glucose Random 138 mg/dL (60-115); Potassium 3.8 mmol/L (3.3-5.1); Sodium 128 mmol/L (135-145)
[2022-10-20] MEDS: Azithromycin 500 MG TABLET PO (19:32)
[2022-10-20] MEDS: vancomycin HCL 1,500 MG in 0.9 % Sodium Chloride 500 ML 333.33 MG IV (19:32)
[2022-10-20 19:48] VITALS: BP 132/75; PULSE 86; RESP 20; TEMP 36.4; O2SAT 95
--- NOTE | 2022-10-20 20:05 | PHA.PROG ---
Admission Date/Time: October 19, 2022 20:38 Indication: Bacteremia Weight in k.4 kg Serum Creatinine - Last 168 Hours 10/19/22 10/19/22 10/20/22 17:45 21:33 05:53 Creatinine 0.70 0.63 0.68 10/20/22 10/20/22 10:12 17:08 Creatinine 0.71 0.81 Estimated CrCl and GFR - Last 168 Hours 10/19/22 10/19/22 10/20/22 17:45 21:33 05:53 Estim Creat Clear Calc 106.2 118.0 94.0 Estimated GFR > 60 > 60 > 60 10/20/22 10/20/22 10:12 17:08 Estim Creat Clear Calc 90.0 78.9 Estimated GFR > 60 > 60 Vancomycin Loading Dose: 1500 Current Vancomycin Dosing Regimen: 750 q 12 Vancomycin Monitoring using AUC goal of 400 - 600 range with trough as surrogate marker: 538 Date and Time for next Vancomycin Level to be drawn: 10/21 @ 1700 Pharmacist Comments on Vancomycin Plan: Vancomycin dosing will take advantage of [employer] as a clinical decision support tool that uses Bayesian modeling to calculate individual patient's pharmacokinetic parameters and forecast the patient's drug concentration time course with the target goal AUC 24 range of 400 - 600 mg/L/hr.
[2022-10-20 20:31] LABS: Anion Gap 14 (12-20); Blood Urea Nitrogen 11 mg/dL (9-16); Carbon Dioxide 20 mmol/L (22-29); Chloride 100 mmol/L (96-108); Creatinine Clr Calc Pharmacy 78.9; Estimated Glomerular Filt Rate > 60; Glucose Random 134 mg/dL (60-115); Potassium 3.9 mmol/L (3.3-5.1); Sodium 130 mmol/L (135-145)
[2022-10-20] MEDS: Enoxaparin Sodium 40 MG/0.4 ML SYRINGE SUBCUT (21:52)
--- NOTE | 2022-10-20 22:07 | CONS_ITS ---
DATE OF SERVICE: 10/20/2022 REASON FOR CONSULTATION: I was asked to see patient to assist in evaluation and management of patient's hyponatremia as reflected by serum sodium that was as low as 123 on admission and it is actually up to 133 this morning at 10:12 a.m. In reviewing his records from the EHR, he has had repetitive episodes of hyponatremia. In fact, he was down as low as 112 back on the July 22, 2021. HISTORY OF PRESENT ILLNESS: In summary, the patient is a 67-year-old gentleman with a heavy alcohol abuse history, admitted to the hospital apparently with alcohol withdrawal. He has a history of a stroke, DTs, and again the hyponatremia in the past, peripheral vascular disease, who apparently presented to the hospital with alcohol intoxication. The patient is a poor historian. Information obtained from electronic medical record. PAST MEDICAL HISTORY: As mentioned includes hyponatremia, alcohol abuse, stroke, falling episodes, hard of hearing, and peripheral vascular disease are all listed. MEDICATIONS: His medications on admission are not known at this time. Current medications on the NOV. ALLERGIES: HE HAS NO KNOWN DRUG ALLERGIES.??? There is mention made that he is a tobacco user and heavy alcohol history. REVIEW OF SYSTEMS: As noted above. PHYSICAL EXAMINATION: VITAL SIGNS: Blood pressure 140/70 with a heart rate in the 80s. He is afebrile. HEENT: Head is atraumatic and normocephalic. Mucous membranes are moist. LUNGS: Breath sounds bilaterally. CARDIAC: Regular rate and rhythm. ABDOMEN: Soft, nontender. EXTREMITIES: Show trace edema. LABORATORY DATA: From this morning show sodium 133, potassium 3.8, chloride 102, bicarb 24, BUN 8, creatinine 0.7, calcium 8.1. On admission yesterday at 5 p.m., his serum sodium was 123. Hemoglobin 12.2, hematocrit 35.3, white count 7.9. Urine studies show urine Osmo 147. It is unclear what fluids he got overnight whether he got normal saline. Now, the records indicate that he is on 80 cc/hour of D5W. IMPRESSION: A 67-year-old alcoholic, admitted with alcohol intoxication, noted to have hyponatremia with serum sodium 123, it is up to 133, which is corrected too fast. 1. Hyponatremia. Patient appears to be euvolemic. Most likely, he has excessive fluid intake along with low solid intake causing a beer potomania type picture with hyponatremia. He seems to be auto correcting too fast as our goal is not to allow serum sodium decreased by more than 4-6 mEq for 24 hours. Other possible cause for his hyponatremia such as adrenal insufficiency and hypothyroidism seem unlikely, but should be ruled out with laboratory tests. The main focus of treatment now is to correct his too rapid correction. This will include giving him IV fluids and encourage him to drink p.o. fluids and monitoring his serum sodium. Our goal will be to allow serum sodium to correct by no more than 4-6 mEq for 24 hours. Therefore, the goal is to not allow serum sodium go up above 129 by 5 p.m. tonight. I will discuss with the hospitalist about giving him more D5W and monitoring his serum sodium closely. We will try and avoid giving him DDAVP as this complicates his overall care and could cause significant hyponatremia. For now, cautiously monitoring his serum sodiums. It is for this reason that I would recommend giving him more D5W monitoring the serum sodium. Hopefully we can control the auto correction this way. We will follow the patient closely with the team. MD MIKAEL Mckeon/EMILIO / [phone]
[2022-10-20] MEDS: 0.9 % Sodium Chloride Flush 3 ML SYRINGE IVFLUSH (23:40)
[2022-10-21 03:10] VITALS: BP 141/79; PULSE 100; RESP 17; TEMP 37; O2SAT 93
[2022-10-21] MEDS: Omeprazole 20 MG CAPSULE.DR PO ×2 (05:07→17:22)
[2022-10-21] MEDS: vancomycin HCL 750 MG in 0.9 % Sodium Chloride 250 ML 265 MG IV (05:58)
[2022-10-21] MEDS: 0.9 % Sodium Chloride Flush 3 ML SYRINGE IVFLUSH ×3 (05:59→20:17)
[2022-10-21 07:04] VITALS: BP 158/74; PULSE 69; RESP 19; TEMP 36.6; O2SAT 96
[2022-10-21 08:02] LABS: Anion Gap 11 (12-20); Blood Urea Nitrogen 6 mg/dL (9-16); Carbon Dioxide 23 mmol/L (22-29); Chloride 100 mmol/L (96-108); Creatinine Clr Calc Pharmacy 92.6; Estimated Glomerular Filt Rate > 60; Glucose Random 111 mg/dL (60-115); Potassium 3.6 mmol/L (3.3-5.1); Sodium 130 mmol/L (135-145)
[2022-10-21] MEDS: Thiamine HCL 100 MG TABLET PO ×2 (08:55→17:22)
[2022-10-21] MEDS: Folic Acid 1 MG TABLET PO (08:55)
[2022-10-21] MEDS: Magnesium Oxide 400 MG TABLET PO ×2 (08:55→17:21)
[2022-10-21] MEDS: PHENobarbitaL 15 MG TABLET 45 MG PO ×2 (08:55→20:16)
--- NOTE | 2022-10-21 09:45 | P.PNIM_ITS ---
Subjective Subjective Date of Service: 10/21/22 Interval History: alcohol withdrawal,hypmagnesemia Review of Systems seems still tramulous ,anxious has cough ,sob similar (slight improvement) no dysphagia Physical Exam Vital Signs: Vital Signs: Last Vital Signs Temp 97.8 F 10/21/22 07:04 Pulse 69 10/21/22 07:04 Resp 19 10/21/22 07:04 BP 158/74 H 10/21/22 07:04 Pulse Ox 96 10/21/22 07:04 O2 Del Method 10/21/22 07:04 O2 Flow Rate 2 10/21/22 07:04 BMI result Body Mass Index 21.2 Appearance: Alert.? Oriented x3 cvs: rrr, [id number] res: clear to auscultation ,no rhonchii or wheezing abd: no rebound or guarding ,some nonspecific mild abd discomfort, bs present. ext: no edema or cyansois neuro:nonfocal. Objective Data Active Medications Acetaminophen (Acetaminophen 325 Mg Tablet) 650 mg PO Q6H PRN PRN Reason: Pain, Mild (Pain Scale 1-3) Last Admin: 10/20/22 15:43 Dose: 650 mg Documented By: VAIBHAV Azithromycin (Azithromycin 500 Mg Tablet) 500 mg PO Q24H [facility] Last Admin: 10/20/22 19:32 Dose: 500 mg Documented By: FREDDY Docusate Sodium (Docusate Sodium 100 Mg Capsule) 100 mg PO DAILY PRN PRN Reason: Constipation Enoxaparin Sodium (Enoxaparin Sodium 40 Mg/0.4 Ml Syringe) 40 mg SUBCUT Q24H [facility] Last Admin: 10/20/22 21:52 Dose: 40 mg Documented By: FREDDY Folic Acid (Folic Acid 1 Mg Tablet) 1 mg PO DAILY [facility] Last Admin: 10/21/22 08:55 Dose: 1 mg Documented By: JULIETH Ceftriaxone Sodium 1 gm/ (Sodium Chloride) 50 mls @ 100 mls/hr IV Q24H [facility] Last Infusion: 10/20/22 17:40 Dose: 0 mls/hr Documented By: VAIBHAV Vancomycin HCl 750 mg/ Sodium (Chloride) 265 mls @ 265 mls/hr IV Q12H [facility] Last Infusion: 10/21/22 07:17 Dose: 0 mls/hr Documented By: JULIETH Magnesium Oxide (Magnesium Oxide 400 Mg Tablet) 400 mg PO BIDPC [facility] Last Admin: 10/21/22 08:55 Dose: 400 mg Documented By: JULIETH Omeprazole (Omeprazole 20 Mg Capsule.Dr) 20 mg PO BID@0630,1630 [facility] Last Admin: 10/21/22 05:07 Dose: 20 mg Documented By: JUAN Ondansetron HCl (Ondansetron Hcl 4 Mg/2 Ml Vial) 4 mg IVPUSH Q8H PRN PRN Reason: Nausea and Vomiting Pharmacy Consult (Consult Rx Perform Med Rec) 1 each MISCELLANE ONCE PRN PRN Reason: Consult order Pharmacy Consult (Consult Rx Etoh Phenob Im/Po) 1 each MISCELLANE ONCE PRN; Protocol PRN Reason: Consult order Pharmacy Consult (Consult Rx Vancomycin Dosing) 1 each MISCELLANE DAILY PRN PRN Reason: Consult order Phenobarbital (Phenobarbital 15 Mg Tablet) 45 mg PO BID [facility] Stop: 10/21/22 21:01 Last Admin: 10/21/22 08:55 Dose: 45 mg Documented By: JULIETH Phenobarbital (Phenobarbital 30 Mg Tablet) 30 mg PO BID [facility] Stop: 10/23/22 21:01 Phenobarbital (Phenobarbital 15 Mg Tablet) 15 mg PO DAILY [facility] Stop: 10/25/22 09:01 Sodium Chloride (0.9 % Sodium Chloride Flush 3 Ml Syringe) [facility] Last Admin: 10/21/22 05:59 Dose: 3 ml Documented By: JUAN Thiamine HCl (Thiamine Hcl 100 Mg Tablet) 100 mg PO BIDWM [facility] Last Admin: 10/21/22 08:55 Dose: 100 mg Documented By: JULIETH Labs 10/20/22 05:53 10/21/22 07:36 Labs: Laboratory Results - last 24 hr 10/20/22 10/20/22 10/20/22 10:12 17:08 19:59 Anion Gap 11 L 12 14 Estim Creat Clear Calc 90.0 78.9 78.9 Estimated GFR > 60 > 60 > 60 Random Glucose 89 138 H 134 H Calcium 8.1 L 8.2 L 8.0 L 10/21/22 07:36 Anion Gap 11 L Estim Creat Clear Calc 92.6 Estimated GFR > 60 Random Glucose 111 Calcium 8.0 L Microbiology Microbiology Results: Microbiology 10/19/22 18:44 Blood Culture - Final Blood - Venous Coag negative Staphylococcus 10/19/22 18:44 Blood Culture - Preliminary Blood - Venous No growth after 24 hours. 10/19/22 18:16 Urine Culture - Preliminary Urine clean catch - Urine rossi top No growth to date. Assessment and Plan (1) Chest mass: Status: Acute (2) Community acquired pneumonia: Status: Acute (3) Alcohol abuse with withdrawal: Status: Acute (4) Gastritis: Status: Acute (5) Hypomagnesemia: Status: Acute (6) Hyponatremia: Status: Acute (7) Tracheal mass: Status: Acute Plan 67 y/om? alcohol withdrawal, pneumonia, hyponatremia. Alcohol withdrawal: Still tremulous CIWA scale, continue phenobarb protocol, continue thiamine and folic acid. Pneumonia: Does not seem to have short of breath, but says she he is having cough ?Continue IV ceftriaxone and azithromycin.? Added loratadine and cough syrup. Hypomagnesemia:?repleted and mproved. Added magnesium supplements. Hyponatremia: Seems like sodium trending up Fluids changed to D5W repeat bmp Nephrology evaluation Abdominal discomfort:?? Alcoholic gastritis Added PPI Incidental finding CTA shows:retrotracheal posterior possible mass Patient denies any shortness of breath or any dysphagia Will add oncology evaluation. dvt prophylax: s/clovenox Need of inpatient stay:? Need monitoring for hyponatremia-need close monitoring,electrolytic monitering.? Pneumonia on IV antibiotics, also patient has alcohol withdrawal on phenobarb protocol as well as need CIWA monitoring. Time Spent With Patient Time: Total time managing care of this patient today ____ minutes. Quality Stroke Does the patient have a stroke diagnosis?: No VTE Prior VTE?: No VTE Risk Level:: Medical - moderate - high VTE Device Contraindication: Treatment Not Indicated VTE Drug Contraindication: N/A - Med Ordered
--- NOTE | 2022-10-21 11:17 | PM.HEMONCCN ---
Subjective - Subjective Chief complaint: None Patient: new to practice Consult date: 10/21/22 Requesting Physician: Dr. Ramos Primary Care Provider: Unknown Physician HPI - Consult Narrative Reason for consult: Mediastinal mass Narrative: Jolly Cortés is a 67 year old male with history of heavy alcohol use who is admitted for delete him tremens and hyponatremia related to alcoholism. He underwent a CT angiogram on 10/19/2022 because of chest pain and elevated D-dimer. This revealed abnormal findings, large retrotracheal mass but no evidence of PE. Patient is a poor historian and is not willing to divulge any history at this time. Review of Systems - Constitutional Reports as per [facility] Medical History: Medical History (Last Reviewed 10/20/22 @ 20:05 by Sally Reyes MD) Acute hyponatremia Alcohol abuse Alcoholic intoxication CVA (cerebral vascular accident) Delirium tremens Encounter for assessment of decision-making capacity Fall Hard of hearing Hyponatremia Injury of right lower arm PAD (peripheral artery disease) Social History: Social History (Last Reviewed 10/20/22 @ 20:05 by Sally Reyes MD) Living Situation History: Household Members: None Housing: Homeless Alcohol History Details: 1. How often do you have a drink containing alcohol?: e. 4 or more times a week AUDIT-C Alcohol total score: 4 Last drink: Just prior to admission Currently Displaying Signs/Symptoms of Alcohol Withdrawal: No Tobacco History: Patient Tobacco Use Status: Current everyday Tobacco Tobacco use type: Cigarette Smoked in Last 30 Days: Yes e-Cigarette/Vaping Use: Currently Using Substance Use History: Use of substances other than those prescribed or required for medical reasons: No Currently Displaying Signs/Symptoms of Drug Intoxication Withdrawal: No Advance Directives: Advance Directives: No Advance Directives Information Provided: No Homicidal Assessment: Do you have thoughts of harming others: None Do you have a plan to hurt others: No Plan Nutrition Assessment: Recently lost weight without trying: Unsure Eating poorly because of decreased appetite: No Nutrition Risks: No Nutritional Risk Poor oral hygiene: Yes Occupation Assessmet: service: No Current occupational status: unemployed Home Medications and Allergies Current Medications: Current Medications Acetaminophen (Acetaminophen 325 Mg Tablet) 650 mg PO Q6H PRN PRN Reason: Pain, Mild (Pain Scale 1-3) Last Admin: 10/20/22 15:43 Dose: 650 mg Azithromycin (Azithromycin 500 Mg Tablet) 500 mg PO Q24H [facility] Last Admin: 10/20/22 19:32 Dose: 500 mg Docusate Sodium (Docusate Sodium 100 Mg Capsule) 100 mg PO DAILY PRN PRN Reason: Constipation Enoxaparin Sodium (Enoxaparin Sodium 40 Mg/0.4 Ml Syringe) 40 mg SUBCUT Q24H [facility] Last Admin: 10/20/22 21:52 Dose: 40 mg Folic Acid (Folic Acid 1 Mg Tablet) 1 mg PO DAILY [facility] Last Admin: 10/21/22 08:55 Dose: 1 mg Ceftriaxone Sodium 1 gm/ (Sodium Chloride) 50 mls @ 100 mls/hr IV Q24H [facility] Last Infusion: 10/20/22 17:40 Dose: Infused Vancomycin HCl 750 mg/ Sodium (Chloride) 265 mls @ 265 mls/hr IV Q12H [facility] Last Infusion: 10/21/22 07:17 Dose: Infused Magnesium Oxide (Magnesium Oxide 400 Mg Tablet) 400 mg PO BIDPC [facility] Last Admin: 10/21/22 08:55 Dose: 400 mg Omeprazole (Omeprazole 20 Mg Capsule.Dr) 20 mg PO BID@0630,1630 [facility] Last Admin: 10/21/22 05:07 Dose: 20 mg Ondansetron HCl (Ondansetron Hcl 4 Mg/2 Ml Vial) 4 mg IVPUSH Q8H PRN PRN Reason: Nausea and Vomiting Pharmacy Consult (Consult Rx Perform Med Rec) 1 each MISCELLANE ONCE PRN PRN Reason: Consult order Pharmacy Consult (Consult Rx Etoh Phenob Im/Po) 1 each MISCELLANE ONCE PRN; Protocol PRN Reason: Consult order Pharmacy Consult (Consult Rx Vancomycin Dosing) 1 each MISCELLANE DAILY PRN PRN Reason: Consult order Phenobarbital (Phenobarbital 15 Mg Tablet) 45 mg PO BID [facility] Stop: 10/21/22 21:01 Last Admin: 10/21/22 08:55 Dose: 45 mg Phenobarbital (Phenobarbital 30 Mg Tablet) 30 mg PO BID [facility] Stop: 10/23/22 21:01 Phenobarbital (Phenobarbital 15 Mg Tablet) 15 mg PO DAILY [facility] Stop: 10/25/22 09:01 Sodium Chloride (0.9 % Sodium Chloride Flush 3 Ml Syringe) 3 ml IVFLUSH QSHIFT [facility] Last Admin: 10/21/22 05:59 Dose: 3 ml Thiamine HCl (Thiamine Hcl 100 Mg Tablet) 100 mg PO BIDWM [facility] Last Admin: 10/21/22 08:55 Dose: 100 mg Home Medications Medication Instructions Recorded Confirmed Type No Known Home Meds 10/19/22 10/19/22 History Allergies Allergy/AdvReac Type Severity Reaction Status Date / Time No Known Allergies Allergy Unknown UNKNOWN Verified 09/08/20 17:05 [NO KNOWN ALLERGIES] Physical Exam Vital signs: Vital Signs Temp 97.8 F 10/21/22 07:04 Pulse 69 10/21/22 07:04 Resp 19 10/21/22 07:04 BP 158/74 H 10/21/22 07:04 Pulse Ox 96 10/21/22 07:04 O2 Del Method 10/21/22 07:04 O2 Flow Rate 2 10/21/22 07:04 Intake & Output 10/20/22 10/21/22 10/21/22 18:59 06:59 18:59 Intake Total 2411.333 / 3511.333 1100 / 3511.333 265 / 265 Output Total 700 / 700 400 / 400 Balance 2411.333 / 2811.333 400 / 2811.333 -135 / -135 Urine Output (Average ml/kg/hr) 0.95 0.54 Intake: Intake, Oral Amount 580 / 1180 600 / 1180 Intake, IV Amount 1831.333 / 2331.333 500 / 2331.333 265 / 265 Magnesium Sulfate/D5W 1 gm In 100 / 100 100 ml @ 100 mls/hr IV ONCE ONE Rx#:[id number] cefTRIAXone sodium 1 gm In 0.9 50 / 50 % Sodium Chloride 50 ml @ 100 mls/hr IV Q24H [facility] Rx#: [id number] vancomycin HCL 1,500 mg In 0.9 500 / 500 % Sodium Chloride 500 ml @ 333. 333 mls/hr IV ONCE ONE Rx#: [id number] vancomycin HCL 750 mg In 0.9 % 265 / 265 Sodium Chloride 250 ml @ 265 mls/hr IV Q12H [facility] Rx#: [id number] Dextrose 5 % 1,000 ml @ 150 mls 681.333 / 681.333 /hr IVCONT .Q6H40M [facility] Rx#: [id number] Sodium Chloride 0.45 % 1,000 ml 1000 / 1000 @ 100 mls/hr IVCONT .Q10H [facility] Rx#:[id number] Output: Output, Urine Amount 700 / 700 400 / 400 Other: Meal Refused No NPO No Breakfast % Eaten 75% Lunch % Eaten 75% Dinner % Eaten 75% Number of Incontinent Voids 1 1 Number of Unmeasured Voids 1 2 Number of Bowel Movements 1 1 Urine Bathroom Last Bowel Movement 10/20/22 Stool Incontinent Bathroom Stool Amount Moderate Stool Color Zaman Stool Consistency Soft Weight 61.4 kg - Constitutional Present: no acute distress, disheveled Comments: Disheveled and uncooperative. - Routine HEENT Exam Head: Present: normal inspection Hem/Onc Consult Result - Labs CBC & Chem 7: 10/20/22 05:53 10/21/22 07:36 Labs: BMP 10/20/22 10/20/22 10/21/22 17:08 19:59 07:36 Sodium 128 L 130 L 130 L Potassium 3.8 3.9 3.6 Chloride 99 100 100 Carbon Dioxide 21 L 20 L 23 BUN 12 11 6 L Creatinine 0.81 0.81 0.69 Calcium 8.2 L 8.0 L 8.0 L Assessment and Plan Patient Active problem list reviewed?: Yes (1) Chest mass Status: Acute Assessment and plan: 1. This is a 67-year-old male with history of chronic alcoholism admitted for delirium tremens and hyponatremia. CT angio of chest shows mass in the mediastinum, retro it tracheal position measuring 3.8 x 2.9 cm with occlusion of azygos vein. Mass extends superiorly into superior mediastinum deviating the esophagus to the left. This has grown in size compared to prior imaging studies. This is suspicious for malignancy, possibilities include lung cancer and lymphoma. It is unclear if patient wants to proceed with diagnostic testing. He wants to know however if it is cancer. I recommend pulmonary consultation for tissue biopsy if the patient agrees. I thank you for the consultation. - Time Spent With Patient Time Spent with Patient (in minutes): 10
--- NOTE | 2022-10-21 11:22 | PM.PNNEP ---
Subjective Subjective Date of Service: 10/21/22 Interval history: seen and examined denies CP/SOB/N/V/D Physical Exam Vital Signs: Vital Signs: Last Vital Signs Temp 97.8 F 10/21/22 07:04 Pulse 69 10/21/22 07:04 Resp 19 10/21/22 07:04 BP 158/74 H 10/21/22 07:04 Pulse Ox 96 10/21/22 07:04 O2 Del Method 10/21/22 07:04 O2 Flow Rate 2 10/21/22 07:04 BMI result Body Mass Index 21.2 Const: General: no acute distress HEENT: Head: Yes normocephalic and Yes atraumatic Neck: Neck: Yes supple Resp: Auscultation: diminished lung sounds Cardio: Heart sounds: S1 normal heart sound present and S2 normal heart sound present GI: Palpation (GI): Soft to palpation and nontender Extrem: General: Yes no pedal edema Objective Data Labs 10/20/22 05:53 10/21/22 07:36 Labs: Laboratory Results - last 24 hr 10/20/22 10/20/22 10/21/22 17:08 19:59 07:36 Sodium 128 L 130 L 130 L Potassium 3.8 3.9 3.6 Chloride 99 100 100 Carbon Dioxide 21 L 20 L 23 Anion Gap 12 14 11 L BUN 12 11 6 L Creatinine 0.81 0.81 0.69 Estim Creat Clear Calc 78.9 78.9 92.6 Estimated GFR > 60 > 60 > 60 Random Glucose 138 H 134 H 111 Calcium 8.2 L 8.0 L 8.0 L Microbiology Microbiology Results: Microbiology 10/19/22 18:44 Blood - Venous Blood Culture - Final Coag negative Staphylococcus 10/19/22 18:44 Blood - Venous Blood Culture - Preliminary No growth after 24 hours. 10/19/22 18:16 Urine clean catch - Urine rossi top Urine Culture - Preliminary No growth to date. Procedures Date of Service Date of Service: 10/21/22 Assessment & Plan Assessment and plan (1) Hyponatremia: Status: Acute Plan Sna stable euvolemic hyponatremia -excessive free water intake -poor solute excretion low Uosm REC fluid restriction follow electrolytes Time Spent With Patient Time: Total time managing care of this patient today ____ minutes. Progress Note: Quality Stroke Does the patient have a stroke diagnosis?: No
[2022-10-21 11:56] LABS: Lactate Dehydrogenase 196 U/L (118-273)
--- NOTE | 2022-10-21 12:09 | MHC.CM.PN ---
PER MULTIDISCIPLINARY ROUNDS PT WILL REMAIN INPT THROUGH W/E, PT IS HOMELESS AND PLAN CONT'S TO BE [facility] UPON D/C. CM WILL CONT TO FOLLOW D/C NEEDS.
--- NOTE | 2022-10-21 12:43 | PM.CNPUL ---
History of Present Illness History of Present Illness Consult date: 10/21/22 Chief complaint: Hyponatremia, PNA, Alcohol withdrawal Narrative: This is an inpatient pulmonary consultation. The patient is a 67 year old male with history of heavy alcohol use who is admitted for delete him tremens and hyponatremia related to alcoholism.? He underwent a CT angiogram on 10/19/2022 because of chest pain and elevated D-dimer.? This revealed abnormal findings, large retrotracheal mass but no evidence of PE. I personally reviewed the CT scan demonstrating what appears to be a posterior mediastinal mass like density causing deviation of the esophagus. Appears to be vascular with some vessels penetrating it. Indeed is irregular and is concerning for malignancy. I did speak to the patient regarding the findings. He seemed to understand that he may have a cancer growth and that he needs a biopsy. His words were that she do well we need to do to find out. The patient will be arranged for endobronchial ultrasound bronchoscopy for next week. Review of Systems Review of Systems: Constitutional : No Weight loss, No Fever, No Chills, No Fatigue, No Malaise ENT/Mouth : No sore throat, No Rhinorrhea Eyes: No Eye Pain, No Swelling, No Redness Cardiovascular : No Chest Pain, - SOB, No Dyspnea on Exertion, No Orthopnea, No Edema, No Palpitations Respiratory : No Cough, No Sputum, No Wheezing Gastrointestinal : No Nausea, No Vomiting, No Diarrhea, No Constipation, No abdominal Pain, No Hematochezia, No Melena Genitourinary : No Dysuria, No Urinary Frequency, No Hematuria, Musculoskeletal : No joint pain, No Myalgias, No Joint Swelling Skin : No Skin Lesions, No rash Neuro : No Weakness, No Numbness, No Dizziness, No Headache Psych : No Anxiety/Panic, No Depression All other systems reviewed and are negative Yes all other systems are reviewed and are negative [facility] Past Medical History Medical History Acute hyponatremia Alcohol abuse Alcoholic intoxication CVA (cerebral vascular accident) Delirium tremens Encounter for assessment of decision-making capacity Fall Hard of hearing Hyponatremia Injury of right lower arm PAD (peripheral artery disease) Social History Social History Household Members: None Housing: Homeless Alcohol intake: current Alcohol intake frequency: 3 or more drinks per day Alcohol type: beer, wine and hard liquor Patient Tobacco Use Status: Current everyday Tobacco user Tobacco use type: Cigarette Smoked in Last 30 Days: Yes e-Cigarette/Vaping Use: Currently Using Use of substances other than those prescribed or required for medical reasons: No Currently Displaying Signs/Symptoms of Drug Intoxication Withdrawal: No Advance Directives: No Advance Directives Information Provided: No Do you have thoughts of harming others: None Do you have a plan to hurt others: No Plan Recently lost weight without trying: Unsure Eating poorly because of decreased appetite: No Nutrition Risks: No Nutritional Risk Poor oral hygiene: Yes service: No Current occupational status: unemployed Meds Allergies Allergy/AdvReac Type Severity Reaction Status Date / Time No Known Allergies Allergy Unknown UNKNOWN Verified 09/08/20 17:05 [NO KNOWN ALLERGIES] Active Medications: Current Medications Acetaminophen (Acetaminophen 325 Mg Tablet) 650 mg PO Q6H PRN PRN Reason: Pain, Mild (Pain Scale 1-3) Last Admin: 10/20/22 15:43 Dose: 650 mg Azithromycin (Azithromycin 500 Mg Tablet) 500 mg PO Q24H [facility] Last Admin: 10/20/22 19:32 Dose: 500 mg Docusate Sodium (Docusate Sodium 100 Mg Capsule) 100 mg PO DAILY PRN PRN Reason: Constipation Enoxaparin Sodium (Enoxaparin Sodium 40 Mg/0.4 Ml Syringe) 40 mg SUBCUT Q24H [facility] Last Admin: 10/20/22 21:52 Dose: 40 mg Folic Acid (Folic Acid 1 Mg Tablet) 1 mg PO DAILY [facility] Last Admin: 10/21/22 08:55 Dose: 1 mg Ceftriaxone Sodium 1 gm/ (Sodium Chloride) 50 mls @ 100 mls/hr IV Q24H [facility] Last Infusion: 10/20/22 17:40 Dose: Infused Vancomycin HCl 750 mg/ Sodium (Chloride) 265 mls @ 265 mls/hr IV Q12H [facility] Last Infusion: 10/21/22 07:17 Dose: Infused Magnesium Oxide (Magnesium Oxide 400 Mg Tablet) 400 mg PO BIDPC [facility] Last Admin: 10/21/22 08:55 Dose: 400 mg Omeprazole (Omeprazole 20 Mg Capsule.Dr) 20 mg PO BID@0630,1630 [facility] Last Admin: 10/21/22 05:07 Dose: 20 mg Ondansetron HCl (Ondansetron Hcl 4 Mg/2 Ml Vial) 4 mg IVPUSH Q8H PRN PRN Reason: Nausea and Vomiting Pharmacy Consult (Consult Rx Perform Med Rec) 1 each MISCELLANE ONCE PRN PRN Reason: Consult order Pharmacy Consult (Consult Rx Etoh Phenob Im/Po) 1 each MISCELLANE ONCE PRN; Protocol PRN Reason: Consult order Pharmacy Consult (Consult Rx Vancomycin Dosing) 1 each MISCELLANE DAILY PRN PRN Reason: Consult order Phenobarbital (Phenobarbital 15 Mg Tablet) 45 mg PO BID [facility] Stop: 10/21/22 21:01 Last Admin: 10/21/22 08:55 Dose: 45 mg Phenobarbital (Phenobarbital 30 Mg Tablet) 30 mg PO BID [facility] Stop: 10/23/22 21:01 Phenobarbital (Phenobarbital 15 Mg Tablet) 15 mg PO DAILY [facility] Stop: 10/25/22 09:01 Sodium Chloride (0.9 % Sodium Chloride Flush 3 Ml Syringe) 3 ml IVFLUSH QSHIFT [facility] Last Admin: 10/21/22 05:59 Dose: 3 ml Thiamine HCl (Thiamine Hcl 100 Mg Tablet) 100 mg PO BIDWM [facility] Last Admin: 10/21/22 08:55 Dose: 100 mg Home Medications Medication Instructions Recorded Confirmed Last Taken Type No Known Home Meds 10/19/22 10/19/22 Unknown History Physical Exam Vital Signs: Vital Signs: Last Vital Signs Temp 97.8 F 10/21/22 07:04 Pulse 69 10/21/22 07:04 Resp 19 10/21/22 07:04 BP 158/74 H 10/21/22 07:04 Pulse Ox 96 10/21/22 07:04 O2 Del Method 10/21/22 07:04 O2 Flow Rate 2 10/21/22 07:04 BMI result Body Mass Index 21.2 Const: General: no acute distress HEENT: Head: Yes normocephalic and Yes atraumatic Neck: Neck: Yes supple Resp: Auscultation: diminished lung sounds Cardio: Heart sounds: S1 normal heart sound present and S2 normal heart sound present GI: Palpation (GI): Soft to palpation and nontender Extrem: General: Yes no pedal edema Results Laboratory Findings 10/20/22 05:53 10/21/22 07:36 Abnormal lab findings: Abnormal Labs 10/19/22 10/19/22 10/19/22 17:45 17:45 17:45 RBC 3.66 L Hgb 12.2 L Hct 33.4 L MCH 33.3 H MCHC 36.5 H Neut % (Auto) 73.8 H Lymph % (Auto) 18.8 L Abs Immat Gran (auto) 0.04 H Sodium 123 L Chloride 89 L Carbon Dioxide 21 L Anion Gap BUN 8 L Random Glucose Osmolality Calcium Magnesium 1.5 L Total Protein 6.4 L Albumin 3.4 L Ur Leukocyte Esterase Moderate (2+) H Urine WBC 11-20 H Urine Osmolality Salicylates < 5.0 L 10/19/22 10/19/22 10/20/22 21:33 21:33 05:53 RBC 3.82 L Hgb 12.7 L Hct 35.3 L MCH 33.2 H MCHC Neut % (Auto) 74.0 H Lymph % (Auto) 16.9 L Abs Immat Gran (auto) Sodium 128 L Chloride Carbon Dioxide 19 L Anion Gap BUN 7 L Random Glucose 128 H Osmolality Calcium 8.0 L D Magnesium Total Protein Albumin Ur Leukocyte Esterase Urine WBC Urine Osmolality 147 L Salicylates 10/20/22 10/20/22 10/20/22 05:53 05:53 10:12 RBC Hgb Hct MCH MCHC Neut % (Auto) Lymph % (Auto) Abs Immat Gran (auto) Sodium 131 L 133 L Chloride Carbon Dioxide 20 L Anion Gap 11 L BUN 6 L 8 L Random Glucose Osmolality 270 L Calcium 8.2 L 8.1 L Magnesium Total Protein Albumin Ur Leukocyte Esterase Urine WBC Urine Osmolality Salicylates 10/20/22 10/20/22 10/21/22 17:08 19:59 07:36 RBC Hgb Hct MCH MCHC Neut % (Auto) Lymph % (Auto) Abs Immat Gran (auto) Sodium 128 L 130 L 130 L Chloride Carbon Dioxide 21 L 20 L Anion Gap 11 L BUN 6 L Random Glucose 138 H 134 H Osmolality Calcium 8.2 L 8.0 L 8.0 L Magnesium Total Protein Albumin Ur Leukocyte Esterase Urine WBC Urine Osmolality Salicylates Microbiology: Microbiology 10/19/22 18:16 Urine clean catch - Urine rossi top Urine Culture - Final 10/19/22 18:44 Blood - Venous Blood Culture - Final Coag negative Staphylococcus 10/19/22 18:44 Blood - Venous Blood Culture - Preliminary No growth after 24 hours. Assessment and Plan (1) Chest mass: Status: Acute (2) Alcohol abuse with withdrawal: Status: Acute Plan plan for endobronchial US bronchoscopy for likely next week Time Spent With Patient Time: Total time managing care of this patient today ____ minutes. Procedures Date of Service Date of Service: 10/21/22
--- NOTE | 2022-10-21 12:53 | MHC.SLORD ---
Speech Language Pathology Order Status: MBSS ordered by Dr. Ramos, scheduled for 2:30pm.
[2022-10-21 15:52] VITALS: BP 170/81; PULSE 76; RESP 17; TEMP 36.6; O2SAT 96
[2022-10-21 17:21] LABS: Vancomycin Random 8.5 mcg/mL (15-20)
[2022-10-21] MEDS: cefTRIAXone sodium 1 GM in 0.9 % Sodium Chloride 50 ML IV (17:22)
--- NOTE | 2022-10-21 17:44 | MHC.SL.IMP ---
Date of Plan of Treatment: 10/21/22 Onset of Symptoms/Illness: 10/21/22 Date Treatment Started: 10/21/22 Admitting Diagnosis: Chest mass, community acquired PNA, alcohol abuse with withdrawal, gastritis, hypomagnesemia, hyponatremia, tracheal mass Primary Speech & Language Diagnosis: R13.10 Dysphagia Reason for Today's Visit: 82729 Modified Barium Swallow Study Pre-evaluation Dietary Consistencies: NPO Pre-evaluation Liquid Consistency: NPO Pre-evaluation Medication Administration: NPO Medical History: [place], [place] Modified Barium Swallow Study Fluoroscopic Evaluation of Swallowing Function CPT Code 55446 Evaluation Year: 2022 Reason for Study: Rule in/out aspiration Referring Physician: Abel Ramos MD Evaluating Clinician: Maria Isabel Carrillo MA, CCC-FLOORING MACHINE OPERATOR Study Number: 1 Patient Name: Jolly Cortés Status: Inpatient, Wheelchair Age: 67 Gender: Male MEDICAL HISTORY: Year of Onset or Diagnosis: 2022 Past Medical History: Medical History Acute hyponatremia Alcohol abuse Alcoholic intoxication CVA (cerebral vascular accident) Delirium tremens Encounter for assessment of decision-making capacity Fall Hard of hearing Hyponatremia Injury of right lower arm PAD (peripheral artery disease) Current (pre-evaluation) Intake/Diet: NPO PENDING SWALLOW EVAL Pain: None reported at time of study SUBJECTIVE: Pt is a 67 year old male admitted with alcohol withdrawal, pneumonia, and hyponatremia. MBSS was ordered to rule in/out aspiration. Pt is edentulous and denies having trouble swallowing. 10/19 Chest X-Ray: ? XR/XR chest 1V IMPRESSION: Hazy opacities in the left lower lung with similar appearance suggesting an infectious/inflammatory process.? 10/[address]: ? CT/CT head/brain wo IV con IMPRESSION: 1. No intracranial hemorrhage, calvarial fracture, or other acute intracranial abnormality. 2. No traumatic subluxation or acute cervical spine fracture. 3. Slowly enlarging upper posterior mediastinal soft tissue mass suspicious for malignancy. Correlate with known history of malignancy and additional imaging workup for staging as indicated.? 10/19 Chest CTA: ? CT/CT angio chest PE protocol IMPRESSION: No evidence of PE. No evidence aortic aneurysm or dissection. Bilateral lower lobe infiltrates/atelectasis slightly worse on the left. Some patchy opacity seen in both upper lobes as well. 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 Oral Motor Exam Mouth Occlusion: Normal Oral-Facial Teeth Characteristics: Edentulous Is patient able to manage secretions?: Yes Food and Liquid Trials: Oral Impairment: Lip Closure: Did not test Oral Impairment: Tongue Control During Bolus Hold: 2=Posterior escape of less than half of bolus Oral Impairment: Bolus Preparation/Mastication: Did not test Oral Impairment: Bolus Transport/Lingual Motion: 2=Slowed tongue motion Oral Impairment: Oral Residue: 2=Residue collection on oral structures Oral Impairment:Initiation of Pharyngeal Swallow: 2=Bolus head at posterior laryngeal surface of epiglottis Pharyngeal Impairment: Soft Palate Elevation: 0=No bolus between soft palate (SP)/pharyngeal wall (PW) Pharyngeal Impairment: Laryngeal Elevation: 1=Partial thyroid cartilage/arytenoids to epiglottic petiole movement Pharyngeal Impairment: Anterior Hyoid Excursion: 1=Partial anterior movement Pharyngeal Impairment: Epiglottic Movement: 1=Partial inversion Pharyngeal Impairment: Laryngeal Vestibular Closure:: 1=Incomplete: narrow column air/contrast in laryngeal vestibule Pharyngeal Impairment: Pharyngeal Stripping Wave: 1=Present: diminished Pharyngeal Impairment: Pharyngeal Contraction: Did not test Pharyngeal Impairment: Pharyngoesophageal Segment Openin=Complete distension and complete duration: no obstruction of flow Pharyngeal Impairment: Tongue Base (TB) Retraction: 2=Narrow column of contrast/air between TB and posterior PW Pharyngeal Impairment: Pharyngeal Residue: 2=Collection of residue within or on pharyngeal structures Pharyngeal Impairment: Esophageal Clearance Upright Position: Did not test Impressions and Recommendations Clinical Observations: OBJECTIVE: Time-out: performed at 02:45 Evaluation Start: 02:30; Stop: 02:32 Patient Positioning: Seated 70-90 degrees Viewing Planes: LATERAL ONLY Contrast: MBSImP? Standardized Protocol using commercially prepared, standardized Barium viscosities, including: Varibar? THIN LIQUID (40% w/v, <15 cps) , 1/2 Shortbread Cookie (1 x1 x.25 ) MBSImP ID: [id number] MBSImP Results: Lip closure for intraoral bolus containment could not be assessed due to logistical reasons not related to physiologic impairment. Tongue control during bolus hold resulted in posterior escape of less than half of the bolus. Bolus preparation and mastication received the highest impairment score; solid not given due to patient safety concerns related to oral impairment. Bolus transport/lingual motion was with slowed tongue motion. Oral residue was a collection on oral structures. Initiation of the pharyngeal swallow occurred as the bolus head was at the posterior laryngeal surface of the epiglottis. Soft palate elevation resulted in no bolus between the soft palate and the pharyngeal wall. Laryngeal elevation was decreased, with partial superior movement of the thyroid cartilage/partial approximation of the arytenoids to the epiglottic petiole. Anterior hyoid excursion demonstrated partial anterior movement. Epiglottic movement resulted in partial inversion. Laryngeal vestibular closure was incomplete, with a narrow column of air/contrast noted within the laryngeal vestibule at the height of the swallow. Pharyngeal stripping wave was present, but diminished. Pharyngeal contraction could not be determined due to logistical reasons not related to physiologic impairment. Pharyngoesophageal segment opening was completely distended for complete duration with no obstruction of bolus flow. Tongue base retraction allowed a narrow column of contrast or air between the retracted tongue base and the posterior pharyngeal wall. Pharyngeal residue was a collection of residue within or on pharyngeal structures. Esophageal clearance in the upright position could not be assessed due to logistical reasons not related to physiologic impairment. Oral Impairment Score: 11 (absence of score, component 1) Pharyngeal Impairment Score: 9 (absence of score, component 13) Esophageal Impairment Score: --- (absence of score, component 17) Laryngeal Penetration and Aspiration: Penetration was observed in today's study. Thin Contrast entered the airway, remained above the vocal folds, and was ejected from the airway. ASSESSMENT: Clinician Assessment: This exam was conducted by a multidisciplinary team, which included a speech pathologist, radiologist, and resident physician in radiology. Pt was seated upright at 90 degrees in a chair for lateral view only. Pt trialed the following liquid and solid consistencies: thin liquid barium by cup, pureed solid (applesauce mixed with barium paste), ground solid (chicken salad mixed with barium paste), regular solid ([place] shortbread cookie coated with barium paste). Pt was able to feed himself. Pt eventually refused further trials despite encouragement and education regarding the rationale of this exam. Nevertheless, sufficient trials were completed. Lingual motion for the posterior transport of bolus was slowed and delayed. There was premature posterior escape of less than 50% of the bolus which collected in the valleculae prior to productive lingual motion. There was mild lingual residue with intake of solids which cleared with a dry swallow. Pharyngeal swallow trigger initiated as bolus head reached the posterior laryngeal surface of the epiglottis. No nasopharyngeal reflux. Laryngeal elevation was incomplete with incomplete anterior hyoid excursion. Partial epiglottic inversion and incomplete laryngeal vestibular closure. There was flash penetration with sips of thin liquid. Contrast entered the airway above the vocal folds, and immediately and spontaneously ejected from the airway. There was mild collection of residue on the tongue base and in the valleculae with trials of ground solid, which cleared with a subsequent dry swallow. No obstruction of flow through the pharyngoesophageal segment opening. Pt was given a piece of a shortbread cookie for trial of regular texture solid. Pt sucked on cookie and then spit it out, stating ?I cannot chew this? I don?t have teeth.? No evidence of aspiration during this exam. Liquid Intake Recommendation: Thin Liquid Intake Strategies: Small Sips, No Straws Dietary Recommendations: Grnd/Mech Altered (NDD2) Medication Administration: Whole with Puree Please contact the pharmacy regarding appropriate crushable or liquid drug formulations that are available whenever modified delivery is recommended. Compensatory Strategies Recommended: Sitting Upright (90 deg), No Straw, Small Bites and Sips, Rate of Ingestion Change, Avoid Specific Foods Supervision during eating and or drinking: Intermittent Supervision Recommended Treatments: Compens. Strategy Educat. Recommendation for Speech Therapy: Inpatient Speech Therapy Intake Recommendations: Route: PO Diet Grade: Mechanical Soft Liquid Consistencies: Thin Post-Study Functional Oral Intake Scale (FOIS): 5- Total oral intake of multiple consistencies requiring special preparation This exam revealed moderate oropharyngeal phase dysphagia, characterized by slowed and prolonged oral phase secondary to edentulous state and incomplete laryngeal vestibular closure with resultant flash penetration with liquids. No evidence of aspiration during this exam, however, presence of penetration puts pt at risk of aspiration. There was mild pharyngeal retention with solids which subsequently cleared with a dry swallow. Pt was unable to chew the shortbread cookie and subsequently spit it out. Recommend modified diet GROUND/MECHANICALLY ALTERED (NDD2) solids for ease of mastication with THIN liquids and ASPIRATION PRECAUTIONS: -Take small bites of food -Moisten food with sauces and gravies, ensuring sauces are mixed and blended in well with food -Chew food well -Avoid hard to chew solids, sticky textures, and mixed consistencies -Double swallow -Take small, individual sips of liquid -Avoid taking consecutive sips -Avoid the use of straws -Maintain upright 90 degree position during PO intake Recommend 1-3 speech therapy visits to provide further education RE: MBSS results, risks of aspiration, dietary textures, and recommended strategies. Recommend pt to continue monitoring his dysphagia. If there are any changes or worsening of symptoms, consult with PCP, at which point a re-evaluation may be indicated. Therapy Recommendations: Therapy will be initiated Prognosis for Improvement: The prognosis for the patient to meet nutritional needs by mouth is good based on degree of impairment. Fci Goals: ? The patient will tolerate the least restrictive diet with a safe/efficient swallow to maintain adequate nutrition and hydration. ? The patient and/or family will participate in further education for swallowing goals. Short Term Goals: ? Diet - The patient will tolerate a mechanical soft diet with thin liquids without signs or symptoms of penetration/aspiration 100% of the time. - The patient will participate in therapeutic PO trials with the FLOORING MACHINE OPERATOR. ? Guidelines - The patient will comply with/recall the following guidelines/strategies 100% of the time with minimal cuing: Rate of Ingestion Change, Additional Swallow(s) per Bolus, No Straws. ? Education - The patient will verbalize/demonstrate understanding of the results of this evaluation, the above recommendations, and the swallowing guidelines. Parts Cleaner Clinician/Clinical Fellow: No Supervisory Statement: N/A Speech Language Pathologist: Maria Isabel Carrillo M.A., [facility]-FLOORING MACHINE OPERATOR
--- NOTE | 2022-10-21 17:49 | MHC.SLORD ---
Speech Language Pathology Order Status: [place] Message sent to care team (MD, RN, RD) w/ MBSS results and recommendations.
[2022-10-21 19:33] VITALS: BP 170/80; PULSE 81; RESP 16; TEMP 37; O2SAT 93
[2022-10-21] MEDS: Azithromycin 500 MG TABLET PO (20:16)
[2022-10-21] MEDS: Enoxaparin Sodium 40 MG/0.4 ML SYRINGE SUBCUT (20:17)
[2022-10-21] MEDS: cloNIDine HCL 0.1 MG TABLET PO (20:17)
[2022-10-22 02:53] VITALS: BP 170/80; PULSE 89; RESP 18; TEMP 36.4; O2SAT 93
[2022-10-22] MEDS: Omeprazole 20 MG CAPSULE.DR PO ×2 (06:14→16:17)
[2022-10-22 07:08] LABS: Creatinine Clr Calc Pharmacy 96.9; Estimated Glomerular Filt Rate > 60
[2022-10-22] MEDS: Folic Acid 1 MG TABLET PO (07:31)
[2022-10-22] MEDS: cloNIDine HCL 0.1 MG TABLET PO ×2 (07:31→20:05)
[2022-10-22] MEDS: PHENobarbitaL 30 MG TABLET PO ×2 (07:31→20:05)
[2022-10-22] MEDS: Magnesium Oxide 400 MG TABLET PO ×2 (07:31→16:17)
[2022-10-22] MEDS: 0.9 % Sodium Chloride Flush 3 ML SYRINGE IVFLUSH ×3 (07:32→20:09)
[2022-10-22] MEDS: Thiamine HCL 100 MG TABLET PO ×2 (07:32→16:17)
[2022-10-22 07:33] VITALS: BP 148/72; PULSE 84; RESP 18; TEMP 36.8; O2SAT 93
--- NOTE | 2022-10-22 08:53 | PM.PNNEP ---
Subjective Subjective Date of Service: 10/22/22 Interval history: seen and examined no complaints Physical Exam Vital Signs: Vital Signs: Last Vital Signs Temp 98.3 F 10/22/22 07:33 Pulse 84 10/22/22 07:33 Resp 18 10/22/22 07:33 BP 148/72 H 10/22/22 07:33 Pulse Ox 93 10/22/22 07:33 O2 Del Method 10/22/22 02:53 O2 Flow Rate 2 10/21/22 07:04 BMI result Body Mass Index 21.2 Const: General: no acute distress HEENT: Head: Yes normocephalic and Yes atraumatic Neck: Neck: Yes supple Resp: Auscultation: diminished lung sounds Cardio: Heart sounds: S1 normal heart sound present and S2 normal heart sound present GI: Palpation (GI): Soft to palpation and nontender Extrem: General: Yes no pedal edema Objective Data Labs 10/20/22 05:53 10/22/22 05:31 Labs: Laboratory Results - last 24 hr 10/21/22 10/21/22 10/22/22 07:36 16:55 05:31 Creatinine 0.66 Estim Creat Clear Calc 96.9 Estimated GFR > 60 Lactate Dehydrogenase 196 Carcinoembryonic Ag 4.80 Random Vancomycin 8.5 L Microbiology Microbiology Results: Microbiology 10/19/22 18:44 Blood - Venous Blood Culture - Preliminary No growth after 48 hours. 10/19/22 18:16 Urine clean catch - Urine rossi top Urine Culture - Final 10/19/22 18:44 Blood - Venous Blood Culture - Final Coag negative Staphylococcus Procedures Date of Service Date of Service: 10/22/22 Assessment & Plan Assessment and plan (1) Hyponatremia: Status: Acute Plan Sna stable euvolemic hyponatremia -excessive free water intake -poor solute excretion low Uosm REC continue fluid restriction follow electrolytes Time Spent With Patient Time: Total time managing care of this patient today ____ minutes. Progress Note: Quality Stroke Does the patient have a stroke diagnosis?: No
--- NOTE | 2022-10-22 10:32 | P.PNIM_ITS ---
Subjective Subjective Date of Service: 10/22/22 Interval History: alcohol withdrawal,hypmagnesemia Review of Systems seems still tramulous ,anxious has cough ,sob similar (slight improvement) no dysphagia Physical Exam Vital Signs: Vital Signs: Last Vital Signs Temp 98.3 F 10/22/22 07:33 Pulse 84 10/22/22 07:33 Resp 18 10/22/22 07:33 BP 148/72 H 10/22/22 07:33 Pulse Ox 93 10/22/22 07:33 O2 Del Method 10/22/22 02:53 O2 Flow Rate 2 10/21/22 07:04 BMI result Body Mass Index 21.2 Appearance: Alert.? Oriented x3 cvs: rrr, [id number] res: clear to auscultation ,no rhonchii or wheezing abd: no rebound or guarding ,some nonspecific mild abd discomfort, bs present. ext: no edema or cyansois neuro:nonfocal. Objective Data Active Medications Acetaminophen (Acetaminophen 325 Mg Tablet) 650 mg PO Q6H PRN PRN Reason: Pain, Mild (Pain Scale 1-3) Last Admin: 10/20/22 15:43 Dose: 650 mg Documented By: VAIBHAV Azithromycin (Azithromycin 500 Mg Tablet) 500 mg PO Q24H [facility] Last Admin: 10/21/22 20:16 Dose: 500 mg Documented By: CHER Clonidine HCl (Clonidine Hcl 0.1 Mg Tablet) 0.1 mg PO BID [facility]; Protocol Last Admin: 10/22/22 07:31 Dose: 0.1 mg Documented By: FELICIA Docusate Sodium (Docusate Sodium 100 Mg Capsule) 100 mg PO DAILY PRN PRN Reason: Constipation Enoxaparin Sodium (Enoxaparin Sodium 40 Mg/0.4 Ml Syringe) 40 mg SUBCUT Q24H [facility] Last Admin: 10/21/22 20:17 Dose: 40 mg Documented By: CHER Folic Acid (Folic Acid 1 Mg Tablet) 1 mg PO DAILY [facility] Last Admin: 10/22/22 07:31 Dose: 1 mg Documented By: FELICIA Ceftriaxone Sodium 1 gm/ (Sodium Chloride) 50 mls @ 100 mls/hr IV Q24H [facility] Last Infusion: 10/21/22 18:07 Dose: 0 mls/hr Documented By: JULIETH Magnesium Oxide (Magnesium Oxide 400 Mg Tablet) 400 mg PO BIDPC [facility] Last Admin: 10/22/22 07:31 Dose: 400 mg Documented By: FELICIA Omeprazole (Omeprazole 20 Mg Capsule.) 20 mg PO BID@0630,1630 [facility] Last Admin: 10/22/22 06:14 Dose: 20 mg Documented By: CHER Ondansetron HCl (Ondansetron Hcl 4 Mg/2 Ml Vial) 4 mg IVPUSH Q8H PRN PRN Reason: Nausea and Vomiting Pharmacy Consult (Consult Rx Perform Med Rec) 1 each MISCELLANE ONCE PRN PRN Reason: Consult order Pharmacy Consult (Consult Rx Etoh Phenob Im/Po) 1 each MISCELLANE ONCE PRN; Protocol PRN Reason: Consult order Pharmacy Consult (Consult Rx Vancomycin Dosing) 1 each MISCELLANE DAILY PRN PRN Reason: Consult order Phenobarbital (Phenobarbital 30 Mg Tablet) 30 mg PO BID [facility] Stop: 10/23/22 21:01 Last Admin: 10/22/22 07:31 Dose: 30 mg Documented By: FELICIA Phenobarbital (Phenobarbital 15 Mg Tablet) 15 mg PO DAILY [facility] Stop: 10/25/22 09:01 Sodium Chloride (0.9 % Sodium Chloride Flush 3 Ml Syringe) 3 ml IVFLUSH QSHIFT [facility] Last Admin: 10/22/22 07:32 Dose: 3 ml Documented By: FELICIA Thiamine HCl (Thiamine Hcl 100 Mg Tablet) 100 mg PO BIDWM [facility] Last Admin: 10/22/22 07:32 Dose: 100 mg Documented By: FELICIA Labs 10/20/22 05:53 10/22/22 05:31 Labs: Laboratory Results - last 24 hr 10/21/22 10/21/22 10/22/22 07:36 16:55 05:31 Estim Creat Clear Calc 96.9 Estimated GFR > 60 Lactate Dehydrogenase 196 Carcinoembryonic Ag 4.80 Random Vancomycin 8.5 L Microbiology Microbiology Results: Microbiology 10/19/22 18:44 Blood Culture - Preliminary Blood - Venous No growth after 48 hours. 10/19/22 18:16 Urine Culture - Final Urine clean catch - Urine rossi top 10/19/22 18:44 Blood Culture - Final Blood - Venous Coag negative Staphylococcus Assessment and Plan (1) Chest mass: Status: Acute (2) Community acquired pneumonia: Status: Acute (3) Alcohol abuse with withdrawal: Status: Acute (4) Gastritis: Status: Acute (5) Hypomagnesemia: Status: Acute (6) Hyponatremia: Status: Acute (7) Tracheal mass: Status: Acute Plan 67 y/om? alcohol withdrawal, pneumonia, hyponatremia. Alcohol withdrawal: Still tremulous,anxious CIWA scale, continue phenobarb protocol, continue thiamine and folic acid. Pneumonia: Does not seem to have short of breath, but says he is having cough ?Continue IV ceftriaxone and azithromycin.? Added loratadine and cough syrup. Hypomagnesemia:?repleted and mproved. ?Added magnesium supplements. Hyponatremia: improvin off fluids Nephrology evaluation noted. Abdominal discomfort:?? Alcoholic gastritis Added PPI retrotracheal posterior possible mass Patient denies any shortness of breath or any dysphagia oncology evaluation recomended bronchoscopy for eval of mass seen by pulm-recomended .bronchoscopy next week also barium swallow was done -seems fine diet started as per speech and swallow dvt prophylax: s/clovenox Need of inpatient stay:? trach mass -will need bronchoscopy next week, Pneumonia on IV antibiotics, also patient has alcohol withdrawal on phenobarb protocol as well as need CIWA monitoring. Time Spent With Patient Time: Total time managing care of this patient today ____ minutes. Quality Stroke Does the patient have a stroke diagnosis?: No VTE Prior VTE?: No VTE Risk Level:: Medical - moderate - high VTE Device Contraindication: Treatment Not Indicated VTE Drug Contraindication: N/A - Med Ordered
[2022-10-22 15:09] VITALS: BP 155/80; PULSE 72; RESP 18; TEMP 37.5; O2SAT 93
[2022-10-22] MEDS: cefTRIAXone sodium 1 GM in 0.9 % Sodium Chloride 50 ML IV (16:17)
[2022-10-22 19:05] VITALS: BP 175/90; PULSE 74; RESP 18; TEMP 37; O2SAT 94
[2022-10-22] MEDS: Azithromycin 500 MG TABLET PO (20:05)
[2022-10-22] MEDS: Enoxaparin Sodium 40 MG/0.4 ML SYRINGE SUBCUT (20:05)
[2022-10-22] MEDS: ondansetron HCL 4 MG/2 ML VIAL IVPUSH (23:15)
[2022-10-23 03:58] VITALS: BP 138/64; PULSE 71; RESP 20; TEMP 37.1; O2SAT 98
[2022-10-23 07:05] LABS: Estimated Glomerular Filt Rate > 60
[2022-10-23 07:12] VITALS: BP 132/64; PULSE 72; RESP 18; TEMP 36.1; O2SAT 98
--- NOTE | 2022-10-23 07:40 | PM.PNNEP ---
Subjective Subjective Date of Service: 10/23/22 Interval history: seen and examined no complaints Physical Exam Vital Signs: Vital Signs: Last Vital Signs Temp 97 F 10/23/22 07:12 Pulse 72 10/23/22 07:12 Resp 18 10/23/22 07:12 BP 132/64 10/23/22 07:12 Pulse Ox 98 10/23/22 07:12 O2 Del Method 10/23/22 07:12 O2 Flow Rate 2 10/21/22 07:04 BMI result Body Mass Index 21.2 Const: General: no acute distress HEENT: Head: Yes normocephalic and Yes atraumatic Neck: Neck: Yes supple Resp: Auscultation: diminished lung sounds Cardio: Heart sounds: S1 normal heart sound present and S2 normal heart sound present GI: Palpation (GI): Soft to palpation and nontender Extrem: General: Yes no pedal edema Objective Data Labs 10/20/22 05:53 10/23/22 05:25 Labs: Laboratory Results - last 24 hr 10/23/22 05:25 Creatinine 0.68 Estim Creat Clear Calc 94.0 Estimated GFR > 60 Microbiology Microbiology Results: Microbiology 10/19/22 18:44 Blood - Venous Blood Culture - Preliminary No growth after 48 hours. 10/19/22 18:16 Urine clean catch - Urine rossi top Urine Culture - Final 10/19/22 18:44 Blood - Venous Blood Culture - Final Coag negative Staphylococcus Procedures Date of Service Date of Service: 10/23/22 Assessment & Plan Assessment and plan (1) Hyponatremia: Status: Acute Plan Sna stable euvolemic hyponatremia -excessive free water intake -poor solute excretion low Uosm REC fluid restriction 1500 cc daily follow electrolytes Time Spent With Patient Time: Total time managing care of this patient today ____ minutes. Progress Note: Quality Stroke Does the patient have a stroke diagnosis?: No
[2022-10-23] MEDS: 0.9 % Sodium Chloride Flush 3 ML SYRINGE IVFLUSH ×3 (08:05→20:41)
[2022-10-23] MEDS: cloNIDine HCL 0.1 MG TABLET PO ×2 (08:05→20:33)
[2022-10-23] MEDS: Magnesium Oxide 400 MG TABLET PO ×2 (08:05→16:29)
[2022-10-23] MEDS: Thiamine HCL 100 MG TABLET PO (08:05)
[2022-10-23] MEDS: Folic Acid 1 MG TABLET PO (08:05)
[2022-10-23] MEDS: PHENobarbitaL 30 MG TABLET PO ×2 (08:05→20:33)
--- NOTE | 2022-10-23 11:24 | P.PNIM_ITS ---
Subjective Subjective Date of Service: 10/23/22 Interval History: alcohol withdrawal,hypmagnesemia,tracheal ?mass Review of Systems still has cough ,sob (intermittent ) tremers improving no dysphagia Physical Exam Vital Signs: Vital Signs: Last Vital Signs Temp 97 F 10/23/22 07:12 Pulse 72 10/23/22 07:12 Resp 18 10/23/22 07:12 BP 132/64 10/23/22 07:12 Pulse Ox 98 10/23/22 07:12 O2 Del Method 10/23/22 07:12 O2 Flow Rate 2 10/21/22 07:04 BMI result Body Mass Index 21.2 Appearance: Alert.? Oriented x3 cvs: rrr, [id number] res: clear to auscultation ,no rhonchii or wheezing abd: no rebound or guarding ,nt bs present. ext: no edema or cyansois neuro:nonfocal. Objective Data Active Medications Acetaminophen (Acetaminophen 325 Mg Tablet) 650 mg PO Q6H PRN PRN Reason: Pain, Mild (Pain Scale 1-3) Last Admin: 10/20/22 15:43 Dose: 650 mg Documented By: VAIBHAV Azithromycin (Azithromycin 500 Mg Tablet) 500 mg PO Q24H [facility] Last Admin: 10/22/22 20:05 Dose: 500 mg Documented By: CHER Clonidine HCl (Clonidine Hcl 0.1 Mg Tablet) 0.1 mg PO BID [facility]; Protocol Last Admin: 10/23/22 08:05 Dose: 0.1 mg Documented By: CHER Docusate Sodium (Docusate Sodium 100 Mg Capsule) 100 mg PO DAILY PRN PRN Reason: Constipation Enoxaparin Sodium (Enoxaparin Sodium 40 Mg/0.4 Ml Syringe) 40 mg SUBCUT Q24H [facility] Last Admin: 10/22/22 20:05 Dose: 40 mg Documented By: CHER Folic Acid (Folic Acid 1 Mg Tablet) 1 mg PO DAILY [facility] [place] Last Admin: 10/23/22 08:05 Dose: 1 mg Documented By: CHER Ceftriaxone Sodium 1 gm/ (Sodium Chloride) 50 mls @ 100 mls/hr IV Q24H [facility] [place] Last Infusion: 10/22/22 17:49 Dose: 0 mls/hr Documented By: FELICIA Magnesium Oxide (Magnesium Oxide 400 Mg Tablet) 400 mg PO BID [facility] [place] Last Admin: 10/23/22 08:05 Dose: 400 mg Documented By: CHER Omeprazole (Omeprazole 20 Mg Capsule.) 20 mg PO BID@0630,1630 [facility] Last Admin: 10/23/22 05:49 Dose: Not Given Documented By: CHER Non-Admin Reason: Patient Refused Ondansetron HCl (Ondansetron Hcl 4 Mg/2 Ml Vial) 4 mg IVPUSH Q8H PRN PRN Reason: Nausea and Vomiting Last Admin: 10/22/22 23:15 Dose: 4 mg Documented By: CHER Pharmacy Consult (Consult Rx Perform Med Rec) 1 each MISCELLANE ONCE PRN PRN Reason: Consult order Pharmacy Consult (Consult Rx Etoh Phenob Im/Po) 1 each MISCELLANE ONCE PRN; Protocol PRN Reason: Consult order Pharmacy Consult (Consult Rx Vancomycin Dosing) 1 each MISCELLANE DAILY PRN PRN Reason: Consult order Phenobarbital (Phenobarbital 30 Mg Tablet) 30 mg PO BID [facility] Stop: 10/23/22 21:01 Last Admin: 10/23/22 08:05 Dose: 30 mg Documented By: CHER Phenobarbital (Phenobarbital 15 Mg Tablet) 15 mg PO DAILY [facility] Stop: 10/25/22 09:01 Sodium Chloride (0.9 % Sodium Chloride Flush 3 Ml Syringe) 3 ml IVFLUSH QSHIFT [facility] [place] Last Admin: 10/23/22 08:05 Dose: 3 ml Documented By: CHRE Thiamine HCl (Thiamine Hcl 100 Mg Tablet) 100 mg PO BIDWM [facility] Last Admin: 10/23/22 08:05 Dose: 100 mg Documented By: CHER Labs 10/20/22 05:53 10/23/22 05:25 Labs: Laboratory Results - last 24 hr 10/23/22 05:25 Estim Creat Clear Calc 94.0 Estimated GFR > 60 Assessment and Plan (1) Chest mass: Status: Acute (2) Community acquired pneumonia: Status: Acute (3) Alcohol abuse with withdrawal: Status: Acute (4) Hyponatremia: Status: Acute (5) Tracheal mass: Status: Acute (6) Gastritis: Status: Acute (7) Hypomagnesemia: Status: Acute Plan 67 y/om? alcohol withdrawal, pneumonia, hyponatremia. Alcohol withdrawal: improved ,only mild tremers CIWA scale, continue phenobarb protocol, thiamine and folic acid. Pneumonia: Does not seem to have short of breath, but says he is having cough ?Continue IV ceftriaxone and azithromycin.? Added loratadine and cough syrup. Hypomagnesemia:?repleted and mproved. ?Added magnesium supplements. Hyponatremia:around 130 euvolemic hyponatremia excessive free water intake continue 1.5 liter fluid restrictions Nephrology folow up appreciated . Abdominal discomfort:?? Alcoholic gastritis Added PPI retrotracheal posterior possible mass Patient denies any shortness of breath or any dysphagia oncology evaluation recomended bronchoscopy for eval of mass seen by pulm-recomended bronchoscopy next week will keep npo past midnight for bronchoscopy also barium swallow was done -seems fine diet started as per speech and swallow dvt prophylax: s/clovenox Need of inpatient stay:? trach mass -will need bronchoscopy next week, Pneumonia on IV antibiotics, also patient has alcohol withdrawal on phenobarb protocol as well as need CIWA monitoring. Time Spent With Patient Time: Total time managing care of this patient today ____ minutes. Quality Stroke Does the patient have a stroke diagnosis?: No VTE Prior VTE?: No VTE Risk Level:: Medical - moderate - high VTE Device Contraindication: Treatment Not Indicated VTE Drug Contraindication: N/A - Med Ordered
[2022-10-23] MEDS: Thiamine HCL 200 MG in 0.9 % Sodium Chloride 100 ML 204 MG IV (12:28)
[2022-10-23 14:56] VITALS: BP 157/98; PULSE 79; RESP 18; TEMP 37.3; O2SAT 97
[2022-10-23] MEDS: Omeprazole 20 MG CAPSULE.DR PO (16:29)
[2022-10-23] MEDS: cefTRIAXone sodium 1 GM in 0.9 % Sodium Chloride 50 ML IV (16:30)
[2022-10-23 19:09] VITALS: BP 172/86; PULSE 72; RESP 18; TEMP 36.9; O2SAT 94
[2022-10-23] MEDS: Azithromycin 500 MG TABLET PO (20:34)
[2022-10-23] MEDS: Thiamine HCL 200 MG in 0.9 % Sodium Chloride 100 ML IV (20:41)
[2022-10-24 03:59] VITALS: BP 151/83; PULSE 78; RESP 20; TEMP 36.4; O2SAT 97
[2022-10-24] MEDS: Omeprazole 20 MG CAPSULE.DR PO ×2 (05:04→17:28)
[2022-10-24] MEDS: Thiamine HCL 200 MG in 0.9 % Sodium Chloride 100 ML 204 MG IV ×2 (05:04→19:33)
[2022-10-24 06:17] LABS: Creatinine Clr Calc Pharmacy 106.5; Estimated Glomerular Filt Rate > 60
[2022-10-24 07:18] VITALS: BP 143/80; PULSE 70; RESP 18; TEMP 36.5; O2SAT 95
[2022-10-24] MEDS: Folic Acid 1 MG TABLET PO (07:43)
[2022-10-24] MEDS: 0.9 % Sodium Chloride Flush 3 ML SYRINGE IVFLUSH ×3 (07:43→19:40)
[2022-10-24] MEDS: Magnesium Oxide 400 MG TABLET PO ×2 (07:43→17:28)
[2022-10-24] MEDS: PHENobarbitaL 15 MG TABLET PO (07:43)
[2022-10-24] MEDS: cloNIDine HCL 0.1 MG TABLET PO ×2 (07:43→20:38)
--- NOTE | 2022-10-24 08:45 | MHC.CM.PN ---
CM MET WITH PT ON 10/20/22 TO DISCUSS DC PLANNING PT REPORTS [place]IVES ON THE STREETS SINCE LOSING HIS BED AT [facility] HE REPORTS HE IS NOT CONNECTED TO ANY COMMUNITY SERVICES AND USES NO DME HE HAS NO PCP HE DOES NOT ANSWER WHEN ASKED ABOUT [facility] PT REPORTS HE WOULD LIKE TO RETURN TO [facility] TO GET A BED THERE, PT OR CM WILL NEED TO CALL PRIOR TO 0900 ON THE DAY OF DC TO RESERVE A BED PT WILL NEED BUS PASSES
--- NOTE | 2022-10-24 09:02 | MHC.CLN ---
NUTRITION CONSULT FOR SKIN INTEGRITY. PATIENT WITH REDNESS TO BUTTOCKS. CURRENTLY NPO TODAY. INTAKE USUALLY 75-100%. HAD MBS 10/21/22. CONTINUE TO FOLLOW FOR MINIATURE SET CONSTRUCTOR RECS. NO ADDITIONAL NUTRITION INTERVENTIONS AT THIS TIME.
--- NOTE | 2022-10-24 10:07 | MHC.SLORD ---
Speech Language Pathology Order Status: Pt had MBSS on Saturday 10/21: showed penetration with liquid, no evidence of tracheal aspiration, mild pharyngeal retention. Pt is edentulous. Pt was unable to chew shortbread cookie during the exam and eventually spit it out. Subsequently, pt was recommended ground/mech altered (NDD2) solids for ease of mastication, thin liquids, pills whole in puree. Per MD note, at this time pt is NPO for bronchoscopy. When pt is cleared to have PO after procedure, recommend continue on modified diet with aspiration precautions.
--- NOTE | 2022-10-24 10:19 | PM.PNNEP ---
Subjective Subjective Date of Service: 10/25/22 Interval history: Events noted ,tracheal ?mass Physical Exam Vital Signs: Vital Signs: Last Vital Signs Temp 97.7 F 10/24/22 07:18 Pulse 70 10/24/22 07:18 Resp 18 10/24/22 07:18 BP 143/80 H 10/24/22 07:18 Pulse Ox 95 10/24/22 07:18 O2 Del Method 10/24/22 07:18 O2 Flow Rate 2 10/21/22 07:04 BMI result Body Mass Index 21.2 Const: General: no acute distress HEENT: Head: Yes normocephalic and Yes atraumatic Neck: Neck: Yes supple Resp: Auscultation: diminished lung sounds Cardio: Heart sounds: S1 normal heart sound present and S2 normal heart sound present GI: Palpation (GI): Soft to palpation and nontender Extrem: General: Yes no pedal edema Objective Data Labs 10/20/22 05:53 10/24/22 05:09 Labs: Laboratory Results - last 24 hr 10/24/22 05:09 Creatinine 0.60 Estim Creat Clear Calc 106.5 Estimated GFR > 60 Microbiology Microbiology Results: Microbiology 10/19/22 18:44 Blood - Venous Blood Culture - Preliminary No growth after 48 hours. 10/19/22 18:16 Urine clean catch - Urine rossi top Urine Culture - Final 10/19/22 18:44 Blood - Venous Blood Culture - Final Coag negative Staphylococcus Procedures Date of Service Date of Service: 10/24/22 Assessment & Plan Assessment and plan (1) Hyponatremia: Status: Acute Plan Euvolemic hyponatremia -excessive free water intake and decreased free water clearance -poor solute excretion REC Hypotonic fluid restriction 1500 cc daily follow electrolytes Time Spent With Patient Time: Total time managing care of this patient today ____ minutes. Progress Note: Quality Stroke Does the patient have a stroke diagnosis?: No
[2022-10-24] MEDS: Thiamine HCL 200 MG in 0.9 % Sodium Chloride 100 ML IV (12:30)
--- NOTE | 2022-10-24 14:01 | P.PNIM_ITS ---
Subjective Subjective Date of Service: 10/24/22 Interval History: alcohol withdrawal,hypmagnesemia,tracheal ?mass Review of Systems has cough ,sob (intermittent ),no dysphagia no fevers overnight Physical Exam Vital Signs: Vital Signs: Last Vital Signs Temp 97.7 F 10/24/22 07:18 Pulse 70 10/24/22 07:18 Resp 18 10/24/22 07:18 BP 143/80 H 10/24/22 07:18 Pulse Ox 95 10/24/22 07:18 O2 Del Method 10/24/22 07:18 O2 Flow Rate 2 10/21/22 07:04 BMI result Body Mass Index 21.2 Appearance: Alert.? Oriented x3 cvs: rrr, [id number] res: clear to auscultation ,no rhonchii or wheezing abd: no rebound or guarding ,nt? bs present. ext: no edema or cyansois neuro:nonfocal. Objective Data Active Medications Acetaminophen (Acetaminophen 325 Mg Tablet) 650 mg PO Q6H PRN PRN Reason: Pain, Mild (Pain Scale 1-3) Last Admin: 10/20/22 15:43 Dose: 650 mg Documented By: VAIBHAV Azithromycin (Azithromycin 500 Mg Tablet) 500 mg PO Q24H [facility] Last Admin: 10/23/22 20:34 Dose: 500 mg Documented By: CHER Clonidine HCl (Clonidine Hcl 0.1 Mg Tablet) 0.1 mg PO BID [facility]; Protocol Last Admin: 10/24/22 07:43 Dose: 0.1 mg Documented By: FELICIA Docusate Sodium (Docusate Sodium 100 Mg Capsule) 100 mg PO DAILY PRN PRN Reason: Constipation Enoxaparin Sodium (Enoxaparin Sodium 40 Mg/0.4 Ml Syringe) 40 mg SUBCUT Q24H [facility] Last Admin: 10/23/22 20:41 Dose: Not Given Documented By: CHER Non-Admin Reason: Patient Refused Folic Acid (Folic Acid 1 Mg Tablet) 1 mg PO DAILY [facility] Last Admin: 10/24/22 07:43 Dose: 1 mg Documented By: FELICIA Ceftriaxone Sodium 1 gm/ (Sodium Chloride) 50 mls @ 100 mls/hr IV Q24H [facility] Last Infusion: 10/23/22 17:07 Dose: 0 mls/hr Documented By: FELICIA Thiamine HCl 200 mg/ Sodium (Chloride) 102 mls @ 204 mls/hr IV Q8H [facility] Last Infusion: 10/24/22 13:08 Dose: 0 mls/hr Documented By: FELICIA Magnesium Oxide (Magnesium Oxide 400 Mg Tablet) 400 mg PO BIDPC [facility] Last Admin: 10/24/22 07:43 Dose: 400 mg Documented By: FELICIA Omeprazole (Omeprazole 20 Mg Capsule.Dr) 20 mg PO BID@0630,1630 [facility] Last Admin: 10/24/22 05:04 Dose: 20 mg Documented By: CHER Ondansetron HCl (Ondansetron Hcl 4 Mg/2 Ml Vial) 4 mg IVPUSH Q8H PRN PRN Reason: Nausea and Vomiting Last Admin: 10/22/22 23:15 Dose: 4 mg Documented By: CHER Pharmacy Consult (Consult Rx Perform Med Rec) 1 each MISCELLANE ONCE PRN PRN Reason: Consult order Pharmacy Consult (Consult Rx Etoh Phenob Im/Po) 1 each MISCELLANE ONCE PRN; Protocol PRN Reason: Consult order Pharmacy Consult (Consult Rx Vancomycin Dosing) 1 each MISCELLANE DAILY PRN PRN Reason: Consult order Phenobarbital (Phenobarbital 15 Mg Tablet) 15 mg PO DAILY [facility] Stop: 10/25/22 09:01 Last Admin: 10/24/22 07:43 Dose: 15 mg Documented By: FELICIA Sodium Chloride (0.9 % Sodium Chloride Flush 3 Ml Syringe) 3 ml IVFLUSH QSHIFT [facility] Last Admin: 10/24/22 07:43 Dose: 3 ml Documented By: FELICIA Labs 10/20/22 05:53 10/24/22 05:09 Labs: Laboratory Results - last 24 hr 10/24/22 05:09 Estim Creat Clear Calc 106.5 Estimated GFR > 60 Assessment and Plan (1) Community acquired pneumonia: Status: Acute (2) Alcohol abuse with withdrawal: Status: Acute (3) Tracheal mass: Status: Acute Plan 67 y/om? alcohol withdrawal, pneumonia, hyponatremia. Alcohol withdrawal: improved ,only mild tremers CIWA scale, continue phenobarb protocol,? thiamine and folic acid. Pneumonia: Does not seem to have short of breath, but says he is having cough ?Continue IV ceftriaxone and azithromycin.? Added loratadine and cough syrup. Hypomagnesemia:?repleted and mproved. ?Added magnesium supplements. Hyponatremia:around 130 euvolemic hyponatremia excessive free water intake continue 1.5 liter fluid restrictions Nephrology folow up appreciated . Abdominal discomfort:?? Alcoholic gastritis Added PPI retrotracheal posterior possible mass Patient denies any shortness of breath or any dysphagia oncology evaluation recomended bronchoscopy for eval of mass seen by pulm-recomended?bronchoscopy next week will keep npo past midnight for bronchoscopy also barium swallow was done -seems fine diet started as per speech and swallow dvt prophylax: s/clovenox Need of inpatient stay:? trach mass -will need bronchoscopy next week, Pneumonia on IV antibiotics, also patient has alcohol withdrawal on phenobarb protocol as well as need CIWA monitoring. Time Spent With Patient Time: Total time managing care of this patient today ____ minutes. Quality Stroke Does the patient have a stroke diagnosis?: No VTE Prior VTE?: No VTE Risk Level:: Medical - moderate - high VTE Device Contraindication: Treatment Not Indicated VTE Drug Contraindication: N/A - Med Ordered
[2022-10-24 15:27] VITALS: BP 128/77; PULSE 83; RESP 16; TEMP 37.1; O2SAT 96
[2022-10-24] MEDS: cefTRIAXone sodium 1 GM in 0.9 % Sodium Chloride 50 ML IV (17:28)
[2022-10-24] MEDS: Azithromycin 500 MG TABLET PO (19:40)
[2022-10-24 20:00] VITALS: BP 135/71; PULSE 80; RESP 17; TEMP 36.9; O2SAT 95
[2022-10-24] MEDS: Enoxaparin Sodium 40 MG/0.4 ML SYRINGE SUBCUT (21:58)
[2022-10-25 03:36] VITALS: BP 133/62; PULSE 69; RESP 18; TEMP 36.6; O2SAT 96
[2022-10-25] MEDS: Thiamine HCL 200 MG in 0.9 % Sodium Chloride 100 ML 204 MG IV ×3 (03:40→20:25)
[2022-10-25] MEDS: Omeprazole 20 MG CAPSULE.DR PO ×2 (05:09→17:38)
[2022-10-25 06:26] LABS: Hematocrit 35.6 % (42.0-52.0); Hemoglobin 12.7 g/dl (14.0-18.0); Mean Corpuscular HGB Conc 35.7 g/dl (31.0-36.0); Mean Corpuscular Hemoglobin 33.7 pg (27.0-33.0); Mean Corpuscular Volume 94.4 fL (80.0-98.0); Mean Platelet Volume 11.7 fL (9.4-12.4); Platelet Count 195 X10*3/uL (160-400); Red Blood Count 3.77 X10*6/uL (4.60-5.80); Red Cell Distribution Width 11.9 % (11.0-16.0); White Blood Count 8.2 X10*3/uL (4.8-10.8)
[2022-10-25 06:41] LABS: Anion Gap 15 (12-20); Blood Urea Nitrogen 18 mg/dL (9-16); Calcium 8.9 mg/dL (8.4-10.2); Carbon Dioxide 20 mmol/L (22-29); Chloride 100 mmol/L (96-108); Creatinine Clr Calc Pharmacy 95.4; Estimated Glomerular Filt Rate > 60; Glucose Random 86 mg/dL (60-115); Potassium 5.3 mmol/L (3.3-5.1); Sodium 130 mmol/L (135-145)
[2022-10-25 07:21] VITALS: BP 148/76; PULSE 60; RESP 17; TEMP 36.6; O2SAT 98
[2022-10-25] MEDS: Lactated Ringers 1,000 ML 50 ML IVCONT ×2 (08:03→23:27)
[2022-10-25] MEDS: Magnesium Oxide 400 MG TABLET PO ×2 (08:03→17:39)
[2022-10-25] MEDS: PHENobarbitaL 15 MG TABLET PO (08:03)
[2022-10-25] MEDS: Folic Acid 1 MG TABLET PO (08:03)
[2022-10-25] MEDS: cloNIDine HCL 0.1 MG TABLET PO ×2 (08:03→20:24)
[2022-10-25] MEDS: 0.9 % Sodium Chloride Flush 3 ML SYRINGE IVFLUSH ×3 (08:04→20:25)
--- NOTE | 2022-10-25 08:41 | MHC.SHP ---
Pre-Procedural Eval Section A Date of Service: 10/25/22 The patient is an INPATIENT: Yes Changes since office visit: Yes Patient answered all questions; No Cold of Flu in the past 2 weeks, No New Medical Problems and No Changes in Medication The History & Physical has been completed within 30 days and I have reviewed it.: Yes Section B Chief Complaint: Hyponatremia, PNA, Alcohol withdrawal Allergies: Allergies Allergy/AdvReac Type Severity Reaction Status Date / Time No Known Allergies Allergy Unknown UNKNOWN Verified 09/08/20 17:05 [NO KNOWN ALLERGIES] Plan Diagnosis/Plan: Unchanged I have reviewed the history and physical and performed a pertinent physical examination on my patient. No changes have occurred unless specified.
--- NOTE | 2022-10-25 09:56 | PM.PNNEP ---
Subjective Subjective Date of Service: 10/25/22 Interval history: Events noted Physical Exam Vital Signs: Vital Signs: Last Vital Signs Temp 97.9 F 10/25/22 07:21 Pulse 60 10/25/22 07:21 Resp 17 10/25/22 07:21 BP 148/76 H 10/25/22 07:21 Pulse Ox 98 10/25/22 07:21 O2 Del Method 10/25/22 07:21 O2 Flow Rate 2 10/21/22 07:04 BMI result Body Mass Index 21.2 Const: General: no acute distress HEENT: Head: Yes normocephalic and Yes atraumatic Neck: Neck: Yes supple Resp: Auscultation: diminished lung sounds Cardio: Heart sounds: S1 normal heart sound present and S2 normal heart sound present GI: Palpation (GI): Soft to palpation and nontender Extrem: General: Yes no pedal edema Objective Data Labs 10/25/22 05:10 10/25/22 05:10 Labs: Laboratory Results - last 24 hr 10/25/22 10/25/22 10/25/22 05:10 05:10 05:10 WBC 8.2 RBC 3.77 L Hgb 12.7 L Hct 35.6 L MCV 94.4 MCH 33.7 H MCHC 35.7 RDW 11.9 Plt Count 195 D MPV 11.7 Absolute Nucleated RBC 0.000 Nucleated RBC % (auto) 0.0 Sodium 130 L Potassium 5.3 H D Chloride 100 Carbon Dioxide 20 L Anion Gap 15 BUN 18 H Creatinine Cancelled 0.67 Estim Creat Clear Calc Cancelled 95.4 Estimated GFR Cancelled > 60 Random Glucose 86 Calcium 8.9 D Microbiology Microbiology Results: Microbiology 10/19/22 18:44 Blood - Venous Blood Culture - Final No growth after 5 days. 10/19/22 18:16 Urine clean catch - Urine rossi top Urine Culture - Final 10/19/22 18:44 Blood - Venous Blood Culture - Final Coag negative Staphylococcus Procedures Date of Service Date of Service: 10/25/22 Assessment & Plan Assessment and plan (1) Hyponatremia: Status: Acute Plan Euvolemic hyponatremia -excessive free water intake and decreased free water clearance -poor solute excretion Mild hyperkalemia REC Lokelma 5 gm x 1 dose Cjange LR to NS Hypotonic fluid restriction 1500 cc daily follow electrolytes Time Spent With Patient Time: Total time managing care of this patient today ____ minutes. Progress Note: Quality Stroke Does the patient have a stroke diagnosis?: No
--- NOTE | 2022-10-25 12:29 | HO.PM.IMPN ---
Subjective Subjective Date of Service: 10/25/22 Interval History: f/u on alcohol withdrawal no sob, mild tremors Physical Exam Vital Signs: Vital Signs: Last Vital Signs Temp 97.9 F 10/25/22 07:21 Pulse 60 10/25/22 07:21 Resp 17 10/25/22 07:21 BP 148/76 H 10/25/22 07:21 Pulse Ox 98 10/25/22 07:21 O2 Del Method 10/25/22 07:21 O2 Flow Rate 2 10/21/22 07:04 BMI result Body Mass Index 21.2 Const: Other: General: AO X 3, no acute distress Resp: CTA bilateral CVS: S1,S2,RRR GI: +BS, NT, no distention Skin: No rash Neuro: motor grossly intact Psych: appropriate affect Objective Data Active Medications Acetaminophen (Acetaminophen 325 Mg Tablet) 650 mg PO Q6H PRN PRN Reason: Pain, Mild (Pain Scale 1-3) Last Admin: 10/20/22 15:43 Dose: 650 mg Documented By: VAIBHAV Azithromycin (Azithromycin 500 Mg Tablet) 500 mg PO Q24H [facility] Last Admin: 10/24/22 19:40 Dose: 500 mg Documented By: FELICIA Clonidine HCl (Clonidine Hcl 0.1 Mg Tablet) 0.1 mg PO BID [facility]; Protocol Last Admin: 10/25/22 08:03 Dose: 0.1 mg Documented By: RUMA Docusate Sodium (Docusate Sodium 100 Mg Capsule) 100 mg PO DAILY PRN PRN Reason: Constipation Enoxaparin Sodium (Enoxaparin Sodium 40 Mg/0.4 Ml Syringe) 40 mg SUBCUT Q24H [facility] Last Admin: 10/24/22 21:58 Dose: 40 mg Documented By: FELICIA Folic Acid (Folic Acid 1 Mg Tablet) 1 mg PO DAILY [facility] Last Admin: 10/25/22 08:03 Dose: 1 mg Documented By: RUMA Ceftriaxone Sodium 1 gm/ (Sodium Chloride) 50 mls @ 100 mls/hr IV Q24H [facility] Last Infusion: 10/24/22 18:09 Dose: 0 mls/hr Documented By: FELICIA Thiamine HCl 200 mg/ Sodium (Chloride) 102 mls @ 204 mls/hr IV Q8H [facility] Last Admin: 10/25/22 11:55 Dose: 204 mls/hr Documented By: RUMA Lactated Ringer's (Lr) 1,000 mls @ 50 mls/hr IVCONT .Q20H [facility] Last Admin: 10/25/22 08:03 Dose: 50 mls/hr Documented By: RUMA Magnesium Oxide (Magnesium Oxide 400 Mg Tablet) 400 mg PO BIDPC [facility] Last Admin: 10/25/22 08:03 Dose: 400 mg Documented By: RUMA Omeprazole (Omeprazole 20 Mg Capsule.Dr) 20 mg PO BID@0630,1630 [facility] Last Admin: 10/25/22 05:09 Dose: 20 mg Documented By: JUAN Ondansetron HCl (Ondansetron Hcl 4 Mg/2 Ml Vial) 4 mg IVPUSH Q8H PRN PRN Reason: Nausea and Vomiting Last Admin: 10/22/22 23:15 Dose: 4 mg Documented By: CHER Pharmacy Consult (Consult Rx Perform Med Rec) 1 each MISCELLANE ONCE PRN PRN Reason: Consult order Pharmacy Consult (Consult Rx Etoh Phenob Im/Po) 1 each MISCELLANE ONCE PRN; Protocol PRN Reason: Consult order Pharmacy Consult (Consult Rx Vancomycin Dosing) 1 each MISCELLANE DAILY PRN PRN Reason: Consult order Sodium Chloride (0.9 % Sodium Chloride Flush 3 Ml Syringe) 3 ml IVFLUSH QSHIFT [facility] Last Admin: 10/25/22 08:04 Dose: 3 ml Documented By: RUMA Labs 10/25/22 05:10 10/25/22 05:10 Labs: Laboratory Results - last 24 hr 10/25/22 10/25/22 10/25/22 05:10 05:10 05:10 MCV 94.4 MCH 33.7 H MCHC 35.7 RDW 11.9 Plt Count 195 D MPV 11.7 Absolute Nucleated RBC 0.000 Nucleated RBC % (auto) 0.0 Anion Gap 15 Estim Creat Clear Calc Cancelled 95.4 Estimated GFR Cancelled > 60 Random Glucose 86 Calcium 8.9 D Microbiology Microbiology Results: Microbiology 10/19/22 18:44 Blood Culture - Final Blood - Venous No growth after 5 days. Assessment and Plan (1) Community acquired pneumonia: Status: Acute (2) Alcohol abuse with withdrawal: Status: Acute (3) Tracheal mass: Status: Acute Plan 67 y/om? alcohol withdrawal, pneumonia, hyponatremia. Alcohol withdrawal: continue Phenobarb protocol, thiamine, FA supplement Pneumonia: No sob, continue Ceftriaxone and Azithro syrup. Hypomagnesemia:?repleted and mproved. ?Added magnesium supplements. Hyponatremia:around 130--stable, from alcohol use Abdominal discomfort:?? Alcoholic gastritis Added PPI retrotracheal posterior possible mass Patient denies any shortness of breath or any dysphagia oncology evaluation recomended bronchoscopy for eval of mass seen by pulm-recomended?bronchoscopy will keep npo past midnight for bronchoscopy also barium swallow was done -seems fine dvt prophylax: s/clovenox Need of inpatient stay:? trach mass -will need bronchoscopy next week, Pneumonia on IV antibiotics, also patient has alcohol withdrawal on phenobarb protocol as well as need CIWA monitoring. Time Spent With Patient Time: Total time managing care of this patient today ____ minutes. Quality Stroke Does the patient have a stroke diagnosis?: No VTE Prior VTE?: No VTE Risk Level:: Medical - moderate - high VTE Device Contraindication: Treatment Not Indicated VTE Drug Contraindication: N/A - Med Ordered
--- NOTE | 2022-10-25 14:23 | MHC.SL.SWA ---
Speech Pathologist Impression: Risk of Aspiration Due to: History of Pneumonia Dysphasia Diet Status: Recommend patient continue on Ground/Mechanical Altered (NDD2) with thin liquids, pills whole in puree. Patient continues to REQUIRE supervision during his meals, cuing to use strategies of DOUBLE SWALLOW on bites of solid foods, alternated with sips of liquid. Monitor for signs of aspiration, discontinue if patient is coughing/demonstrating clinical signs of aspiration. Liquid Consistency and Strategies for Safe Swallow: Liquid Intake Recommendation: Thin Liquid Intake Strategies: No Straws Double Swallow Solid Food Consistency: Dietary Recommendations: Grnd/Mech Altered (NDD2) Additional Modifications to Solid Foods: 1-1 supervision, cue to DOUBLE SWALLLOW on solids, take small bites and sips, alternated liquids and solids, avoid mouth packing by cuing to swallow after each bite. Oral Medication Intake: Whole with Puree Please contact the pharmacy regarding appropriate crushable or liquid drug formulations that are available whenever modified delivery is recommended. Compensatory Strategies and Precautions to be Taken for Safe Swallow: Sitting Upright (90 deg) Double Swallow No Straw Liquids from Cup Small Bites and Sips Alternate Liquids/Solids Oral Check Supervision While Eating and Drinking for Safe Swallow: Total Supervision (1:1) Foods to Avoid: Avoid hard to chew solids, sticky textures, and mixed consistencies Swallowing Recommended Treatments: Compens. Strategy Educat. Recommendation for Speech: Inpatient Speech Therapy Comment: Pt seen for MBSS study yesterday, recommended for a Ground Mechanical (NDD2) diet with thin liquids, with swallowing strategies due noted oropharyngeal dysphagia (slow labored mastication during oral phase secondary to edentulous state, Penetration without aspiration noted on swallow, incomplete closure of laryngeal vestibule/reduced laryngeal elevation, pharyngeal residue noted during pharyngeal phase). Patient was alone in room eating meal, rn intensive care unit had been passing room and noted patient was coughing repeatedly. WAX ENGRAVER entered room and self introduced to patient, patient was highly irritated, stated Get out of here! and waved away WAX ENGRAVER, while continuing to cough. WAX ENGRAVER took steps back to observe from a distance, observed patient taking sips of liquid without evidencing coughing or distress after swallow. Patient was then observed to take bite of mashed potato, appeared to produce a timely swallow with no coughing after swallow. Patient then noticed WAX ENGRAVER, began shouting again, WAX ENGRAVER left room. Recommend patient continue on Ground/Mechanical Altered (NDD2) with thin liquids, pills whole in puree. Patient continues to REQUIRE supervision during his meals, cuing to use strategies of DOUBLE SWALLOW on bites of solid foods, alternated with sips of liquid. Monitor for signs of aspiration, discontinue if patient is coughing/demonstrating clinical signs of aspiration. MBSS 10/21/22 revealed moderate oropharyngeal phase dysphagia, characterized by slowed and prolonged oral phase secondary to edentulous state and incomplete laryngeal vestibular closure with resultant flash penetration with liquids. No evidence of aspiration during this exam, however, presence of penetration puts pt at risk of aspiration. There was mild pharyngeal retention with solids which subsequently cleared with a dry swallow. Pt was unable to chew the shortbread cookie and subsequently spit it out. Recommend modified diet GROUND/MECHANICALLY ALTERED (NDD2) solids for ease of mastication with THIN liquids and ASPIRATION PRECAUTIONS: -Take small bites of food -Moisten food with sauces and gravies, ensuring sauces are mixed and blended in well with food -Chew food well -Avoid hard to chew solids, sticky textures, and mixed consistencies -Double swallow -Take small, individual sips of liquid -Avoid taking consecutive sips -Avoid the use of straws -Maintain upright 90 degree position during PO intake Frequency/Duration: Date Range for Service Req: Timeline to reassess: Fitness Sales Consultant Clinican/Clinical Fellow: No Supervisory Statement: I have reviewed and agree with the student/clinical fellow's documentation: N/A Speech Language Pathologist: Palma Webb M.A., CCC-WAX ENGRAVER
[2022-10-25 15:19] VITALS: BP 161/79; PULSE 68; RESP 18; TEMP 36.9; O2SAT 97
[2022-10-25] MEDS: cefTRIAXone sodium 1 GM in 0.9 % Sodium Chloride 50 ML IV (17:39)
[2022-10-25 19:14] VITALS: BP 172/85; PULSE 65; RESP 18; TEMP 36.8; O2SAT 96
[2022-10-25] MEDS: Azithromycin 500 MG TABLET PO (20:24)
[2022-10-25] MEDS: Acetaminophen 325 MG TABLET 650 MG PO (22:05)
[2022-10-25] MEDS: Enoxaparin Sodium 40 MG/0.4 ML SYRINGE SUBCUT (22:05)
[2022-10-26] VITALS (12 sets, daily range): BP systolic 98–150; BP diastolic 60–83; PULSE 57–90; RESP 16–20; TEMP 36–37.1; O2SAT 93–97
[2022-10-26] MEDS: Thiamine HCL 200 MG in 0.9 % Sodium Chloride 100 ML 204 MG IV ×3 (03:48→21:17)
[2022-10-26 07:10] LABS: Creatinine Clr Calc Pharmacy 85.2; Estimated Glomerular Filt Rate > 60
[2022-10-26] MEDS: Folic Acid 1 MG TABLET PO (07:40)
[2022-10-26] MEDS: cloNIDine HCL 0.1 MG TABLET PO ×2 (07:40→21:22)
[2022-10-26] MEDS: Magnesium Oxide 400 MG TABLET PO ×2 (07:40→16:14)
--- NOTE | 2022-10-26 10:25 | P.PNIM_ITS ---
Subjective Subjective Date of Service: 10/26/22 Interval History: f/u on alcohol withdrawal no sob, no tremors Review of Systems has cough ,sob (intermittent ),no dysphagia no fevers overnight Physical Exam Vital Signs: Vital Signs: Last Vital Signs Temp 96.8 F 10/26/22 07:17 Pulse 72 10/26/22 07:17 Resp 18 10/26/22 07:17 BP 132/64 10/26/22 07:17 Pulse Ox 96 10/26/22 07:17 O2 Del Method 10/26/22 07:17 O2 Flow Rate 2 10/21/22 07:04 BMI result Body Mass Index 21.2 Const: Other: General: AO X 3, no acute distress Resp: CTA bilateral CVS: S1,S2,RRR GI: +BS, NT, no distention Skin: No rash Neuro: motor grossly intact Psych: appropriate affect Objective Data Active Medications Acetaminophen (Acetaminophen 325 Mg Tablet) 650 mg PO Q6H PRN PRN Reason: Pain, Mild (Pain Scale 1-3) Last Admin: 10/25/22 22:05 Dose: 650 mg Documented By: CHAD Azithromycin (Azithromycin 500 Mg Tablet) 500 mg PO Q24H [facility] Last Admin: 10/25/22 20:24 Dose: 500 mg Documented By: CHAD Clonidine HCl (Clonidine Hcl 0.1 Mg Tablet) 0.1 mg PO BID [facility]; Protocol Last Admin: 10/26/22 07:40 Dose: 0.1 mg Documented By: DARIO Docusate Sodium (Docusate Sodium 100 Mg Capsule) 100 mg PO DAILY PRN PRN Reason: Constipation Enoxaparin Sodium (Enoxaparin Sodium 40 Mg/0.4 Ml Syringe) 40 mg SUBCUT Q24H [facility] Last Admin: 10/25/22 22:05 Dose: 40 mg Documented By: CHAD Folic Acid (Folic Acid 1 Mg Tablet) 1 mg PO DAILY [facility] Last Admin: 10/26/22 07:40 Dose: 1 mg Documented By: DARIO Ceftriaxone Sodium 1 gm/ (Sodium Chloride) 50 mls @ 100 mls/hr IV Q24H [facility] Last Infusion: 10/25/22 19:25 Dose: 100 mls/hr Documented By: RUMA Thiamine HCl 200 mg/ Sodium (Chloride) 102 mls @ 204 mls/hr IV Q8H [facility] Last Infusion: 10/26/22 04:22 Dose: 0 mls/hr Documented By: CHAD Lactated Ringer's (Lr) 1,000 mls @ 50 mls/hr IVCONT .Q20H [facility] Last Admin: 10/25/22 23:27 Dose: 50 mls/hr Documented By: RONILAsya Lactated Ringer's (Lr) 1,000 mls @ 50 mls/hr IVCONT .Q20H [facility] Magnesium Oxide (Magnesium Oxide 400 Mg Tablet) 400 mg PO BIDPC [facility] Last Admin: 10/26/22 07:40 Dose: 400 mg Documented By: DARIO Omeprazole (Omeprazole 20 Mg Capsule.Dr) 20 mg PO BID@0630,1630 [facility] Last Admin: 10/26/22 05:36 Dose: Not Given Documented By: CHAD Non-Admin Reason: NPO Ondansetron HCl (Ondansetron Hcl 4 Mg/2 Ml Vial) 4 mg IVPUSH Q8H PRN PRN Reason: Nausea and Vomiting Last Admin: 10/22/22 23:15 Dose: 4 mg Documented By: CHER Pharmacy Consult (Consult Rx Perform Med Rec) 1 each MISCELLANE ONCE PRN PRN Reason: Consult order Pharmacy Consult (Consult Rx Etoh Phenob Im/Po) 1 each MISCELLANE ONCE PRN; Protocol PRN Reason: Consult order Pharmacy Consult (Consult Rx Vancomycin Dosing) 1 each MISCELLANE DAILY PRN PRN Reason: Consult order Sodium Chloride (0.9 % Sodium Chloride Flush 3 Ml Syringe) 3 ml IVFLUSH QSHIFT [facility] Last Admin: 10/26/22 07:40 Dose: Not Given Documented By: DARIO Non-Admin Reason: IV Running Labs 10/25/22 05:10 10/26/22 05:19 Labs: Laboratory Results - last 24 hr 10/26/22 05:19 Anion Gap Cancelled Estim Creat Clear Calc 85.2 Estimated GFR > 60 Assessment and Plan (1) Hyponatremia: Status: Acute (2) Chest mass: Status: Acute Plan 67 y/om? alcohol withdrawal, pneumonia, hyponatremia. Alcohol withdrawal: continue Phenobarb protocol, thiamine, FA supplement Pneumonia: No sob, continue Ceftriaxone and Azithro syrup. Hypomagnesemia:?repleted and mproved. ?Added magnesium supplements. Hyponatremia:around 130--stable, from alcohol use Abdominal discomfort:?? Alcoholic gastritis Added PPI retrotracheal posterior possible mass Patient denies any shortness of breath or any dysphagia oncology evaluation recomended bronchoscopy for eval of mass seen by pulm-recomended?bronchoscopy For bronchoscopy today dvt prophylax: s/clovenox Need of inpatient stay:? trach mass -will need bronchoscopy next week, Pneumonia on IV antibiotics, also patient has alcohol withdrawal on phenobarb protocol as well as need CIWA monitoring. Time Spent With Patient Time: Total time managing care of this patient today ____ minutes. Quality Stroke Does the patient have a stroke diagnosis?: No VTE Prior VTE?: No VTE Risk Level:: Medical - moderate - high VTE Device Contraindication: Treatment Not Indicated VTE Drug Contraindication: N/A - Med Ordered
--- NOTE | 2022-10-26 10:27 | HO.ANESPROP2 ---
HPI - Anesthesia Eval Consult details Narrative: Posterior, retrotracheal mass PMFSH Active Problems Active Problems: All Active Problems (Updated 10/21/22 @ 11:18 by Yajaira Schmitz MD) Chest mass (Acute) Community acquired pneumonia (Acute) Alcohol abuse with withdrawal (Acute) Gastritis (Acute) Hypomagnesemia (Acute) Hyponatremia (Acute) Alcoholic intoxication (Acute) Tracheal mass (Acute) Pneumonia (Acute) Alcohol use disorder, severe, dependence (Acute) Fracture of forearm, distal, right, closed (Acute) Past Medical History Medical History Acute hyponatremia Alcohol abuse Alcoholic intoxication CVA (cerebral vascular accident) Delirium tremens Encounter for assessment of decision-making capacity Fall Hard of hearing Hyponatremia Injury of right lower arm PAD (peripheral artery disease) Functional capacity: independent ambulation Family History Family history of problems with anesthesia: No Surgical History History of Problems with Anesthesia: No Social History Social History Household Members: None Housing: Homeless Alcohol intake: current Alcohol intake frequency: 3 or more drinks per day Alcohol type: beer, wine and hard liquor Patient Tobacco Use Status: Current everyday Tobacco user Tobacco use type: Cigarette Smoked in Last 30 Days: Yes e-Cigarette/Vaping Use: Currently Using Use of substances other than those prescribed or required for medical reasons: No Currently Displaying Signs/Symptoms of Drug Intoxication Withdrawal: No Are you DNR?: No Advance Directives: No Advance Directives Information Provided: No Current/Past Psychiatric Disorders: Alcohol abuse Roach Symptoms: Impulsivity Access to Firearms: No Do you have thoughts of harming others: None Do you have a plan to hurt others: No Plan Recently lost weight without trying: Unsure Eating poorly because of decreased appetite: No Nutrition Risks: No Nutritional Risk Poor oral hygiene: Yes service: No Current occupational status: unemployed Meds Allergies Allergy/AdvReac Type Severity Reaction Status Date / Time No Known Allergies Allergy Unknown UNKNOWN Verified 09/08/20 17:05 [NO KNOWN ALLERGIES] Active Medications: Current Medications Acetaminophen (Acetaminophen 325 Mg Tablet) 650 mg PO Q6H PRN PRN Reason: Pain, Mild (Pain Scale 1-3) Last Admin: 10/25/22 22:05 Dose: 650 mg Azithromycin (Azithromycin 500 Mg Tablet) 500 mg PO Q24H [facility] Last Admin: 10/25/22 20:24 Dose: 500 mg Clonidine HCl (Clonidine Hcl 0.1 Mg Tablet) 0.1 mg PO BID [facility]; Protocol Last Admin: 10/26/22 07:40 Dose: 0.1 mg Docusate Sodium (Docusate Sodium 100 Mg Capsule) 100 mg PO DAILY PRN PRN Reason: Constipation Enoxaparin Sodium (Enoxaparin Sodium 40 Mg/0.4 Ml Syringe) 40 mg SUBCUT Q24H [facility] Last Admin: 10/25/22 22:05 Dose: 40 mg Folic Acid (Folic Acid 1 Mg Tablet) 1 mg PO DAILY [facility] Last Admin: 10/26/22 07:40 Dose: 1 mg Ceftriaxone Sodium 1 gm/ (Sodium Chloride) 50 mls @ 100 mls/hr IV Q24H [facility] Last Infusion: 10/25/22 19:25 Dose: Infused Thiamine HCl 200 mg/ Sodium (Chloride) 102 mls @ 204 mls/hr IV Q8H [facility] Last Infusion: 10/26/22 04:22 Dose: Infused Lactated Ringer's (Lr) 1,000 mls @ 50 mls/hr IVCONT .Q20H [facility] Last Admin: 10/25/22 23:27 Dose: 50 mls/hr Lactated Ringer's (Lr) 1,000 mls @ 50 mls/hr IVCONT .Q20H [facility] Magnesium Oxide (Magnesium Oxide 400 Mg Tablet) 400 mg PO BIDPC [facility] Last Admin: 10/26/22 07:40 Dose: 400 mg Omeprazole (Omeprazole 20 Mg Capsule.Dr) 20 mg PO BID@0630,1630 [facility] Last Admin: 10/26/22 05:36 Dose: Not Given Ondansetron HCl (Ondansetron Hcl 4 Mg/2 Ml Vial) 4 mg IVPUSH Q8H PRN PRN Reason: Nausea and Vomiting Last Admin: 10/22/22 23:15 Dose: 4 mg Pharmacy Consult (Consult Rx Perform Med Rec) 1 each MISCELLANE ONCE PRN PRN Reason: Consult order Pharmacy Consult (Consult Rx Etoh Phenob Im/Po) 1 each MISCELLANE ONCE PRN; Protocol PRN Reason: Consult order Pharmacy Consult (Consult Rx Vancomycin Dosing) 1 each MISCELLANE DAILY PRN PRN Reason: Consult order Sodium Chloride (0.9 % Sodium Chloride Flush 3 Ml Syringe) 3 ml IVFLUSH QSHIFT NATASHA Last Admin: 10/26/22 07:40 Dose: Not Given Home Medications Medication Instructions Recorded Confirmed Last Taken Type No Known Home Meds 10/19/22 10/19/22 Unknown History Exam Exam Date and Time: October 26, 2022 1027 Height,Weight and Vital Signs: Height 5 ft 7 in Weight 61.4 kg Last Vital Signs Temp 96.8 F 10/26/22 07:17 Pulse 72 10/26/22 07:17 Resp 18 10/26/22 07:17 BP 132/64 10/26/22 07:17 Pulse Ox 96 10/26/22 07:17 O2 Del Method 10/26/22 07:17 O2 Flow Rate 2 10/21/22 07:04 Pertinent Lab Results Pertinent Lab Results: Laboratory Tests 10/19/22 10/19/22 10/19/22 17:45 17:45 17:45 WBC 10.3 RBC 3.66 L Hgb 12.2 L Hct 33.4 L MCV 91.3 MCH 33.3 H MCHC 36.5 H RDW 11.7 Plt Count 251 MPV 9.5 Immature Gran % (Auto) 0.4 Neut % (Auto) 73.8 H Lymph % (Auto) 18.8 L Morris % (Auto) 5.2 Eos % (Auto) 1.2 Baso % (Auto) 0.6 Lymph # (Auto) 1.9 Morris # (Auto) 0.5 Eos # (Auto) 0.1 Baso # (Auto) 0.1 Abs Immat Gran (auto) 0.04 H Absolute Neuts (auto) 7.6 Absolute Nucleated RBC 0.000 Nucleated RBC % (auto) 0.0 D-Dimer High Sensitivty Sodium 123 L Potassium 3.7 Chloride 89 L Carbon Dioxide 21 L Anion Gap 17 BUN 8 L Creatinine 0.70 Estim Creat Clear Calc 106.2 Estimated GFR > 60 Random Glucose 88 Osmolality Lactic Acid Calcium 8.6 Magnesium 1.5 L Total Bilirubin 0.5 AST 26 ALT 13 Alkaline Phosphatase 63 Lactate Dehydrogenase Troponin I High Sens B-Natriuretic Peptide Total Protein 6.4 L Albumin 3.4 L Carcinoembryonic Ag Urine Color Urine Appearance Urine pH Ur Specific [place] Urine Protein Urine Glucose (UA) Urine Ketones Urine Blood Urine Nitrite Ur Leukocyte Esterase Urine RBC Urine WBC Ur Squamous Epith Cells Urine Bacteria Hyaline Casts Urine Osmolality Urine Creatinine Random Vancomycin Salicylates < 5.0 L Urine Opiates Screen Urine Fentanyl Screen Acetaminophen < 17 Ur Barbiturates Screen Ur Phencyclidine Scrn Ur Amphetamines Screen U Benzodiazepines Scrn Urine Cocaine Screen U Marijuana (THC) Screen Ethyl Alcohol COVID-19 ([facility]) Negative COVID-19 Clin Com See Note Influenza Type A ([facility]) Influenza Type B ([facility]) Influenza A & B Note 10/19/22 10/19/22 10/19/22 17:45 17:45 17:45 WBC RBC Hgb Hct MCV MCH MCHC RDW Plt Count MPV Immature Gran % (Auto) Neut % (Auto) Lymph % (Auto) Morris % (Auto) Eos % (Auto) Baso % (Auto) Lymph # (Auto) Morris # (Auto) Eos # (Auto) Baso # (Auto) Abs Immat Gran (auto) Absolute Neuts (auto) Absolute Nucleated RBC Nucleated RBC % (auto) D-Dimer High Sensitivty 295 Sodium Potassium Chloride Carbon Dioxide Anion Gap BUN Creatinine Estim Creat Clear Calc Estimated GFR Random Glucose Osmolality Lactic Acid Calcium Magnesium Total Bilirubin AST ALT Alkaline Phosphatase Lactate Dehydrogenase Troponin I High Sens B-Natriuretic Peptide 39 Total Protein Albumin Carcinoembryonic Ag Urine Color Urine Appearance Urine pH Ur Specific [place] Urine Protein Urine Glucose (UA) Urine Ketones Urine Blood Urine Nitrite Ur Leukocyte Esterase Urine RBC Urine WBC Ur Squamous Epith Cells Urine Bacteria Hyaline Casts Urine Osmolality Urine Creatinine Random Vancomycin Salicylates Urine Opiates Screen Urine Fentanyl Screen Acetaminophen Ur Barbiturates Screen Ur Phencyclidine Scrn Ur Amphetamines Screen U Benzodiazepines Scrn Urine Cocaine Screen U Marijuana (THC) Screen Ethyl Alcohol 194 COVID-19 ([facility]) COVID-19 Clin Com Influenza Type A ([facility]) Influenza Type B ([facility]) Influenza A & B Note 10/19/22 10/19/22 10/19/22 17:45 17:45 17:45 WBC RBC Hgb Hct MCV MCH MCHC RDW Plt Count MPV Immature Gran % (Auto) Neut % (Auto) Lymph % (Auto) Morris % (Auto) Eos % (Auto) Baso % (Auto) Lymph # (Auto) Morris # (Auto) Eos # (Auto) Baso # (Auto) Abs Immat Gran (auto) Absolute Neuts (auto) Absolute Nucleated RBC Nucleated RBC % (auto) D-Dimer High Sensitivty Sodium Potassium Chloride Carbon Dioxide Anion Gap BUN Creatinine Estim Creat Clear Calc Estimated GFR Random Glucose Osmolality Lactic Acid Calcium Magnesium Total Bilirubin AST ALT Alkaline Phosphatase Lactate Dehydrogenase Troponin I High Sens B-Natriuretic Peptide Total Protein Albumin Carcinoembryonic Ag Urine Color Yellow Urine Appearance Clear Urine pH 6.0 Ur Specific [place] <= 1.005 Urine Protein Negative Urine Glucose (UA) Negative Urine Ketones Negative Urine Blood Negative Urine Nitrite Negative Ur Leukocyte Esterase Moderate (2+) H Urine RBC 0-2 Urine WBC 11-20 H Ur Squamous Epith Cells 0-2 Urine Bacteria None Seen Hyaline Casts 0-2 Urine Osmolality Urine Creatinine Random Vancomycin Salicylates Urine Opiates Screen Not Detected Urine Fentanyl Screen Not Detected Acetaminophen Ur Barbiturates Screen Not Detected Ur Phencyclidine Scrn Not Detected Ur Amphetamines Screen Not Detected U Benzodiazepines Scrn Not Detected Urine Cocaine Screen Not Detected U Marijuana (THC) Screen Not Detected Ethyl Alcohol COVID-19 ([facility]) COVID-19 Clin Com Influenza Type A ([facility]) Negative Influenza Type B ([facility]) Negative Influenza A & B Note See Note 10/19/22 10/19/22 10/19/22 17:45 18:44 21:33 WBC RBC Hgb Hct MCV MCH MCHC RDW Plt Count MPV Immature Gran % (Auto) Neut % (Auto) Lymph % (Auto) Morris % (Auto) Eos % (Auto) Baso % (Auto) Lymph # (Auto) Morris # (Auto) Eos # (Auto) Baso # (Auto) Abs Immat Gran (auto) Absolute Neuts (auto) Absolute Nucleated RBC Nucleated RBC % (auto) D-Dimer High Sensitivty Sodium Potassium Chloride Carbon Dioxide Anion Gap BUN Creatinine Estim Creat Clear Calc Estimated GFR Random Glucose Osmolality 297 Lactic Acid 1.9 Calcium Magnesium Total Bilirubin AST ALT Alkaline Phosphatase Lactate Dehydrogenase Troponin I High Sens 7.1 B-Natriuretic Peptide Total Protein Albumin Carcinoembryonic Ag Urine Color Urine Appearance Urine pH Ur Specific [place] Urine Protein Urine Glucose (UA) Urine Ketones Urine Blood Urine Nitrite Ur Leukocyte Esterase Urine RBC Urine WBC Ur Squamous Epith Cells Urine Bacteria Hyaline Casts Urine Osmolality Urine Creatinine Random Vancomycin Salicylates Urine Opiates Screen Urine Fentanyl Screen Acetaminophen Ur Barbiturates Screen Ur Phencyclidine Scrn Ur Amphetamines Screen U Benzodiazepines Scrn Urine Cocaine Screen U Marijuana (THC) Screen Ethyl Alcohol COVID-19 ([facility]) COVID-19 Clin Com Influenza Type A ([facility]) Influenza Type B ([facility]) Influenza A & B Note 10/19/22 10/19/22 10/19/22 21:33 21:33 21:33 WBC RBC Hgb Hct MCV MCH MCHC RDW Plt Count MPV Immature Gran % (Auto) Neut % (Auto) Lymph % (Auto) Morris % (Auto) Eos % (Auto) Baso % (Auto) Lymph # (Auto) Morris # (Auto) Eos # (Auto) Baso # (Auto) Abs Immat Gran (auto) Absolute Neuts (auto) Absolute Nucleated RBC Nucleated RBC % (auto) D-Dimer High Sensitivty Sodium 128 L Potassium 3.3 Chloride 97 Carbon Dioxide 19 L Anion Gap 15 BUN 7 L Creatinine 0.63 Estim Creat Clear Calc 118.0 Estimated GFR > 60 Random Glucose 128 H Osmolality Lactic Acid Calcium 8.0 L D Magnesium Total Bilirubin AST ALT Alkaline Phosphatase Lactate Dehydrogenase Troponin I High Sens B-Natriuretic Peptide Total Protein Albumin Carcinoembryonic Ag Urine Color Urine Appearance Urine pH Ur Specific [place] Urine Protein Urine Glucose (UA) Urine Ketones Urine Blood Urine Nitrite Ur Leukocyte Esterase Urine RBC Urine WBC Ur Squamous Epith Cells Urine Bacteria Hyaline Casts Urine Osmolality 147 L Urine Creatinine 16.77 Random Vancomycin Salicylates Urine Opiates Screen Urine Fentanyl Screen Acetaminophen Ur Barbiturates Screen Ur Phencyclidine Scrn Ur Amphetamines Screen U Benzodiazepines Scrn Urine Cocaine Screen U Marijuana (THC) Screen Ethyl Alcohol COVID-19 ([facility]) COVID-19 Clin Com Influenza Type A ([facility]) Influenza Type B ([facility]) Influenza A & B Note 10/20/22 10/20/22 10/20/22 05:53 05:53 05:53 WBC 7.9 RBC 3.82 L Hgb 12.7 L Hct 35.3 L MCV 92.4 MCH 33.2 H MCHC 36.0 RDW 11.9 Plt Count 282 MPV 9.9 Immature Gran % (Auto) 0.4 Neut % (Auto) 74.0 H Lymph % (Auto) 16.9 L Morris % (Auto) 5.5 Eos % (Auto) 2.3 Baso % (Auto) 0.9 Lymph # (Auto) 1.3 Morris # (Auto) 0.4 Eos # (Auto) 0.2 Baso # (Auto) 0.1 Abs Immat Gran (auto) 0.03 Absolute Neuts (auto) 5.9 Absolute Nucleated RBC 0.000 Nucleated RBC % (auto) 0.0 D-Dimer High Sensitivty Sodium 131 L Potassium 4.2 D Chloride 101 Carbon Dioxide 20 L Anion Gap 14 BUN 6 L Creatinine 0.68 Estim Creat Clear Calc 94.0 Estimated GFR > 60 Random Glucose 89 Osmolality 270 L Lactic Acid Calcium 8.2 L Magnesium 1.7 Total Bilirubin AST ALT Alkaline Phosphatase Lactate Dehydrogenase Troponin I High Sens B-Natriuretic Peptide Total Protein Albumin Carcinoembryonic Ag Urine Color Urine Appearance Urine pH Ur Specific [place] Urine Protein Urine Glucose (UA) Urine Ketones Urine Blood Urine Nitrite Ur Leukocyte Esterase Urine RBC Urine WBC Ur Squamous Epith Cells Urine Bacteria Hyaline Casts Urine Osmolality Urine Creatinine Random Vancomycin Salicylates Urine Opiates Screen Urine Fentanyl Screen Acetaminophen Ur Barbiturates Screen Ur Phencyclidine Scrn Ur Amphetamines Screen U Benzodiazepines Scrn Urine Cocaine Screen U Marijuana (THC) Screen Ethyl Alcohol COVID-19 ([facility]) COVID-19 Clin Com Influenza Type A ([facility]) Influenza Type B ([facility]) Influenza A & B Note 10/20/22 10/20/22 10/20/22 10:12 17:08 19:59 WBC RBC Hgb Hct MCV MCH MCHC RDW Plt Count MPV Immature Gran % (Auto) Neut % (Auto) Lymph % (Auto) Morris % (Auto) Eos % (Auto) Baso % (Auto) Lymph # (Auto) Morris # (Auto) Eos # (Auto) Baso # (Auto) Abs Immat Gran (auto) Absolute Neuts (auto) Absolute Nucleated RBC Nucleated RBC % (auto) D-Dimer High Sensitivty Sodium 133 L 128 L 130 L Potassium 3.8 3.8 3.9 Chloride 102 99 100 Carbon Dioxide 24 21 L 20 L Anion Gap 11 L 12 14 BUN 8 L 12 11 Creatinine 0.71 0.81 0.81 Estim Creat Clear Calc 90.0 78.9 78.9 Estimated GFR > 60 > 60 > 60 Random Glucose 89 138 H 134 H Osmolality Lactic Acid Calcium 8.1 L 8.2 L 8.0 L Magnesium Total Bilirubin AST ALT Alkaline Phosphatase Lactate Dehydrogenase Troponin I High Sens B-Natriuretic Peptide Total Protein Albumin Carcinoembryonic Ag Urine Color Urine Appearance Urine pH Ur Specific [place] Urine Protein Urine Glucose (UA) Urine Ketones Urine Blood Urine Nitrite Ur Leukocyte Esterase Urine RBC Urine WBC Ur Squamous Epith Cells Urine Bacteria Hyaline Casts Urine Osmolality Urine Creatinine Random Vancomycin Salicylates Urine Opiates Screen Urine Fentanyl Screen Acetaminophen Ur Barbiturates Screen Ur Phencyclidine Scrn Ur Amphetamines Screen U Benzodiazepines Scrn Urine Cocaine Screen U Marijuana (THC) Screen Ethyl Alcohol COVID-19 ([facility]) COVID-19 Clin Com Influenza Type A ([facility]) Influenza Type B ([facility]) Influenza A & B Note 10/21/22 10/21/22 10/22/22 07:36 16:55 05:31 WBC RBC Hgb Hct MCV MCH MCHC RDW Plt Count MPV Immature Gran % (Auto) Neut % (Auto) Lymph % (Auto) Morris % (Auto) Eos % (Auto) Baso % (Auto) Lymph # (Auto) Morris # (Auto) Eos # (Auto) Baso # (Auto) Abs Immat Gran (auto) Absolute Neuts (auto) Absolute Nucleated RBC Nucleated RBC % (auto) D-Dimer High Sensitivty Sodium 130 L Potassium 3.6 Chloride 100 Carbon Dioxide 23 Anion Gap 11 L BUN 6 L Creatinine 0.69 0.66 Estim Creat Clear Calc 92.6 96.9 Estimated GFR > 60 > 60 Random Glucose 111 Osmolality Lactic Acid Calcium 8.0 L Magnesium Total Bilirubin AST ALT Alkaline Phosphatase Lactate Dehydrogenase 196 Troponin I High Sens B-Natriuretic Peptide Total Protein Albumin Carcinoembryonic Ag 4.80 Urine Color Urine Appearance Urine pH Ur Specific [place] Urine Protein Urine Glucose (UA) Urine Ketones Urine Blood Urine Nitrite Ur Leukocyte Esterase Urine RBC Urine WBC Ur Squamous Epith Cells Urine Bacteria Hyaline Casts Urine Osmolality Urine Creatinine Random Vancomycin 8.5 L Salicylates Urine Opiates Screen Urine Fentanyl Screen Acetaminophen Ur Barbiturates Screen Ur Phencyclidine Scrn Ur Amphetamines Screen U Benzodiazepines Scrn Urine Cocaine Screen U Marijuana (THC) Screen Ethyl Alcohol COVID-19 ([facility]) COVID-19 Clin Com Influenza Type A ([facility]) Influenza Type B ([facility]) Influenza A & B Note 10/23/22 10/24/22 10/25/22 05:25 05:09 05:10 WBC RBC Hgb Hct MCV MCH MCHC RDW Plt Count MPV Immature Gran % (Auto) Neut % (Auto) Lymph % (Auto) Morris % (Auto) Eos % (Auto) Baso % (Auto) Lymph # (Auto) Morris # (Auto) Eos # (Auto) Baso # (Auto) Abs Immat Gran (auto) Absolute Neuts (auto) Absolute Nucleated RBC Nucleated RBC % (auto) D-Dimer High Sensitivty Sodium Potassium Chloride Carbon Dioxide Anion Gap BUN Creatinine 0.68 0.60 Cancelled Estim Creat Clear Calc 94.0 106.5 Cancelled Estimated GFR > 60 > 60 Cancelled Random Glucose Osmolality Lactic Acid Calcium Magnesium Total Bilirubin AST ALT Alkaline Phosphatase Lactate Dehydrogenase Troponin I High Sens B-Natriuretic Peptide Total Protein Albumin Carcinoembryonic Ag Urine Color Urine Appearance Urine pH Ur Specific [place] Urine Protein Urine Glucose (UA) Urine Ketones Urine Blood Urine Nitrite Ur Leukocyte Esterase Urine RBC Urine WBC Ur Squamous Epith Cells Urine Bacteria Hyaline Casts Urine Osmolality Urine Creatinine Random Vancomycin Salicylates Urine Opiates Screen Urine Fentanyl Screen Acetaminophen Ur Barbiturates Screen Ur Phencyclidine Scrn Ur Amphetamines Screen U Benzodiazepines Scrn Urine Cocaine Screen U Marijuana (THC) Screen Ethyl Alcohol COVID-19 ([facility]) COVID-19 Clin Com Influenza Type A ([facility]) Influenza Type B ([facility]) Influenza A & B Note 10/25/22 10/25/22 10/26/22 05:10 05:10 05:19 WBC 8.2 RBC 3.77 L Hgb 12.7 L Hct 35.6 L MCV 94.4 MCH 33.7 H MCHC 35.7 RDW 11.9 Plt Count 195 D MPV 11.7 Immature Gran % (Auto) Neut % (Auto) Lymph % (Auto) Morris % (Auto) Eos % (Auto) Baso % (Auto) Lymph # (Auto) Morris # (Auto) Eos # (Auto) Baso # (Auto) Abs Immat Gran (auto) Absolute Neuts (auto) Absolute Nucleated RBC 0.000 Nucleated RBC % (auto) 0.0 D-Dimer High Sensitivty Sodium 130 L Cancelled Potassium 5.3 H D Cancelled Chloride 100 Cancelled Carbon Dioxide 20 L Cancelled Anion Gap 15 Cancelled BUN 18 H Creatinine 0.67 0.75 Estim Creat Clear Calc 95.4 85.2 Estimated GFR > 60 > 60 Random Glucose 86 Osmolality Lactic Acid Calcium 8.9 D Magnesium Total Bilirubin AST ALT Alkaline Phosphatase Lactate Dehydrogenase Troponin I High Sens B-Natriuretic Peptide Total Protein Albumin Carcinoembryonic Ag Urine Color Urine Appearance Urine pH Ur Specific [place] Urine Protein Urine Glucose (UA) Urine Ketones Urine Blood Urine Nitrite Ur Leukocyte Esterase Urine RBC Urine WBC Ur Squamous Epith Cells Urine Bacteria Hyaline Casts Urine Osmolality Urine Creatinine Random Vancomycin Salicylates Urine Opiates Screen Urine Fentanyl Screen Acetaminophen Ur Barbiturates Screen Ur Phencyclidine Scrn Ur Amphetamines Screen U Benzodiazepines Scrn Urine Cocaine Screen U Marijuana (THC) Screen Ethyl Alcohol COVID-19 ([facility]) COVID-19 Clin Com Influenza Type A ([facility]) Influenza Type B ([facility]) Influenza A & B Note Narrative Narrative: [id number] Airway Mallampati Class: II TM Dist: >3cm Neck ROM: Limited Heart: rrr Lungs: cta Assessment and Plan Assessment Anesthesia Assessment: Anesthesia Plan Discussed and Chart Reviewed Final Anesthetic Review Family History of Problems with Anesthesia: No History of Problems with Anesthesia: No NPO: Yes ASA Class: IV Final Preanesthetic Review: No Changes in Pt Med Stat, Meds/Allgs Chart Reviewed, Consent Obtained/Reviewed and Anes Risks/Benef Reviewed Patient Risk: High Procedure Risk: Intermediate Anesthetic Plan Anesthetic Plan: GA and Agree w/ Assess. and Plan Disposition: Standard PACU
[2022-10-26] MEDS: Lactated Ringers 1,000 ML 50 ML IVCONT (10:46)
--- NOTE | 2022-10-26 11:36 | MHC.SLORD ---
Addendum entered and electronically signed by Maria Isabel Carrillo MA, CCC-CLAIMS SUPERVISOR 10/27/22 10:34: D.S. Original Note: Addendum entered and electronically signed by CLAUDY Hamm 10/26/22 14:20: Per RN, pt is requesting PB&J sandwich. Based on MBSS evaluation, pt is cleared to have soft sandwiches (i.e. PB&J). CLAIMS SUPERVISOR will continue to follow. Original Note: Speech Language Pathology Order Status: Pt not in room and currently NPO for brochoscopy. CLAIMS SUPERVISOR to continue to follow to provide education f/u to MBSS completed on 10/21/22.
--- NOTE | 2022-10-26 13:24 | MHC.CM.PN ---
EMR REVIEWED, PER HOSPITAL PT HAD EATEN YESTERDAY SO BRONCHOSCOPY WAS DELAYED, PLAN FOR PROCEDURE TODAY AND DCP PLAN CONT'S TO BE FOR [facility] AND PT WILL NEED TRANSPORT
--- NOTE | 2022-10-26 13:50 | PM.PNNEP ---
Subjective Subjective Date of Service: 10/26/22 Interval history: Events noted. All recent data reviewed Physical Exam Vital Signs: Vital Signs: Last Vital Signs Temp 97.0 F 10/26/22 13:06 Pulse 83 10/26/22 13:06 Resp 18 10/26/22 13:06 BP 115/61 10/26/22 13:06 Pulse Ox 97 10/26/22 13:06 O2 Del Method 10/26/22 13:06 O2 Flow Rate 6 10/26/22 12:22 BMI result Body Mass Index 21.2 Const: General: no acute distress Eyes: EOM: EOMs intact bilaterally Neck: Neck: Yes supple Resp: Auscultation: diminished lung sounds Cardio: Rate: regular rate GI: Palpation (GI): Soft to palpation Neuro: General: moves all extremities Objective Data Labs 10/25/22 05:10 10/26/22 05:19 Labs: Laboratory Results - last 24 hr 10/26/22 05:19 Sodium Cancelled Potassium Cancelled Chloride Cancelled Carbon Dioxide Cancelled Anion Gap Cancelled Creatinine 0.75 Estim Creat Clear Calc 85.2 Estimated GFR > 60 Microbiology Microbiology Results: Microbiology 10/19/22 18:44 Blood - Venous Blood Culture - Final No growth after 5 days. 10/19/22 18:16 Urine clean catch - Urine rossi top Urine Culture - Final 10/19/22 18:44 Blood - Venous Blood Culture - Final Coag negative Staphylococcus Procedures Date of Service Date of Service: 10/26/22 Assessment & Plan Assessment and plan (1) Hyponatremia: Status: Acute Assessment and Plan: Euvolemic hyponatremia excessive free water intake and decreased free water clearance poor solute excretion Mild hyperkalemia Lokelma 10 Gram PRN Hypotonic fluid restriction 1500 cc daily Time Spent With Patient Time: Total time managing care of this patient today ____ minutes. Progress Note: Quality Stroke Does the patient have a stroke diagnosis?: No
--- NOTE | 2022-10-26 14:30 | PM.OP ---
Brief Operative Note Date of Service: 10/26/22 Pre-op diagnosis: Lung cancer Post-op diagnosis: same Procedure: Patient intubated for the procedure. Thereafter, flexible bronchoscope passed through the ET tube with inspection of the tracheobronchial tree with normal mucosa and no endobronchial lesions noted. Then bronchoscope was exchanged to EBUS scope and EBUS guided biopsy of station 7/posterior tracheal mass obtained with intraprocedural microscopy suggestive of malignant etiology. Specimens for further pathological examination were sent. Patient tolerated the procedure well and was returned to PACU in stable condition. Surgeon: Priyank Chavarria MD Anesthesia: GETA Was an Inbound Sales Representative used for this Procedure?: No Estimated blood loss (mL): 0 Pathology: other (EBUS biopsy of station 7/posterior tracheal mass) Condition: stable Disposition: PACU
[2022-10-26] MEDS: 0.9 % Sodium Chloride Flush 3 ML SYRINGE IVFLUSH (16:12)
[2022-10-26] MEDS: Omeprazole 20 MG CAPSULE.DR PO (16:13)
[2022-10-26] MEDS: cefTRIAXone sodium 1 GM in 0.9 % Sodium Chloride 50 ML IV (17:52)
[2022-10-26] MEDS: Enoxaparin Sodium 40 MG/0.4 ML SYRINGE SUBCUT (21:16)
[2022-10-26] MEDS: Azithromycin 500 MG TABLET PO (21:16)
[2022-10-27 03:57] VITALS: BP 123/60; PULSE 80; RESP 18; TEMP 36.8; O2SAT 96
[2022-10-27] MEDS: Omeprazole 20 MG CAPSULE.DR PO (05:15)
[2022-10-27] MEDS: Thiamine HCL 200 MG in 0.9 % Sodium Chloride 100 ML 204 MG IV (05:15)
[2022-10-27 07:00] LABS: Creatinine Clr Calc Pharmacy 87.6; Estimated Glomerular Filt Rate > 60
[2022-10-27 07:22] VITALS: BP 122/64; PULSE 69; RESP 18; TEMP 36.6; O2SAT 98
[2022-10-27] MEDS: cloNIDine HCL 0.1 MG TABLET PO (07:56)
[2022-10-27] MEDS: Folic Acid 1 MG TABLET PO (07:56)
[2022-10-27] MEDS: 0.9 % Sodium Chloride Flush 3 ML SYRINGE IVFLUSH ×2 (07:56)
[2022-10-27] MEDS: Magnesium Oxide 400 MG TABLET PO (07:57)
--- NOTE | 2022-10-27 09:07 | PM.DS ---
DS: Providers Provider Date of Service: 10/27/22 Date of admission: 10/19/22 20:38 Primary care physician: Unknown Physician Consults: 10/19/22 20:41 Consult to Nephrology Routine Consulting Provider: Beau Kelsey Reason for consultation: Hyponatremia Has provider been notified: No 10/21/22 09:14 Consult to Hematology / Oncology Routine Consulting Provider: [facility] [place] [facility] Reason for consultation: retrotracheal mass Has provider been notified: Yes 10/21/22 10:49 Consult to Pulmonology Routine Consulting Provider: [facility] [place] [facility] Reason for consultation: Large retrotracheal mass Has provider been notified: No 10/27/22 08:57 Consult to Hematology / Oncology Routine Consulting Provider: Elizabeth Padron Reason for consultation: Cancer Has provider been notified: No DS: Diagnosis Discharge Diagnosis (1) Hyponatremia: Status: Acute DS: Summary Hospital Course Hospital Course: Chief Complaint: alcohol withdrawal ?67-year-old male with past medical history of alcohol abuse, CVA, delirium tremors, history of hyponatremia, peripheral vascular disease, presents the hospital with complaints of alcohol toxication.? Patient is? not cooperating with exam, kicked me out of the room, did not want to tell me any history.? according to the PA patient was brought in by EMS with complaints of alcohol intoxication and shortness of breath.? No other history is obtainable from the patient, and weighed and easily agitated. ? On arrival to the ED patient hemodynamically stable no significant abnormal vitals except satting 91% on room air Labs are significant for WBC count of 10.3, hemoglobin of 12.2, hematocrit 33.4, sodium of 123, serum osmolality of 270, urine osmolality of 147.? magnesium of 1.5 received 2 of IV mag Pt was given? 1/[address] shows no evidence of PE , bilateral lower lobe infiltrates, also seen a large retro tracheal mass which has increased in size previous exam Patient started on antibiotics and will be admitted for further management Hospital course: Alcohol withdrawal:Treated with phenobarbital and resolved. Abstinence discussed with him Pneumonia: Has completed 7 days of Ceftriaxone and Azithro, no symptoms, 98% on room air Hypomagnesemia: related to alcoholism, repleted Hyponatremia:around 130--stable, from alcohol use Abdominal discomfort:?? 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 Underwent bronchoscopy by Dr. Chavarria on 10/26 with finding consistent with cancer, pathology is pending for etiology and treatment option. A follow up appointment has been arrange with Dr. Schmitz on Nov 07 at 1.40, patient is aware of the appointment date and I discussed the importance of keeping up with this appointment for proper treatment of cancer Disp: home Time Spent with Patient Time attestation: Total time managing care of this patient today ____ minutes. Discharge coordination time: Greater than 30 minutes Quality: Safe Use of Opioids Does Pt have an Active Cancer Diagnosis on the Problem List?: No Quality: Stroke Does the patient have a stroke diagnosis?: No Physical Exam Vital Signs: Vital Signs: Last Vital Signs Temp 98 F 10/27/22 07:22 Pulse 69 10/27/22 07:22 Resp 18 10/27/22 07:22 BP 122/64 10/27/22 07:22 Pulse Ox 98 10/27/22 07:22 O2 Del Method 10/27/22 07:22 O2 Flow Rate 6 10/26/22 12:22 BMI result Body Mass Index 21.2 DS: Data Data Completed and Pending Completed studies during hospitalization [Text1]: Procedures Detoxification Services for Substance Abuse Treatment (07/22/21) Insertion of Infusion Device into Superior Vena Cava, Percutaneous Approach (07/22/21) Pending studies at discharge: Pending at discharge 10/26/22 12:23 Cytology [PTH] Routine Labs on day of discharge: Laboratory Results - last 24 hr 10/27/22 05:14 Creatinine 0.73 Estim Creat Clear Calc 87.6 Estimated GFR > 60 Discharge Plan Discharge Anticipated Discharge Date/Time: 10/27/22 09:02 Patient Disposition: Retirement Discharge Diagnosis: Alcohol withdrawal, cancer Referrals: [facility] [Other] - 1 Day ([facility]) Yajaira Schmitz MD [Physician] - 11/07/22 1:40 pm (YOU HAVE AN APPOINTMENT ON October AT 1:40PM ) Physician,Unknown J [Primary Care Provider] - 1 Week Discharge Medications: No Action No Known Home Meds Discharge Orders: Discharge Order (Routine); Ordered 10/27/22 Ordered By: Romel Mcdonough Diet: Advance to usual diet Activity on Discharge: As tolerated Stand Alone Forms: Patient Portal Discharge page Care Plan Goals: Full recovery Health Concerns: Alcohol withdrawal lung mass hyponatremia Plan of Treatment: Follow up with oncology in the office, November 07 at 1. 40 pm Assessment: as above Discharge Date/Time: 10/27/22 15:56
[2022-10-27 09:41] LABS: Anion Gap 17 (12-20); Carbon Dioxide 19 mmol/L (22-29); Chloride 101 mmol/L (96-108); Magnesium 1.8 mg/dL (1.6-2.6); Potassium 5.1 mmol/L (3.3-5.1); Sodium 132 mmol/L (135-145)
--- NOTE | 2022-10-27 10:33 | MHC.CM.PN ---
Addendum entered by Palma Israel RN 10/27/22 10:44: CM MET W/PT WHO IS AGREEABLE TO [facility], [place] TO ARRANGE LYFT FOR TRANSPORT Original Note: CM CONTACTED [facility] TO SEE IF THEY HAVE BEDS AND WOULD BE WILLING TO TAKE PT, PER NURSE PT WAS RESTRICTED D/T HX OF URINATING INDOORS, SMOKING INDOORS AND MAKING RACIAL SLURS HOWEVER THE NURSE DID GET APPROVAL FROM FACETER D/T IT BEING OVER A YEAR AGO AND EXTREME WEATHER CONDITIONS PLANNED FOR THIS WEEKEND. CM WILL DISCUSS W/PT
--- NOTE | 2022-10-27 11:51 | PM.PNNEP ---
Subjective Subjective Date of Service: 10/27/22 Interval history: Events noted. All recent data reviewed Physical Exam Vital Signs: Vital Signs: Last Vital Signs Temp 98 F 10/27/22 07:22 Pulse 69 10/27/22 07:22 Resp 18 10/27/22 07:22 BP 122/64 10/27/22 07:22 Pulse Ox 98 10/27/22 07:22 O2 Del Method 10/27/22 07:22 O2 Flow Rate 6 10/26/22 12:22 BMI result Body Mass Index 21.2 Const: General: no acute distress Eyes: EOM: EOMs intact bilaterally Neck: Neck: Yes supple Resp: Auscultation: diminished lung sounds Cardio: Rate: regular rate GI: Palpation (GI): Soft to palpation Neuro: General: moves all extremities Objective Data Labs 10/25/22 05:10 10/27/22 05:14 Labs: Laboratory Results - last 24 hr 10/27/22 05:14 Sodium 132 L Potassium 5.1 Chloride 101 Carbon Dioxide 19 L Anion Gap 17 Creatinine 0.73 Estim Creat Clear Calc 87.6 Estimated GFR > 60 Magnesium 1.8 Microbiology Microbiology Results: Microbiology 10/19/22 18:44 Blood - Venous Blood Culture - Final No growth after 5 days. 10/19/22 18:16 Urine clean catch - Urine rossi top Urine Culture - Final 10/19/22 18:44 Blood - Venous Blood Culture - Final Coag negative Staphylococcus Procedures Date of Service Date of Service: 10/27/22 Assessment & Plan Assessment and plan (1) Hyponatremia: Status: Acute Assessment and Plan: Euvolemic hyponatremia excessive free water intake and decreased free water clearance poor solute excretion; Mild hyperkalemia Lokelma 10 Gram PRN Hypotonic fluid restriction 1500 cc daily Time Spent With Patient Time: Total time managing care of this patient today ____ minutes. Progress Note: Quality Stroke Does the patient have a stroke diagnosis?: No
--- NOTE | 2022-10-27 13:40 | PC.NURSE ---
Pt. alert and oriented, denies having any pain, VSS. At 12 pm typewriter ribbon winder noted that pt was not on the unit, pt left AMA with his belongings and IV in his arm. , supervisor photocomposition and case management notified. At 1215 nurse from [facility] notified staff that pt is there , pt escorted back to the unit by security. IV removed, instructed to have pt go back to his room until discharge time @4 pm. Camera placed in pt room.
--- NOTE | 2022-10-27 14:07 | MHC.SLORD ---
Speech Language Pathology Order Status: Attempted to see patient at lunch, patient was not in room, room being cleaned at the time of visit. Per RN patient eloped. Per chart, patient to be discharged. Recommend patient continue on diet with soft consistencies in next setting/level of care.
--- NOTE | 2022-10-27 15:33 | HO.POSTANES ---
Post Anesthesia Evaluation Post Anesthesia Evaluation Vital Signs: Vital Signs Temp Pulse Resp BP Pulse Ox O2 Del Method 10/27/22 07:22 98 F 69 18 122/64 98 Room Air 10/27/22 03:57 98.2 F 80 18 123/60 96 Room Air Anesthesia: General Mental Status: Awake Pain Control: Satisfactory Nausea/Vomiting: None Hydration: Adequate Anesthesia-Related Issues: No Anes. Related Issues
== END 2022-10-27 15:56 | disposition home or self-care (01) | DRG 136 ==
LOC: HO.ED 21:05 → HO.EDOVER 21:16 → HO.S3 21:31
PROVIDERS: Hospitalist; Internal Medicine; Internal Medicine Pulmonary Disease; Physician Assistant; Admitting Provider Internal Medicine; Emergency Provider Emergency Medicine; Visit Provider Internal Medicine
PROC: 0BJ08ZZ Inspection of Tracheobronchial Tree, Via Natural or Artificial Opening Endoscopic (ICD-10-PCS; CPT 31622; principal; 2022-10-26 11:00)
PROC: 0BB18ZX Excision of Trachea, Via Natural or Artificial Opening Endoscopic, Diagnostic (ICD-10-PCS; 2022-10-26 11:00)
DX: C33 Malignant neoplasm of trachea (principal); F10.221 Alcohol dependence with intoxication delirium; J15.9 Unspecified bacterial pneumonia; E87.1 Hypo-osmolality and hyponatremia; F17.210 Nicotine dependence, cigarettes, uncomplicated; Y90.7 Blood alcohol level of 200-239 mg/100 ml; E87.5 Hyperkalemia; K29.20 Alcoholic gastritis without bleeding; E83.42 Hypomagnesemia; F10.239 Alcohol dependence with withdrawal, unspecified; Z20.822 Contact with and (suspected) exposure to COVID-19; Z71.6 Tobacco abuse counseling; Z86.73 Personal history of transient ischemic attack (TIA), and cerebral infarction without residual deficits
CPT/HCPCS: 36415; 70450; 71045; 71275; 72125; 74230; 80048; 80051; 80053; 80143; 80179; 80202; 80307; 81001; 82077; 82378; 82565; 83605; 83615; 83735; 83880; 83930; 83935; 84484; 85025; 85027; 85379; 87040; 87086; 87147; 87205; 87502; 87635; 88172; 88173; 88177; 88300; 88305; 88341; 88342; 92526; 92611; 93005; 99285; J0171; J0456; J0696; J1650; J2370; J2405; J2560; J3370; J3371; J3411; J3475; Q9967